=== PATIENT | male | born 1950 | race Caucasian/White ===

== ENCOUNTER → 2016-08-08 | Outpatient (CLI) | payer OTHER ==
--- NOTE | 2016-08-09 09:53 | ECHOF ---
Referral Reason:Dyspnea R06.00 MEASUREMENTS -------- HEIGHT: 180.3 cm WEIGHT: 61.2 kg BP: IVSd: 0.7 cm (0.6 - 1.1) LVIDd: 3.8 cm (3.9 - 5.3) LVPWd: 0.9 cm (0.6 - 1.1) IVSs: 1.2 cm LVIDs: 2.6 cm LVPWs: 1.3 cm Ao Diam: 2.8 cm (2.0 - 3.7) AV Cusp: 1.7 cm (1.5 - 2.6) LA Diam: 2.3 cm (2.7 - 3.8) MV EXCURSION: 10.998 mm (> 18.000) MV EF SLOPE: 117 mm/s (70 - 150) EPSS: 1.0 cm MV E Jb: 0.59 m/s MV DecT: 157 ms MV A Jb: 0.81 m/s MV E/A Ratio: 0.73 RAP: 5.00 mmHg RVSP: 11.05 mmHg FINDINGS -------- Sinus rhythm with extra systolic beats. Resting tachycardia (HR>100bpm). This was a technically good study. Left ventricular wall thickness is normal. Overall left ventricular systolic function is mildly impaired with, an EF between 45 - 50 %. The right ventricle is normal in size and function. The left atrium is normal in size. The right atrium is normal in size. Aortic valve is trileaflet and is mildly thickened. The mitral valve leaflets are mildly thickened. Mild mitral regurgitation is present. Mild tricuspid regurgitation present. The right ventricular systolic pressure, as measured by Doppler, is 11.05mmHg. Pulmonic valve appears structurally normal. The aortic root, ascending aorta and aortic arch are normal. The pericardium is normal. CONCLUSIONS -------- 1. Sinus rhythm with extra systolic beats. 2. The mitral valve leaflets are mildly thickened. 3. Mild mitral regurgitation is present. 4. Mild tricuspid regurgitation present. 5. The right ventricular systolic pressure, as measured by Doppler, is 11.05mmHg. 6. Pulmonic valve appears structurally normal. 7. The aortic root, ascending aorta and aortic arch are normal. 8. The pericardium is normal. 9. Resting tachycardia (HR>100bpm). 10. This was a technically good study. 11. Left ventricular wall thickness is normal. 12. Overall left ventricular systolic function is mildly impaired with, an EF between 45 - 50 %. 13. The right ventricle is normal in size and function. 14. The left atrium is normal in size. 15. The right atrium is normal in size. 16. Aortic valve is trileaflet and is mildly thickened. GUT SNATCHER: Sofie Selby RDCS
== END | disposition home or self-care (01) ==
LOC: RADECHMAIN 14:45
PROVIDERS: ATTEND Family Medicine
DX: I08.1 Rheumatic disorders of both mitral and tricuspid valves (principal); I77.89 Other specified disorders of arteries and arterioles
CPT/HCPCS: 93306

== ENCOUNTER → 2017-10-04 | Outpatient (CLI) | payer OTHER ==
[~2017-10-04] MED LIST: REGADENOSON 0.4 MG/5 ML SYRINGE IV ONE
--- NOTE | 2017-10-04 13:15 | NM ---
"EXAMINATION TYPE: NM stress lexiscan cardiolite DATE OF EXAM: 10/04/2017 COMPARISON: NONE HISTORY: Tachycardia, R00.0 TECHNIQUE: After the intravenous administration of 10.49 mCi Tc 99m Sestamibi - Cardiolite resting S PECT images acquired 45 minutes post injection. The patient received 0.4mg Lexiscan, 26.4 mCi Tc 99m Sestamibi - Stress images obtained [address] injection FINDINGS: Review of stress and rest SPECT images demonstrates some decreased uptake along the septum on stress and rest images. No definite decreased uptake on stress as compared to rest images. Gated analysis sh ows global hypokinesis, somewhat disorganized contractility with an estimated left ventricular ejecti on fraction of 24 %. IMPRESSION: No scintigraphic evidence for reversible ischemia. Correlate for possible prior infarct. Consider alfred carditis, abnormal low cardiac ejection fraction. A Yellow level critical message alert has been initiated for Manjula Marcano via the [facility] | Critical Results System on 10/04/2017 1:11 PM. This message alert has been sent to Manjula Marcano via the preferences provided by the clinician for the receipt of Radiology Critical F indings. Message ID [id number]."
--- NOTE | 2017-10-04 22:02 | EST ---
EXERCISE STRESS AGE: 66 SEX: Male. HT: 6'0" WT: 130 pounds. PROTOCOL: Lexiscan Cardiolite STAGE: DURATION OF EXERCISE: HEART RATE REST: 90 BLOOD PRESSURE REST: 175/58 MAXIMUM HEART RATE ACHIEVED: 112 MAXIMUM BLOOD PRESSURE: 172/89 85% MPHR: 131 100% MPHR: 154 METS: INDICATIONS: Tachycardia. CLINICAL INFORMATION: Baseline EKG revealed a normal sinus rhythm with voltage criteria for LVH. With Lexiscan administration, the patient's heart rate changed from 90 to 110 beats per minute. Blood pressure changed from 175/60 to 166/80. EKG remained unremarkable and inconclusive with rare PVCs. By EKG criteria, this is an unremarkable Lexiscan stress test. The nuclear scan results, which are more pertinent, will be reported by the radiologist. MMARGENTINAL / IJN: [id number] /
== END | disposition home or self-care (01) ==
LOC: RADNMMAIN 09:04
DX: R00.0 Tachycardia, unspecified (principal)
CPT/HCPCS: 93017; 78452; A9500; J2785

== ENCOUNTER → 2018-03-30 | Outpatient (CLI) | payer OTHER ==
--- NOTE | 2018-04-01 11:54 | ECHOF ---
Referral Reason:R94.31 Abn EKG MEASUREMENTS -------- HEIGHT: 182.9 cm WEIGHT: 59.0 kg BP: RVIDd: 1.9 cm (< 3.3) IVSd: 0.9 cm (0.6 - 1.1) LVIDd: 3.9 cm (3.9 - 5.3) LVPWd: 0.9 cm (0.6 - 1.1) IVSs: 1.2 cm LVIDs: 3.1 cm LVPWs: 1.2 cm Ao Diam: 3.6 cm (2.0 - 3.7) AV Cusp: 1.8 cm (1.5 - 2.6) LA Diam: 1.0 cm (2.7 - 3.8) MV E Jb: 0.77 m/s MV DecT: 309 ms MV A Jb: 1.10 m/s MV E/A Ratio: 0.70 FINDINGS -------- Resting tachycardia (HR>100bpm). This was a technically adequate study. The left ventricular size is normal. Left ventricular wall thickness is normal. Overall left vent ricular systolic function is low-normal with, an EF between 50 - 55 %. The right ventricle is normal in size and function. Normal LA size by volume 22+/-6 ml/m2. The right atrium is normal in size. There is mild aortic valve sclerosis. There is no evidence of aortic regurgitation. There is no e vidence of aortic stenosis. The mitral valve leaflets are mildly thickened. There is trace to mild mitral regurgitation. Trace tricuspid regurgitation present. Right ventricular systolic pressure is normal at < 35 mmHg. There is no evidence of pulmonary hypertension. The pulmonic valve was not well visualized. The aortic root size is normal. Normal inferior vena cava with normal inspiratory collapse consistent with estimated right atrial pre ssure of 5 mmHg. There is no pericardial effusion. 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 CONCLUSIONS -------- 1. Resting tachycardia (HR>100bpm). 2. This was a technically adequate study. 3. The left ventricular size is normal. 4. Left ventricular wall thickness is normal. 5. Overall left ventricular systolic function is low-normal with, an EF between 50 - 55 %. 6. Normal LA size by volume 22+/-6 ml/m2. 7. There is mild aortic valve sclerosis. 8. The mitral valve leaflets are mildly thickened. 9. There is trace to mild mitral regurgitation. 10. Trace tricuspid regurgitation present. 11. Right ventricular systolic pressure is normal at < 35 mmHg. 12. There is no evidence of pulmonary hypertension. 13. The pulmonic valve was not well visualized. 14. The aortic root size is normal. 15. There is no pericardial effusion. 16. 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 CONTROL ROOM SUPERVISOR: Ezra Palacios RDCS
== END | disposition home or self-care (01) ==
LOC: RADECHMAIN 15:34
DX: I08.0 Rheumatic disorders of both mitral and aortic valves (principal); I31.1 Chronic constrictive pericarditis
CPT/HCPCS: 93306

== ENCOUNTER 2024-12-27 10:45 | Inpatient (IN) | payer OTHER, MEDICARE ==
--- NOTE | 2024-12-27 11:51 | ED ---
General Adult HPI - General Chief complaint: Weakness Stated complaint: Weakness,SOB Time Seen by Provider: 12/27/24 11:06 Source: patient Mode of arrival: ambulatory Limitations: no limitations - History of Present Illness Initial comments: Dictation was produced using [employer] dictation software. please excuse any grammatical, word or spelling errors. Chief Complaint: 74-year-old male with daughter and girlfriend for weakness and poor appetite History of Present Illness: Patient 74-year-old male history of COPD on home O2. Patient has been feeling weak having poor appetite for the last 2 to 3 days. Patient denies any constitutional symptoms. Denies any pain complaints. Daughter states that patient is dehydrated. The ROS documented in this emergency department record has been reviewed and confirmed by me. Those systems with pertinent positive or negative responses have been documented in the HPI. All other systems are other negative and/or noncontributory. - Related Data Allergies Allergy/AdvReac Type Severity Reaction Status Date / Time No Known Allergies Allergy Verified 12/27/24 11:06 Review of Systems ROS Statement: Those systems with pertinent positive or pertinent negative responses have been documented in the HPI. ROS Other: All systems not noted in ROS Statement are negative. Past Medical History Past Medical History: No Reported History, COPD, Hypertension Past Surgical History: No Surgical Hx Reported Past Psychological History: No Psychological Hx Reported Smoking Status: Never smoker Past Alcohol Use History: None Reported Past Drug Use History: None Reported General Exam - General Exam Comments Initial Comments: PHYSICAL EXAM: General Impression: Alert and oriented x3, not in acute distress HEENT: Normocephalic atraumatic, extra-ocular movements intact, pupils equal and reactive to light bilaterally, dry mucous membranes Cardiovascular: Heart regular rate and rhythm Chest: Able to complete full sentences, no retractions, no tachypnea Abdomen: abdomen soft, non-tender, non-distended, no organomegaly Musculoskeletal: Pulses present and equal in all extremities, no peripheral edema Motor: no focal deficits noted Neurological: CN II-XII grossly intact, no focal motor or sensory deficits noted Skin: Intact with no visualized rashes Psych: Normal affect and mood Limitations: no limitations Course Vital Signs 12/27/24 12/27/24 12/27/24 10:50 11:00 12:23 Temperature 98.1 F Pulse Rate 63 107 H Respiratory 22 20 20 Rate Blood Pressure 142/79 127/85 O2 Sat by Pulse 90 L 98 Oximetry - Reevaluation(s) Reevaluation #1: 12/27/24 12:56 Patient not hypotensive and does not have a lactic acid level above 4. No concern for severe sepsis at this time. EKG Findings - EKG Comments: EKG Findings:: My EKG interpretation: Ventricular rate 112, sinus tachycardia, NM interval 144, cures 90, QTc 367. No NM prolongation, no QTC prolongation, no ST or T-wave changes noted. Overall, this EKG is unremarkable Medical Decision Making - Medical Decision Making Was pt. sent in by a medical professional or institution (, PA, CEMENT PAVER, urgent care, hospital, or assisted...) When possible be specific @ -No Did you speak to anyone other than the patient for history (EMS, parent, family, police, friend...)? What history was obtained from this source @ -Family as described above Did you review nursing and triage notes (agree or disagree)? Why? @ -I reviewed and agree with nursing and triage notes Were old charts reviewed (outside hosp., previous admission, EMS record, old EKG, old radiological studies, urgent care reports/EKG's, assisted records)? Report findings @ -No old charts were reviewed Differential Diagnosis (chest pain, altered mental status, abdominal pain women, abdominal pain men, vaginal bleeding, musculoskeletal, weakness, fever, dyspnea, syncope, headache, dizziness, GI bleed, back pain, seizure, CVA, palpatations, mental health)? @ -Differential Weakness: Hypoglycemia, shock, sepsis, hyponatremia, anemia, infection, NM, ETOH, adverse medicine reaction, overdose, stroke, this is not meant to be an all-inclusive l ist. EKG interpreted by me (3pts min.). @ -See above X-rays interpreted by me (1pt min.). @ -Chest x-ray shows infiltrate versus mass CT interpreted by me (1pt min.). @ -None done U/S interpreted by me (1pt. min.). @ -None done What testing was considered but not performed or refused? (CT, X-rays, U/S, labs)? Why? @ -None What meds were considered but not given or refused? Why? @ -None Was smoking cessation discussed for >3mins.? @ -No Were there social determinants of health that impacted care today? How? (Homelessness, low income, unemployed, alcoholism, drug addiction, transportatio n, low edu. Level, literacy, decrease access to med. care, half-way, rehab)? @ -No Was there de-escalation of care discussed even if they declined (Discuss DNR or withdrawal of care, Hospice)? DNR status @ -No What co-morbidities impacted this encounter? (DM, HTN, Smoking, COPD, CAD, Cancer, CVA, ARF, Chemo, Hep., AIDS, mental health diagnosis, sleep apnea, morbid obesity)? @ -Home O2 Was patient admitted / discharged? Hospital course, mention meds given and route, prescriptions, significant lab abnormalities, going to OR and other pertinent info. @ -74-year-old male with weakness. Vital signs upon arrival shows slight tachycardia. Patient 90% on 4 L nasal cannula. Patient in no acute distress at the bedside he does however. Slightly malaise. Leukocytosis 20.3 hemoglobin 11.6. Lactic acidosis 2.5. Rest of labs within acceptable limits. X-ray shows mass versus infiltrate. Patient started antibiotics will be admitted. Case discussed with hospitalist for admission Did you discuss the management of the patient with other professionals (professionals i.e. , PA, CEMENT PAVER, lab, RT, psych nurse, social sciences chair, laborer steel handling, teacher, commanding officer motorized squad, complex case manager)? Give summary @ -See above Was critical care preformed (if so, how long)? @ -No Undiagnosed new problem with uncertain prognosis? @ -No Drug Therapy requiring intensive monitoring for toxicity (Heparin, Nitro, Insulin, Cardizem)? @ -No Were any procedures done? @ -No Diagnosis/symptom? Acute, or Chronic, or Acute on Chronic? Uncomplicated (without systemic symptoms) or Complicated (systemic symptoms)? @ -Pneumonia Side effects of treatment? @ -No Exacerbation, Progression, or Severe Exacerbation? @ -No Poses a threat to life or bodily function? How? (Chest pain, USA, NM, pneumonia, PE, COPD, DKA, ARF, appy, cholecystitis, CVA, Diverticulitis, Homicidal, Suicidal, threat to staff... and all critical care pts) @ -yes - Lab Data Result diagrams: 12/27/24 11:50 12/27/24 11:50 Lab Results 12/27/24 12/27/24 12/27/24 Range/Units 11:50 11:50 11:50 WBC 20.34 H (4.50-10.00) 10*3/uL RBC 3.25 L (4.40-5.60) 10*6/uL Hgb 11.6 L (13.0-17.0) g/dL Hct 34.0 L (39.6-50.0) % MCV 104.6 H (80.0-97.0) fL MCH 35.7 H (27.0-32.0) pg MCHC 34.1 (32.0-37.0) g/dL Plt Count 365 (140-440) 10*3/uL MPV 9.2 L (9.5-12.2) fL Immature Gran % (Auto) 1.2 % Neutrophils % 89.8 % Lymphocytes % 2.3 % Monocytes % 6.3 % Eosinophils % 0.2 % Basophils % 0.2 % Immature Gran # 0.25 H (0.00-0.04) 10*3/uL Neutrophils # 18.25 H (1.80-7.70) 10*3/uL Lymphocytes # 0.47 L (0.90-5.00) 10*3/uL Monocytes # 1.28 H (0.20-1.00) 10*3/uL Eosinophils # 0.04 (0.04-0.35) 10*3/uL Basophils # 0.05 (0.00-0.10) 10*3/uL Sodium 132 L (137-145) mmol/L Potassium 3.7 (3.5-5.1) mmol/L Chloride 95 L (98-107) mmol/L Carbon Dioxide 29 (22-30) mmol/L Anion Gap 8 mmol/L BUN 18 (9-20) mg/dL Creatinine 0.31 L (0.66-1.25) mg/dL Est GFR (CKD-EPI)AfAm >90 (>60 ml/min/1.73 sqM) Est GFR (CKD-EPI)NonAf >90 (>60 ml/min/1.73 sqM) Glucose 95 (74-99) mg/dL Plasma Lactic Acid Wilman 2.5 H* (0.7-2.0) mmol/L Calcium 7.5 L (8.4-10.2) mg/dL Magnesium 2.1 (1.6-2.3) mg/dL Total Bilirubin 1.0 (0.2-1.3) mg/dL AST 61 H (17-59) U/L ALT 30 (4-49) U/L Alkaline Phosphatase 131 H (38-126) U/L Troponin I (0.000-0.034) ng/mL Total Protein 6.3 (6.3-8.2) g/dL Albumin 2.6 L (3.5-5.0) g/dL Influenza Type A (PCR) (Not Detectd) Influenza Type B (PCR) (Not Detectd) RSV (PCR) (Not Detectd) SARS-CoV-2 (PCR) (Not Detectd) 12/27/24 12/27/24 Range/Units 11:50 11:50 WBC (4.50-10.00) 10*3/uL RBC (4.40-5.60) 10*6/uL Hgb (13.0-17.0) g/dL Hct (39.6-50.0) % MCV (80.0-97.0) fL MCH (27.0-32.0) pg MCHC (32.0-37.0) g/dL Plt Count (140-440) 10*3/uL MPV (9.5-12.2) fL Immature Gran % (Auto) % Neutrophils % % Lymphocytes % % Monocytes % % Eosinophils % % Basophils % % Immature Gran # (0.00-0.04) 10*3/uL Neutrophils # (1.80-7.70) 10*3/uL Lymphocytes # (0.90-5.00) 10*3/uL Monocytes # (0.20-1.00) 10*3/uL Eosinophils # (0.04-0.35) 10*3/uL Basophils # (0.00-0.10) 10*3/uL Sodium (137-145) mmol/L Potassium (3.5-5.1) mmol/L Chloride (98-107) mmol/L Carbon Dioxide (22-30) mmol/L Anion Gap mmol/L BUN (9-20) mg/dL Creatinine (0.66-1.25) mg/dL Est GFR (CKD-EPI)AfAm (>60 ml/min/1.73 sqM) Est GFR (CKD-EPI)NonAf (>60 ml/min/1.73 sqM) Glucose (74-99) mg/dL Plasma Lactic Acid Wilman (0.7-2.0) mmol/L Calcium (8.4-10.2) mg/dL Magnesium (1.6-2.3) mg/dL Total Bilirubin (0.2-1.3) mg/dL AST (17-59) U/L ALT (4-49) U/L Alkaline Phosphatase (38-126) U/L Troponin I 0.012 (0.000-0.034) ng/mL Total Protein (6.3-8.2) g/dL Albumin (3.5-5.0) g/dL Influenza Type A (PCR) Not Detected (Not Detectd) Influenza Type B (PCR) Not Detected (Not Detectd) RSV (PCR) Not Detected (Not Detectd) SARS-CoV-2 (PCR) Not Detected (Not Detectd) Disposition Clinical Impression: Pneumonia Disposition: ADMITTED IP TO THIS HOSP Condition: Fair Referrals: Rd Garcia DO [Primary Care Provider] - 1-2 days Decision Time: 13:58
[2024-12-27 12:03] LABS: Basophils # (A) 0.05 10*3/uL (0.00-0.10); Basophils % (A) 0.2 %; Eosinophils # (A) 0.04 10*3/uL (0.04-0.35); Eosinophils % (A) 0.2 %; HCT 34.0 % (39.6-50.0); HGB 11.6 g/dL (13.0-17.0); Lymphocytes # (A) 0.47 10*3/uL (0.90-5.00); Lymphocytes % (A) 2.3 %; MCH 35.7 pg (27.0-32.0); MCHC 34.1 g/dL (32.0-37.0); MCV 104.6 fL (80.0-97.0); Monocytes # (A) 1.28 10*3/uL (0.20-1.00); Monocytes % (A) 6.3 %; Neutrophils # (A) 18.25 10*3/uL (1.80-7.70); Neutrophils % (A) 89.8 %; Platelet Count 365 10*3/uL (140-440); RBC 3.25 10*6/uL (4.40-5.60); RDW 12.3 % (11.5-14.5); WBC 20.34 10*3/uL (4.50-10.00)
[2024-12-27 12:12] LABS: ALT 30 U/L (4-49); AST 61 U/L (17-59); African American GFR (CKD) >90 (>60 ml/min/1.73 sqM); Albumin 2.6 g/dL (3.5-5.0); Alkaline Phosphatase 131 U/L (38-126); Anion Gap 8 mmol/L; Blood Urea Nitrogen 18 mg/dL (9-20); Calcium 7.5 mg/dL (8.4-10.2); Carbon Dioxide 29 mmol/L (22-30); Chloride 95 mmol/L (98-107); Glucose 95 mg/dL (74-99); Magnesium 2.1 mg/dL (1.6-2.3); Non-African American GFR(CKD) >90 (>60 ml/min/1.73 sqM); Potassium 3.7 mmol/L (3.5-5.1); Sodium 132 mmol/L (137-145); Total Protein 6.3 g/dL (6.3-8.2)
[2024-12-27] MEDS: SODIUM CHLORIDE 0.9% 1,000 ML IV STA (12:20)
[2024-12-27 12:44] LABS: RSV Not Detected (Not Detectd)
--- NOTE | 2024-12-27 12:52 | XR ---
EXAMINATION TYPE: XR chest 2V DATE OF EXAM: 12/27/2024 12:33 PM COMPARISON: 06/02/2014 CLINICAL INDICATION: Male, 74 years old with history of weakness: Shortness of breath TECHNIQUE: XR chest 2V views of the chest are obtained. FINDINGS: Scattered senescent parenchymal changes noted. Hyperinflation compatible with COPD. Left suprahilar masslike density with peripheral infiltrate. Masslike density left lower lobe and rig ht midlung zone as well. Heart size is stable. Mediastinal structures are stable and grossly unremarkable. No evidence for hilar prominence. Degenerative changes dorsal spine. IMPRESSION: 1. Left suprahilar masslike density with peripheral infiltrate. Masslike density left lower lobe and right midlung zone as well. [facility], , 12/27/2024 12:49 PM
[2024-12-27] MEDS ORDERED: cefTRIAXone IN SWFI 1,000 MG/10 ML SYRINGE IVP SCH (13:00)
[2024-12-27] MEDS ORDERED: PNEUMONIA PROTOCOL UTILIZED 1 EACH MISC PO PRN (13:52)
[2024-12-27] MEDS: AZITHROMYCIN 500 MG in SODIUM CHLORIDE 0.9% 250 ML IVPB SCH (13:52)
[2024-12-27] MEDS ORDERED: RX INFO: IV CONTRAST WAS GIVEN 1 EACH MISC MISCELLANE PRN (13:57)
[2024-12-27] MEDS: SODIUM CHLORIDE 0.9% 1,000 ML IV SCH (14:00)
[2024-12-27] MEDS ORDERED: LORazepam 1 MG TAB PO PRN ×3 (14:16)
[2024-12-27] MEDS ORDERED: LORazepam 0.5 MG TAB PO PRN (14:16)
[2024-12-27 14:17] LABS: Bilirubin,Urine Negative (Negative); Blood,Urine Negative (Negative); Color,Urine Yellow; Glucose,Urine (UA) Negative (Negative); Ketones,Urine 1+ (Negative); Leukocyte Esterase,Urine Negative (Negative); Nitrite,Urine Negative (Negative); PH, Urine 5.5 (5.0-8.0); Protein,Urine Trace (Negative); Specific Gravity,Urine 1.027 (1.001-1.035); Urobilinogen,Urine 3.0 mg/dL (<2.0)
--- NOTE | 2024-12-27 14:31 | P.HPIM ---
History of Present Illness H&P Date: 12/27/24 Patient is a 34-year-old male with past medical history of chronic hypoxic respiratory failure secondary to COPD on home oxygen 2-3L, hypertension, former smoker quit 15 years ago, alcohol use disorder, who presented to the ER on 12/27/2024 for weakness, poor appetite over the past couple days. Patient is accompanied by his daughter and girlfriend. They provide collateral history. He denies any associated fevers, chills, worsening shortness of breath, chest pain, abdominal pain, changes in bowel habits, dysuria, lower extremity edema. Patient drinks 3-4 beers a day, no history of withdrawal. He had sinus infection back in October and started losing weight after due to decreased chalino etite, around 15 pound weight loss. Denies history of malignancy. On arrival afebrile, heart rate in 60s, BP 142/79, SpO2 90% on 4 L Blood work significant for leukocytosis up to 20.3, hemoglobin 11.6, platelet count normal, sodium 132, potassium 3.7, creatinine 0.3, lactic acid 2.5, AST elevated 61, ALT normal at 30, alk phos 131, troponin 0.0 12, Cepheid negative. Chest x-ray showed left suprahilar masslike density with peripheral infiltrate. Masslike density left lower lobe and right midlung zone EKG showed sinus tachycardia with heart rate in 100s, QTc 367, no QTc prolongation, no ST elevation. Patient will be admitted as inpatient for further management of acute on chronic hypoxic respiratory failure secondary to community-acquired pneumonia, possible lung mass, malnutrition. CT chest ordered, started on IV antibiotics with azithromycin and ceftriaxone, nutrition, PT OT consulted, CIWA with Ativan and multivitamins for alcohol use disorder, anemia workup with vitamin B12, folate, TSH. Pertinent positives and negatives as discussed in HPI, a complete review of systems was performed and all other systems are negative. Patient seen and examined at bedside. Vital signs reviewed General: Chronically ill-appearing, not in acute distress, cachectic Derm: warm, dry Head: atraumatic, normocephalic, symmetric Eyes: EOMI, no lid lag, anicteric sclera, pupils equal round reactive to light ENT: Nose and ears atraumatic Neck: No thyromegaly, supple Mouth: no lip lesion, mucus membranes moist Cardiovascular: S1S2 reg, no murmur, no edema Lungs: Diminished breath sounds bilaterally, no wheezing, no rhonchi, no rales, no wheeze, no accessory muscle use Abdominal: soft, nontender to palpation, no guarding, no appreciable organomegaly Ext: no gross muscle atrophy, muscle strength muscle strength 5 out of 5 in all 4 extremities, no contractures Neuro: CN II-XII grossly intact Psych: Alert, oriented, appropriate affect Assessment/Plan: Acute on chronic hypoxic respiratory failure secondary to community-acquired pneumonia Chronic hypoxic respiratory failure secondary to COPD on home 2 to 3 L, not in acute exacerbation left suprahilar masslike density with peripheral infiltrate. Masslike density left lower lobe and right midlung zone Generalized weakness, decreased oral intake likely secondary to above Protein calorie malnutrition Hyponatremia likely secondary to decreased solid intake - Continue azithromycin 500 mg IV daily, ceftriaxone 1 g daily SOT 12/27 -Follow-up urine Legionella, procalcitonin ordered, sputum cultures ordered, blood cultures ordered - CBC daily - CT chest with contrast ordered - Repeat lactic acid level - Continue NS at 75 cc/h - Scheduled DuoNebs 4 times daily nebulization, Dulera 13 g twice daily - Nutrition consult, PT OT consult, continue Ensure twice daily - Fall precautions -Check TSH Hypertension: Continue home Toprol-XL 100 mg daily Alcohol use disorder Elevated AST likely secondary to the above - CIWA with Ativan, thiamine 100 mg daily, folic acid 1 mg daily, social work consulted -CMP daily Macrocytic anemia likely due to malnutrition and alcohol use disorder -Denies blood in stool or urine, will monitor CBC daily, check B12 and folate The patient is admitted with an anticipated greater than 2 midnight stay as inpatient status for evaluation of acute on chronic hypoxic respiratory failure, community-acquired pneumonia, evaluation of possible lung mass. Surrogate decision-maker: Daughter CODE STATUS: Full code DVT prophylaxis: Lovenox Anticipated discharge date: TBD Anticipated discharge place: [facility] A total of 40 minutes was spent on the care of this complex patient more than 50% of the time was spent in counseling and care coordination. Past Medical History Past Medical History: No Reported History, COPD, Hypertension Past Surgical History: No Surgical Hx Reported Past Psychological History: No Psychological Hx Reported Smoking Status: Never smoker Past Alcohol Use History: None Reported Past Drug Use History: None Reported Medications and Allergies Home Medications Medication Instructions Recorded Confirmed Type Ensure 1 can PO BID 12/27/24 12/27/24 History Metoprolol Succinate (ER) [Toprol 100 mg PO DAILY 12/27/24 12/27/24 History Xl] Mometasone/Formoterol [Dulera 100 2 puff INHALATION RT-BID 12/27/24 12/27/24 History Mcg-5 Mcg Inhaler] Zzzquil Diphenhydramine Hcl 30 ml PO HS 12/27/24 12/27/24 History 50mg/30ml Allergies Allergy/AdvReac Type Severity Reaction Status Date / Time No Known Allergies Allergy Verified 12/27/24 14:11 Physical Exam Vitals: Vital Signs Temp Pulse Resp BP Pulse Ox 12/27/24 12:23 107 H 20 127/85 98 12/27/24 11:00 20 12/27/24 10:50 98.1 F 63 22 142/79 90 L Intake and Output 12/26/24 12/27/24 12/27/24 22:59 06:59 14:59 Other: Weight 56.699 kg Results CBC & Chem 7: 12/27/24 11:50 12/27/24 11:50 Labs: Abnormal Lab Results - Last 24 Hours (Table) 12/27/24 12/27/24 12/27/24 Range/Units 11:50 11:50 11:50 WBC 20.34 H (4.50-10.00) 10*3/uL RBC 3.25 L (4.40-5.60) 10*6/uL Hgb 11.6 L (13.0-17.0) g/dL Hct 34.0 L (39.6-50.0) % MCV 104.6 H (80.0-97.0) fL MCH 35.7 H (27.0-32.0) pg MPV 9.2 L (9.5-12.2) fL Immature Gran # 0.25 H (0.00-0.04) 10*3/uL Neutrophils # 18.25 H (1.80-7.70) 10*3/uL Lymphocytes # 0.47 L (0.90-5.00) 10*3/uL Monocytes # 1.28 H (0.20-1.00) 10*3/uL Sodium 132 L (137-145) mmol/L Chloride 95 L (98-107) mmol/L Creatinine 0.31 L (0.66-1.25) mg/dL Plasma Lactic Acid Wilman 2.5 H* (0.7-2.0) mmol/L Calcium 7.5 L (8.4-10.2) mg/dL AST 61 H (17-59) U/L Alkaline Phosphatase 131 H (38-126) U/L Albumin 2.6 L (3.5-5.0) g/dL Urine Protein (Negative) Urine Ketones (Negative) 12/27/24 Range/Units 14:00 WBC (4.50-10.00) 10*3/uL RBC (4.40-5.60) 10*6/uL Hgb (13.0-17.0) g/dL Hct (39.6-50.0) % MCV (80.0-97.0) fL MCH (27.0-32.0) pg MPV (9.5-12.2) fL Immature Gran # (0.00-0.04) 10*3/uL Neutrophils # (1.80-7.70) 10*3/uL Lymphocytes # (0.90-5.00) 10*3/uL Monocytes # (0.20-1.00) 10*3/uL Sodium (137-145) mmol/L Chloride (98-107) mmol/L Creatinine (0.66-1.25) mg/dL Plasma Lactic Acid Wilman (0.7-2.0) mmol/L Calcium (8.4-10.2) mg/dL AST (17-59) U/L Alkaline Phosphatase (38-126) U/L Albumin (3.5-5.0) g/dL Urine Protein Trace H (Negative) Urine Ketones 1+ H (Negative)
--- NOTE | 2024-12-27 15:15 | CT ---
CT chest with contrast HISTORY: Abnormal chest x-ray COMPARISON: None TECHNIQUE: Multiple axial images were obtained thorax following IV contrast material. FINDINGS: There is marked volume loss in the left lung with shift mediastinum to the left. There is marked scat tered airspace consolidation greatest in the left upper lung zones but also within the posterior lung bases well. There are multiple cystic structures within the consolidation some of which display air- fluid levels possibly indicating multiple lung abscesses. The right lung there is a broad band of density extending from the right infrahilar region to the ple ural there is focal pleural thickening. This possibly indicates an inflammatory process or neoplasm. There is marked pleural parenchymal scarring in the right lung apex and there are moderate emphysemat ous changes in the right upper lobe. There is a 15 mm subcarinal lymph node in the 16 mm mediastinal node in the AP window. The great vess els chest are normal. The heart is not enlarged. Limited scanning through the upper abdomen reveals liver steatosis. There are no focal osseous lesion s. IMPRESSION: 1. Marked volume loss in the left lung with marked mixed consolidative and cystic density left lung w ith scattered air-fluid levels suggesting multiple lung abscesses. 2. Thick bandlike density in the right infrahilar region extending to the pleura which is focally thi ckened raising the question of neoplasm or acute or chronic inflammation. 3. Mediastinal adenopathy as described above [facility], , 12/27/2024 3:13 PM
--- NOTE | 2024-12-27 15:51 | P.CNPUL ---
History of Present Illness Consult date: 12/27/24 Requesting physician: Hawa Serna Reason for consult: abnormal CXR/CT Chief complaint: Generalized weakness, poor appetite History of present illness: This is a 74-year-old male patient who follows at the [facility] for chronic obstructive pulmonary disease, daily alcohol use and hypertension. He does have a 50-year pack per day smoking history however quit 14 years ago. He does have home oxygen. He is on Dulera. He was brought into the emergency room this morning with a 2 to 3-day progressive history of increasing weakness poor appetite and shortness of breath. He states he has lost over 12 to 13 pounds in the past week or two. Chest x-ray reveals a left suprahilar masslike density with peripheral infiltrate. Masslike density in the left lower and right midlung zone as well. CT scan of the chest reveals marked volume loss in the left lung with marked mixed consolidative and cystic density in the left lung with scattered air-fluid levels suggesting multiple lung abscesses. Thick bandlike density in the right infrahilar region extending to the pleura which is focally thickened raising the question of neoplasm versus chronic inflammation. Mediastinal adenopathy is present. White count 20.3. Hemoglobin 11.6. Platelets 365. Sodium 132. Potassium 3.7. Bicarb 29. BUN 18. Creatinine 0.31. Lactic acid 2.5. Urinalysis clean. Viral screen negative for influenza A/B, RSV, COVID. He is seen today in consultation in the emergency department. Currently and lying flat on a stretcher. Awake and alert in no acute distress. He is quite cachectic appearing. Quite thin. He is maintaining O2 saturations in the 90s on 4 L high flow nasal cannula. He is afebrile. Hemodynamically stable. Review of Systems REVIEW OF SYSTEMS: CONSTITUTIONAL: Positive for generalized weakness. Positive for significant weight loss. EYES: Denies change in vision. EARS, NOSE, MOUTH, THROAT: Denies headaches, denies sore throat. CARDIOVASCULAR: Denies chest pain, palpitations or syncopal episodes. RESPIRATORY: Positive for shortness of breath, cough, congestion no hemoptysis. GASTROINTESTINAL: Positive for poor appetite, denies abdominal pain GENITOURINARY: Denies hematuria, denies infections. MUSKULOSKELETAL: Denies pain, denies swelling. INTEGUMENTARY: Denies rash, denies eczema. NEUROLOGICAL: Denies recent memory loss, no recent seizure activity. PSYCHIATRIC: Denies anxiety, denies depression. HEMATOLOGIC/LYMPHATIC: Denies anemia, denies enlarged lymph nodes. Past Medical History Past Medical History: No Reported History, COPD, Hypertension Past Surgical History: No Surgical Hx Reported Past Psychological History: No Psychological Hx Reported Smoking Status: Never smoker Past Alcohol Use History: None Reported Past Drug Use History: None Reported Medications and Allergies Home Medications Medication Instructions Recorded Confirmed Type Ensure 1 can PO BID 12/27/24 12/27/24 History Metoprolol Succinate (ER) [Toprol 100 mg PO DAILY 12/27/24 12/27/24 History Xl] Mometasone/Formoterol [Dulera 100 2 puff INHALATION RT-BID 12/27/24 12/27/24 History Mcg-5 Mcg Inhaler] Zzzquil Diphenhydramine Hcl 30 ml PO HS 12/27/24 12/27/24 History 50mg/30ml Allergies Allergy/AdvReac Type Severity Reaction Status Date / Time No Known Allergies Allergy Verified 12/27/24 14:11 Physical Exam Vitals: Vital Signs Temp Pulse Resp BP Pulse Ox 12/27/24 12:23 107 H 20 127/85 98 12/27/24 11:00 20 12/27/24 10:50 98.1 F 63 22 142/79 90 L Intake and Output 12/27/24 12/27/24 12/27/24 06:59 14:59 22:59 Other: Weight 56.699 kg GENERAL EXAM: Alert, weak, cachectic 74-year-old male, on 4 L nasal cannula, fairly comfortable in no apparent distress. HEAD: Normocephalic. EYES: Normal reaction of pupils, equal size. NOSE: Clear with pink turbinates. THROAT: No erythema or exudates. NECK: No masses, no JVD. CHEST: No chest wall deformity. LUNGS: Equal air entry with bilateral scattered rhonchi. CVS: S1 and S2 normal with no audible murmur, regular rhythm. ABDOMEN: No hepatosplenomegaly, normal bowel sounds, no guarding or rigidity. SPINE: No scoliosis or deformity SKIN: No rashes CENTRAL NERVOUS SYSTEM: No focal deficits, tone is normal in all 4 extremities. EXTREMITIES: There is no peripheral edema. No clubbing, no cyanosis. Peripheral pulses are intact. Results - Laboratory Findings CBC and BMP: 12/27/24 11:50 12/27/24 11:50 Abnormal lab findings: Abnormal Labs 12/27/24 12/27/24 12/27/24 11:50 11:50 11:50 WBC 20.34 H RBC 3.25 L Hgb 11.6 L Hct 34.0 L MCV 104.6 H MCH 35.7 H MPV 9.2 L Immature Gran # 0.25 H Neutrophils # 18.25 H Lymphocytes # 0.47 L Monocytes # 1.28 H Sodium 132 L Chloride 95 L Creatinine 0.31 L Plasma Lactic Acid Wilman 2.5 H* Calcium 7.5 L AST 61 H Alkaline Phosphatase 131 H Albumin 2.6 L Urine Protein Urine Ketones 12/27/24 14:00 WBC RBC Hgb Hct MCV MCH MPV Immature Gran # Neutrophils # Lymphocytes # Monocytes # Sodium Chloride Creatinine Plasma Lactic Acid Wilman Calcium AST Alkaline Phosphatase Albumin Urine Protein Trace H Urine Ketones 1+ H - Diagnostic Findings Chest x-ray: image reviewed CT scan - chest: image reviewed Assessment and Plan Assessment: Acute hypoxic respiratory failure secondary to acute community acquired pneumonia and/or lung masses. CT scan of the chest reveals marked volume loss in the left lung with marked mixed consolidative and cystic density in the left lung with scattered air-fluid levels suggesting multiple lung abscesses. Thick bandlike density in the right infrahilar region extending to the pleura which is focally thickened raising the question of neoplasm versus chronic inflammation. Mediastinal adenopathy is present. Generalized weakness, poor appetite and weight loss secondary to above 50-year history of chronic tobacco dependence at 1 pack/day however quit 14 years ago Chronic obstructive pulmonary disease Chronic hypoxic respiratory failure on home oxygen Hypertension Chronic daily alcohol use Cachexia/anorexia syndrome Plan: The patient was seen and evaluated All imaging, labs and medications reviewed Continue Unasyn and azithromycin for now Check a procalcitonin Initiate DuoNeb inhalations Initiate Symbicort Lovenox for DVT prophylaxis Continue normal saline at 75 mL/h Initiated on the CIWA protocol Spoke with the patient and his daughter raising the possibility of lung cancer We will continue to follow and make further recommendations based on his c linical status I have personally seen and examined the patient, performed the documentation and the assessment and plan as written. Number of minutes spent on the visit: 20 Dictation was produced using Dragon dictation software. Please excuse any grammatical, word or spelling errors. Time with Patient: Greater than 30
[2024-12-27] MEDS: IPRATROPIUM-ALBUTEROL 3 ML NEB INHALATION SCH (16:10)
[2024-12-27] MEDS ORDERED: VANCOMYCIN IV PER PHARMACY 1 EACH MISC MISCELLANE PRN (16:17)
[2024-12-27] MEDS: AMPICILLIN-SULBACTAM 3 GM in SODIUM CHLORIDE 0.9% 100 ML IVPB SCH (18:13)
[2024-12-27] MEDS: VANCOMYCIN 1,000 MG in SODIUM CHLORIDE 0.9% 250 ML IVPB SCH (18:14)
[2024-12-27] MEDS: SYMBICORT 80-4.5 MCG INHALER INHALATION SCH (21:08)
--- NOTE | 2024-12-27 22:55 | P.CONS ---
History of Present Illness - Reason for Consult Consult date: 12/27/24 Lung abscess Requesting physician: Hawa Serna - Chief Complaint Shortness of breath and cough x days - History of Present Illness Patient is a 74-year-old male with a past medical history significant for COPD hypertension alcohol abuse and and [id number] smoking has been brought to the hospital concerning for increasing weakness decreased appetite and shortness of breath patient apparently has lost 12 to 13 pounds over the last 2 weeks patient complaining of unable to keep anything down whenever he eats this comes out of him patient denies having any chest pain he did have a cough but never bring up any sputum patient denies having any abdominal pain no diarrhea or presentation to the hospital patient was afebrile patient was tachycardic not hypotensive hypoxic currently on 4 L nasal cannula oxygen he did have a white count of 20.34 with a left shift creatinine 0.31 lactic acid was 2.5 urine has been negative influenza RSV COVID testing was negative patient did have a chest x-ray left suprahilar masslike density with peripheral infiltrate masslike density left lower lobe and right midlung zone as well CT of the chest marked volume loss in the left lung with marked increased consolidative and cystic density concerning for lung abscess metastatic adenopathy patient was started on Unasyn infectious disease was consulted for further management of antibiotic therapy Review of Systems Positive point and negatives has been mentioned in the HPI, complete review of systems was performed and all other systems are negative Past Medical History Past Medical History: No Reported History, COPD, Hypertension Past Surgical History: No Surgical Hx Reported Past Psychological History: No Psychological Hx Reported Smoking Status: Never smoker Past Alcohol Use History: None Reported Past Drug Use History: None Reported Medications and Allergies Home Medications Medication Instructions Recorded Confirmed Type Ensure 1 can PO BID 12/27/24 12/27/24 History Metoprolol Succinate (ER) [Toprol 100 mg PO DAILY 12/27/24 12/27/24 History Xl] Mometasone/Formoterol [Dulera 100 2 puff INHALATION RT-BID 12/27/24 12/27/24 History Mcg-5 Mcg Inhaler] Zzzquil Diphenhydramine Hcl 30 ml PO HS 12/27/24 12/27/24 History 50mg/30ml Allergies Allergy/AdvReac Type Severity Reaction Status Date / Time No Known Allergies Allergy Verified 12/27/24 14:11 Physical Exam Vitals: Vital Signs Temp Pulse Resp BP Pulse Ox 12/27/24 21:23 98 12/27/24 21:11 106 H 12/27/24 21:10 112 H 18 131/69 98 12/27/24 19:00 105 H 19 108/71 100 12/27/24 18:00 105 H 20 117/71 99 12/27/24 17:00 105 H 17 116/66 99 12/27/24 16:19 103 H 12/27/24 16:11 105 H 97 12/27/24 16:00 102 H 26 H 127/65 96 12/27/24 15:00 108 H 20 126/68 99 12/27/24 14:00 106 H 22 138/75 100 12/27/24 12:23 107 H 20 127/85 98 12/27/24 11:00 20 12/27/24 10:50 98.1 F 63 22 142/79 90 L Intake and Output 12/27/24 12/27/24 12/27/24 06:59 14:59 22:59 Other: Weight 56.699 kg GENERAL DESCRIPTION: Elderly male lying in bed, no distress. No tachypnea or accessory muscle of respiration use. HEENT: Shows Pallor , no scleral icterus. Oral mucous membrane is dry. NECK: Trachea central, no thyromegaly. LUNGS: Unlabored breathing. Coarse breath sounds bilaterally HEART: S1, S2, regular rate and rhythm. No loud murmur ABDOMEN: Soft, no tenderness , EXTREMITIES: No edema of feet. SKIN: No rash, no masses palpable. NEUROLOGICAL: The patient is awake, alert, oriented x3, mood and affect normal. Results CBC & Chem 7: 12/27/24 11:50 12/27/24 11:50 Labs: Abnormal Lab Results - Last 24 Hours (Table) 12/27/24 12/27/24 12/27/24 Range/Units 11:50 11:50 11:50 WBC 20.34 H (4.50-10.00) 10*3/uL RBC 3.25 L (4.40-5.60) 10*6/uL Hgb 11.6 L (13.0-17.0) g/dL Hct 34.0 L (39.6-50.0) % MCV 104.6 H (80.0-97.0) fL MCH 35.7 H (27.0-32.0) pg MPV 9.2 L (9.5-12.2) fL Immature Gran # 0.25 H (0.00-0.04) 10*3/uL Neutrophils # 18.25 H (1.80-7.70) 10*3/uL Lymphocytes # 0.47 L (0.90-5.00) 10*3/uL Monocytes # 1.28 H (0.20-1.00) 10*3/uL Sodium 132 L (137-145) mmol/L Chloride 95 L (98-107) mmol/L Creatinine 0.31 L (0.66-1.25) mg/dL Plasma Lactic Acid Wilman 2.5 H* (0.7-2.0) mmol/L Calcium 7.5 L (8.4-10.2) mg/dL AST 61 H (17-59) U/L Alkaline Phosphatase 131 H (38-126) U/L Albumin 2.6 L (3.5-5.0) g/dL Urine Protein (Negative) Urine Ketones (Negative) 12/27/24 Range/Units 14:00 WBC (4.50-10.00) 10*3/uL RBC (4.40-5.60) 10*6/uL Hgb (13.0-17.0) g/dL Hct (39.6-50.0) % MCV (80.0-97.0) fL MCH (27.0-32.0) pg MPV (9.5-12.2) fL Immature Gran # (0.00-0.04) 10*3/uL Neutrophils # (1.80-7.70) 10*3/uL Lymphocytes # (0.90-5.00) 10*3/uL Monocytes # (0.20-1.00) 10*3/uL Sodium (137-145) mmol/L Chloride (98-107) mmol/L Creatinine (0.66-1.25) mg/dL Plasma Lactic Acid Wilman (0.7-2.0) mmol/L Calcium (8.4-10.2) mg/dL AST (17-59) U/L Alkaline Phosphatase (38-126) U/L Albumin (3.5-5.0) g/dL Urine Protein Trace H (Negative) Urine Ketones 1+ H (Negative) Assessment and Plan (1) Sepsis Current Visit: Yes Status: Acute Code(s): A41.9 - SEPSIS, UNSPECIFIED ORGANISM SNOMED Code(s): 35782198 (2) Lung abscess Current Visit: Yes Status: Acute Code(s): J85.2 - ABSCESS OF LUNG WITHOUT PNEUMONIA SNOMED Code(s): 42339646 (3) Pneumonia Current Visit: Yes Status: Acute Code(s): J18.9 - PNEUMONIA, UNSPECIFIED ORGANISM SNOMED Code(s): 406463661 Plan: 1patient was in the hospital with sepsis in this patient who did have tachycardia elevated white count elevated lactic acid meeting criteria for SIRS/sepsis source is likely either postobstructive pneumonia/lung abscess in this patient who did have significant history of smoking and concern for possible malignancy with secondary postobstructive pneumonia and abscess and will need to cover for the polymicrobial pablo associated with such infection 2patient benefit from bronchoscopy lavage and deep culture and try to pending sputum 3patient be empirically treated with Unasyn while waiting for the workup to be completed Family at the bedside question were answered We will follow on clinical condition and cultures to further adjust medication if needed Thank you for this consultation we will follow the patient along with you Dictation was produced using [employer] dictation software. please excuse any grammatical, word or spelling errors. Time with Patient: Greater than 30
[2024-12-28] MEDS: LORazepam 1 MG TAB PO PRN (00:09)
[2024-12-28] MEDS: ONDANSETRON 4 MG/2 ML VIAL IVP PRN (00:10)
[2024-12-28] MEDS ORDERED: VANCOMYCIN 1,000 MG in SODIUM CHLORIDE 0.9% 250 ML IVPB SCH (02:00)
[2024-12-28] MEDS: ACETAMINOPHEN TAB 325 MG TAB PO PRN (02:38)
[2024-12-28 03:02] LABS: Vitamin B12 721.0 pg/mL (200.0-944.0)
[2024-12-28] MEDS: IBUPROFEN IV 800 MG in SODIUM CHLORIDE 0.9% 250 ML IV ONE (03:06)
[2024-12-28] MEDS: SODIUM CHLORIDE 0.9% 500 ML 500 ML IV ONE (04:33)
--- NOTE | 2024-12-28 06:59 | XR ---
EXAMINATION TYPE: XR chest 1V portable DATE OF EXAM: 12/28/2024 COMPARISON: 12/27/2024 CLINICAL INDICATION: Male, 74 years old with history of pneumonia; TECHNIQUE: Single frontal view of the chest is obtained. FINDINGS: There is a stable partially consolidated focal opacity in the right midlung. There is a stable diffus e partially consolidative opacification involving the entire left hemithorax There is no pneumothorax. The osseous structures are intact. IMPRESSION: No interval change in the marked cardiopulmonary process involving the entire left lung and no change in the small focal opacity in the right mid lower lung zone. [facility], , 12/28/2024 6:57 AM
[2024-12-28] MEDS: THIAMINE 100 MG TAB PO SCH (10:00)
[2024-12-28] MEDS: ENOXAPARIN 40 MG/0.4 ML SYRINGE SQ SCH (10:00)
[2024-12-28] MEDS: METOPROLOL SUCCINATE (ER) 100 MG TAB.ER.24H PO SCH (10:00)
[2024-12-28] MEDS: FOLIC ACID 1 MG TAB PO SCH (10:00)
--- NOTE | 2024-12-28 10:49 | P.PN ---
Subjective Progress Note Date: 12/28/24 This is a 74-year-old male patient who follows at the [facility] for chronic obstructive pulmonary disease, daily alcohol use and hypertension. He does have a 50-year pack per day smoking history however quit 14 years ago. He does have home oxygen. He is on Dulera. He was brought into the emergency room this morning with a 2 to 3-day progressive history of increasing weakness poor appetite and shortness of breath. He states he has lost over 12 to 13 pounds in the past week or two. Chest x-ray reveals a left suprahilar masslike density with peripheral infiltrate. Masslike density in the left lower and right midlung zone as well. CT scan of the chest reveals marked volume loss in the left lung with marked mixed consolidative and cystic density in the left lung with scattered air-fluid levels suggesting multiple lung abscesses. Thick bandlike density in the right infrahilar region extending to the pleura which is focally thickened raising the question of neoplasm versus chronic inflammation. Mediastinal adenopathy is present. White count 20.3. Hemoglobin 11.6. Platelets 365. Sodium 132. Potassium 3.7. Bicarb 29. BUN 18. Creatinine 0.31. Lactic acid 2.5. Urinalysis clean. Viral screen negative for influenza A/B, RSV, COVID. He is seen today in consultation in the emergency department. Currently and lying flat on a stretcher. Awake and alert in no acute distress. He is quite cachectic appearing. Quite thin. He is maintaining O2 saturations in the 90s on 4 L high flow nasal cannula. He is afebrile. Hemodynamically stable. The patient is seen today December 28, 2024 in follow-up on the regular medical floor. He is currently resting in bed. Awake and alert in no acute distress. Maintaining O2 saturations up to 100% on 4 L/min per nasal cannula. He is f eeling a bit better today compared to yesterday. He remains on Unasyn. Normal saline at 75 mL/h. Procalcitonin was 0.48. Follow-up chest x-ray shows no interval change in the marked cardiopulmonary process involving the entire left lung and a small focal opacity in the right midlung. No new labs today. Remains on DuoNeb and elations, Symbicort. Lovenox for DVT prophylaxis. Remains in the CIWA protocol. Required Ativan just after midnight today. Objective - Vital Signs Vital signs: Vital Signs Temp 97.5 F L 12/28/24 07:33 Pulse 100 12/28/24 09:29 Resp 20 12/28/24 07:33 BP 92/53 12/28/24 07:33 Pulse Ox 91 L 12/28/24 07:33 FiO2 Intake & Output 12/27/24 12/28/24 12/28/24 18:59 06:59 18:59 Weight 56.699 kg 56.699 kg - Exam GENERAL EXAM: Alert, weak 74-year-old male, on 4 L nasal cannula, fairly comfortable in no apparent distress. HEAD: Normocephalic. EYES: Normal reaction of pupils, equal size. NOSE: Clear with pink turbinates. THROAT: No erythema or exudates. NECK: No masses, no JVD. CHEST: No chest wall deformity. LUNGS: Equal air entry with bilateral scattered rhonchi more so on the left lung. CVS: S1 and S2 normal with no audible murmur, regular rhythm. ABDOMEN: No hepatosplenomegaly, normal bowel sounds, no guarding or rigidity. SPINE: No scoliosis or deformity SKIN: No rashes CENTRAL NERVOUS SYSTEM: No focal deficits, tone is normal in all 4 extremities. EXTREMITIES: There is no peripheral edema. No clubbing, no cyanosis. Peripheral pulses are intact. - Labs CBC & Chem 7: 12/27/24 11:50 12/27/24 11:50 Labs: Abnormal Lab Results - Last 24 Hours (Table) 12/27/24 12/27/24 12/27/24 Range/Units 11:50 11:50 11:50 WBC 20.34 H (4.50-10.00) 10*3/uL RBC 3.25 L (4.40-5.60) 10*6/uL Hgb 11.6 L (13.0-17.0) g/dL Hct 34.0 L (39.6-50.0) % MCV 104.6 H (80.0-97.0) fL MCH 35.7 H (27.0-32.0) pg MPV 9.2 L (9.5-12.2) fL Immature Gran # 0.25 H (0.00-0.04) 10*3/uL Neutrophils # 18.25 H (1.80-7.70) 10*3/uL Lymphocytes # 0.47 L (0.90-5.00) 10*3/uL Monocytes # 1.28 H (0.20-1.00) 10*3/uL Sodium 132 L (137-145) mmol/L Chloride 95 L (98-107) mmol/L Creatinine 0.31 L (0.66-1.25) mg/dL Plasma Lactic Acid Wilman 2.5 H* (0.7-2.0) mmol/L Calcium 7.5 L (8.4-10.2) mg/dL AST 61 H (17-59) U/L Alkaline Phosphatase 131 H (38-126) U/L Albumin 2.6 L (3.5-5.0) g/dL Urine Protein (Negative) Urine Ketones (Negative) 12/27/24 Range/Units 14:00 WBC (4.50-10.00) 10*3/uL RBC (4.40-5.60) 10*6/uL Hgb (13.0-17.0) g/dL Hct (39.6-50.0) % MCV (80.0-97.0) fL MCH (27.0-32.0) pg MPV (9.5-12.2) fL Immature Gran # (0.00-0.04) 10*3/uL Neutrophils # (1.80-7.70) 10*3/uL Lymphocytes # (0.90-5.00) 10*3/uL Monocytes # (0.20-1.00) 10*3/uL Sodium (137-145) mmol/L Chloride (98-107) mmol/L Creatinine (0.66-1.25) mg/dL Plasma Lactic Acid Wilman (0.7-2.0) mmol/L Calcium (8.4-10.2) mg/dL AST (17-59) U/L Alkaline Phosphatase (38-126) U/L Albumin (3.5-5.0) g/dL Urine Protein Trace H (Negative) Urine Ketones 1+ H (Negative) Assessment and Plan Assessment: Acute hypoxic respiratory failure secondary to acute community acquired pneumonia and/or lung masses. CT scan of the chest reveals marked volume loss in the left lung with marked mixed consolidative and cystic density in the left lung with scattered air-fluid levels suggesting multiple lung abscesses. Thick bandlike density in the right infrahilar region extending to the pleura which is focally thickened raising the question of neoplasm versus chronic inflammation. Mediastinal adenopathy is present. Generalized weakness, poor appetite and weight loss secondary to above 50-year history of chronic tobacco dependence at 1 pack/day however quit 14 years ago Chronic obstructive pulmonary disease Chronic hypoxic respiratory failure on home oxygen Hypertension Chronic daily alcohol use Cachexia/anorexia syndrome Plan: The patient was seen and evaluated Chest x-ray and medications reviewed Continue Unasyn Continue DuoNeb inhalations Continue Symbicort Lovenox for DVT prophylaxis Continue normal saline at 75 mL/h Continue the [facility] protocol Spoke again with the patient and his daughter regarding the possibility of infection and/or lung cancer To continue with the current treatment plan for now Will need an outpatient PET scan This patient was seen independently by the pulmonary nurse practitioner vin jones pulmonary issues I have personally seen and examined the patient, performed the documentation and the assessment and plan as written. Number of minutes spent on the visit: 25 Dictation was produced using [employer] dictation software. Please excuse any grammatical, word or spelling errors.
--- NOTE | 2024-12-28 14:50 | P.PN ---
Subjective Progress Note Date: 12/28/24 Hospital Course: Patient is a 74-year-old male with past medical history of chronic hypoxic res piratory failure secondary to COPD on home oxygen 2-3L, hypertension, former smoker quit 15 years ago, alcohol use disorder, who presented to the ER on 12/27/2024 for weakness, poor appetite over the past couple days. Patient is accompanied by his daughter and girlfriend. They provide collateral history. He denies any associated fevers, chills, worsening shortness of breath, chest pain, abdominal pain, changes in bowel habits, dysuria, lower extremity edema. Patient drinks 3-4 beers a day, no history of withdrawal. He had sinus infection back in October and started losing weight after due to decreased appetite, around 15 pound weight loss. Denies history of malignancy. On arrival afebrile, heart rate in 60s, BP 142/79, SpO2 90% on 4 L Blood work significant for leukocytosis up to 20.3, hemoglobin 11.6, platelet count normal, sodium 132, potassium 3.7, creatinine 0.3, lactic acid 2.5, AST elevated 61, ALT normal at 30, alk phos 131, troponin 0.0 12, Cepheid negative. Chest x-ray showed left suprahilar masslike density with peripheral infiltrate. Masslike density left lower lobe and right midlung zone EKG showed sinus tachycardia with heart rate in 100s, QTc 367, no QTc prolongat ion, no ST elevation. Patient will be admitted as inpatient for further management of acute on chronic hypoxic respiratory failure secondary to community-acquired pneumonia, possible lung mass, malnutrition. CT chest ordered, started on IV antibiotics with azithromycin and ceftriaxone, nutrition, PT OT consulted, CIWA with Ativan and multivitamins for alcohol use disorder, anemia workup with vitamin B12, folate, TSH. CT chest revealed marked volume loss in the left lung with marked mixed consol idative and cystic density left lung with scattered air-fluid levels suggesting multiple lung abscesses, thick bandlike density in the right infrahilar region extending to the pleura which is focally thickened raising a question of neoplasm or acute, chronic inflammation, mediastinal adenopathy. With that findings, patient was switched to Unasyn, ID and pulmonology consulted. Oncology consulted. 12/28: Seen and examined at bedside, patient's and girlfriend present during exam. Tmax 99.7 around 3 AM, he remains on 4 L nasal cannula, heart rate in 100s. Blood work is still pending. TSH is normal at 0.8, vitamin B12 721, procalcitonin 0.48. Repeat chest x-ray showed no significant changes. Patient himself he feels overall better, he said that he is breathing is stable, no chest pain. We again discussed his CT findings, oncology consulted, will continue antibiotics. Pertinent positives and negatives as discussed above, a complete review of systems was performed and all other systems are negative. Vitals Signs Reviewed. General: Chronically ill-appearing, not in acute distress, cachectic Derm: warm, dry Head: atraumatic, normocephalic, symmetric Eyes: EOMI, no lid lag, anicteric sclera, pupils equal round reactive to light ENT: Nose and ears atraumatic Neck: No thyromegaly, supple Mouth: no lip lesion, mucus membranes moist Cardiovascular: S1S2 reg, no murmur, no edema Lungs: Diminished breath sounds bilaterally, no wheezing, no rhonchi, no rales, no wheeze, no accessory muscle use Abdominal: soft, nontender to palpation, no guarding, no appreciable organom egaly Ext: no gross muscle atrophy, muscle strength muscle strength 5 out of 5 in all 4 extremities, no contractures Neuro: CN II-XII grossly intact Acute on chronic hypoxic respiratory failure secondary to possible lung abscesses, cannot rule out malignancy, postobstructive pneumonia Chronic hypoxic respiratory failure secondary to COPD on home 2 to 3 L, not in acute exacerbation Generalized weakness, decreased oral intake likely secondary to above Protein calorie malnutrition Hyponatremia likely secondary to decreased solid intake - Continue Unasyn 3 g 4 times daily, sputum cultures pending -Pulmonology started DuoNebs 4 times daily -Follow-up urine Legionella, procalcitonin ordered, sputum cultures ordered, blood cultures ordered - CBC daily - CT chest as above - Repeat lactate normal - Continue NS at 75 cc/h - Scheduled DuoNebs 4 times daily nebulization, Dulera 13 g twice daily - Nutrition consult, PT OT consult, continue protein shakes - Fall precautions - TSH as above Hypertension: Continue home Toprol-XL 100 mg daily Alcohol use disorder Elevated AST likely secondary to the above - CIWA with Ativan, thiamine 100 mg daily, folic acid 1 mg daily, social work consulted -CMP daily Macrocytic anemia likely due to malnutrition and alcohol use disorder -Denies blood in stool or urine, will monitor CBC daily, and folate, B12 as above Surrogate decision-maker: Daughter CODE STATUS: Full code DVT prophylaxis: Lovenox Anticipated discharge date: TBD Anticipated discharge place: TBD Objective - Vital Signs Vital signs: Vital Signs Temp 97.5 F L 12/28/24 07:33 Pulse 104 H 12/28/24 12:46 Resp 20 12/28/24 10:15 BP 92/53 12/28/24 07:33 Pulse Ox 91 L 12/28/24 07:33 FiO2 Intake & Output 12/27/24 12/28/24 12/28/24 18:59 06:59 18:59 Weight 56.699 kg 56.699 kg - Labs CBC & Chem 7: 12/27/24 11:50 12/27/24 11:50
--- NOTE | 2024-12-28 15:16 | P.PN ---
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 On today's evaluation that is 12/29/2023, patient did have a temperature of 97.5 F this morning and patient seem to be breathing more comfortably as reported by the at the bedside patient is currently sleepy he is on 4 L nasal oxygen no vomiting or diarrhea has been reported. Patient did not have any CBC done today Objective - Vital Signs Vital signs: Vital Signs Temp 97.5 F L 12/28/24 07:33 Pulse 104 H 12/28/24 12:46 Resp 20 12/28/24 10:15 BP 92/53 12/28/24 07:33 Pulse Ox 91 L 12/28/24 07:33 FiO2 Intake & Output 12/27/24 12/28/24 12/28/24 18:59 06:59 18:59 Weight 56.699 kg 56.699 kg - Exam GENERAL DESCRIPTION: An elderly male lying in bed in no distress RESPIRATORY SYSTEM: Unlabored breathing , decreased breath sounds at bases HEART: S1 S2 regular rate and rhythm , ABDOMEN: Soft , no tenderness EXTREMITIES: No edema feet - Labs CBC & Chem 7: 12/27/24 11:50 12/27/24 11:50 Assessment and Plan (1) Sepsis Current Visit: Yes Status: Acute Code(s): A41.9 - SEPSIS, UNSPECIFIED ORGANISM SNOMED Code(s): 81679675 (2) Lung abscess Current Visit: Yes Status: Acute Code(s): J85.2 - ABSCESS OF LUNG WITHOUT PNEUMONIA SNOMED Code(s): 01946483 (3) Pneumonia Current Visit: Yes Status: Acute Code(s): J18.9 - PNEUMONIA, UNSPECIFIED ORGANISM SNOMED Code(s): 788667387 Plan: 1patient presented to the hospital with sepsis in this patient who did have tachycardia elevated white count elevated lactic acid meeting criteria for SIRS/sepsis source is likely either postobstructive pneumonia/lung abscess in this patient who did have significant history of smoking and concern for possible malignancy with secondary postobstructive pneumonia and abscess and will need to cover for the polymicrobial pablo associated with such infection 2patient will benefit from bronchoscopy lavage and deep culture, pulmonary is following the patient 3patient currently treated with Unasyn and monitor clinical course closely at the bedside question were answered Dictation was produced using [employer] dictation software. please excuse any grammatical, word or spelling errors. Time with Patient: Less than 30
[2024-12-28] MEDS ORDERED: VANCOMYCIN TROUGH DUE 1 EACH MISC MISCELLANE ONE (17:00)
--- NOTE | 2024-12-29 11:23 | P.PN ---
Subjective Progress Note Date: 12/29/24 This is a 74-year-old male patient who follows at the [facility] for chronic obstructive pulmonary disease, daily alcohol use and hypertension. He does have a 50-year pack per day smoking history however quit 14 years ago. He does have home oxygen. He is on Dulera. He was brought into the emergency room this morning with a 2 to 3-day progressive history of increasing weakness poor appetite and shortness of breath. He states he has lost over 12 to 13 pounds in the past week or two. Chest x-ray reveals a left suprahilar masslike density with peripheral infiltrate. Masslike density in the left lower and right midlung zone as well. CT scan of the chest reveals marked volume loss in the left lung with marked mixed consolidative and cystic density in the left lung with scattered air-fluid levels suggesting multiple lung abscesses. Thick bandlike density in the right infrahilar region extending to the pleura which is focally thickened raising the question of neoplasm versus chronic inflammation. Mediastinal adenopathy is present. White count 20.3. Hemoglobin 11.6. Platelets 365. Sodium 132. Potassium 3.7. Bicarb 29. BUN 18. Creatinine 0.31. Lactic acid 2.5. Urinalysis clean. Viral screen negative for influenza A/B, RSV, COVID. He is seen today in consultation in the emergency department. Currently and lying flat on a stretcher. Awake and alert in no acute distress. He is quite cachectic appearing. Quite thin. He is maintaining O2 saturations in the 90s on 4 L high flow nasal cannula. He is afebrile. Hemodynamically stable. The patient is seen today December 28, 2024 in follow-up on the regular medical floor. He is currently resting in bed. Awake and alert in no acute distress. Maintaining O2 saturations up to 100% on 4 L/min per nasal cannula. He is f eeling a bit better today compared to yesterday. He remains on Unasyn. Normal saline at 75 mL/h. Procalcitonin was 0.48. Follow-up chest x-ray shows no interval change in the marked cardiopulmonary process involving the entire left lung and a small focal opacity in the right midlung. No new labs today. Remains on DuoNeb and elations, Symbicort. Lovenox for DVT prophylaxis. Remains in the CIWA protocol. Required Ativan just after midnight today. The patient is seen today December 29, 2024 in follow-up on the regular medical floor. He is awake and alert in no acute distress. Resting fairly comfortably in bed. Breathing a bit easier today compared to yesterday. He is maintaining O2 saturations up to 100% on 4 L/min per nasal cannula. He has been afebrile. Hemodynamically stable. Blood cultures are pending. No new labs today. He remains on Unasyn. Lovenox for DVT prophylaxis. Continued on DuoNeb and elations, Symbicort. Remains on the CIWA protocol. Objective - Vital Signs Vital signs: Vital Signs Temp 98.0 F 12/29/24 08:00 Pulse 103 H 12/29/24 08:00 Resp 17 12/29/24 08:00 BP 100/57 12/29/24 08:00 Pulse Ox 100 12/29/24 08:00 FiO2 Intake & Output 12/28/24 12/29/24 12/29/24 18:59 06:59 18:59 Intake Total 1100 100 Output Total 500 400 Balance 600 -400 100 Weight 56.699 kg Intake: Intake, IV Titration 1100 Amount Ampicillin-Sulbactam 3 gm 200 In Sodium Chloride 0.9% 100 ml @ 200 mls/hr IVPB Q6HR [facility] Rx#:[id number] Sodium Chloride 0.9% 1, 900 000 ml @ 75 mls/hr IV . [id number] [facility]STY[facility] Rx#:[id number] Oral 100 Output: Urine 500 400 Other: Voiding Method Urinal - Exam GENERAL EXAM: Alert, weak 74-year-old male, resting in bed, on 4 L nasal cannula, fairly comfortable in no apparent distress. HEAD: Normocephalic. EYES: Normal reaction of pupils, equal size. NOSE: Clear with pink turbinates. THROAT: No erythema or exudates. NECK: No masses, no JVD. CHEST: No chest wall deformity. LUNGS: Equal air entry with bilateral scattered rhonchi more so on the left lung. CVS: S1 and S2 normal with no audible murmur, regular rhythm. ABDOMEN: No hepatosplenomegaly, normal bowel sounds, no guarding or rigidity. SPINE: No scoliosis or deformity SKIN: No rashes CENTRAL NERVOUS SYSTEM: No focal deficits, tone is normal in all 4 extremities. EXTREMITIES: There is no peripheral edema. No clubbing, no cyanosis. Peripheral pulses are intact. - Labs CBC & Chem 7: 12/27/24 11:50 12/27/24 11:50 Labs: Microbiology - Last 24 Hours (Table) 12/27/24 13:41 Blood Culture - Preliminary Blood Assessment and Plan Assessment: Acute hypoxic respiratory failure secondary to acute community acquired pneumonia and/or lung masses. CT scan of the chest reveals marked volume loss in the left lung with marked mixed consolidative and cystic density in the left lung with scattered air-fluid levels suggesting multiple lung abscesses. Thick bandlike density in the right infrahilar region extending to the pleura which is focally thickened raising the question of neoplasm versus chronic inflammation. Mediastinal adenopathy is present Generalized weakness, poor appetite and weight loss secondary to above 50-year history of chronic tobacco dependence at 1 pack/day however quit 14 years ago Chronic obstructive pulmonary disease Chronic hypoxic respiratory failure on home oxygen Hypertension Chronic daily alcohol use Cachexia/anorexia syndrome Plan: The patient was seen and evaluated Medications reviewed Continue Unasyn Continue DuoNeb inhalations Continue Symbicort Lovenox for DVT prophylaxis Continue the CIWA protocol Titrate down the FiO2 as tolerated Attempt to obtain a sputum sample May need bronchoscopy with BAL and possible biopsy Updated the patient and his daughter regarding the plan of care Will need an outpatient PET scan post discharge This patient was seen independently by the pulmonary nurse practitioner addressing pulmonary issues I have personally seen and examined the patient, performed the documentation and the assessment and plan as written. Number of minutes spent on the visit: 24 Dictation was produced using [employer] dictation software. Please excuse any grammatical, word or spelling errors.
--- NOTE | 2024-12-29 11:24 | P.PN ---
Subjective Progress Note Date: 12/29/24 Hospital Course: Patient is a 74-year-old male with past medical history of chronic hypoxic res piratory failure secondary to COPD on home oxygen 2-3L, hypertension, former smoker quit 15 years ago, alcohol use disorder, who presented to the ER on 12/27/2024 for weakness, poor appetite over the past couple days. Patient is accompanied by his daughter and girlfriend. They provide collateral history. He denies any associated fevers, chills, worsening shortness of breath, chest pain, abdominal pain, changes in bowel habits, dysuria, lower extremity edema. Patient drinks 3-4 beers a day, no history of withdrawal. He had sinus infection back in October and started losing weight after due to decreased appetite, around 15 pound weight loss. Denies history of malignancy. On arrival afebrile, heart rate in 60s, BP 142/79, SpO2 90% on 4 L Blood work significant for leukocytosis up to 20.3, hemoglobin 11.6, platelet count normal, sodium 132, potassium 3.7, creatinine 0.3, lactic acid 2.5, AST elevated 61, ALT normal at 30, alk phos 131, troponin 0.0 12, Cepheid negative. Chest x-ray showed left suprahilar masslike density with peripheral infiltrate. Masslike density left lower lobe and right midlung zone EKG showed sinus tachycardia with heart rate in 100s, QTc 367, no QTc prolongat ion, no ST elevation. Patient will be admitted as inpatient for further management of acute on chronic hypoxic respiratory failure secondary to community-acquired pneumonia, possible lung mass, malnutrition. CT chest ordered, started on IV antibiotics with azithromycin and ceftriaxone, nutrition, PT OT consulted, CIWA with Ativan and multivitamins for alcohol use disorder, anemia workup with vitamin B12, folate, TSH. CT chest revealed marked volume loss in the left lung with marked mixed consol idative and cystic density left lung with scattered air-fluid levels suggesting multiple lung abscesses, thick bandlike density in the right infrahilar region extending to the pleura which is focally thickened raising a question of neoplasm or acute, chronic inflammation, mediastinal adenopathy. With that findings, patient was switched to Unasyn, ID and pulmonology consulted. Oncology consulted.TSH is normal at 0.8, vitamin B12 721, procalcitonin 0.48. Repeat chest x-ray showed no significant changes. 12/29 Seen and examined at bedside, patient's and girlfriend present during exam. Afebrile since 12/28 3 AM, he remains on 3L nasal cannula, heart rate in 100s. No blood work was performed, discussed with RN, appears that laboratory had not orders that had been placed on admission came through, blood work reordered . Patient himself he feels overall better, he said that he is frank athing is stable, no chest pain. His cough has increased, no sputum. Case discussed with RN. Pertinent positives and negatives as discussed above, a complete review of systems was performed and all other systems are negative. Vitals Signs Reviewed. General: Chronically ill-appearing, not in acute distress, cachectic Derm: warm, dry Head: atraumatic, normocephalic, symmetric Eyes: EOMI, no lid lag, anicteric sclera, pupils equal round reactive to light ENT: Nose and ears atraumatic Neck: No thyromegaly, supple Mouth: no lip lesion, mucus membranes moist Cardiovascular: S1S2 reg, no murmur, no edema Lungs: Diminished breath sounds bilaterally, no wheezing, no rhonchi, no rales, no wheeze, no accessory muscle use Abdominal: soft, nontender to palpation, no guarding, no appreciable organomegaly Ext: no gross muscle atrophy, muscle strength muscle strength 5 out of 5 in all 4 extremities, no contractures Neuro: CN II-XII grossly intact Acute on chronic hypoxic respiratory failure secondary to possible lung abscesses, cannot rule out malignancy, postobstructive pneumonia Chronic hypoxic respiratory failure secondary to COPD on home 2 to 3 L, not in acute exacerbation Generalized weakness, decreased oral intake likely secondary to above Protein calorie malnutrition Hyponatremia likely secondary to decreased solid intake - Continue Unasyn 3 g 4 times daily, sputum cultures pending -Pulmonology started DuoNebs 4 times daily -Follow-up urine Legionella, procalcitonin ordered, sputum cultures ordered, blood cultures ordered - CBC daily - CT chest as above - Repeat lactate normals - Continue NS at 75 cc/h - Scheduled DuoNebs 4 times daily nebulization, Dulera 13 g twice daily - Nutrition consult, PT OT consult, continue protein shakes - Fall precautions - TSH as above Hypertension: Continue home Toprol-XL 100 mg daily Alcohol use disorder Elevated AST likely secondary to the above - CIWA with Ativan, thiamine 100 mg daily, folic acid 1 mg daily, social work consulted -CMP daily Macrocytic anemia likely due to malnutrition and alcohol use disorder -Denies blood in stool or urine, will monitor CBC daily, and folate, B12 as above Surrogate decision-maker: Daughter CODE STATUS: Full code DVT prophylaxis: Lovenox Anticipated discharge date: TBD Anticipated discharge place: TBD Objective - Vital Signs Vital signs: Vital Signs Temp 98.0 F 12/29/24 08:00 Pulse 103 H 12/29/24 08:00 Resp 17 12/29/24 08:00 BP 100/57 12/29/24 08:00 Pulse Ox 100 12/29/24 08:00 FiO2 Intake & Output 12/28/24 12/29/24 12/29/24 18:59 06:59 18:59 Intake Total 1100 100 Output Total 500 400 Balance 600 -400 100 Weight 56.699 kg Intake: Intake, IV Titration 1100 Amount Ampicillin-Sulbactam 3 gm 200 In Sodium Chloride 0.9% 100 ml @ 200 mls/hr IVPB Q6HR [facility] Rx#:[id number] Sodium Chloride 0.9% 1, 900 000 ml @ 75 mls/hr IV . [id number] [facility] Rx#:[id number] Oral 100 Output: Urine 500 400 Other: Voiding Method Urinal - Labs CBC & Chem 7: 12/27/24 11:50 12/27/24 11:50 Labs: Microbiology - Last 24 Hours (Table) 12/27/24 13:41 Blood Culture - Preliminary Blood
[2024-12-29 11:39] LABS: Basophils # (A) 0.06 10*3/uL (0.00-0.10); Basophils % (A) 0.3 %; Eosinophils # (A) 0.22 10*3/uL (0.04-0.35); Eosinophils % (A) 1.0 %; HCT 32.4 % (39.6-50.0); HGB 10.5 g/dL (13.0-17.0); Lymphocytes # (A) 0.57 10*3/uL (0.90-5.00); Lymphocytes % (A) 2.7 %; MCH 35.0 pg (27.0-32.0); MCHC 32.4 g/dL (32.0-37.0); MCV 108.0 fL (80.0-97.0); Monocytes # (A) 1.24 10*3/uL (0.20-1.00); Monocytes % (A) 5.8 %; Neutrophils # (A) 18.83 10*3/uL (1.80-7.70); Neutrophils % (A) 88.6 %; Platelet Count 390 10*3/uL (140-440); RBC 3.00 10*6/uL (4.40-5.60); RDW 12.5 % (11.5-14.5); WBC 21.26 10*3/uL (4.50-10.00)
[2024-12-29 11:54] LABS: African American GFR (CKD) >90 (>60 ml/min/1.73 sqM); Anion Gap 5 mmol/L; Blood Urea Nitrogen 12 mg/dL (9-20); Calcium 7.2 mg/dL (8.4-10.2); Carbon Dioxide 30 mmol/L (22-30); Chloride 101 mmol/L (98-107); Glucose 116 mg/dL (74-99); Non-African American GFR(CKD) >90 (>60 ml/min/1.73 sqM); Potassium 3.3 mmol/L (3.5-5.1); Sodium 136 mmol/L (137-145)
[2024-12-29] MEDS: POTASSIUM CHLORIDE ER 20 MEQ TAB.ER PO STA (12:16)
--- NOTE | 2024-12-29 14:31 | P.CONS ---
History of Present Illness - Reason for Consult Consult date: 12/29/24 Possible malignancy - Chief Complaint Weakness - History of Present Illness Mr. Knowles is a 74-year-old gentleman with a past medical history significant for COPD on home oxygen, alcohol abuse, and prior cigarette smoking ([id number] history, quit 14 years ago) for whom we are being consulted with regards to concern for possible malignancy. He presented to the ED on 12/27/2024 reporting weakness and anorexia over 2 to 3 days. In addition, he notes having had weight loss of 12 to 13 pounds over 2 to 3-week period. He noted not feeling well beginning in October 2024, which he attributed to a cold. He did lose weight during that time and then improved in November 2024. Subsequently, he began to feel unwell in December 2024. He feels he may have lost more than 12 to 13 pounds since October 2024, but has not weighed himself specifically. CT of the chest on admission revealed marked volume loss of the left lung with mixed consolidative and cystic density with scattered air-fluid levels suggestive of multiple lung abscesses. In addition, there is a thick bandlike density in the right infrahilar region extending to the pleura as well as mediastinal lymphadenopathy (1.5 cm subcarinal, 1.6 cm mediastinal AP window) concerning for possible malignancy or acute/chronic inflammation. He is currently on Unasyn. Infectious workup including blood culture and viral PCR is negative to date. CBC today is consistent with neutrophilic leukocytosis with WBC of 21.26, hemoglobin 10.5 (MCV 108), platelets 390. CMP on admission revealed sodium 132, chloride 95, AST 61, alkaline phosphatase 131. There was no evidence of vitamin B12 deficiency with normal TSH. He is currently afebrile with intermittent tachycardia with max heart rate of 119 and saturating well on 3 to 4 L of nasal cannula. Per pulmonology, there was consideration for possible bronchoscopy and outpatient PET/CT. Review of Systems 14 point review of systems conducted pertinent positives and negatives as noted per HPI. Past Medical History Past Medical History: COPD, Hypertension History of Any Multi-Drug Resistant Organisms: Unobtainable Past Surgical History: No Surgical Hx Reported Past Psychological History: No Psychological Hx Reported Smoking Status: Never smoker Past Alcohol Use History: None Reported Past Drug Use History: None Reported Medications and Allergies Home Medications Medication Instructions Recorded Confirmed Type Ensure 1 can PO BID 12/27/24 12/27/24 History Metoprolol Succinate (ER) [Toprol 100 mg PO DAILY 12/27/24 12/27/24 History Xl] Mometasone/Formoterol [Dulera 100 2 puff INHALATION RT-BID 12/27/24 12/27/24 History Mcg-5 Mcg Inhaler] Zzzquil Diphenhydramine Hcl 30 ml PO HS 12/27/24 12/27/24 History 50mg/30ml Allergies Allergy/AdvReac Type Severity Reaction Status Date / Time No Known Allergies Allergy Verified 12/27/24 14:11 Physical Exam Vitals: Vital Signs Temp Pulse Pulse Resp BP Pulse Ox 12/29/24 08:00 98.0 F 103 H 17 100/57 100 12/29/24 03:46 98.4 F 12/29/24 02:00 99.4 F 112 H 19 109/76 96 12/29/24 00:29 99.3 F 119 H 18 109/64 95 12/28/24 18:25 103 H 12/28/24 18:14 101 H 12/28/24 14:34 97.8 F 102 H 16 117/70 99 12/28/24 12:46 104 H 12/28/24 12:36 100 Intake and Output 12/28/24 12/29/24 12/29/24 22:59 06:59 14:59 Intake Total 1100 100 Output Total 500 400 Balance 600 -400 100 Intake: Intake, IV Titration 1100 Amount Ampicillin-Sulbactam 3 gm 200 In Sodium Chloride 0.9% 100 ml @ 200 mls/hr IVPB Q6HR [facility] Rx#:[id number] Sodium Chloride 0.9% 1, 900 000 ml @ 75 mls/hr IV . [id number] [facility] Rx#:[id number] Oral 100 Output: Urine 500 400 Other: Voiding Method Urinal - Constitutional Appears thin and fatigued General appearance: cooperative, no acute distress - EENT Eyes: EOMI - Respiratory Respiratory: bilateral: diminished - Cardiovascular Rhythm: regular - Gastrointestinal General gastrointestinal: no distended, soft, no tenderness - Integumentary Integumentary: no rash - Neurologic Neurologic: CNII-XII intact Results CBC & Chem 7: 12/29/24 11:26 12/29/24 11:26 Labs: Abnormal Lab Results - Last 24 Hours (Table) 12/29/24 12/29/24 Range/Units 11:26 11:26 WBC 21.26 H (4.50-10.00) 10*3/uL RBC 3.00 L (4.40-5.60) 10*6/uL Hgb 10.5 L (13.0-17.0) g/dL Hct 32.4 L (39.6-50.0) % MCV 108.0 H (80.0-97.0) fL MCH 35.0 H (27.0-32.0) pg MPV 9.1 L (9.5-12.2) fL Immature Gran # 0.34 H (0.00-0.04) 10*3/uL Sodium 136 L (137-145) mmol/L Potassium 3.3 L (3.5-5.1) mmol/L Creatinine 0.32 L (0.66-1.25) mg/dL Glucose 116 H (74-99) mg/dL Calcium 7.2 L (8.4-10.2) mg/dL Microbiology - Last 24 Hours (Table) 12/27/24 13:41 Blood Culture - Preliminary Blood Assessment and Plan (1) Mediastinal lymphadenopathy Current Visit: Yes Status: Acute Code(s): R59.0 - LOCALIZED ENLARGED LYMPH NODES SNOMED Code(s): 96418028 (2) Macrocytic anemia Current Visit: Yes Status: Acute Code(s): D53.9 - NUTRITIONAL ANEMIA, UNSPECIFIED SNOMED Code(s): 09186796 (3) Neutrophilic leukocytosis Current Visit: Yes Status: Acute Code(s): D72.828 - OTHER ELEVATED WHITE BLOOD CELL COUNT SNOMED Code(s): 016524485 Plan: #Right infrahilar bandlike consolidation, mediastinal lymphadenopathy - It is not clear if the findings on chest CT represent acute infection superimposed on chronic changes or malignancy - I agree with current management with IV antibiotics - He would benefit from short-term follow-up imaging outpatient with either repeat CT chest or PET/CT - If there are suspicious findings on outpatient imaging, bronchoscopy could then be pursued. I will defer decision to proceed with inpatient bronchoscopy to pulmonology #Macrocytic anemia - Likely secondary to alcohol use - Vitamin B12 and TSH are normal - Additional workup including iron studies, folic acid, hemolysis labs, and monoclonal gammopathy labs ordered #Neutrophilic leukocytosis - Due to suspected lung abscesses, unclear if there is underlying malignancy that could be contributing - IV antibiotics per primary and infectious disease teams Magalys Finch MD
--- NOTE | 2024-12-29 15:03 | P.PN ---
Subjective Progress Note Date: 12/29/24 Principal diagnosis: Reason for follow-up is pneumonia/abscess Patient is a 74-year-old male with a past medical history significant for COPD hypertension alcohol abuse and and [id number] smoking has been brought to the hospital concerning for increasing weakness decreased appetite and shortness of breath patient did have significant normality on the CT of the chest concerning for volume loss consolidative opacity and possible abscess. On today's evaluation that is 12/29/2024, Patient is afebrile patient is currently on 3 L nasal oxygen patient is slightly more awake today and the patient denies any chest pain or worsening cough, the patient denies any nausea vomiting did not have any abdominal pain and no diarrhea. Patient white count is 21.16 creatinine 0.32 urine for Legionella antigen negative blood cultures pending Objective - Vital Signs Vital signs: Vital Signs Temp 98.0 F 12/29/24 08:00 Pulse 100 12/29/24 12:25 Resp 17 12/29/24 08:00 BP 100/57 12/29/24 08:00 Pulse Ox 100 12/29/24 08:00 FiO2 Intake & Output 12/28/24 12/29/24 12/29/24 18:59 06:59 18:59 Intake Total 1100 100 Output Total 500 400 Balance 600 -400 100 Weight 56.699 kg Intake: Intake, IV Titration 1100 Amount Ampicillin-Sulbactam 3 gm 200 In Sodium Chloride 0.9% 100 ml @ 200 mls/hr IVPB Q6HR [facility] Rx#:[id number] Sodium Chloride 0.9% 1, 900 000 ml @ 75 mls/hr IV . [id number] [facility] Rx#:[id number] Oral 100 Output: Urine 500 400 Other: Voiding Method Urinal - Exam GENERAL DESCRIPTION: An elderly male lying in bed in no distress RESPIRATORY SYSTEM: Unlabored breathing , decreased breath sounds at bases HEART: S1 S2 regular rate and rhythm , ABDOMEN: Soft , no tenderness EXTREMITIES: No edema feet - Labs CBC & Chem 7: 12/29/24 11:26 12/29/24 11:26 Labs: Abnormal Lab Results - Last 24 Hours (Table) 12/29/24 12/29/24 Range/Units 11:26 11:26 WBC 21.26 H (4.50-10.00) 10*3/uL RBC 3.00 L (4.40-5.60) 10*6/uL Hgb 10.5 L (13.0-17.0) g/dL Hct 32.4 L (39.6-50.0) % MCV 108.0 H (80.0-97.0) fL MCH 35.0 H (27.0-32.0) pg MPV 9.1 L (9.5-12.2) fL Immature Gran # 0.34 H (0.00-0.04) 10*3/uL Neutrophils # 18.83 H (1.80-7.70) 10*3/uL Lymphocytes # 0.57 L (0.90-5.00) 10*3/uL Monocytes # 1.24 H (0.20-1.00) 10*3/uL Sodium 136 L (137-145) mmol/L Potassium 3.3 L (3.5-5.1) mmol/L Creatinine 0.32 L (0.66-1.25) mg/dL Glucose 116 H (74-99) mg/dL Calcium 7.2 L (8.4-10.2) mg/dL Microbiology - Last 24 Hours (Table) 12/27/24 13:41 Blood Culture - Preliminary Blood Assessment and Plan (1) Sepsis Current Visit: Yes Status: Acute Code(s): A41.9 - SEPSIS, UNSPECIFIED ORGANISM SNOMED Code(s): 33343728 (2) Lung abscess Current Visit: Yes Status: Acute Code(s): J85.2 - ABSCESS OF LUNG WITHOUT PNEUMONIA SNOMED Code(s): 50972308 (3) Pneumonia Current Visit: Yes Status: Acute Code(s): J18.9 - PNEUMONIA, UNSPECIFIED ORGANISM SNOMED Code(s): 449162869 Plan: 1patient presented to the hospital with sepsis in this patient who did have tachycardia elevated white count elevated lactic acid meeting criteria for SIRS/sepsis source is likely either postobstructive pneumonia/lung abscess in this patient who did have significant history of smoking and concern for possible malignancy with secondary postobstructive pneumonia and abscess and will need to cover for the polymicrobial pablo associated with such infection 2patient will benefit from bronchoscopy lavage and deep culture, pulmonary is following the patient 3patient is afebrile white count slightly up questionably steroid related to continue with Unasyn and monitor clinical course closely daughter at the bedside question were answered Dictation was produced using [employer] software. please excuse any grammatical, word or spelling errors. Time with Patient: Less than 30
[2024-12-29] MEDS: SYMBICORT 160-4.5 MCG INHALER INHALATION SCH (18:32)
[2024-12-30 00:28] LABS: Immunoglobulin G 1621.0 mg/dL (700.0-1600.0); Immunoglobulin M 104.0 mg/dL (40.0-280.0)
[2024-12-30 00:34] LABS: Ferritin 1915.0 ng/mL (22.0-322.0); Iron 23.0 UG/DL (65-175); LDH 164.0 U/L (120-246); Total Iron Binding Capacity 66.0 UG/DL (228-460)
[2024-12-30 10:23] LABS: Anion Gap 6.90 mmol/L (4.00-12.00); BUN/Creat Ratio 31.67 Ratio (12.00-20.00); Blood Urea Nitrogen 9.5 mg/dL (9.0-27.0); Calcium 7.3 mg/dL (8.7-10.3); Carbon Dioxide 29.1 mmol/L (21.6-31.8); Chloride 100 mmol/L (96-109); Glucose 107 mg/dL (70-110); HCT 34.0 % (39.6-50.0); HGB 10.5 g/dL (13.0-17.0); MCH 35.1 pg (27.0-32.0); MCHC 30.9 g/dL (32.0-37.0); MCV 113.7 FL (80.0-97.0); NRBC Per 100 WBC 0 X 10*3/uL (0.00-0.01); Platelet Count 448 X 10*3/uL (140-440); Potassium 4.0 mmol/L (3.5-5.5); RBC 2.99 X 10*6/uL (4.40-5.60); RDW 12.7 % (11.5-14.5); Sodium 136 mmol/L (135-145); WBC 18.98 X 10*3/uL (4.50-10.00)
[2024-12-30 11:27] LABS: Basophils # (A) 0.05 X 10*3/uL (0.00-0.10); Basophils % (A) 0.3 %; Eosinophils # (A) 0.17 X 10*3/uL (0.04-0.35); Eosinophils % (A) 0.9 %; Immature Grans, Automated 1.20 %; Lymphocytes # (A) 0.59 X 10*3/uL (0.90-5.00); Lymphocytes % (A) 3.1 %; Macrocytosis (M) 2+ (None Seen); Monocytes # (A) 1.14 X 10*3/uL (0.20-1.00); Monocytes % (A) 6.0 %; Neutrophils # (A) 16.80 X 10*3/uL (1.80-7.70); Neutrophils % (A) 88.5 %
--- NOTE | 2024-12-30 15:46 | P.PN ---
Subjective Progress Note Date: 12/30/24 Patient was seen and examined. Significant other at bedside. Reports improved breathing. Difficulty urinating this morning but bladder scan showing 180cc. Antibiotics include Unasyn 3g IV TID. CBC, BMP significant for WBC 18.98, RBC 2.99, Hg 10.5, Hct 34, MCV 113.7, Plt 448, Cr 0.3, Ca 7.3. General: non toxic, no distress, appears at stated age Derm: warm, dry Head: atraumatic, normocephalic, symmetric Eyes: EOMI, no lid lag, anicteric sclera Mouth: no lip lesion, mucus membranes moist Cardiovascular: S1S2 tachy, no murmur Lungs: Decreased BS bilateral, no rhonchi, no rales , no accessory muscle use Ext: no gross muscle atrophy, no edema, no contractures Neuro: no focal neuro deficits Psych: Alert, oriented, appropriate affect Based on my assessment of this patient, this patient meets a high complexity level of care. Acute on chronic hypoxic respiratory failure secondary to lung abscess versus post obstructive PNA versus malignancy: Procal 0.48. Continue Unasyn 3g IV TID. Duoneb QID. Symbicort 2 INH BID. Tessalon 100 mg PO TID PRN. Obtain sputum Cx. Would ideally benefit from bronchoscopy. Pulmonary and ID on board. Hypertension: Toprol-XL 100 mg PO QD. Alcohol use disorder: CIWA protocol with Ativan PRN per protocol. Folic acid 1 mg PO QD. Thiamine 100 mg PO QD. Transaminitis likely due to EtOH abuse. Macrocytic anemia likely due to malnutrition and alcohol use disorder: B12 721, Folate 642. Iron studies show anemia of chronic disease. Resolved: Lactic acidosis. HypoNa. HypoK. CODE STATUS: FULL CODE DVT Prophylaxis: Lovenox SQ GI Prophylaxis: Designated medical POA if patient is not able to make medical decisions for themselves: I have reviewed the following bus info consultant notes: ID, Oncology, Pulmonary. I have reviewed the results of the following tests: CBC, BMP I have ordered the following tests: I have discussed the care of this patient with the following independent historian: Significant other. RN. I have independently interpreted the following test below: I have discussed the management of this patient with the following physician: Objective - Vital Signs Vital signs: Vital Signs Temp 97.6 F 12/30/24 13:54 Pulse 100 12/30/24 13:54 Resp 20 12/30/24 13:54 BP 117/68 12/30/24 13:54 Pulse Ox 98 12/30/24 13:54 FiO2 Intake & Output 12/29/24 12/30/24 12/30/24 18:59 06:59 18:59 Intake Total 450 100 Output Total 700 600 Balance 450 -700 -500 Intake: Intake, IV Titration 200 Amount Ampicillin-Sulbactam 3 gm 200 In Sodium Chloride 0.9% 100 ml @ 200 mls/hr IVPB Q6HR [facility] Rx#:[id number] Oral 250 100 Output: Urine 700 600 Other: Voiding Method Urinal Urinal - Labs CBC & Chem 7: 12/30/24 02:37 12/30/24 02:37 Labs: Abnormal Lab Results - Last 24 Hours (Table) 12/29/24 12/29/24 12/29/24 Range/Units 11:26 11:26 11:26 WBC (4.50-10.00) X 10*3/uL RBC (4.40-5.60) X 10*6/uL Hgb (13.0-17.0) g/dL Hct (39.6-50.0) % MCV (80.0-97.0) FL MCH (27.0-32.0) pg MCHC (32.0-37.0) g/dL Plt Count (140-440) X 10*3/uL Immature Gran # (0.00-0.04) X 10*3/uL Neutrophils # (1.80-7.70) X 10*3/uL Lymphocytes # (0.90-5.00) X 10*3/uL Monocytes # (0.20-1.00) X 10*3/uL Macrocytosis (manual) (None Seen) Retic Count 1.94 H (0.10-1.80) % Haptoglobin 304.0 H (31.2-198.0) mg/dL Creatinine (0.6-1.5) mg/dL BUN/Creatinine Ratio (12.00-20.00) Ratio Calcium (8.7-10.3) mg/dL Iron 23 L (65-175) UG/DL TIBC 66 L (228-460) UG/DL Transferrin 47.1 L (204.0-354.0) mg/dL Ferritin 1915.0 H (22.0-322.0) ng/mL Total Protein (PEP) 5.5 L (6.2-8.2) g/dL IgG 1621.0 H (700.0-1600.0) mg/dL IgA 581.0 H (60.0-350.0) mg/dL 12/30/24 12/30/24 Range/Units 02:37 02:37 WBC 18.98 H (4.50-10.00) X 10*3/uL RBC 2.99 L (4.40-5.60) X 10*6/uL Hgb 10.5 L (13.0-17.0) g/dL Hct 34.0 L (39.6-50.0) % MCV 113.7 H (80.0-97.0) FL MCH 35.1 H (27.0-32.0) pg MCHC 30.9 L (32.0-37.0) g/dL Plt Count 448 H (140-440) X 10*3/uL Immature Gran # 0.23 H (0.00-0.04) X 10*3/uL Neutrophils # 16.80 H (1.80-7.70) X 10*3/uL Lymphocytes # 0.59 L (0.90-5.00) X 10*3/uL Monocytes # 1.14 H (0.20-1.00) X 10*3/uL Macrocytosis (manual) 2+ A (None Seen) Retic Count (0.10-1.80) % Haptoglobin (31.2-198.0) mg/dL Creatinine 0.3 L (0.6-1.5) mg/dL BUN/Creatinine Ratio 31.67 H (12.00-20.00) Ratio Calcium 7.3 L (8.7-10.3) mg/dL Iron (65-175) UG/DL TIBC (228-460) UG/DL Transferrin (204.0-354.0) mg/dL Ferritin (22.0-322.0) ng/mL Total Protein (PEP) (6.2-8.2) g/dL IgG (700.0-1600.0) mg/dL IgA (60.0-350.0) mg/dL Microbiology - Last 24 Hours (Table) 12/27/24 13:41 Blood Culture - Preliminary Blood
[2024-12-30 20:02] LABS: Bilirubin,Urine Negative (Negative); Blood,Urine Negative (Negative); Color,Urine Yellow; Glucose,Urine (UA) Negative (Negative); Ketones,Urine Negative (Negative); Leukocyte Esterase,Urine Negative (Negative); Nitrite,Urine Negative (Negative); PH, Urine 5.5 (5.0-8.0); Protein,Urine Trace (Negative); Specific Gravity,Urine 1.030 (1.001-1.035); Urobilinogen,Urine 3.0 mg/dL (<2.0)
--- NOTE | 2024-12-30 20:06 | P.PN ---
Subjective Progress Note Date: 12/30/24 On 12/30/2024, the patient is being seen for a follow-up. The patient is 74 and the patient has an acute hypoxic christen failure secondary to pneumonia. Noted the patient has bullous emphysema and the patient has extensive bullous emphysematous changes in upper lobes bilaterally. The patient has developed superinfection with pneumonia and the CAT scan of the chest was reviewed and the patient has extensive consolidation and marked airspace disease involving the left upper lobe and the lung base on the left. There is multiple cavities with display of air-fluid levels possibly infected bullae versus abscesses. The patient has been progressively losing weight. Very much debilitated. Short of breath at all times. Patient is currently on oxygen at 3 L/min nasal cannula with a pulse ox of 98%. Remains on IV Unasyn. Remains on Symbicort as maintenance and DuoNeb seems [id number]. The white cell count is 18.9 with a hemoglobin 10.5 and a platelet count of 448. Electrolytes are all within normal limits. UA is negative. Legionella urine antigen was also negative. Objective - Vital Signs Vital signs: Vital Signs Temp 97.6 F 12/30/24 13:54 Pulse 100 12/30/24 13:54 Resp 20 12/30/24 13:54 BP 117/68 12/30/24 13:54 Pulse Ox 98 12/30/24 13:54 FiO2 Intake & Output 12/29/24 12/30/24 12/30/24 18:59 06:59 18:59 Intake Total 450 100 Output Total 700 600 Balance 450 -700 -500 Intake: Intake, IV Titration 200 Amount Ampicillin-Sulbactam 3 gm 200 In Sodium Chloride 0.9% 100 ml @ 200 mls/hr IVPB Q6HR [facility] Rx#:[id number] Oral 250 100 Output: Urine 700 600 Other: Voiding Method Urinal Urinal - Exam GENERAL EXAM: Alert, weak 74-year-old male, resting in bed, on 4 L nasal cannula, fairly comfortable in no apparent distress. The patient is weak, debilitated, cachectic with a body mass index of 17 HEAD: Normocephalic. EYES: Normal reaction of pupils, equal size. NOSE: Clear with pink turbinates. THROAT: No erythema or exudates. NECK: No masses, no JVD. CHEST: No chest wall deformity. LUNGS: Equal air entry with bilateral scattered rhonchi more so on the left lung . CVS: S1 and S2 normal with no audible murmur, regular rhythm. ABDOMEN: No hepatosplenomegaly, normal bowel sounds, no guarding or rigidity. SPINE: No scoliosis or deformity SKIN: No rashes CENTRAL NERVOUS SYSTEM: No focal deficits, tone is normal in all 4 extremities. EXTREMITIES: There is no peripheral edema. No clubbing, no cyanosis. Peripheral pulses are intact. - Labs CBC & Chem 7: 12/30/24 02:37 12/30/24 02:37 Labs: Abnormal Lab Results - Last 24 Hours (Table) 12/29/24 12/29/24 12/29/24 Range/Units 11:26 11:26 11:26 WBC (4.50-10.00) X 10*3/uL RBC (4.40-5.60) X 10*6/uL Hgb (13.0-17.0) g/dL Hct (39.6-50.0) % MCV (80.0-97.0) FL MCH (27.0-32.0) pg MCHC (32.0-37.0) g/dL Plt Count (140-440) X 10*3/uL Immature Gran # (0.00-0.04) X 10*3/uL Neutrophils # (1.80-7.70) X 10*3/uL Lymphocytes # (0.90-5.00) X 10*3/uL Monocytes # (0.20-1.00) X 10*3/uL Macrocytosis (manual) (None Seen) Retic Count 1.94 H (0.10-1.80) % Haptoglobin 304.0 H (31.2-198.0) mg/dL Creatinine (0.6-1.5) mg/dL BUN/Creatinine Ratio (12.00-20.00) Ratio Calcium (8.7-10.3) mg/dL Iron 23 L (65-175) UG/DL TIBC 66 L (228-460) UG/DL Transferrin 47.1 L (204.0-354.0) mg/dL Ferritin 1915.0 H (22.0-322.0) ng/mL Total Protein (PEP) 5.5 L (6.2-8.2) g/dL IgG 1621.0 H (700.0-1600.0) mg/dL IgA 581.0 H (60.0-350.0) mg/dL 12/30/24 12/30/24 Range/Units 02:37 02:37 WBC 18.98 H (4.50-10.00) X 10*3/uL RBC 2.99 L (4.40-5.60) X 10*6/uL Hgb 10.5 L (13.0-17.0) g/dL Hct 34.0 L (39.6-50.0) % MCV 113.7 H (80.0-97.0) FL MCH 35.1 H (27.0-32.0) pg MCHC 30.9 L (32.0-37.0) g/dL Plt Count 448 H (140-440) X 10*3/uL Immature Gran # 0.23 H (0.00-0.04) X 10*3/uL Neutrophils # 16.80 H (1.80-7.70) X 10*3/uL Lymphocytes # 0.59 L (0.90-5.00) X 10*3/uL Monocytes # 1.14 H (0.20-1.00) X 10*3/uL Macrocytosis (manual) 2+ A (None Seen) Retic Count (0.10-1.80) % Haptoglobin (31.2-198.0) mg/dL Creatinine 0.3 L (0.6-1.5) mg/dL BUN/Creatinine Ratio 31.67 H (12.00-20.00) Ratio Calcium 7.3 L (8.7-10.3) mg/dL Iron (65-175) UG/DL TIBC (228-460) UG/DL Transferrin (204.0-354.0) mg/dL Ferritin (22.0-322.0) ng/mL Total Protein (PEP) (6.2-8.2) g/dL IgG (700.0-1600.0) mg/dL IgA (60.0-350.0) mg/dL Microbiology - Last 24 Hours (Table) 12/27/24 13:41 Blood Culture - Preliminary Blood Assessment and Plan Plan: Acute hypoxic respiratory failure secondary to acute community acquired pneumonia and/or lung masses. CT scan of the chest reveals marked volume loss in the left lung with marked mixed consolidative and cystic density in the left lung with scattered air-fluid levels suggesting multiple lung abscesses. Thick bandlike density in the right infrahilar region extending to the pleura which is focally thickened raising the question of neoplasm versus chronic inflammation. Mediastinal adenopathy is present likely reactive. Reviewed the CAT scan of the chest and findings could be consistent with infected bullae versus development of lung abscesses. Acute leukocytosis, slightly improved compared to yesterday Generalized debility and weight loss with a body mass index of 17 Chronic smoker/50-year history of chronic tobacco dependence at 1 pack/day however quit 14 years ago Chronic obstructive pulmonary disease with bullous changes involving the upper lobes bilaterally Chronic hypoxic respiratory failure on home oxygen Hypertension Chronic daily alcohol use Cachexia/anorexia syndrome Plan: The patient carries a very poor prognosis. Patient's baseline performance of functional status is poor. His functionality is also poor. Continue Unasyn Continue DuoNeb inhalations Continue Symbicort Lovenox for DVT prophylaxis Continue the CIWA protocol Titrate down the FiO2 as tolerated Will try to collect a sputum Gram stain and culture Updated the patient and his daughter regarding the plan of care
--- NOTE | 2024-12-30 20:07 | US ---
EXAMINATION TYPE: US venous doppler duplex UE LT DATE OF EXAM: 12/30/2024 COMPARISON: NONE CLINICAL INDICATION: Male, 74 years old with history of swelling; patient states left arm swelling 3- 4 days. no hx dvt. no pain, redness, or warmth. TECHNIQUE: Grayscale, color Doppler and spectral Doppler imaging of the upper extremity. SIDE PERFORMED: left VESSELS IMAGED: IJV Subclavian Vein Axilla Vein Brachial Vein(s) Radial Paired Veins Ulnar Paired Veins Cephalic Vein* Basilic Vein* (*superficial vessels) FINDINGS: Left Arm: Unable to visualize the left basilic vein. Negative for dvt as best visualized Grayscale, color doppler, spectral doppler imaging performed of the deep veins of the upper extremiti es. IMPRESSION: 1. Left upper extremity negative for deep venous thrombosis as visualized. [facility], , 12/30/2024 8:04 PM
[2024-12-30] MEDS: BENZONATATE 100 MG CAP PO PRN (21:17)
[2024-12-31] MEDS: MELATONIN 5 MG TABLET PO PRN (03:18)
[2024-12-31 08:12] LABS: Basophils # (A) 0.06 X 10*3/uL (0.00-0.10); Basophils % (A) 0.4 %; Eosinophils # (A) 0.33 X 10*3/uL (0.04-0.35); Eosinophils % (A) 2.1 %; HCT 31.7 % (39.6-50.0); HGB 9.9 g/dL (13.0-17.0); Immature Grans, Automated 1.20 %; Lymphocytes # (A) 0.52 X 10*3/uL (0.90-5.00); Lymphocytes % (A) 3.3 %; MCH 35.4 pg (27.0-32.0); MCHC 31.2 g/dL (32.0-37.0); MCV 113.2 FL (80.0-97.0); Monocytes # (A) 1.10 X 10*3/uL (0.20-1.00); Monocytes % (A) 7.1 %; NRBC Per 100 WBC 0 X 10*3/uL (0.00-0.01); Neutrophils # (A) 13.35 X 10*3/uL (1.80-7.70); Neutrophils % (A) 85.9 %; Platelet Count 439 X 10*3/uL (140-440); RBC 2.80 X 10*6/uL (4.40-5.60); RDW 12.8 % (11.5-14.5); WBC 15.54 X 10*3/uL (4.50-10.00)
[2024-12-31 08:28] LABS: Albumin 1.61 g/dL (3.80-4.90); Gamma Globulin 1.67 g/dL (0.70-1.50)
[2024-12-31 08:33] LABS: Anion Gap 6.50 mmol/L (4.00-12.00); BUN/Creat Ratio 24.33 Ratio (12.00-20.00); Blood Urea Nitrogen 7.3 mg/dL (9.0-27.0); Calcium 7.2 mg/dL (8.7-10.3); Carbon Dioxide 29.5 mmol/L (21.6-31.8); Chloride 101 mmol/L (96-109); Glucose 102 mg/dL (70-110); Potassium 3.8 mmol/L (3.5-5.5); Sodium 137 mmol/L (135-145)
[2024-12-31 11:49] LABS: Free Kappa Lt Chain Qnt, Serum 6.12 mg/dL (0.33-1.94); Free Lambda Lt Chain Qnt, Seru 6.22 mg/dL (0.57-2.63)
[2024-12-31] MEDS ORDERED: IPRATROPIUM-ALBUTEROL 3 ML NEB INHALATION PRN (12:27)
--- NOTE | 2024-12-31 12:30 | P.PN ---
Subjective Progress Note Date: 12/31/24 Patient was seen and examined. Significant other at bedside. Reports wet cough. Wanting Symbicort switched to Dulera. Does not want neb treatments anymore. Reports LUE swelling, venous duplex was done which was negative for DVT. Antibiotics include Unasyn 3g IV Q6H (D6). CBC, BMP significant for WBC 15.54, RBC 2.8, Hg 9.9, Hct 31.7, MCV 113.2, BUN 7.3, Cr 0.3, Ca 7.2. General: non toxic, no distress, appears at stated age Derm: warm, dry Head: atraumatic, normocephalic, symmetric Eyes: EOMI, no lid lag, anicteric sclera Mouth: no lip lesion, mucus membranes moist Cardiovascular: S1S2 reg, no murmur Lungs: Coarse BS bilateral, no rhonchi, no rales , no accessory muscle use Ext: no gross muscle atrophy, no edema, no contractures, LUE swelling Neuro: no focal neuro deficits Psych: Alert, oriented, appropriate affect Based on my assessment of this patient, this patient meets a high complexity level of care. Acute on chronic hypoxic respiratory failure secondary to lung abscess versus post obstructive PNA versus malignancy: Procal 0.48. Continue Unasyn 3g IV TID (D6). Duoneb QID changed to PRN. Symbicort 2 INH BID. Tessalon 100 mg PO TID PRN. Add Mucinex 1200 mg PO BID. Obtain sputum Cx. Would ideally benefit from bronchoscopy. Pulmonary and ID on board. LUE swelling: Venous duplex neg DVT. Recommend LUE elevation. Hypertension: Toprol-XL 100 mg PO QD. Alcohol use disorder: CIWA protocol with Ativan PRN per protocol. Folic acid 1 mg PO QD. Thiamine 100 mg PO QD. Transaminitis likely due to EtOH abuse. Macrocytic anemia likely due to malnutrition and alcohol use disorder: B12 721, Folate 642. Iron studies show anemia of chronic disease. Resolved: Lactic acidosis. HypoNa. HypoK. CODE STATUS: FULL CODE DVT Prophylaxis: Lovenox SQ GI Prophylaxis: Designated medical POA if patient is not able to make medical decisions for themselves: I have reviewed the following loss control consultant notes: ID, Oncology, Pulmonary. I have reviewed the results of the following tests: CBC, BMP, Venous duplex. I have ordered the following tests: I have discussed the care of this patient with the following independent historian: Significant other. I have independently interpreted the following test below: I have discussed the management of this patient with the following physician: Objective - Vital Signs Vital signs: Vital Signs Temp 97.6 F 12/31/24 07:34 Pulse 88 12/31/24 10:06 Resp 18 12/31/24 07:34 BP 138/78 12/31/24 07:34 Pulse Ox 99 12/31/24 07:34 FiO2 Intake & Output 12/30/24 12/31/24 12/31/24 18:59 06:59 18:59 Intake Total 100 Output Total 700 Balance -600 Intake: Oral 100 Output: Urine 700 Other: Voiding Method Urinal Urinal Urinal # Voids 1 # Bowel Movements 1 - Labs CBC & Chem 7: 12/31/24 03:20 12/31/24 03:20 Labs: Abnormal Lab Results - Last 24 Hours (Table) 12/29/24 12/30/24 12/31/24 Range/Units 11:26 16:34 03:20 WBC 15.54 H (4.50-10.00) X 10*3/uL RBC 2.80 L (4.40-5.60) X 10*6/uL Hgb 9.9 L (13.0-17.0) g/dL Hct 31.7 L (39.6-50.0) % MCV 113.2 H (80.0-97.0) FL MCH 35.4 H (27.0-32.0) pg MCHC 31.2 L (32.0-37.0) g/dL Immature Gran # 0.18 H (0.00-0.04) X 10*3/uL Neutrophils # 13.35 H (1.80-7.70) X 10*3/uL Lymphocytes # 0.52 L (0.90-5.00) X 10*3/uL Monocytes # 1.10 H (0.20-1.00) X 10*3/uL BUN (9.0-27.0) mg/dL Creatinine (0.6-1.5) mg/dL BUN/Creatinine Ratio (12.00-20.00) Ratio Calcium (8.7-10.3) mg/dL Albumin (PEP) 1.61 L (3.80-4.90) g/dL Bggdr-4-Fktavwnnr 0.48 H (0.10-0.40) g/dL Gamma Globulins 1.67 H (0.70-1.50) g/dL Urine Protein Trace H (Negative) Free [place] LC, Quant 6.12 H (0.33-1.94) mg/dL Free Lambda LC, Quant 6.22 H (0.57-2.63) mg/dL 12/31/24 Range/Units 03:20 WBC (4.50-10.00) X 10*3/uL RBC (4.40-5.60) X 10*6/uL Hgb (13.0-17.0) g/dL Hct (39.6-50.0) % MCV (80.0-97.0) FL MCH (27.0-32.0) pg MCHC (32.0-37.0) g/dL Immature Gran # (0.00-0.04) X 10*3/uL Neutrophils # (1.80-7.70) X 10*3/uL Lymphocytes # (0.90-5.00) X 10*3/uL Monocytes # (0.20-1.00) X 10*3/uL BUN 7.3 L (9.0-27.0) mg/dL Creatinine 0.3 L (0.6-1.5) mg/dL BUN/Creatinine Ratio 24.33 H (12.00-20.00) Ratio Calcium 7.2 L (8.7-10.3) mg/dL Albumin (PEP) (3.80-4.90) g/dL Xthsd-0-Jjnxlxzeq (0.10-0.40) g/dL Gamma Globulins (0.70-1.50) g/dL Urine Protein (Negative) Free [place] LC, Quant (0.33-1.94) mg/dL Free Lambda LC, Quant (0.57-2.63) mg/dL Microbiology - Last 24 Hours (Table) 12/27/24 13:41 Blood Culture - Preliminary Blood
--- NOTE | 2024-12-31 13:35 | P.PN ---
Subjective Progress Note Date: 12/30/24 Principal diagnosis: Reason for follow-up is pneumonia/abscess Patient is a 74-year-old male with a past medical history significant for COPD hypertension alcohol abuse and and [id number] smoking has been brought to the hospital concerning for increasing weakness decreased appetite and shortness of breath patient did have significant normality on the CT of the chest concerning for volume loss consolidative opacity and possible abscess. On today's evaluation that is 12/30/2024, patient has been afebrile, patient is breathing comfortably and is currently on 2 L with current oxygen the patient is more awake and alert today denies any chest pain or worsening cough no vomiting or diarrhea has been reported. Patient white count is down to 18.98, creatinine 0.3 Objective - Vital Signs Vital signs: Vital Signs Temp 97.6 F 12/30/24 13:54 Pulse 100 12/30/24 13:54 Resp 20 12/30/24 13:54 BP 117/68 12/30/24 13:54 Pulse Ox 98 12/30/24 13:54 FiO2 Intake & Output 12/29/24 12/30/24 12/30/24 18:59 06:59 18:59 Intake Total 450 100 Output Total 700 600 Balance 450 -700 -500 Intake: Intake, IV Titration 200 Amount Ampicillin-Sulbactam 3 gm 200 In Sodium Chloride 0.9% 100 ml @ 200 mls/hr IVPB Q6HR [facility] Rx#:[id number] Oral 250 100 Output: Urine 700 600 Other: Voiding Method Urinal Urinal - Exam GENERAL DESCRIPTION: An elderly male lying in bed in no distress RESPIRATORY SYSTEM: Unlabored breathing , decreased breath sounds at bases HEART: S1 S2 regular rate and rhythm , ABDOMEN: Soft , no tenderness EXTREMITIES: No edema feet - Labs CBC & Chem 7: 12/31/24 03:20 12/31/24 03:20 Labs: Abnormal Lab Results - Last 24 Hours (Table) 12/29/24 12/29/24 12/29/24 Range/Units 11:26 11:26 11:26 WBC (4.50-10.00) X 10*3/uL RBC (4.40-5.60) X 10*6/uL Hgb (13.0-17.0) g/dL Hct (39.6-50.0) % MCV (80.0-97.0) FL MCH (27.0-32.0) pg MCHC (32.0-37.0) g/dL Plt Count (140-440) X 10*3/uL Immature Gran # (0.00-0.04) X 10*3/uL Neutrophils # (1.80-7.70) X 10*3/uL Lymphocytes # (0.90-5.00) X 10*3/uL Monocytes # (0.20-1.00) X 10*3/uL Macrocytosis (manual) (None Seen) Retic Count 1.94 H (0.10-1.80) % Haptoglobin 304.0 H (31.2-198.0) mg/dL Creatinine (0.6-1.5) mg/dL BUN/Creatinine Ratio (12.00-20.00) Ratio Calcium (8.7-10.3) mg/dL Iron 23 L (65-175) UG/DL TIBC 66 L (228-460) UG/DL Transferrin 47.1 L (204.0-354.0) mg/dL Ferritin 1915.0 H (22.0-322.0) ng/mL Total Protein (PEP) 5.5 L (6.2-8.2) g/dL IgG 1621.0 H (700.0-1600.0) mg/dL IgA 581.0 H (60.0-350.0) mg/dL 12/30/24 12/30/24 Range/Units 02:37 02:37 WBC 18.98 H (4.50-10.00) X 10*3/uL RBC 2.99 L (4.40-5.60) X 10*6/uL Hgb 10.5 L (13.0-17.0) g/dL Hct 34.0 L (39.6-50.0) % MCV 113.7 H (80.0-97.0) FL MCH 35.1 H (27.0-32.0) pg MCHC 30.9 L (32.0-37.0) g/dL Plt Count 448 H (140-440) X 10*3/uL Immature Gran # 0.23 H (0.00-0.04) X 10*3/uL Neutrophils # 16.80 H (1.80-7.70) X 10*3/uL Lymphocytes # 0.59 L (0.90-5.00) X 10*3/uL Monocytes # 1.14 H (0.20-1.00) X 10*3/uL Macrocytosis (manual) 2+ A (None Seen) Retic Count (0.10-1.80) % Haptoglobin (31.2-198.0) mg/dL Creatinine 0.3 L (0.6-1.5) mg/dL BUN/Creatinine Ratio 31.67 H (12.00-20.00) Ratio Calcium 7.3 L (8.7-10.3) mg/dL Iron (65-175) UG/DL TIBC (228-460) UG/DL Transferrin (204.0-354.0) mg/dL Ferritin (22.0-322.0) ng/mL Total Protein (PEP) (6.2-8.2) g/dL IgG (700.0-1600.0) mg/dL IgA (60.0-350.0) mg/dL Microbiology - Last 24 Hours (Table) 12/27/24 13:41 Blood Culture - Preliminary Blood Assessment and Plan (1) Sepsis Current Visit: Yes Status: Acute Code(s): A41.9 - SEPSIS, UNSPECIFIED ORGANISM SNOMED Code(s): 45290540 (2) Lung abscess Current Visit: Yes Status: Acute Code(s): J85.2 - ABSCESS OF LUNG WITHOUT PNEUMONIA SNOMED Code(s): 51334057 (3) Pneumonia Current Visit: Yes Status: Acute Code(s): J18.9 - PNEUMONIA, UNSPECIFIED ORGANISM SNOMED Code(s): 818737951 Plan: 1patient presented to the hospital with sepsis in this patient who did have tachycardia elevated white count elevated lactic acid meeting criteria for SIRS/sepsis source is likely either postobstructive pneumonia/lung abscess in this patient who did have significant history of smoking and concern for po ssible malignancy with secondary postobstructive pneumonia and abscess and will need to cover for the polymicrobial pablo associated with such infection 2patient will benefit from bronchoscopy lavage and deep culture, pulmonary is following the patient 3patient is afebrile white count trending down patient is currently on Unasyn continue to monitor clinical course closely Family at the bedside question were answered Dictation was produced using [employer] software. please excuse any gra mmatical, word or spelling errors. Time with Patient: Less than 30
--- NOTE | 2024-12-31 13:36 | P.PN ---
Subjective Progress Note Date: 12/31/24 Principal diagnosis: Reason for follow-up is pneumonia/abscess Patient is a 74-year-old male with a past medical history significant for COPD hypertension alcohol abuse and and 14-wfzj-ihts smoking has been brought to the hospital concerning for increasing weakness decreased appetite and shortness of breath patient did have significant normality on the CT of the chest concerning for volume loss consolidative opacity and possible abscess. On today's evaluation that is 12/31/2024, Patient is afebrile this morning patient is breathing comfortably and is currently on a 2 L nasal oxygen patient apparently has received melatonin around 3 AM has been sleepy since then no worsening cough nausea vomiting reported by the at the bedside. Patient white count is down to 15.54 creatinine 0.3 blood cultures are pending Objective - Vital Signs Vital signs: Vital Signs Temp 97.6 F 12/31/24 07:34 Pulse 88 12/31/24 10:06 Resp 18 12/31/24 07:34 BP 138/78 12/31/24 07:34 Pulse Ox 99 12/31/24 07:34 FiO2 Intake & Output 12/30/24 12/31/24 12/31/24 18:59 06:59 18:59 Intake Total 100 50 Output Total 700 100 Balance -600 -50 Intake: Oral 100 50 Output: Urine 700 100 Other: Voiding Method Urinal Urinal Urinal # Voids 1 1 # Bowel Movements 1 1 - Exam GENERAL DESCRIPTION: An elderly male lying in bed in no distress RESPIRATORY SYSTEM: Unlabored breathing , decreased breath sounds at bases HEART: S1 S2 regular rate and rhythm , ABDOMEN: Soft , no tenderness EXTREMITIES: No edema feet - Labs CBC & Chem 7: 12/31/24 03:20 12/31/24 03:20 Labs: Abnormal Lab Results - Last 24 Hours (Table) 12/29/24 12/30/24 12/31/24 Range/Units 11:26 16:34 03:20 WBC 15.54 H (4.50-10.00) X 10*3/uL RBC 2.80 L (4.40-5.60) X 10*6/uL Hgb 9.9 L (13.0-17.0) g/dL Hct 31.7 L (39.6-50.0) % MCV 113.2 H (80.0-97.0) FL MCH 35.4 H (27.0-32.0) pg MCHC 31.2 L (32.0-37.0) g/dL Immature Gran # 0.18 H (0.00-0.04) X 10*3/uL Neutrophils # 13.35 H (1.80-7.70) X 10*3/uL Lymphocytes # 0.52 L (0.90-5.00) X 10*3/uL Monocytes # 1.10 H (0.20-1.00) X 10*3/uL BUN (9.0-27.0) mg/dL Creatinine (0.6-1.5) mg/dL BUN/Creatinine Ratio (12.00-20.00) Ratio Calcium (8.7-10.3) mg/dL Albumin (PEP) 1.61 L (3.80-4.90) g/dL Jwvwf-2-Buhlidlhp 0.48 H (0.10-0.40) g/dL Gamma Globulins 1.67 H (0.70-1.50) g/dL Urine Protein Trace H (Negative) Free [place] LC, Quant 6.12 H (0.33-1.94) mg/dL Free Lambda LC, Quant 6.22 H (0.57-2.63) mg/dL 12/31/24 Range/Units 03:20 WBC (4.50-10.00) X 10*3/uL RBC (4.40-5.60) X 10*6/uL Hgb (13.0-17.0) g/dL Hct (39.6-50.0) % MCV (80.0-97.0) FL MCH (27.0-32.0) pg MCHC (32.0-37.0) g/dL Immature Gran # (0.00-0.04) X 10*3/uL Neutrophils # (1.80-7.70) X 10*3/uL Lymphocytes # (0.90-5.00) X 10*3/uL Monocytes # (0.20-1.00) X 10*3/uL BUN 7.3 L (9.0-27.0) mg/dL Creatinine 0.3 L (0.6-1.5) mg/dL BUN/Creatinine Ratio 24.33 H (12.00-20.00) Ratio Calcium 7.2 L (8.7-10.3) mg/dL Albumin (PEP) (3.80-4.90) g/dL Ugvnt-4-Badugkxtf (0.10-0.40) g/dL Gamma Globulins (0.70-1.50) g/dL Urine Protein (Negative) Free [place] LC, Quant (0.33-1.94) mg/dL Free Lambda LC, Quant (0.57-2.63) mg/dL Microbiology - Last 24 Hours (Table) 12/27/24 13:41 Blood Culture - Preliminary Blood Assessment and Plan (1) Sepsis Current Visit: Yes Status: Acute Code(s): A41.9 - SEPSIS, UNSPECIFIED ORGANISM SNOMED Code(s): 78472756 (2) Lung abscess Current Visit: Yes Status: Acute Code(s): J85.2 - ABSCESS OF LUNG WITHOUT PNEUMONIA SNOMED Code(s): 66487983 (3) Pneumonia Current Visit: Yes Status: Acute Code(s): J18.9 - PNEUMONIA, UNSPECIFIED ORGANISM SNOMED Code(s): 087908072 Plan: 1patient presented to the hospital with sepsis in this patient who did have tachycardia elevated white count elevated lactic acid meeting criteria for SIRS/sepsis source is likely either postobstructive pneumonia/lung abscess in this patient who did have significant history of smoking and concern for possible malignancy with secondary postobstructive pneumonia and abscess and will need to cover for the polymicrobial pablo associated with such infection 2patient will benefit from bronchoscopy lavage and deep culture, pulmonary is following the patient 3patient is afebrile white count down to 15,000, blood culture has been negative sputum has not been collected we will continue patient on Unasyn await completion of the workup at the bedside question were answered Dictation was produced using [employer] dictation software. please excuse any grammatical, word or spelling errors.
--- NOTE | 2024-12-31 15:44 | P.PN ---
Subjective Progress Note Date: 12/31/24 On 12/30/2024, the patient is being seen for a follow-up. The patient is 74 and the patient has an acute hypoxic christen failure secondary to pneumonia. Noted the patient has bullous emphysema and the patient has extensive bullous emphysematous changes in upper lobes bilaterally. The patient has developed superinfection with pneumonia and the CAT scan of the chest was reviewed and the patient has extensive consolidation and marked airspace disease involving the left upper lobe and the lung base on the left. There is multiple cavities with display of air-fluid levels possibly infected bullae versus abscesses. The patient has been progressively losing weight. Very much debilitated. Short of breath at all times. Patient is currently on oxygen at 3 L/min nasal cannula with a pulse ox of 98%. Remains on IV Unasyn. Remains on Symbicort as maintenance and DuoNeb seems [id number]. The white cell count is 18.9 with a hemoglobin 10.5 and a platelet count of 448. Electrolytes are all within normal limits. UA is negative. Legionella urine antigen was also negative. On 12/31/2024, the patient is being seen for a follow-up. Slightly more active and awake compared to yesterday. Afebrile. Hemodynamically stable remains on 4 L of oxygen by nasal cannula. Remains on IV Unasyn. Remains on oxygen at 4 L/min nasal cannula with pulse ox of 99%. Very weak cough. Unable to produce any sputum. Remains on bronchodilators. Daughter and the girlfriend are both at the bedside. No other significant events overnight. The Doppler of the lower extremities was essentially negative and the white cell count is improving it is currently down to 15 with a hemoglobin 9.9 and the platelet count of 429. Electrolytes are all stable and within normal limits. BUN 7 with a creatinine of 0.3. UA is negative. Objective - Vital Signs Vital signs: Vital Signs Temp 97.6 F 12/31/24 07:34 Pulse 88 12/31/24 10:06 Resp 18 12/31/24 07:34 BP 138/78 12/31/24 07:34 Pulse Ox 99 12/31/24 07:34 FiO2 Intake & Output 12/30/24 12/31/24 12/31/24 18:59 06:59 18:59 Intake Total 100 50 Output Total 700 100 Balance -600 -50 Intake: Oral 100 50 Output: Urine 700 100 Other: Voiding Method Urinal Urinal Urinal # Voids 1 1 # Bowel Movements 1 1 - Exam GENERAL EXAM: Alert, weak 74-year-old male, resting in bed, on 4 L nasal cannula, fairly comfortable in no apparent distress. The patient is weak, debilitated, cachectic with a body mass index of 17 HEAD: Normocephalic. EYES: Normal reaction of pupils, equal size. NOSE: Clear with pink turbinates. THROAT: No erythema or exudates. NECK: No masses, no JVD. CHEST: No chest wall deformity. LUNGS: Equal air entry with bilateral scattered rhonchi more so on the left l alia. CVS: S1 and S2 normal with no audible murmur, regular rhythm. ABDOMEN: No hepatosplenomegaly, normal bowel sounds, no guarding or rigidity. SPINE: No scoliosis or deformity SKIN: No rashes CENTRAL NERVOUS SYSTEM: No focal deficits, tone is normal in all 4 extremities. EXTREMITIES: There is no peripheral edema. No clubbing, no cyanosis. Peripheral pulses are intact. - Labs CBC & Chem 7: 12/31/24 03:20 12/31/24 03:20 Labs: Abnormal Lab Results - Last 24 Hours (Table) 12/29/24 12/30/24 12/31/24 Range/Units 11:26 16:34 03:20 WBC 15.54 H (4.50-10.00) X 10*3/uL RBC 2.80 L (4.40-5.60) X 10*6/uL Hgb 9.9 L (13.0-17.0) g/dL Hct 31.7 L (39.6-50.0) % MCV 113.2 H (80.0-97.0) FL MCH 35.4 H (27.0-32.0) pg MCHC 31.2 L (32.0-37.0) g/dL Immature Gran # 0.18 H (0.00-0.04) X 10*3/uL Neutrophils # 13.35 H (1.80-7.70) X 10*3/uL Lymphocytes # 0.52 L (0.90-5.00) X 10*3/uL Monocytes # 1.10 H (0.20-1.00) X 10*3/uL BUN (9.0-27.0) mg/dL Creatinine (0.6-1.5) mg/dL BUN/Creatinine Ratio (12.00-20.00) Ratio Calcium (8.7-10.3) mg/dL Albumin (PEP) 1.61 L (3.80-4.90) g/dL Ttktx-9-Ooaawcqht 0.48 H (0.10-0.40) g/dL Gamma Globulins 1.67 H (0.70-1.50) g/dL Urine Protein Trace H (Negative) Free [place] LC, Quant 6.12 H (0.33-1.94) mg/dL Free Lambda LC, Quant 6.22 H (0.57-2.63) mg/dL 12/31/24 Range/Units 03:20 WBC (4.50-10.00) X 10*3/uL RBC (4.40-5.60) X 10*6/uL Hgb (13.0-17.0) g/dL Hct (39.6-50.0) % MCV (80.0-97.0) FL MCH (27.0-32.0) pg MCHC (32.0-37.0) g/dL Immature Gran # (0.00-0.04) X 10*3/uL Neutrophils # (1.80-7.70) X 10*3/uL Lymphocytes # (0.90-5.00) X 10*3/uL Monocytes # (0.20-1.00) X 10*3/uL BUN 7.3 L (9.0-27.0) mg/dL Creatinine 0.3 L (0.6-1.5) mg/dL BUN/Creatinine Ratio 24.33 H (12.00-20.00) Ratio Calcium 7.2 L (8.7-10.3) mg/dL Albumin (PEP) (3.80-4.90) g/dL Erbsr-4-Xaznwsqle (0.10-0.40) g/dL Gamma Globulins (0.70-1.50) g/dL Urine Protein (Negative) Free [place] LC, Quant (0.33-1.94) mg/dL Free Lambda LC, Quant (0.57-2.63) mg/dL Microbiology - Last 24 Hours (Table) 12/27/24 13:41 Blood Culture - Preliminary Blood Assessment and Plan Plan: Acute hypoxic respiratory failure secondary to acute community acquired pneumonia and/or lung masses. CT scan of the chest reveals marked volume loss in the left lung with marked mixed consolidative and cystic density in the left lung with scattered air-fluid levels suggesting multiple lung abscesses. Thick bandlike density in the right infrahilar region extending to the pleura which is focally thickened raising the question of neoplasm versus chronic inflammation. Mediastinal adenopathy is present likely reactive. Reviewed the CAT scan of the chest and findings could be consistent with infected bullae versus development of lung abscesses. The patient remains on 4 L of oxygen by nasal cannula Acute leukocytosis, improving Generalized debility and weight loss with a body mass index of 17 Chronic smoker/50-year history of chronic tobacco dependence at 1 pack/day however quit 14 years ago Chronic obstructive pulmonary disease with bullous changes involving the upper lobes bilaterally Chronic hypoxic respiratory failure on home oxygen Hypertension Chronic daily alcohol use Cachexia/anorexia syndrome Plan: The patient carries a very poor prognosis. Patient's baseline performance of functional status is poor. His functionality is also poor. Continue Unasyn and the patient seems to be responding and the patient's white cell count is also improving Continue DuoNeb inhalations Continue Symbicort Lovenox for DVT prophylaxis Continue the CIWA protocol Titrate down the FiO2 as tolerated, currently on 4 L by nasal cannula Will try to collect a sputum Gram stain and culture, continues to have a very weak and poor cough and mechanism. Updated the patient and his daughter regarding the plan of care Time with Patient: Greater than 30
[2024-12-31] MEDS: DULERA INHALATION SCH (20:34)
--- NOTE | 2025-01-01 13:35 | P.PN ---
Subjective Progress Note Date: 01/01/25 Patient was seen and examined. Significant other at bedside. Finally able to obtain a sputum Cx. No changes clinically. Antibiotics include Unasyn 3g IV Q6H (D7). CBC and BMP pending at the time of this note. General: non toxic, no distress, appears at stated age Derm: warm, dry Head: atraumatic, normocephalic, symmetric Eyes: EOMI, no lid lag, anicteric sclera Mouth: no lip lesion, mucus membranes moist Cardiovascular: S1S2 reg, no murmur Lungs: Coarse BS bilateral, no rhonchi, no rales , no accessory muscle use Ext: no gross muscle atrophy, no edema, no contractures, LUE swelling Neuro: no focal neuro deficits Psych: Alert, oriented, appropriate affect Based on my assessment of this patient, this patient meets a high complexity level of care. Acute on chronic hypoxic respiratory failure secondary to lung abscess versus post obstructive PNA versus malignancy: Procal 0.48. Continue Unasyn 3g IV TID (D7). Duoneb QID PRN. Symbicort 2 INH BID. Tessalon 100 mg PO TID PRN. Mucinex 1200 mg PO BID. Follow sputum Cx. Would ideally benefit from bronchoscopy. Pulmonary and ID on board. LUE swelling: Venous duplex neg DVT. Recommend LUE elevation. Hypertension: Toprol-XL 100 mg PO QD. Alcohol use disorder: CIWA protocol with Ativan PRN per protocol. Folic acid 1 mg PO QD. Thiamine 100 mg PO QD. Transaminitis likely due to EtOH abuse. Macrocytic anemia likely due to malnutrition and alcohol use disorder: B12 721, Folate 642. Iron studies show anemia of chronic disease. Resolved: Lactic acidosis. HypoNa. HypoK. CODE STATUS: FULL CODE DVT Prophylaxis: Lovenox SQ GI Prophylaxis: Designated medical POA if patient is not able to make medical decisions for themselves: I have reviewed the following data power consultant notes: ID, Oncology, Pulmonary. I have reviewed the results of the following tests: I have ordered the following tests: CBC and BMP pending. I have discussed the care of this patient with the following independent historian: Significant other. I have independently interpreted the following test below: I have discussed the management of this patient with the following physician: Objective - Vital Signs Vital signs: Vital Signs Temp 98.5 F 01/01/25 07:22 Pulse 98 01/01/25 07:22 Resp 17 01/01/25 07:22 BP 130/74 01/01/25 07:22 Pulse Ox 98 01/01/25 07:22 FiO2 Intake & Output 12/31/24 01/01/25 01/01/25 18:59 06:59 18:59 Intake Total 50 Output Total 400 200 250 Balance -350 -200 -250 Weight 56.699 kg Intake: Oral 50 Output: Urine 400 200 250 Other: Voiding Method Urinal Urinal Urinal # Voids 1 1 # Bowel Movements 1 1 - Labs CBC & Chem 7: 12/31/24 03:20 12/31/24 03:20
[2025-01-01 15:20] LABS: African American GFR (CKD) >90 (>60 ml/min/1.73 sqM); Anion Gap 1 mmol/L; Blood Urea Nitrogen 4 mg/dL (9-20); Calcium 7.0 mg/dL (8.4-10.2); Carbon Dioxide 34 mmol/L (22-30); Chloride 98 mmol/L (98-107); Glucose 100 mg/dL (74-99); Non-African American GFR(CKD) >90 (>60 ml/min/1.73 sqM); Potassium 3.7 mmol/L (3.5-5.1); Sodium 133 mmol/L (137-145)
[2025-01-01 15:32] LABS: Basophils # (A) 0.05 10*3/uL (0.00-0.10); Basophils % (A) 0.3 %; Eosinophils # (A) 0.10 10*3/uL (0.04-0.35); Eosinophils % (A) 0.6 %; HCT 30.0 % (39.6-50.0); HGB 9.9 g/dL (13.0-17.0); Lymphocytes # (A) 0.62 10*3/uL (0.90-5.00); Lymphocytes % (A) 3.8 %; MCH 35.4 pg (27.0-32.0); MCHC 33.0 g/dL (32.0-37.0); MCV 107.1 fL (80.0-97.0); Monocytes # (A) 1.29 10*3/uL (0.20-1.00); Monocytes % (A) 8.0 %; Neutrophils # (A) 13.90 10*3/uL (1.80-7.70); Neutrophils % (A) 86.0 %; Platelet Count 324 10*3/uL (140-440); RBC 2.80 10*6/uL (4.40-5.60); RDW 13.0 % (11.5-14.5); WBC 16.17 10*3/uL (4.50-10.00)
[2025-01-01 16:33] LABS: Bilirubin,Urine Negative (Negative); Blood,Urine Small (Negative); Color,Urine Yellow; Glucose,Urine (UA) Negative (Negative); Ketones,Urine 1+ (Negative); Leukocyte Esterase,Urine Negative (Negative); Mucus,Urine Rare /hpf; Nitrite,Urine Negative (Negative); PH, Urine 5.5 (5.0-8.0); Protein,Urine Trace (Negative); RBC,Urine 30 /hpf (0-5); Specific Gravity,Urine 1.030 (1.001-1.035); Urobilinogen,Urine <2.0 mg/dL (<2.0); WBC,Urine 4 /hpf (0-5)
--- NOTE | 2025-01-01 18:08 | P.PN ---
Subjective Progress Note Date: 01/01/25 Pt in bedside chair. Experiencing labored breathing and generalized weakness. Continues on IV abx Objective - Vital Signs Vital signs: Vital Signs Temp 98.5 F 01/01/25 07:22 Pulse 98 01/01/25 07:22 Resp 17 01/01/25 07:22 BP 130/74 01/01/25 07:22 Pulse Ox 98 01/01/25 07:22 FiO2 Intake & Output 12/31/24 01/01/25 01/01/25 18:59 06:59 18:59 Intake Total 50 Output Total 400 200 250 Balance -350 -200 -250 Weight 56.699 kg Intake: Oral 50 Output: Urine 400 200 250 Other: Voiding Method Urinal Urinal Urinal # Voids 1 1 # Bowel Movements 1 1 - Constitutional General appearance: Present: no acute distress - EENT Eyes: Present: anicteric sclerae, EOMI ENT: Present: hearing grossly normal - Respiratory Details: breathing mildly labored - Cardiovascular Details: skin warm and dry - Gastrointestinal General gastrointestinal: Present: soft - Integumentary Integumentary: Absent: cyanotic, jaundiced - Musculoskeletal Musculoskeletal: Present: generalized weakness - Psychiatric Psychiatric: Present: A&O x's 3 - Labs CBC & Chem 7: 01/01/25 14:31 01/01/25 14:31 Assessment and Plan (1) Lung abscess Current Visit: Yes Status: Acute Code(s): J85.2 - ABSCESS OF LUNG WITHOUT PNEUMONIA SNOMED Code(s): 78182004 (2) Macrocytic anemia Current Visit: Yes Status: Acute Code(s): D53.9 - NUTRITIONAL ANEMIA, UNSPECIFIED SNOMED Code(s): 90968615 (3) Mediastinal lymphadenopathy Current Visit: Yes Status: Acute Code(s): R59.0 - LOCALIZED ENLARGED LYMPH NODES SNOMED Code(s): 08422908 (4) Neutrophilic leukocytosis Current Visit: Yes Status: Acute Code(s): D72.828 - OTHER ELEVATED WHITE B LOOD CELL COUNT SNOMED Code(s): 533223838 Plan: #Right infrahilar bandlike consolidation, mediastinal lymphadenopathy - It is not clear if the findings on chest CT represent acute infection superimposed on chronic changes or malignancy - I agree with current management with IV antibiotics - He would benefit from short-term follow-up imaging outpatient with either repeat CT chest or PET/CT in 3 months - If there are suspicious findings on outpatient imaging, bronchoscopy could then be pursued. I will defer decision to proceed with inpatient bronchoscopy to pulmonology #Macrocytic anemia - Likely secondary to alcohol use - Vitamin B12 and TSH are normal - Additional workup including iron studies, folic acid, hemolysis labs, and monoclonal gammopathy labs were negative - Continue to monitor CBC #Neutrophilic leukocytosis - Due to suspected lung abscesses, unclear if there is underlying malignancy that could be contributing - Leukocytosis showing improvement since admit - IV antibiotics per primary and infectious disease teams
--- NOTE | 2025-01-01 21:46 | P.PN ---
Subjective Progress Note Date: 01/01/25 On 12/30/2024, the patient is being seen for a follow-up. The patient is 74 and the patient has an acute hypoxic christen failure secondary to pneumonia. Noted the patient has bullous emphysema and the patient has extensive bullous emphysematous changes in upper lobes bilaterally. The patient has developed superinfection with pneumonia and the CAT scan of the chest was reviewed and the patient has extensive consolidation and marked airspace disease involving the left upper lobe and the lung base on the left. There is multiple cavities with display of air-fluid levels possibly infected bullae versus abscesses. The patient has been progressively losing weight. Very much debilitated. Short of breath at all times. Patient is currently on oxygen at 3 L/min nasal cannula with a pulse ox of 98%. Remains on IV Unasyn. Remains on Symbicort as maintenance and DuoNeb seems [id number]. The white cell count is 18.9 with a hemoglobin 10.5 and a platelet count of 448. Electrolytes are all within normal limits. UA is negative. Legionella urine antigen was also negative. On 12/31/2024, the patient is being seen for a follow-up. Slightly more active and awake compared to yesterday. Afebrile. Hemodynamically stable remains on 4 L of oxygen by nasal cannula. Remains on IV Unasyn. Remains on oxygen at 4 L/min nasal cannula with pulse ox of 99%. Very weak cough. Unable to produce any sputum. Remains on bronchodilators. Daughter and the girlfriend are both at the bedside. No other significant events overnight. The Doppler of the lower extremities was essentially negative and the white cell count is improving it is currently down to 15 with a hemoglobin 9.9 and the platelet count of 429. Electrolytes are all stable and within normal limits. BUN 7 with a creatinine of 0.3. UA is negative. On 01/01/2025, the patient remains on 4 liters of oxygen by nasal cannula. The white cell count is at 16 with a hemoglobin 9.9 and the patient continues to have broad-spectrum antibiotics with IV Unasyn and the patient is being treated for an extensive pneumonia/infected bulla/lung abscess. He has advanced bullous emphysema. Sitting up in a chair. Cough remains weak. Producing minimal amount of sputum. Blood cultures been negative. Afebrile. No other significant events otherwise. Repeat chest x-ray is ordered for tomorrow. Rest of the electrolytes are all stable. BUN is 84 with a creatinine 0.25 and serum bicarbonate of 34. Objective - Vital Signs Vital signs: Vital Signs Temp 98.3 F 01/01/25 14:00 Pulse 90 01/01/25 14:00 Resp 17 01/01/25 14:00 BP 120/62 01/01/25 14:00 Pulse Ox 99 01/01/25 14:00 FiO2 Intake & Output 12/31/24 01/01/25 01/01/25 18:59 06:59 18:59 Intake Total 50 Output Total 400 200 250 Balance -350 -200 -250 Weight 56.699 kg Intake: Oral 50 Output: Urine 400 200 250 Other: Voiding Method Urinal Urinal Urinal # Voids 1 1 1 # Bowel Movements 1 1 - Exam GENERAL EXAM: Alert, weak 74-year-old male, resting in bed, on 4 L nasal cannula, fairly comfortable in no apparent distress. The patient is weak, debilitated, cachectic with a body mass index of 17 HEAD: Normocephalic. EYES: Normal reaction of pupils, equal size. NOSE: Clear with pink turbinates. THROAT: No erythema or exudates. NECK: No masses, no JVD. CHEST: No chest wall deformity. LUNGS: Equal air entry with bilateral scattered rhonchi more so on the left lung. CVS: S1 and S2 normal with no audible murmur, regular rhythm. ABDOMEN: No hepatosplenomegaly, normal bowel sounds, no guarding or rigidity. SPINE: No scoliosis or deformity SKIN: No rashes CENTRAL NERVOUS SYSTEM: No focal deficits, tone is normal in all 4 extremities. EXTREMITIES: There is no peripheral edema. No clubbing, no cyanosis. Peripheral pulses are intact. - Labs CBC & Chem 7: 01/01/25 14:31 01/01/25 14:31 Assessment and Plan Plan: Acute hypoxic respiratory failure secondary to acute community acquired pneumonia and/or lung masses. CT scan of the chest reveals marked volume loss in the left lung with marked mixed consolidative and cystic density in the left lung with scattered air-fluid levels suggesting multiple lung abscesses. Thick bandlike density in the right infrahilar region extending to the pleura which is focally thickened raising the question of neoplasm versus chronic inflammation. Mediastinal adenopathy is present likely reactive. Reviewed the CAT scan of the chest and findings could be consistent with infected bullae versus development of lung abscesses. The patient remains on 4 L of oxygen by nasal cannula Acute leukocytosis, improving Generalized debility and weight loss with a body mass index of 17 Chronic smoker/50-year history of chronic tobacco dependence at 1 pack/day however quit 14 years ago Chronic obstructive pulmonary disease with bullous changes involving the upper lobes bilaterally Chronic hypoxic respiratory failure on home oxygen Hypertension Chronic daily alcohol use Cachexia/anorexia syndrome Plan: Clinically stable and slightly more alert compared to yesterday. Cough remains weak. Unable to bring much of sputum. White cell count still elevated although improved. The patient carries a very poor prognosis. Patient's baseline performance of functional status is poor. His functionality is also poor. Continue Unasyn Repeat chest x-ray in the morning Continue DuoNeb inhalations Continue Symbicort Lovenox for DVT prophylaxis Continue the CIWA protocol Titrate down the FiO2 as tolerated, currently on 4 L by nasal cannula Will try to collect a sputum Gram stain and culture, continues to have a very weak and poor cough and mechanism. Updated the patient and his daughter regarding the plan of care Will likely need long-term antibiotic treatment for the extensive left lung pneumonia/abscess/infected bullae of the lung.
--- NOTE | 2025-01-02 07:43 | XR ---
EXAMINATION TYPE: XR chest 1V DATE OF EXAM: 01/02/2025 COMPARISON: 12/28/2024 CLINICAL INDICATION: Male, 74 years old with history of FU pneumonia; TECHNIQUE: Single frontal view of the chest is obtained. FINDINGS: The patient is rotated toward the left altering the normal cardiac and mediastinal contour s. Demonstrated extensive opacification throughout the left hemithorax with small areas of aeration. There is hyperinflation on the right. Possible trace right pleural effusion given blunted hemidiaphra gm. Some patchy right midlung opacity also persists. IMPRESSION: 1. Ongoing severe volume loss and near complete white out of the left hemithorax. 2. Background COPD an ongoing focal right midlung opacity. Possible development of a trace right pleu ral effusion. [facility], , 01/02/2025 7:41 AM
--- NOTE | 2025-01-02 11:42 | US ---
EXAMINATION TYPE: US kidneys/renal and bladder DATE OF EXAM: 01/02/2025 COMPARISON: NONE CLINICAL INDICATION: Male, 74 years old with history of hematuria TECHNIQUE: Grayscale imaging of the bilateral kidneys and urinary bladder: FINDINGS: EXAM MEASUREMENTS: Right Kidney: 9.4 x 5.2 x 4.4 cm Left Kidney: 10.2 x 4.4 x 4.5 cm Partner Integration Planner notes: Free fluid seen in RUQ. Right Kidney: No hydronephrosis or masses seen Left Kidney: No hydronephrosis or masses seen Bladder: There is some soft tissue impressing into the base of the bladder suggesting prostatomegaly. Bilateral Jets seen: No Incidental echogenic liver parenchyma. IMPRESSION: 1. No hydronephrosis. 2. Soft tissue impressing into the base of the bladder suggesting prostatomegaly. Correlate with PSA values and patient's symptoms. 3. There appears to be interval development of right perihepatic ascites fluid. There is fatty liver change noted for which clinical management is advised. [facility], , 01/02/2025 11:40 AM
--- NOTE | 2025-01-02 15:14 | P.PN ---
Subjective Progress Note Date: 01/02/25 Patient was seen and examined. Significant other at bedside. RN reported hematuria yesterday, none today. No changes clinically. Sputum culture growing nicole albicans. BCx negative. Antibiotics include Unasyn 3g IV Q6H (D8). Discussed with Dr. Rosas for possible need for bronchoscopy. CBC and BMP sig nificant for WBC 16.17, RBC 2.8, Hg 9.9, Hct 30, MCV 107.1, Na 133, bicarb 34, BUN 4, Cr 0.25, glu 100, Ca 7. CXR done today shows persistent white out of the left hemithorax with focal right midlung opacity. General: non toxic, no distress, appears at stated age Derm: warm, dry Head: atraumatic, normocephalic, symmetric Eyes: EOMI, no lid lag, anicteric sclera Mouth: no lip lesion, mucus membranes moist Cardiovascular: S1S2 reg, no murmur Lungs: Coarse BS bilateral, no rhonchi, no rales , no accessory muscle use Ext: no gross muscle atrophy, no edema, no contractures, LUE swelling Neuro: no focal neuro deficits Psych: Alert, oriented, appropriate affect Based on my assessment of this patient, this patient meets a high complexity level of care. Acute on chronic hypoxic respiratory failure secondary to lung abscess versus post obstructive PNA versus malignancy: Procal 0.48. Continue Unasyn 3g IV TID (D8). Duoneb QID PRN. Symbicort 2 INH BID. Tessalon 100 mg PO TID PRN. Mucinex 1200 mg PO BID. Follow finalized sputum Cx. Would ideally benefit from bronchoscopy. Pulmonary and ID on board. Hematuria: UA shows 30 RBC, neg LE or nitire. Renal/bladder US ordered. LUE swelling: Venous duplex neg DVT. Recommend LUE elevation. Hypertension: Toprol-XL 100 mg PO QD. Alcohol use disorder: CIWA protocol with Ativan PRN per protocol. Folic acid 1 mg PO QD. Thiamine 100 mg PO QD. Transaminitis likely due to EtOH abuse. Macrocytic anemia likely due to malnutrition and alcohol use disorder: B12 721, Folate 642. Iron studies show anemia of chronic disease. Resolved: Lactic acidosis. HypoK. CODE STATUS: FULL CODE DVT Prophylaxis: Lovenox SQ GI Prophylaxis: Designated medical POA if patient is not able to make medical decisions for themselves: I have reviewed the following sales and leasing consultant notes: ID, Oncology, Pulmonary. I have reviewed the results of the following tests: CBC, BMP, Sputum Cx. I have ordered the following tests: CBC and BMP. I have discussed the care of this patient with the following independent historian: Significant other. I have independently interpreted the following test below: CXR I have discussed the management of this patient with the following physician: Dr. Llanes Objective - Vital Signs Vital signs: Vital Signs Temp 97.7 F 01/02/25 06:57 Pulse 87 01/02/25 11:13 Resp 18 01/02/25 11:13 BP 119/71 01/02/25 06:57 Pulse Ox 98 01/02/25 06:57 FiO2 Intake & Output 01/01/25 01/02/25 01/02/25 18:59 06:59 18:59 Intake Total 350 Output Total 400 325 325 Balance -400 -325 25 Intake: Oral 350 Output: Urine 400 325 325 Other: Voiding Method Urinal Urinal Urinal # Voids 1 1 # Bowel Movements 1 - Labs CBC & Chem 7: 01/01/25 14:31 01/01/25 14:31 Labs: Abnormal Lab Results - Last 24 Hours (Table) 01/01/25 01/01/25 01/01/25 Range/Units 12:30 14:31 14:31 WBC 16.17 H (4.50-10.00) 10*3/uL RBC 2.80 L (4.40-5.60) 10*6/uL Hgb 9.9 L (13.0-17.0) g/dL Hct 30.0 L (39.6-50.0) % MCV 107.1 H (80.0-97.0) fL MCH 35.4 H (27.0-32.0) pg Immature Gran # 0.21 H (0.00-0.04) 10*3/uL Neutrophils # 13.90 H (1.80-7.70) 10*3/uL Lymphocytes # 0.62 L (0.90-5.00) 10*3/uL Monocytes # 1.29 H (0.20-1.00) 10*3/uL Sodium 133 L (137-145) mmol/L Carbon Dioxide 34 H (22-30) mmol/L BUN 4 L (9-20) mg/dL Creatinine 0.25 L (0.66-1.25) mg/dL Glucose 100 H (74-99) mg/dL Calcium 7.0 L (8.4-10.2) mg/dL Urine Protein Trace H (Negative) Urine Ketones 1+ H (Negative) Urine Blood Small H (Negative) Urine RBC 30 H (0-5) /hpf Urine Mucus Rare H (None) /hpf Microbiology - Last 24 Hours (Table) 12/31/24 17:48 Gram Stain - Preliminary Sputum Sputum Culture - Preliminary Nicole albicans 12/27/24 13:41 Blood Culture - Final Blood
[2025-01-02] MEDS: ZINC OXIDE PASTE (Z-GUARD) 1 APPLIC TOPICAL ONE (16:03)
--- NOTE | 2025-01-02 23:48 | P.PN ---
Subjective Progress Note Date: 01/02/25 On 12/30/2024, the patient is being seen for a follow-up. The patient is 74 and the patient has an acute hypoxic christen failure secondary to pneumonia. Noted the patient has bullous emphysema and the patient has extensive bullous emphysematous changes in upper lobes bilaterally. The patient has developed superinfection with pneumonia and the CAT scan of the chest was reviewed and the patient has extensive consolidation and marked airspace disease involving the left upper lobe and the lung base on the left. There is multiple cavities with display of air-fluid levels possibly infected bullae versus abscesses. The patient has been progressively losing weight. Very much debilitated. Short of breath at all times. Patient is currently on oxygen at 3 L/min nasal cannula with a pulse ox of 98%. Remains on IV Unasyn. Remains on Symbicort as maintenance and DuoNeb seems [id number]. The white cell count is 18.9 with a hemoglobin 10.5 and a platelet count of 448. Electrolytes are all within normal limits. UA is negative. Legionella urine antigen was also negative. On 12/31/2024, the patient is being seen for a follow-up. Slightly more active and awake compared to yesterday. Afebrile. Hemodynamically stable remains on 4 L of oxygen by nasal cannula. Remains on IV Unasyn. Remains on oxygen at 4 L/min nasal cannula with pulse ox of 99%. Very weak cough. Unable to produce any sputum. Remains on bronchodilators. Daughter and the girlfriend are both at the bedside. No other significant events overnight. The Doppler of the lower extremities was essentially negative and the white cell count is improving it is currently down to 15 with a hemoglobin 9.9 and the platelet count of 429. Electrolytes are all stable and within normal limits. BUN 7 with a creatinine of 0.3. UA is negative. On 01/01/2025, the patient remains on 4 liters of oxygen by nasal cannula. The white cell count is at 16 with a hemoglobin 9.9 and the patient continues to have broad-spectrum antibiotics with IV Unasyn and the patient is being treated for an extensive pneumonia/infected bulla/lung abscess. He has advanced bullous emphysema. Sitting up in a chair. Cough remains weak. Producing minimal amount of sputum. Blood cultures been negative. Afebrile. No other significant events otherwise. Repeat chest x-ray is ordered for tomorrow. Rest of the electrolytes are all stable. BUN is 84 with a creatinine 0.25 and serum bicarbonate of 34. On 01/02/2025, the patient is being seen for a follow-up. The patient remains on 40 Suboxone by nasal cannula. Overall condition remains unchanged. The ventricles are 16 with a hemoglobin of 9.9. The sputum sample was positive for Nicole albicans. Repeat chest x-ray from today shows essentially no significant change and the patient continues to have volume loss and near complete opacification of left hemithorax. Considering bronchoscopy for bronchial lavage of microbial diagnosis. Remains on broad-spectrum antibiotics with IV Unasyn. Objective - Vital Signs Vital signs: Vital Signs Temp 97.7 F 01/02/25 06:57 Pulse 87 01/02/25 11:13 Resp 18 01/02/25 11:13 BP 119/71 01/02/25 06:57 Pulse Ox 98 01/02/25 06:57 FiO2 Intake & Output 01/01/25 01/02/25 01/02/25 18:59 06:59 18:59 Intake Total 250 Output Total 400 325 325 Balance -400 -325 -75 Intake: Oral 250 Output: Urine 400 325 325 Other: Voiding Method Urinal Urinal Urinal # Voids 1 1 # Bowel Movements 1 - Exam GENERAL EXAM: Alert, weak 74-year-old male, resting in bed, on 4 L nasal cannula, fairly comfortable in no apparent distress. The patient is weak, debilitated, cachectic with a body mass index of 17 HEAD: Normocephalic. EYES: Normal reaction of pupils, equal size. NOSE: Clear with pink turbinates. THROAT: No erythema or exudates. NECK: No masses, no JVD. CHEST: No chest wall deformity. LUNGS: Equal air entry with bilateral scattered rhonchi more so on the left lung. CVS: S1 and S2 normal with no audible murmur, regular rhythm. ABDOMEN: No hepatosplenomegaly, normal bowel sounds, no guarding or rigidity. SPINE: No scoliosis or deformity SKIN: No rashes CENTRAL NERVOUS SYSTEM: No focal deficits, tone is normal in all 4 extremities. EXTREMITIES: There is no peripheral edema. No clubbing, no cyanosis. Peripheral pulses are intact. - Labs CBC & Chem 7: 01/01/25 14:31 01/01/25 14:31 Labs: Abnormal Lab Results - Last 24 Hours (Table) 01/01/25 01/01/25 01/01/25 Range/Units 12:30 14:31 14:31 WBC 16.17 H (4.50-10.00) 10*3/uL RBC 2.80 L (4.40-5.60) 10*6/uL Hgb 9.9 L (13.0-17.0) g/dL Hct 30.0 L (39.6-50.0) % MCV 107.1 H (80.0-97.0) fL MCH 35.4 H (27.0-32.0) pg Immature Gran # 0.21 H (0.00-0.04) 10*3/uL Neutrophils # 13.90 H (1.80-7.70) 10*3/uL Lymphocytes # 0.62 L (0.90-5.00) 10*3/uL Monocytes # 1.29 H (0.20-1.00) 10*3/uL Sodium 133 L (137-145) mmol/L Carbon Dioxide 34 H (22-30) mmol/L BUN 4 L (9-20) mg/dL Creatinine 0.25 L (0.66-1.25) mg/dL Glucose 100 H (74-99) mg/dL Calcium 7.0 L (8.4-10.2) mg/dL Urine Protein Trace H (Negative) Urine Ketones 1+ H (Negative) Urine Blood Small H (Negative) Urine RBC 30 H (0-5) /hpf Urine Mucus Rare H (None) /hpf Microbiology - Last 24 Hours (Table) 12/31/24 17:48 Gram Stain - Preliminary Sputum Sputum Culture - Preliminary Nicole albicans 12/27/24 13:41 Blood Culture - Final Blood Assessment and Plan Plan: Acute hypoxic respiratory failure secondary to acute community acquired pneumonia and/or lung masses. CT scan of the chest reveals marked volume loss in the left lung with marked mixed consolidative and cystic density in the left lung with scattered air-fluid levels suggesting multiple lung abscesses. Thick bandlike density in the right infrahilar region extending to the pleura which is focally thickened raising the question of neoplasm versus chronic inflammation. Mediastinal adenopathy is present likely reactive. Reviewed the CAT scan of the chest and findings could be consistent with infected bullae versus development of lung abscesses. The patient remains on 4 L of oxygen by nasal cannula Acute leukocytosis, improving Generalized debility and weight loss with a body mass index of 17 Chronic smoker/50-year history of chronic tobacco dependence at 1 pack/day how ever quit 14 years ago Chronic obstructive pulmonary disease with bullous changes involving the upper lobes bilaterally Chronic hypoxic respiratory failure on home oxygen Hypertension Chronic daily alcohol use Cachexia/anorexia syndrome Plan: Clinically stable and slightly more alert compared to yesterday. Cough remains weak. Sputum sample was positive for Nicole albicans. The patient may benefit from a bronchoscopy and lavage to further establish microbial diagnosis. Chest x-ray findings from today are essentially unchanged and the patient continues to have complete opacification of the left lung. Clinically improved. White cell count remains mildly elevated. White cell count still elevated although improved. The patient carries a very poor prognosis. Patient's baseline performance of functional status is poor. His functionality is also poor. Continue Unasyn Repeat chest x-ray in the morning Continue DuoNeb inhalations Continue Symbicort Lovenox for DVT prophylaxis Continue the CIWA protocol Titrate down the FiO2 as tolerated, currently on 4 L by nasal cannula Will try to collect a sputum Gram stain and culture, continues to have a very weak and poor cough and mechanism. Updated the patient and his daughter regarding the plan of care Will likely need long-term antibiotic treatment for the extensive left lung pneumonia/abscess/infected bullae of the lung. The bronchoscopy and the bronchial lavage may help with choice of antibiotics on outpatient basis. Keep n.p.o. after midnight and possible bronchoscopy in a.m.
--- NOTE | 2025-01-03 15:59 | P.PN ---
Subjective Progress Note Date: 01/01/25 Principal diagnosis: Reason for follow-up is pneumonia/abscess Patient is a 74-year-old male with a past medical history significant for COPD hypertension alcohol abuse and and [id number] smoking has been brought to the hospital concerning for increasing weakness decreased appetite and shortness of breath patient did have significant normality on the CT of the chest concerning for volume loss consolidative opacity and possible abscess. On today's evaluation that is 01/01/2025,the patient denies any fever or any chills, patient is breathing slightly comfortably on 4 L current oxygen the patient denies chest pain shortness of breath and continue to have a cough more productive now, patient denies abdominal pain, no nausea vomiting or diarrhea. Patient white count is 16.17, creatinine 0.25. Sputum cultures pending Objective - Vital Signs Vital signs: Vital Signs Temp 98.5 F 01/01/25 07:22 Pulse 98 01/01/25 07:22 Resp 17 01/01/25 07:22 BP 130/74 01/01/25 07:22 Pulse Ox 98 01/01/25 07:22 FiO2 Intake & Output 12/31/24 01/01/25 01/01/25 18:59 06:59 18:59 Intake Total 50 Output Total 400 200 250 Balance -350 -200 -250 Weight 56.699 kg Intake: Oral 50 Output: Urine 400 200 250 Other: Voiding Method Urinal Urinal Urinal # Voids 1 1 # Bowel Movements 1 1 - Exam GENERAL DESCRIPTION: An elderly male lying in bed in no distress RESPIRATORY SYSTEM: Unlabored breathing , decreased breath sounds at bases HEART: S1 S2 regular rate and rhythm , ABDOMEN: Soft , no tenderness EXTREMITIES: No edema feet - Labs CBC & Chem 7: 01/01/25 14:31 01/01/25 14:31 Labs: Abnormal Lab Results - Last 24 Hours (Table) 12/29/24 Range/Units 11:26 Free Murchison LC, Quant 6.12 H (0.33-1.94) mg/dL Free Lambda LC, Quant 6.22 H (0.57-2.63) mg/dL Assessment and Plan (1) Sepsis Current Visit: Yes Status: Acute Code(s): A41.9 - SEPSIS, UNSPECIFIED ORGANISM SNOMED Code(s): 27058855 (2) Lung abscess Current Visit: Yes Status: Acute Code(s): J85.2 - ABSCESS OF LUNG WITHOUT PNEUMONIA SNOMED Code(s): 51258193 (3) Pneumonia Current Visit: Yes Status: Acute Code(s): J18.9 - PNEUMONIA, UNSPECIFIED ORGANISM SNOMED Code(s): 764932120 Plan: 1patient presented to the hospital with sepsis in this patient who did have tachycardia elevated white count elevated lactic acid meeting criteria for SIRS/sepsis source is likely either postobstructive pneumonia/lung abscess in this patient who did have significant history of smoking and concern for possible malignancy with secondary postobstructive pneumonia and abscess and will need to cover for the polymicrobial pablo associated with such infection 2patient will benefit from bronchoscopy lavage and deep culture, pulmonary is following the patient and the plan is scheduled for this 3patient is afebrile white count down to 15,000, blood culture has been negative sputum culture is currently pending we will continue patient on Unasyn and monitor clinical course closely at the bedside question were answered Dictation was produced using [employer] dictation software. please excuse any grammatical, word or spelling errors. Time with Patient: Less than 30
--- NOTE | 2025-01-03 16:00 | P.PN ---
Subjective Progress Note Date: 01/02/25 Principal diagnosis: Reason for follow-up is pneumonia/abscess Patient is a 74-year-old male with a past medical history significant for COPD hypertension alcohol abuse and and [id number] smoking has been brought to the hospital concerning for increasing weakness decreased appetite and shortness of breath patient did have significant normality on the CT of the chest concerning for volume loss consolidative opacity and possible abscess. On today's evaluation that is 01/02/2025,the patient remains to be afebrile, patient is on 4 L nasal cannula supplemental oxygen however the patient is more awake up in the chair and seem to breathing slightly comfortably could not have a cough but he Sputum No Hemoptysis No Abdominal Pain or Diarrhea. No New Labs Were Obtained Today Sputum Is Growing Nicole Albicans Objective - Vital Signs Vital signs: Vital Signs Temp 97.7 F 01/02/25 06:57 Pulse 87 01/02/25 11:13 Resp 18 01/02/25 11:13 BP 119/71 01/02/25 06:57 Pulse Ox 98 01/02/25 06:57 FiO2 Intake & Output 01/01/25 01/02/25 01/02/25 18:59 06:59 18:59 Intake Total 350 Output Total 400 325 325 Balance -400 -325 25 Intake: Oral 350 Output: Urine 400 325 325 Other: Voiding Method Urinal Urinal Urinal # Voids 1 1 # Bowel Movements 1 - Exam GENERAL DESCRIPTION: An elderly male lying in bed in no distress RESPIRATORY SYSTEM: Unlabored breathing , decreased breath sounds at bases HEART: S1 S2 regular rate and rhythm , ABDOMEN: Soft , no tenderness EXTREMITIES: No edema feet - Labs CBC & Chem 7: 01/01/25 14:31 01/01/25 14:31 Labs: Abnormal Lab Results - Last 24 Hours (Table) 01/01/25 01/01/25 01/01/25 Range/Units 12:30 14:31 14:31 WBC 16.17 H (4.50-10.00) 10*3/uL RBC 2.80 L (4.40-5.60) 10*6/uL Hgb 9.9 L (13.0-17.0) g/dL Hct 30.0 L (39.6-50.0) % MCV 107.1 H (80.0-97.0) fL MCH 35.4 H (27.0-32.0) pg Immature Gran # 0.21 H (0.00-0.04) 10*3/uL Neutrophils # 13.90 H (1.80-7.70) 10*3/uL Lymphocytes # 0.62 L (0.90-5.00) 10*3/uL Monocytes # 1.29 H (0.20-1.00) 10*3/uL Sodium 133 L (137-145) mmol/L Carbon Dioxide 34 H (22-30) mmol/L BUN 4 L (9-20) mg/dL Creatinine 0.25 L (0.66-1.25) mg/dL Glucose 100 H (74-99) mg/dL Calcium 7.0 L (8.4-10.2) mg/dL Urine Protein Trace H (Negative) Urine Ketones 1+ H (Negative) Urine Blood Small H (Negative) Urine RBC 30 H (0-5) /hpf Urine Mucus Rare H (None) /hpf Microbiology - Last 24 Hours (Table) 12/31/24 17:48 Gram Stain - Preliminary Sputum Sputum Culture - Preliminary Nicole albicans 12/27/24 13:41 Blood Culture - Final Blood Assessment and Plan (1) Sepsis Current Visit: Yes Status: Acute Code(s): A41.9 - SEPSIS, UNSPECIFIED ORGANISM SNOMED Code(s): 19695616 (2) Lung abscess Current Visit: Yes Status: Acute Code(s): J85.2 - ABSCESS OF LUNG WITHOUT PNEUMONIA SNOMED Code(s): 17762860 (3) Pneumonia Current Visit: Yes Status: Acute Code(s): J18.9 - PNEUMONIA, UNSPECIFIED ORGANISM SNOMED Code(s): 103353724 Plan: 1patient presented to the hospital with sepsis in this patient who did have tachycardia elevated white count elevated lactic acid meeting criteria for SIRS/sepsis source is likely either postobstructive pneumonia/lung abscess in this patient who did have significant history of smoking and concern for possible malignancy with secondary postobstructive pneumonia and abscess and will need to cover for the polymicrobial pablo associated with such infection 2patient will benefit from bronchoscopy lavage and deep culture, pulmonary is following the patient and the plan is scheduled for tomorrow. 3patient is afebrile, blood culture have been negative sputum is growing Nicole more likely colonizer. 4we will keep the patient on Unasyn at this point await bronchoscopy and deep culture Dictation was produced using [employer] dictation software. please excuse any grammatical, word or spelling errors. Time with Patient: Less than 30
--- NOTE | 2025-01-03 16:01 | P.PN ---
Subjective Progress Note Date: 01/03/25 Principal diagnosis: Reason for follow-up is pneumonia/abscess Patient is a 74-year-old male with a past medical history significant for COPD hypertension alcohol abuse and and [id number] smoking has been brought to the hospital concerning for increasing weakness decreased appetite and shortness of breath patient did have significant normality on the CT of the chest concerning for volume loss consolidative opacity and possible abscess. On today's evaluation that is 01/03/2025, the patient continues to be afebrile patient is more awake alert up in the chair breathing more comfortably he did have more cough and is bringing more sputum as reported by the no hemoptysis no chest pain currently on 4 L nasal cannula oxygen no abdominal pain or diarrhea. No new labs were obtained today Objective - Vital Signs Vital signs: Vital Signs Temp 97.4 F L 01/03/25 13:45 Pulse 86 01/03/25 13:45 Resp 18 01/03/25 13:45 BP 119/67 01/03/25 13:45 Pulse Ox 99 01/03/25 13:45 FiO2 Intake & Output 01/02/25 01/03/25 01/03/25 18:59 06:59 18:59 Intake Total 350 Output Total 525 275 Balance -175 -275 Weight 56.699 kg Intake: Oral 350 Output: Urine 525 275 Other: Voiding Method Urinal Bedside Commode Bedside Commode Urinal Urinal # Voids 3 1 # Bowel Movements 1 - Exam GENERAL DESCRIPTION: An elderly male lying in bed in no distress RESPIRATORY SYSTEM: Unlabored breathing , decreased breath sounds at bases HEART: S1 S2 regular rate and rhythm , ABDOMEN: Soft , no tenderness EXTREMITIES: No edema feet - Labs CBC & Chem 7: 01/01/25 14:31 01/01/25 14:31 Labs: Microbiology - Last 24 Hours (Table) 12/31/24 17:48 Gram Stain - Final Sputum Sputum Culture - Final Nicole albicans Assessment and Plan (1) Sepsis Current Visit: Yes Status: Acute Code(s): A41.9 - SEPSIS, UNSPECIFIED ORGANISM SNOMED Code(s): 47703237 (2) Lung abscess Current Visit: Yes Status: Acute Code(s): J85.2 - ABSCESS OF LUNG WITHOUT PNEUMONIA SNOMED Code(s): 97763350 (3) Pneumonia Current Visit: Yes Status: Acute Code(s): J18.9 - PNEUMONIA, UNSPECIFIED ORG ANISM SNOMED Code(s): 090580185 Plan: 1patient presented to the hospital with sepsis in this patient who did have tachycardia elevated white count elevated lactic acid meeting criteria for SIRS/sepsis source is likely either postobstructive pneumonia/lung abscess in this patient who did have significant history of smoking and concern for p ossible malignancy with secondary postobstructive pneumonia and abscess and will need to cover for the polymicrobial pablo associated with such infection 2patient will benefit from bronchoscopy lavage and deep culture, pulmonary is following the patient and bronchoscopy has been rescheduled for tomorrow could not be completed today because of OR schedule 3patient is afebrile, blood culture have been negative sputum is growing Nicole more likely colonizer. 4patient did have some clinical improvement and sputum negative for any resistant pathogen we will continue Unasyn and monitor clinical course closely Dictation was produced using [employer] dictation software. please excuse any grammatical, word or spelling errors. Time with Patient: Less than 30
--- NOTE | 2025-01-03 16:20 | P.PN ---
Subjective Progress Note Date: 01/03/25 Patient was seen and examined. Significant other at bedside. No changes clinically. Antibiotics include Unasyn 3g IV Q6H (D9). Discussed with Dr. Rosas plans for bronchoscopy tomorrow. No new labs done today. Renal US neg hydro. General: non toxic, no distress, appears at stated age Derm: warm, dry Head: atraumatic, normocephalic, symmetric Eyes: EOMI, no lid lag, anicteric sclera Mouth: no lip lesion, mucus membranes moist Cardiovascular: S1S2 reg, no murmur Lungs: Coarse BS bilateral, no rhonchi, no rales , no accessory muscle use Ext: no gross muscle atrophy, no edema, no contractures, LUE swelling Neuro: no focal neuro deficits Psych: Alert, oriented, appropriate affect Based on my assessment of this patient, this patient meets a high complexity level of care. Acute on chronic hypoxic respiratory failure secondary to lung abscess versus post obstructive PNA versus malignancy: Procal 0.48. Continue Unasyn 3g IV TID (D9). Duoneb QID PRN. Symbicort 2 INH BID. Tessalon 100 mg PO TID PRN. Mucinex 1200 mg PO BID. Sputum Cx Nicole albicans. Would ideally benefit from bronchoscopy which is planned for tomorrow morning. Pulmonary and ID on board. Hematuria: UA shows 30 RBC, neg LE or nitire. Renal/bladder US no hydro. LUE swelling: Venous duplex neg DVT. Recommend LUE elevation. Hypertension: Toprol-XL 100 mg PO QD. Alcohol use disorder: CIWA protocol with Ativan PRN per protocol. Folic acid 1 mg PO QD. Thiamine 100 mg PO QD. Transaminitis likely due to EtOH abuse. Macrocytic anemia likely due to malnutrition and alcohol use disorder: B12 721, Folate 642. Iron studies show anemia of chronic disease. Resolved: Lactic acidosis. HypoK. CODE STATUS: FULL CODE DVT Prophylaxis: Lovenox SQ GI Prophylaxis: Designated medical POA if patient is not able to make medical decisions for themselves: I have reviewed the following dairy nutrition consultant notes: ID. I have reviewed the results of the following tests: Renal US. I have ordered the following tests: CBC and BMP. I have discussed the care of this patient with the following independent historian: Significant other. I have independently interpreted the following test below: I have discussed the management of this patient with the following physician: Dr. Llanes Objective - Vital Signs Vital signs: Vital Signs Temp 97.4 F L 01/03/25 13:45 Pulse 86 01/03/25 13:45 Resp 18 01/03/25 13:45 BP 119/67 01/03/25 13:45 Pulse Ox 99 01/03/25 13:45 FiO2 Intake & Output 01/02/25 01/03/25 01/03/25 18:59 06:59 18:59 Intake Total 350 Output Total 525 275 Balance -175 -275 Weight 56.699 kg Intake: Oral 350 Output: Urine 525 275 Other: Voiding Method Urinal Bedside Commode Bedside Commode Urinal Urinal # Voids 3 1 # Bowel Movements 1 - Labs CBC & Chem 7: 01/01/25 14:31 01/01/25 14:31 Labs: Microbiology - Last 24 Hours (Table) 12/31/24 17:48 Gram Stain - Final Sputum Sputum Culture - Final Nicole albicans
[2025-01-04 05:26] LABS: HCT 31.2 % (39.6-50.0); HGB 10.2 g/dL (13.0-17.0); MCH 34.9 pg (27.0-32.0); MCHC 32.7 g/dL (32.0-37.0); MCV 106.8 fL (80.0-97.0); Platelet Count 476 10*3/uL (140-440); RBC 2.92 10*6/uL (4.40-5.60); RDW 13.2 % (11.5-14.5); WBC 17.55 10*3/uL (4.50-10.00)
[2025-01-04 05:31] LABS: African American GFR (CKD) >90 (>60 ml/min/1.73 sqM); Anion Gap 5 mmol/L; Blood Urea Nitrogen 5 mg/dL (9-20); Calcium 7.5 mg/dL (8.4-10.2); Carbon Dioxide 38 mmol/L (22-30); Chloride 90 mmol/L (98-107); Glucose 89 mg/dL (74-99); Non-African American GFR(CKD) >90 (>60 ml/min/1.73 sqM); Potassium 3.0 mmol/L (3.5-5.1); Sodium 133 mmol/L (137-145)
[2025-01-04] MEDS: POTASSIUM CHLORIDE ER 20 MEQ TAB.ER PO STA ×2 (06:29→15:25)
[2025-01-04 07:40] LABS: Stomatocytes Present
--- NOTE | 2025-01-04 07:47 | P.PN ---
Subjective Progress Note Date: 01/04/25 01/04/2025, the patient is being seen for a follow-up. The patient is awake and alert.In per review of her telemedicine I just Coffee mechanism remains extremely weak. However, no significant respiratory decompensation the patient remains on 3 to 4 L of oxygen by nasal cannula maintaining saturation above 90%. The white cell count from today is at 17.5 with a hemoglobin of 10.2 and a platelet count of 476. Sodium is at 133, potassium is at 3, BUN is 5 with a creatinine of 0.19. Remains on IV Unasyn. Remains on DuoNeb nebulizer treatments and Dulera as maintenance. The plan is to proceed with a bronchoscopy and a bronchial lavage of the left lung. Most recent chest x-ray from 01/02/2025 shows persistent volume loss and near complete consolidation of the left lung along with air-fluid levels consistent with infected bullae/abscess formation. Objective - Vital Signs Vital signs: Vital Signs Temp 99.0 F 01/04/25 00:12 Pulse 90 01/04/25 00:12 Resp 20 01/04/25 00:12 BP 109/68 01/04/25 00:12 Pulse Ox 92 L 01/04/25 00:12 FiO2 Intake & Output 01/03/25 01/04/25 01/04/25 18:59 06:59 18:59 Weight 56.699 kg Other: Voiding Method Bedside Commode Bedside Commode Urinal Urinal # Voids 2 2 # Bowel Movements 1 - Exam GENERAL EXAM: Alert, weak 74-year-old male, resting in bed, on 3 L nasal cannula, fairly comfortable in no apparent distress. The patient is weak, debilitated, cachectic with a body mass index of 17 HEAD: Normocephalic. EYES: Normal reaction of pupils, equal size. NOSE: Clear with pink turbinates. THROAT: No erythema or exudates. NECK: No masses, no JVD. CHEST: No chest wall deformity. LUNGS: Equal air entry with bilateral scattered rhonchi more so on the left lung. CVS: S1 and S2 normal with no audible murmur, regular rhythm. ABDOMEN: No hepatosplenomegaly, normal bowel sounds, no guarding or rigidity. SPINE: No scoliosis or deformity SKIN: No rashes CENTRAL NERVOUS SYSTEM: No focal deficits, tone is normal in all 4 extremities. EXTREMITIES: There is no peripheral edema. No clubbing, no cyanosis. Peripheral pulses are intact. - Labs CBC & Chem 7: 01/04/25 04:21 01/04/25 04:21 Labs: Abnormal Lab Results - Last 24 Hours (Table) 01/04/25 01/04/25 Range/Units 04:21 04:21 WBC 17.55 H (4.50-10.00) 10*3/uL RBC 2.92 L (4.40-5.60) 10*6/uL Hgb 10.2 L (13.0-17.0) g/dL Hct 31.2 L (39.6-50.0) % MCV 106.8 H (80.0-97.0) fL MCH 34.9 H (27.0-32.0) pg Plt Count 476 H (140-440) 10*3/uL MPV 9.3 L (9.5-12.2) fL Sodium 133 L (137-145) mmol/L Potassium 3.0 L (3.5-5.1) mmol/L Chloride 90 L (98-107) mmol/L Carbon Dioxide 38 H (22-30) mmol/L BUN 5 L (9-20) mg/dL Creatinine 0.19 L (0.66-1.25) mg/dL Calcium 7.5 L (8.4-10.2) mg/dL Microbiology - Last 24 Hours (Table) 12/31/24 17:48 Gram Stain - Final Sputum Sputum Culture - Final Nicole albicans Assessment and Plan Plan: Acute hypoxic respiratory failure secondary to acute community acquired pneumon ia and/or lung masses. CT scan of the chest reveals marked volume loss in the left lung with marked mixed consolidative and cystic density in the left lung with scattered air-fluid levels suggesting multiple lung abscesses. Thick bandlike density in the right infrahilar region extending to the pleura which is focally thickened raising the question of neoplasm versus chronic inflammation. Mediastinal adenopathy is present likely reactive. Reviewed the CAT scan of the chest and findings could be consistent with infected bullae versus development of lung abscesses. The patient remains on 3 L of oxygen by nasal cannula Acute leukocytosis, improving Generalized debility and weight loss with a body mass index of 17 Chronic smoker/50-year history of chronic tobacco dependence at 1 pack/day however quit 14 years ago Chronic obstructive pulmonary disease with bullous changes involving the upper lobes bilaterally Chronic hypoxic respiratory failure on home oxygen Hypertension Chronic daily alcohol use Cachexia/anorexia syndrome Plan: Clinically stable and slightly more alert compared to yesterday. Cough remains weak. Sputum sample was positive for Nicole albicans. The patient may benefit from a bronchoscopy and lavage to further establish microbial diagnosis. Chest x-ray findings from today are essentially unchanged and the patient continues to have complete opacification of the left lung. Clinically improved. White cell count remains mildly elevated. White cell count still elevated although improved. The patient carries a very poor prognosis. Patient's baseline performance of functional status is poor. His functionality is also poor. Continue Unasyn Continue DuoNeb inhalations Continue Symbicort Lovenox for DVT prophylaxis Continue the CIWA protocol Titrate down the FiO2 as tolerated, currently on 3 L by nasal cannula Will try to collect a sputum Gram stain and culture, continues to have a very weak and poor cough and mechanism. Updated the patient and his daughter regarding the plan of care Will likely need long-term antibiotic treatment for the extensive left lung pneumonia/abscess/infected bullae of the lung. Bronchoscopy will be done today and a bronchial lavage of the right lung will be performed for microbial cultures and analysis. 1
[2025-01-04] MEDS ORDERED: MIDAZOLAM 2 MG/2 ML VIAL ONE (07:48)
[2025-01-04] MEDS ORDERED: KETAMINE HCL IN 0.9 % NACL 50 MG/5 ML SYRINGE ONE (07:48)
[2025-01-04] MEDS ORDERED: PROPOFOL 10 MG/ML 20 ML VIAL IV ONE (07:48)
[2025-01-04] MEDS: IV FLUID CONTINUATION 1,000 ML IV ONE (07:53)
--- NOTE | 2025-01-04 08:02 | P.PCN ---
Date of Procedure: 01/04/25 Operative Findings: Preoperative Diagnosis: COPD Left lung consolidation, infected bullae versus abscess. Postoperative Diagnosis: COPD Left lung consolidation, infected bullae versus abscess. Tracheobronchomalacia Procedure(s) Performed: Flexible bronchoscopy / bronchoalveolar lavage of the lingula Anesthesia: JUAN Surgeon: Flori Rosas Estimated Blood Loss (ml): 0 Pathology: other Condition: stable Disposition: floor Operative Findings: The procedure was done in endoscopy suite. A consent was signed. A timeout was performed. Anesthetic agents by TOW FEEDER and he was given versed, ketamine and propofol The flexible bronchoscope was introduced through the left nostril and was advanced into the upper airway. Examination of the posterior pharynx, larynx, epiglottis and the vocal cords was done. Findings were within normal. The vocal cords function and mobility was within normal limits. No lesions. No nodules. A total of 2 cc of 1% lidocaine was applied to the vocal cord and following that the bronchoscope was advanced into the upper trachea. Immediately, moderate amount of purulent respiratory secretions were encountered throughout the patient's airway most abundant in the left upper and left lower lobe. Therapeutic airway suctioning was done and a total of 10 cc of purulent respiratory secretions were aspirated and suctioned out without any major difficulties. Airway inspection was completed. Underlying bronchial mucosa was inflamed and erythematous especially on the left upper lobe various segments. Nevertheless, the airways were patent post therapeutic airway suctioning. The trachea, bilateral mainstem bronchi, right upper lobe bronchus, bronchus intermedius, right middle lobe and right lower bronchus and the various 10 segments on the right in addition to the left mainstem bronchus, left upper lobe bronchus and left lower lobe bronchus and the various 8 segments on the left were all inspected. No endobronchial tumors or lesions.. At the completion of the procedure, there was adequate airway patency and the patient's hospital secretions were suctioned out. A BAL of the lingula was done. A total of 40 cc of saline was infused and 20 cc was aspirated. Procedure was terminate d and the bronchoscope was removed. The BAL will be sent for cultures. 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 No oxygen desaturation and patient was hemodynamically stable throughout the procedure.
--- NOTE | 2025-01-04 14:01 | P.PN ---
Subjective Progress Note Date: 01/04/25 Patient was seen and examined. Significant other at bedside. Underwent bronchoscopy with BAL showing purulent secretions which was sent for culture. Patient reports improved breathing after the procedure. Antibiotics include Unasyn 3g IV Q6H (D10). CBC and BMP significant for WBC 17.55, RBC 2.92, Hg 10.2, Hct 31.2, MCV 106.8, Plt 476, Na 133, K 3.3, Cl 90, bicarb 38, BUN 5, Cr 0.19, Ca 7.5. Mag 2.1. General: non toxic, no distress, appears at stated age Derm: warm, dry Head: atraumatic, normocephalic, symmetric Eyes: EOMI, no lid lag, anicteric sclera Mouth: no lip lesion, mucus membranes moist Cardiovascular: S1S2 reg, no murmur Lungs: Coarse BS bilateral, no rhonchi, no rales , no accessory muscle use Ext: no gross muscle atrophy, no edema, no contractures, LUE swelling Neuro: no focal neuro deficits Psych: Alert, oriented, appropriate affect Based on my assessment of this patient, this patient meets a high complexity level of care. Acute on chronic hypoxic respiratory failure secondary to lung abscess versus post obstructive PNA versus malignancy: Status post bronchoscopy and BAL on 01/04. Procal 0.48. Continue Unasyn 3g IV TID (D10). Duoneb QID PRN. Symbicort 2 INH BID. Tessalon 100 mg PO TID PRN. Mucinex 1200 mg PO BID. Sputum Cx Nicole albicans. Follow up on bronchoscopy cultures. Pulmonary and ID on board. Hypokalemia: KCl 80 meq PO x 1. Hematuria: UA shows 30 RBC, neg LE or nitire. Renal/bladder US no hydro. LUE swelling: Venous duplex neg DVT. Recommend LUE elevation. Hypertension: Toprol-XL 100 mg PO QD. Alcohol use disorder: CIWA protocol with Ativan PRN per protocol. Folic acid 1 mg PO QD. Thiamine 100 mg PO QD. Transaminitis likely due to EtOH abuse. Macrocytic anemia likely due to malnutrition and alcohol use disorder: B12 721, Folate 642. Iron studies show anemia of chronic disease. Resolved: Lactic acidosis. HypoK. CODE STATUS: FULL CODE DVT Prophylaxis: Lovenox SQ GI Prophylaxis: Designated medical POA if patient is not able to make medical decisions for themselves: I have reviewed the following solutions architect consultant notes: Pulmonary, bronch report I have reviewed the results of the following tests: CBC, BMP, Mag. I have ordered the following tests: CBC and BMP. I have discussed the care of this patient with the following independent historian: Significant other. I have independently interpreted the following test below: I have discussed the management of this patient with the following physician: Objective - Vital Signs Vital signs: Vital Signs Temp 99.0 F 01/04/25 00:12 Pulse 99 01/04/25 11:30 Resp 20 01/04/25 08:00 BP 130/73 01/04/25 11:30 Pulse Ox 97 01/04/25 11:30 FiO2 Intake & Output 01/03/25 01/04/25 01/04/25 18:59 06:59 18:59 Weight 56.699 kg Other: Voiding Method Bedside Commode Bedside Commode Urinal Urinal # Voids 2 2 # Bowel Movements 1 - Labs CBC & Chem 7: 01/04/25 04:21 01/04/25 04:21 Labs: Abnormal Lab Results - Last 24 Hours (Table) 01/04/25 01/04/25 Range/Units 04:21 04:21 WBC 17.55 H (4.50-10.00) 10*3/uL RBC 2.92 L (4.40-5.60) 10*6/uL Hgb 10.2 L (13.0-17.0) g/dL Hct 31.2 L (39.6-50.0) % MCV 106.8 H (80.0-97.0) fL MCH 34.9 H (27.0-32.0) pg Plt Count 476 H (140-440) 10*3/uL MPV 9.3 L (9.5-12.2) fL Sodium 133 L (137-145) mmol/L Potassium 3.0 L (3.5-5.1) mmol/L Chloride 90 L (98-107) mmol/L Carbon Dioxide 38 H (22-30) mmol/L BUN 5 L (9-20) mg/dL Creatinine 0.19 L (0.66-1.25) mg/dL Calcium 7.5 L (8.4-10.2) mg/dL Microbiology - Last 24 Hours (Table) 12/31/24 17:48 Gram Stain - Final Sputum Sputum Culture - Final Nicole albicans
[2025-01-04] MEDS ORDERED: FLUCONAZOLE IN NACL,ISO-OSM 200 MG in SALINE 1 100ML.BAG IVPB SCH (15:30)
[2025-01-04] MEDS: FLUCONAZOLE IN NACL,ISO-OSM 200 MG in SALINE 1 100ML.BAG IVPB ONE (17:57)
[2025-01-05 03:11] LABS: HCT 31.2 % (39.6-50.0); HGB 10.2 g/dL (13.0-17.0); MCH 35.5 pg (27.0-32.0); MCHC 32.7 g/dL (32.0-37.0); Platelet Count 444 10*3/uL (140-440); RBC 2.87 10*6/uL (4.40-5.60); RDW 13.2 % (11.5-14.5); WBC 15.93 10*3/uL (4.50-10.00)
[2025-01-05 03:20] LABS: MCV 108.7 fL (80.0-97.0)
[2025-01-05 03:33] LABS: African American GFR (CKD) >90 (>60 ml/min/1.73 sqM); Anion Gap 5 mmol/L; Blood Urea Nitrogen 4 mg/dL (9-20); Calcium 7.3 mg/dL (8.4-10.2); Carbon Dioxide 34 mmol/L (22-30); Chloride 93 mmol/L (98-107); Glucose 89 mg/dL (74-99); Non-African American GFR(CKD) >90 (>60 ml/min/1.73 sqM); Sodium 132 mmol/L (137-145)
[2025-01-05 03:37] LABS: Potassium 3.5 mmol/L (3.5-5.1)
[2025-01-05] MEDS: FLUCONAZOLE 100 MG TAB PO SCH (09:25)
--- NOTE | 2025-01-05 12:34 | P.PN ---
Subjective Progress Note Date: 01/05/25 74 year old M with PMH chronic hypoxic respiratory failure secondary to COPD on home oxygen 2-3L, hypertension, former smoker quit 15 years ago, alcohol use disorder, who presented to the ER on 12/27/2024 for weakness, poor appetite, SOB associated with fever and chills. In the ED he underwent extensive evaluation. BP 142/79, HR 63, RR 22, T 98.1F, 90% on 4L NC. CBC, CMP significant for WBC 20.34, RBC 3.25, Hg 11.6, Hct 34, MCV 104.6, Na 132, Cl 95, Cr 0.31, Ca 7.5, AST 61, alk phos 131. Trop 0.012. Lactic acid 2.5-1.5. EKG sinus tachycardia with HR of 112. Chest CT showed marked volume loss in the left lung with mixed consolidative and cystic density left lung with air-fluid levels suggesting lung abscesses, right infrahilar band like density, mediastinal adenopathy. Pulmonary, ID and Oncology consulted. Started on Unasyn for treatment of pulmonary abscess. Initial sputum Cx growing nicole albicans. He underwent bronchoscopy with BAL on 01/04 showing purulent secretions which was sent for culture. 01/05 Patient reports improved breathing since the procedure. Antibiotics include Unasyn 3g IV Q6H (D11). Given a dose of Fluconazole 200 mg IV yesterday followed by 100 mg PO QD. CBC and BMP significant for WBC 15.93, RBC 2.87, Hg 10.2, Hct 31.2, MCV 108.7, Plt 444, Na 132, Cl 93, bicarb 34, BUN 4, Cr 0.17, Ca 7.3. General: non toxic, no distress, appears at stated age Derm: warm, dry Head: atraumatic, normocephalic, symmetric Eyes: EOMI, no lid lag, anicteric sclera Mouth: no lip lesion, mucus membranes moist Cardiovascular: S1S2 reg, no murmur Lungs: Coarse BS bilateral, no rhonchi, no rales , no accessory muscle use Ext: no gross muscle atrophy, no edema, no contractures, LUE swelling Neuro: no focal neuro deficits Psych: Alert, oriented, appropriate affect Based on my assessment of this patient, this patient meets a high complexity level of care. Acute on chronic hypoxic respiratory failure secondary to lung abscess versus post obstructive PNA versus malignancy: Status post bronchoscopy and BAL on 01/04. Procal 0.48. Continue Unasyn 3g IV TID (D11), Fluconazole 100 mg PO QD (D2). Duoneb QID PRN. Symbicort 2 INH BID. Tessalon 100 mg PO TID PRN. Mucinex 1200 mg PO BID. Sputum Cx Nicole albicans. Follow up on bronchoscopy cultures. Pulmonary and ID on board. Hematuria: Resolved. UA shows 30 RBC, neg LE or nitire. Renal/bladder US no hydro. LUE swelling: Venous duplex neg DVT. Recommend LUE elevation. Hypertension: Toprol-XL 100 mg PO QD. Alcohol use disorder: CIWA protocol with Ativan PRN per protocol. Folic acid 1 mg PO QD. Thiamine 100 mg PO QD. Transaminitis likely due to EtOH abuse. Macrocytic anemia likely due to malnutrition and alcohol use disorder: B12 721, Folate 642. Iron studies show anemia of chronic disease. Resolved: Lactic acidosis. HypoK. Awaiting sputum cultures collected during bronchoscopy. SNF versus home on discharge. He is pending clinical improvement. CODE STATUS: FULL CODE DVT Prophylaxis: Lovenox SQ GI Prophylaxis: Designated medical POA if patient is not able to make medical decisions for themselves: I have reviewed the following financial operations consultant notes: Pulmonary, ID. I have reviewed the results of the following tests: CBC, BMP. I have ordered the following tests: I have discussed the care of this patient with the following independent historian: Significant other. RN. I have independently interpreted the following test below: I have discussed the management of this patient with the following physician: Objective - Vital Signs Vital signs: Vital Signs Temp 97.2 F L 01/05/25 07:57 Pulse 73 01/05/25 07:57 Resp 20 01/05/25 07:57 BP 130/73 01/05/25 07:57 Pulse Ox 100 01/05/25 07:57 FiO2 Intake & Output 01/04/25 01/05/25 01/05/25 18:59 06:59 18:59 Output Total 151 Balance -151 Output: Urine 150 Stool 1 Other: # Voids 1 - Labs CBC & Chem 7: 01/05/25 02:37 01/05/25 02:37 Labs: Abnormal Lab Results - Last 24 Hours (Table) 01/05/25 01/05/25 Range/Units 02:37 02:37 WBC 15.93 H (4.50-10.00) 10*3/uL RBC 2.87 L (4.40-5.60) 10*6/uL Hgb 10.2 L (13.0-17.0) g/dL Hct 31.2 L (39.6-50.0) % MCV 108.7 H (80.0-97.0) fL MCH 35.5 H (27.0-32.0) pg Plt Count 444 H (140-440) 10*3/uL MPV 9.4 L (9.5-12.2) fL Sodium 132 L (137-145) mmol/L Chloride 93 L (98-107) mmol/L Carbon Dioxide 34 H (22-30) mmol/L BUN 4 L (9-20) mg/dL Creatinine 0.17 L (0.66-1.25) mg/dL Calcium 7.3 L (8.4-10.2) mg/dL Microbiology - Last 24 Hours (Table) 01/04/25 08:00 Gram Stain - Preliminary Bronchoalviolar Lavage - Left
--- NOTE | 2025-01-05 16:13 | P.PN ---
Subjective Progress Note Date: 01/04/25 Principal diagnosis: Reason for follow-up is pneumonia/abscess Patient is a 74-year-old male with a past medical history significant for COPD hypertension alcohol abuse and and [id number] smoking has been brought to the hospital concerning for increasing weakness decreased appetite and shortness of breath patient did have significant normality on the CT of the chest concerning for volume loss consolidative opacity and possible abscess. On today's evaluation that is 01/04/2025 the patient has been afebrile patient is status post bronchoscopy this morning is seen to be slightly lethargic no worsening cough vomiting or diarrhea has been reported by the family the bedside. Patient did have a slight worsening of the white count to 17.55 creatinine 0.19 Objective - Vital Signs Vital signs: Vital Signs Temp 96.7 F L 01/04/25 14:00 Pulse 90 01/04/25 14:00 Resp 18 01/04/25 14:00 BP 155/83 01/04/25 14:00 Pulse Ox 97 01/04/25 14:00 FiO2 - Exam GENERAL DESCRIPTION: An elderly male lying in bed in no distress RESPIRATORY SYSTEM: Unlabored breathing , decreased breath sounds at bases HEART: S1 S2 regular rate and rhythm , ABDOMEN: Soft , no tenderness EXTREMITIES: No edema feet - Labs CBC & Chem 7: 01/05/25 02:37 01/05/25 02:37 Labs: Abnormal Lab Results - Last 24 Hours (Table) 01/05/25 01/05/25 Range/Units 02:37 02:37 WBC 15.93 H (4.50-10.00) 10*3/uL RBC 2.87 L (4.40-5.60) 10*6/uL Hgb 10.2 L (13.0-17.0) g/dL Hct 31.2 L (39.6-50.0) % MCV 108.7 H (80.0-97.0) fL MCH 35.5 H (27.0-32.0) pg Plt Count 444 H (140-440) 10*3/uL MPV 9.4 L (9.5-12.2) fL Sodium 132 L (137-145) mmol/L Chloride 93 L (98-107) mmol/L Carbon Dioxide 34 H (22-30) mmol/L BUN 4 L (9-20) mg/dL Creatinine 0.17 L (0.66-1.25) mg/dL Calcium 7.3 L (8.4-10.2) mg/dL Microbiology - Last 24 Hours (Table) 01/04/25 08:00 Gram Stain - Preliminary Bronchoalviolar Lavage - Left Bronchial Washings Culture - Preliminary Assessment and Plan (1) Sepsis Current Visit: Yes Status: Acute Code(s): A41.9 - SEPSIS, UNSPECIFIED ORGANISM SNOMED Code(s): 87082017 (2) Lung abscess Current Visit: Yes Status: Acute Code(s): J85.2 - ABSCESS OF LUNG WITHOUT PNEUMONIA SNOMED Code(s): 44343341 (3) Pneumonia Current Visit: Yes Status: Acute Code(s): J18.9 - PNEUMONIA, UNSPECIFIED ORGANISM SNOMED Code(s): 690531294 Plan: 1patient presented to the hospital with sepsis in this patient who did have tachycardia elevated white count elevated lactic acid meeting criteria for SIRS/sepsis source is likely either postobstructive pneumonia/lung abscess in this patient who did have significant history of smoking and concern for possible malignancy with secondary postobstructive pneumonia and abscess and will need to cover for the polymicrobial pablo associated with such infection 2patient will benefit from bronchoscopy lavage and deep culture, pulmonary is following the patient and bronchoscopy has been rescheduled for tomorrow could not be completed today because of OR schedule 3patient is afebrile, blood culture have been negative sputum is growing Nicole more likely colonizer. 4patient status post bronchoscopy this morning and cultures which are currently pending 5patient noted to have slight Worsening on the white count could be related to possible oropharyngeal candidiasis we will add Diflucan and see clinical sponsor for now continue with Unasyn Dictation was produced using [employer] software. please excuse any grammatical, word or spelling errors. Time with Patient: Less than 30
--- NOTE | 2025-01-05 16:14 | P.PN ---
Subjective Progress Note Date: 01/05/25 Principal diagnosis: Reason for follow-up is pneumonia/abscess Patient is a 74-year-old male with a past medical history significant for COPD hypertension alcohol abuse and and [id number] smoking has been brought to the hospital concerning for increasing weakness decreased appetite and shortness of breath patient did have significant normality on the CT of the chest concerning for volume loss consolidative opacity and possible abscess. On today's evaluation that is 01/05/2025, Patient is afebrile patient is currently on 4 L goal oxygen and breathing more comfortably, the patient denies any chest pain or any worsening cough, the patient denies any nausea vomiting did not have any abdominal pain and no diarrhea. Patient white count is down to 15.93, creatinine 0.17 BAL culture currently pending Objective - Vital Signs Vital signs: Vital Signs Temp 96.7 F L 01/05/25 14:00 Pulse 90 01/05/25 14:00 Resp 18 01/05/25 14:00 BP 155/83 01/05/25 14:00 Pulse Ox 97 01/05/25 14:00 FiO2 Intake & Output 01/04/25 01/05/25 01/05/25 18:59 06:59 18:59 Output Total 151 Balance -151 Output: Urine 150 Stool 1 Other: # Voids 1 - Exam GENERAL DESCRIPTION: An elderly male lying in bed in no distress RESPIRATORY SYSTEM: Unlabored breathing , decreased breath sounds at bases HEART: S1 S2 regular rate and rhythm , ABDOMEN: Soft , no tenderness EXTREMITIES: No edema feet - Labs CBC & Chem 7: 01/05/25 02:37 01/05/25 02:37 Labs: Abnormal Lab Results - Last 24 Hours (Table) 01/05/25 01/05/25 Range/Units 02:37 02:37 WBC 15.93 H (4.50-10.00) 10*3/uL RBC 2.87 L (4.40-5.60) 10*6/uL Hgb 10.2 L (13.0-17.0) g/dL Hct 31.2 L (39.6-50.0) % MCV 108.7 H (80.0-97.0) fL MCH 35.5 H (27.0-32.0) pg Plt Count 444 H (140-440) 10*3/uL MPV 9.4 L (9.5-12.2) fL Sodium 132 L (137-145) mmol/L Chloride 93 L (98-107) mmol/L Carbon Dioxide 34 H (22-30) mmol/L BUN 4 L (9-20) mg/dL Creatinine 0.17 L (0.66-1.25) mg/dL Calcium 7.3 L (8.4-10.2) mg/dL Microbiology - Last 24 Hours (Table) 01/04/25 08:00 Gram Stain - Preliminary Bronchoalviolar Lavage - Left Bronchial Washings Culture - Preliminary Assessment and Plan (1) Sepsis Current Visit: Yes Status: Acute Code(s): A41.9 - SEPSIS, UNSPECIFIED ORGANISM SNOMED Code(s): 12821827 (2) Lung abscess Current Visit: Yes Status: Acute Code(s): J85.2 - ABSCESS OF LUNG WITHOUT PNEUMONIA SNOMED Code(s): 04753794 (3) Pneumonia Current Visit: Yes Status: Acute Code(s): J18.9 - PNEUMONIA, UNSPECIFIED ORGANISM SNOMED Code(s): 613798387 Plan: 1patient presented to the hospital with sepsis in this patient who did have tachycardia elevated white count elevated lactic acid meeting criteria for SIRS/sepsis source is likely either postobstructive pneumonia/lung abscess in this patient who did have significant history of smoking and concern for possible malignancy with secondary postobstructive pneumonia and abscess and will need to cover for the polymicrobial pablo associated with such infection 2patient will benefit from bronchoscopy lavage and deep culture, pulmonary is following the patient and bronchoscopy has been rescheduled for tomorrow could not be completed today because of OR schedule 3patient is afebrile, blood culture have been negative sputum is growing Nicole more likely colonizer. 4patient status post bronchoscopy those cultures are currently pending 5patient white count trending down with addition of Diflucan to continue along with Unasyn while waiting for the BAL culture to finalize family the bedside multiple question answered Dictation was produced using [employer] dictation software. please excuse any grammatical, word or spelling errors.
--- NOTE | 2025-01-05 21:55 | P.PN ---
Subjective Progress Note Date: 01/05/25 01/04/2025, the patient is being seen for a follow-up. The patient is awake and alert.In per review of her telemedicine I just Coffee mechanism remains extremely weak. However, no significant respiratory decompensation the patient remains on 3 to 4 L of oxygen by nasal cannula maintaining saturation above 90%. The white cell count from today is at 17.5 with a hemoglobin of 10.2 and a platelet count of 476. Sodium is at 133, potassium is at 3, BUN is 5 with a creatinine of 0.19. Remains on IV Unasyn. Remains on DuoNeb nebulizer treatments and Dulera as maintenance. The plan is to proceed with a bronchoscopy and a bronchial lavage of the left lung. Most recent chest x-ray from 01/02/2025 shows persistent volume loss and near complete consolidation of the left lung along with air-fluid levels consistent with infected bullae/abscess formation. On 01/05/2025, condition is stable. No new complaints. Oral intake remains quite low and the patient is obviously malnourished malnourished. He remains on 40 of oxygen by nasal cannula with a pulse ox of 99%. Bronchoscopy was done and the results of the bronchoalveolar lavage from the left lung is still pending. No growth over the past 24 hours. Remains on IV Unasyn. Remains on oxygen 4 L. Remains on bronchodilators with DuoNeb updrafts. Remains on Dulera. Cough remains weak. Chronically debilitated. No other new complaints otherwise for now. Objective - Vital Signs Vital signs: Vital Signs Temp 97.2 F L 01/05/25 07:57 Pulse 73 01/05/25 07:57 Resp 20 01/05/25 07:57 BP 130/73 01/05/25 07:57 Pulse Ox 100 01/05/25 07:57 FiO2 Intake & Output 01/04/25 01/05/25 01/05/25 18:59 06:59 18:59 Output Total 151 Balance -151 Output: Urine 150 Stool 1 Other: # Voids 1 - Exam GENERAL EXAM: Alert, weak 74-year-old male, resting in bed, on 3 L nasal cannula, fairly comfortable in no apparent distress. The patient is weak, debilitated, cachectic with a body mass index of 17 HEAD: Normocephalic. EYES: Normal reaction of pupils, equal size. NOSE: Clear with pink turbinates. THROAT: No erythema or exudates. NECK: No masses, no JVD. CHEST: No chest wall deformity. LUNGS: Equal air entry with bilateral scattered rhonchi more so on the left lung. CVS: S1 and S2 normal with no audible murmur, regular rhythm. ABDOMEN: No hepatosplenomegaly, normal bowel sounds, no guarding or rigidity. SPINE: No scoliosis or deformity SKIN: No rashes CENTRAL NERVOUS SYSTEM: No focal deficits, tone is normal in all 4 extremities. EXTREMITIES: There is no peripheral edema. No clubbing, no cyanosis. Peripheral pulses are intact. - Labs CBC & Chem 7: 01/05/25 02:37 01/05/25 02:37 Labs: Abnormal Lab Results - Last 24 Hours (Table) 01/05/25 01/05/25 Range/Units 02:37 02:37 WBC 15.93 H (4.50-10.00) 10*3/uL RBC 2.87 L (4.40-5.60) 10*6/uL Hgb 10.2 L (13.0-17.0) g/dL Hct 31.2 L (39.6-50.0) % MCV 108.7 H (80.0-97.0) fL MCH 35.5 H (27.0-32.0) pg Plt Count 444 H (140-440) 10*3/uL MPV 9.4 L (9.5-12.2) fL Sodium 132 L (137-145) mmol/L Chloride 93 L (98-107) mmol/L Carbon Dioxide 34 H (22-30) mmol/L BUN 4 L (9-20) mg/dL Creatinine 0.17 L (0.66-1.25) mg/dL Calcium 7.3 L (8.4-10.2) mg/dL Microbiology - Last 24 Hours (Table) 01/04/25 08:00 Gram Stain - Preliminary Bronchoalviolar Lavage - Left Assessment and Plan Plan: Acute hypoxic respiratory failure secondary to acute community acquired pneumonia and/or lung masses. CT scan of the chest reveals marked volume loss in the left lung with marked mixed consolidative and cystic density in the left lung with scattered air-fluid levels suggesting multiple lung abscesses. Thick bandlike density in the right infrahilar region extending to the pleura which is focally thickened raising the question of neoplasm versus chronic inflammation. Mediastinal adenopathy is present likely reactive. Reviewed the CAT scan of the chest and findings could be consistent with infected bullae versus development of lung abscesses. The patient remains on 4 L of oxygen by nasal cannula. Clinically stable. The bronchoscopy and the bronchial lavage yielded no significant microbial growth over the past 24 hours. Acute leukocytosis, improving Generalized debility and weight loss with a body mass index of 17 Chronic smoker/50-year history of chronic tobacco dependence at 1 pack/day however quit 14 years ago Chronic obstructive pulmonary disease with bullous changes involving the upper lobes bilaterally Chronic hypoxic respiratory failure on home oxygen Hypertension Chronic daily alcohol use Cachexia/anorexia syndrome Plan: Clinically stable and slightly more alert compared to yesterday. Cough remains weak. Sputum sample was positive for Nicole albicans. The patient may benefit from a bronchoscopy and lavage to further establish microbial diagnosis. Chest x-ray findings from today are essentially unchanged and the patient continues to have complete opacification of the left lung. Clinically improved. White cell count remains mildly elevated. White cell count still elevated although improved. Chronically debilitated and malnourished The patient carries a very poor prognosis. Patient's baseline performance of functional status is poor. His functionality is also poor. Continue Unasyn Continue DuoNeb inhalations Continue Symbicort Lovenox for DVT prophylaxis Continue the CIWA protocol Titrate down the FiO2 as tolerated, currently on 3 L by nasal cannula Updated the patient and his daughter regarding the plan of care Will likely need long-term antibiotic treatment for the extensive left lung pneumonia/abscess/infected bullae of the lung. Bronchoscopy was done done on 01/04/2025 and a bronchial lavage was performed and this may help us in narrowing down the microbe and choosing long-term antibiotics. 1
--- NOTE | 2025-01-06 10:18 | XR ---
EXAMINATION TYPE: XR chest 1V portable DATE OF EXAM: 01/06/2025 10:02 AM COMPARISON: 01/02/2025 CLINICAL INDICATION: Male, 74 years old with history of dyspnea, TECHNIQUE: XR chest 1V portable views of the chest are obtained. FINDINGS: Demonstrated are scattered senescent parenchymal change. Near complete opacification left hemithorax are redemonstrated with areas of enhancing. Small right e ffusion and patchy basilar density unchanged. The heart is stable. Hilar and mediastinal structures are within normal limits. Degenerative changes are seen of the dorsal spine. IMPRESSION: 1. Near complete opacification left hemithorax are redemonstrated with areas of enhancing. Small rig ht effusion and patchy basilar density unchanged. [facility], , 01/06/2025 10:16 AM
[2025-01-06] MEDS: FUROSEMIDE 10 MG/ML 4 ML VIAL IV STA (12:29)
--- NOTE | 2025-01-06 14:00 | P.PN ---
Subjective Progress Note Date: 01/06/25 This is a 74-year-old male patient who follows at the [facility] for chronic obstructive pulmonary disease, daily alcohol use and hypertension. He does have a 50-year pack per day smoking history however quit 14 years ago. He does have home oxygen. He is on Dulera. He was brought into the emergency room this morning with a 2 to 3-day progressive history of increasing weakness poor appetite and shortness of breath. He states he has lost over 12 to 13 pounds in the past week or two. Chest x-ray reveals a left suprahilar masslike density with peripheral infiltrate. Masslike density in the left lower and right midlung zone as well. CT scan of the chest reveals marked volume loss in the left lung with marked mixed consolidative and cystic density in the left lung with scattered air-fluid levels suggesting multiple lung abscesses. Thick bandlike density in the right infrahilar region extending to the pleura which is focally thickened raising the question of neoplasm versus chronic inflammation. Mediastinal adenopathy is present. White count 20.3. Hemoglobin 11.6. Platelets 365. Sodium 132. Potassium 3.7. Bicarb 29. BUN 18. Creatinine 0.31. Lactic acid 2.5. Urinalysis clean. Viral screen negative for influenza A/B, RSV, COVID. He is seen today in consultation in the emergency department. Currently and lying flat on a stretcher. Awake and alert in no acute distress. He is quite cachectic appearing. Quite thin. He is maintaining O2 saturations in the 90s on 4 L high flow nasal cannula. He is afebrile. Hemodynamically stable. The patient is seen today December 28, 2024 in follow-up on the regular medical floor. He is currently resting in bed. Awake and alert in no acute distress. Maintaining O2 saturations up to 100% on 4 L/min per nasal cannula. He is f eeling a bit better today compared to yesterday. He remains on Unasyn. Normal saline at 75 mL/h. Procalcitonin was 0.48. Follow-up chest x-ray shows no interval change in the marked cardiopulmonary process involving the entire left lung and a small focal opacity in the right midlung. No new labs today. Remains on DuoNeb and elations, Symbicort. Lovenox for DVT prophylaxis. Remains in the CIWA protocol. Required Ativan just after midnight today. The patient is seen today December 29, 2024 in follow-up on the regular medical floor. He is awake and alert in no acute distress. Resting fairly comfortably in bed. Breathing a bit easier today compared to yesterday. He is maintaining O2 saturations up to 100% on 4 L/min per nasal cannula. He has been afebrile. Hemodynamically stable. Blood cultures are pending. No new labs today. He remains on Unasyn. Lovenox for DVT prophylaxis. Continued on DuoNeb and elations, Symbicort. Remains on the CIWA protocol. The patient is seen today January 06, 2025 in follow-up on the regular medical floor. He is currently sitting up in bed. Awake and alert in no acute distress. Appears still quite weak and debilitated. He is maintaining O2 saturations in the 90s on 4 L/min per nasal cannula. He is status post bronchoscopy and BAL on 01/04/2025. Cultures revealed no growth. Cytology pending. Chest x-ray reveals near complete opacification of the left hemithorax. Small right pleural effusion with patchy basilar density unchanged. He remains on Unasyn and Diflucan. Continued on Tessalon Perles. Continued on Dulera. Lovenox for DVT prophylaxis. Remains on the CIWY protocol. Received Lasix 40 mg once today. Objective - Vital Signs Vital signs: Vital Signs Temp 97.3 F L 01/06/25 07:21 Pulse 77 01/06/25 08:45 Resp 19 01/06/25 08:45 BP 114/68 01/06/25 07:21 Pulse Ox 99 01/06/25 09:09 FiO2 Intake & Output 01/05/25 01/06/25 01/06/25 18:59 06:59 18:59 Intake Total 540 Output Total 150 210 Balance -150 540 -210 Intake: Oral 540 Output: Urine 150 210 Other: Voiding Method Bedside Commode Urinal # Bowel Movements 0 1 - Exam GENERAL EXAM: Alert, weak, cachectic 74-year-old male, resting in bed, on 4 L nasal cannula, fairly comfortable in no apparent distress. HEAD: Normocephalic. EYES: Normal reaction of pupils, equal size. NOSE: Clear with pink turbinates. THROAT: No erythema or exudates. NECK: No masses, no JVD. CHEST: No chest wall deformity. LUNGS: Equal air entry with bilateral scattered rhonchi more so on the left lung. CVS: S1 and S2 normal with no audible murmur, regular rhythm. ABDOMEN: No hepatosplenomegaly, normal bowel sounds, no guarding or rigidity. SPINE: No scoliosis or deformity SKIN: No rashes CENTRAL NERVOUS SYSTEM: No focal deficits, tone is normal in all 4 extremities. EXTREMITIES: There is no peripheral edema. No clubbing, no cyanosis. Peripheral pulses are intact. - Labs CBC & Chem 7: 01/05/25 02:37 01/05/25 02:37 Labs: Microbiology - Last 24 Hours (Table) 01/04/25 08:00 Gram Stain - Final Bronchoalviolar Lavage - Left Bronchial Washings Culture - Final 01/04/25 08:00 Acid Fast Bacilli Smear - Preliminary Bronchoalviolar Lavage - Left Assessment and Plan Assessment: Acute hypoxic respiratory failure secondary to acute community acquired pneumonia and/or lung masses. CT scan of the chest reveals marked volume loss in the left lung with marked mixed consolidative and cystic density in the left lung with scattered air-fluid levels suggesting multiple lung abscesses. Thick bandlike density in the right infrahilar region extending to the pleura which is focally thickened raising the question of neoplasm versus chronic inflammation. Mediastinal adenopathy is present and likely reactive. Findings could be consistent with infected bullae versus development of lung abscesses. The patient remains on 4 L of oxygen by nasal cannula. Clinically stable. The bronchoscopy and the bronchial lavage yielded no significant microbial growth over the past 48 hours. Generalized weakness, poor appetite and weight loss secondary to above 50-year history of chronic tobacco dependence at 1 pack/day however quit 14 years ago Chronic obstructive pulmonary disease Chronic hypoxic respiratory failure on home oxygen Hypertension Chronic daily alcohol use Cachexia/anorexia syndrome Plan: The patient was seen and evaluated Chest x-ray, labs and medications reviewed Continue Unasyn and Diflucan Infectious disease is following Continue DuoNeb inhalations Continue Dulera Lovenox for DVT prophylaxis Continue the CIWA protocol Titrate down the FiO2 as tolerated Updated the patient regarding the plan of care Will need an outpatient PET scan post discharge I have personally seen and examined the patient, performed the documentation and the assessment and plan as written. Number of minutes spent on the visit: 10 Dictation was produced using for; to (do)ation software. Please excuse any grammatical, word or spelling errors.
--- NOTE | 2025-01-06 16:55 | P.PN ---
Subjective Progress Note Date: 01/06/25 Hospital Course: 74 year old M with PMH chronic hypoxic respiratory failure secondary to COPD on home oxygen 2-3L, hypertension, former smoker quit 15 years ago, alcohol use disorder, who presented to the ER on 12/27/2024 for weakness, poor appetite, SOB associated with fever and chills. In the ED he underwent extensive evaluation. BP 142/79, HR 63, RR 22, T 98.1F, 90% on 4L NC. CBC, CMP significant for WBC 20.34, RBC 3.25, Hg 11.6, Hct 34, MCV 104.6, Na 132, Cl 95, Cr 0.31, Ca 7.5, AST 61, alk phos 131. Trop 0.012. Lactic acid 2.5-1.5. EKG sinus tachycardia with HR of 112. Chest CT showed marked volume loss in the left lung with mixed consolidative and cystic density left lung with air-fluid levels suggesting lung abscesses, right infrahilar band like density, mediastinal adenopathy. Pulmonary, ID and Oncology consulted. Started on Unasyn for treatment of pulmonary abscess. Initial sputum Cx growing nicole albicans. He underwent bronchoscopy with BAL on 01/04 showing purulent se cretions which was sent for culture. 01/06: Seen examined at bedside, no acute events overnight. Patient feels very weak, he complains of ongoing shortness of breath, he does have gurgling with breath sounds, appears to be upper airway situation. His SPO2 remained stable on 4 L of oxygen. Bronchoscopy cultures so far with no growth, cytology still pending, repeat chest x-ray was requested due to breathing difficulties and showed near complete opacification of the left hemothorax, similar to prior study with somewhat worsening right pleural effusion on my interpretation, continued on Unasyn with Diflucan, ID, pulmonology following. Patient was provided with 1 dose of IV Lasix 40 for worsening upper extremity edema. Lab work shows improving WBC count 15.9, stable hemoglobin 10.2, platelet count up 444, sodium stable 132, potassium 3.5, creatinine 0.17. Patient's girlfriend at bedside, discussed current management, overall prognosis appears to be guarded Pertinent positives and negatives as discussed above, a complete review of systems was performed and all other systems are negative. Vitals Signs Reviewed. General: [Chronically ill-appearing, malnourished Derm: [warm], [dry] Head: [atraumatic], [normocephalic], [symmetric] Eyes: [EOMI], [no lid lag], [anicteric sclera] Mouth: [no lip lesion], [mucus membranes moist] Cardiovascular: [S1S2 reg], [no murmur] Lungs: [Coarse bilateral breath sounds, significantly diminished on the left side], [no rhonchi, no rales] , [no accessory muscle use] Abdominal: [soft], [ nontender to palpation], [no guarding], [no appreciable organomegaly] Ext: [no gross muscle atrophy], [bilateral pitting upper extremity edema], [no contractures] Neuro: [ CN II-XI grossly intact], [no focal neuro deficits] Psych: [Alert], [oriented], [appropriate affect] Assessment and Plan: Acute on chronic hypoxic respiratory failure secondary to lung abscess versus post obstructive PNA versus malignancy Status post bronchoscopy and BAL on 01/04. Procal 0.48 Continue Unasyn 3g IV TID (D12), Fluconazole 100 mg PO QD (D3). Duoneb QID PRN. Symbicort 2 INH BID. Tessalon 100 mg PO TID PRN. Mucinex 1200 mg PO BID. Sputum Cx Nicole albicans. Follow up on bronchoscopy cultures and cytology. Pulmonary and ID on board. Monitor CBC and BMP daily Hematuria: Resolved. UA shows 30 RBC, neg LE or nitire. Renal/bladder US no hydro. Bilateral upper extremity swelling: Venous duplex neg DVT. Recommend LUE elevation. 1 dose of IV Lasix 40 mg 01/06 Hypertension: Toprol-XL 100 mg PO QD. Alcohol use disorder: CIWA protocol with Ativan PRN per protocol. Folic acid 1 mg PO QD. Thiamine 100 mg PO QD. Transaminitis likely due to EtOH abuse. Macrocytic anemia likely due to malnutrition and alcohol use disorder: B12 721, Folate 642. Iron studies show anemia of chronic disease. Resolved: Lactic acidosis. HypoK. Severe acute malnutrition, RD consulted, patient has Ensure and Magic cup ordered, encouraged to continue taking his nutrition supplements, he only has 1 or none bottles of Ensure a day per his girlfriend DVT ppx: Lovenox Code status: Full code Anticipated discharge place: TBD Anticipated discharge time: TBD Objective - Vital Signs Vital signs: Vital Signs Temp 96.8 F L 01/06/25 14:40 Pulse 96 01/06/25 14:40 Resp 19 01/06/25 14:40 BP 125/67 01/06/25 14:40 Pulse Ox 94 L 01/06/25 14:40 FiO2 Intake & Output 01/05/25 01/06/25 01/06/25 18:59 06:59 18:59 Intake Total 540 Output Total 150 210 Balance -150 540 -210 Intake: Oral 540 Output: Urine 150 210 Other: Voiding Method Bedside Commode Urinal # Bowel Movements 0 1 - Labs CBC & Chem 7: 01/05/25 02:37 01/05/25 02:37 Labs: Microbiology - Last 24 Hours (Table) 01/04/25 08:00 Gram Stain - Final Bronchoalviolar Lavage - Left Bronchial Washings Culture - Final 01/04/25 08:00 Acid Fast Bacilli Smear - Preliminary Bronchoalviolar Lavage - Left
[2025-01-07 10:09] LABS: Basophils # (A) 0.04 10*3/uL (0.00-0.10); Basophils % (A) 0.3 %; Eosinophils # (A) 0.10 10*3/uL (0.04-0.35); Eosinophils % (A) 0.7 %; HCT 32.1 % (39.6-50.0); HGB 10.2 g/dL (13.0-17.0); Lymphocytes # (A) 0.51 10*3/uL (0.90-5.00); Lymphocytes % (A) 3.7 %; MCH 34.3 pg (27.0-32.0); MCHC 31.8 g/dL (32.0-37.0); MCV 108.1 fL (80.0-97.0); Monocytes # (A) 0.94 10*3/uL (0.20-1.00); Monocytes % (A) 6.9 %; Neutrophils # (A) 11.93 10*3/uL (1.80-7.70); Neutrophils % (A) 87.0 %; Platelet Count 412 10*3/uL (140-440); RBC 2.97 10*6/uL (4.40-5.60); RDW 13.1 % (11.5-14.5)
--- NOTE | 2025-01-07 10:41 | P.PN ---
Subjective Progress Note Date: 01/07/25 This is a 74-year-old male patient who follows at the [facility] for chronic obstructive pulmonary disease, daily alcohol use and hypertension. He does have a 50-year pack per day smoking history however quit 14 years ago. He does have home oxygen. He is on Dulera. He was brought into the emergency room this morning with a 2 to 3-day progressive history of increasing weakness poor appetite and shortness of breath. He states he has lost over 12 to 13 pounds in the past week or two. Chest x-ray reveals a left suprahilar masslike density with peripheral infiltrate. Masslike density in the left lower and right midlung zone as well. CT scan of the chest reveals marked volume loss in the left lung with marked mixed consolidative and cystic density in the left lung with scattered air-fluid levels suggesting multiple lung abscesses. Thick bandlike density in the right infrahilar region extending to the pleura which is focally thickened raising the question of neoplasm versus chronic inflammation. Mediastinal adenopathy is present. White count 20.3. Hemoglobin 11.6. Platelets 365. Sodium 132. Potassium 3.7. Bicarb 29. BUN 18. Creatinine 0.31. Lactic acid 2.5. Urinalysis clean. Viral screen negative for influenza A/B, RSV, COVID. He is seen today in consultation in the emergency department. Currently and lying flat on a stretcher. Awake and alert in no acute distress. He is quite cachectic appearing. Quite thin. He is maintaining O2 saturations in the 90s on 4 L high flow nasal cannula. He is afebrile. Hemodynamically stable. The patient is seen today December 28, 2024 in follow-up on the regular medical floor. He is currently resting in bed. Awake and alert in no acute distress. Maintaining O2 saturations up to 100% on 4 L/min per nasal cannula. He is f eeling a bit better today compared to yesterday. He remains on Unasyn. Normal saline at 75 mL/h. Procalcitonin was 0.48. Follow-up chest x-ray shows no interval change in the marked cardiopulmonary process involving the entire left lung and a small focal opacity in the right midlung. No new labs today. Remains on DuoNeb and elations, Symbicort. Lovenox for DVT prophylaxis. Remains in the CIWA protocol. Required Ativan just after midnight today. The patient is seen today December 29, 2024 in follow-up on the regular medical floor. He is awake and alert in no acute distress. Resting fairly comfortably in bed. Breathing a bit easier today compared to yesterday. He is maintaining O2 saturations up to 100% on 4 L/min per nasal cannula. He has been afebrile. Hemodynamically stable. Blood cultures are pending. No new labs today. He remains on Unasyn. Lovenox for DVT prophylaxis. Continued on DuoNeb and elations, Symbicort. Remains on the CIPR protocol. The patient is seen today January 06, 2025 in follow-up on the regular medical floor. He is currently sitting up in bed. Awake and alert in no acute distress. Appears still quite weak and debilitated. He is maintaining O2 saturations in the 90s on 4 L/min per nasal cannula. He is status post bronchoscopy and BAL on 01/04/2025. Cultures revealed no growth. Cytology pending. Chest x-ray reveals near complete opacification of the left hemithorax. Small right pleural effusion with patchy basilar density unchanged. He remains on Unasyn and Diflucan. Continued on Tessalon Perles. Continued on Dulera. Lovenox for DVT prophylaxis. Remains on the CIPR protocol. Received Lasix 40 mg once today. The patient is seen today January 07, 2025 in follow-up on the regular medical floor. He is awake and alert in no acute distress. Resting fairly comfortable in bed. Denies any worsening shortness of breath, cough or congestion. Maintaining O2 saturations in the 90s on 4 L/min per nasal cannula. Bronchial wash cultures revealed no growth. Cytology still pending. White count 13.7. Hemoglobin 10.2. Platelets 412. He remains on DuoNeb inhalations, Tessalon Perles as needed. Lovenox for DVT prophylaxis. Continued on Unasyn and Diflucan. He remains quite weak. Working with physical therapy. Objective - Vital Signs Vital signs: Vital Signs Temp 97.8 F 01/07/25 07:32 Pulse 95 01/07/25 07:32 Resp 16 01/07/25 07:32 BP 146/78 01/07/25 07:32 Pulse Ox 95 01/07/25 08:11 FiO2 Intake & Output 06/30/25 07/01/25 07/01/25 18:59 06:59 18:59 Output Total 1250 400 Balance -1250 -400 Output: Urine 1250 400 Other: Voiding Method Bedside Commode Urinal # Voids 1 # Bowel Movements 1 - Exam GENERAL EXAM: Alert, cachectic 74-year-old male, very weak, resting in bed, on 4 L nasal cannula, fairly comfortable in no apparent distress. HEAD: Normocephalic. EYES: Normal reaction of pupils, equal size. NOSE: Clear with pink turbinates. THROAT: No erythema or exudates. NECK: No masses, no JVD. CHEST: No chest wall deformity. LUNGS: Equal air entry with bilateral scattered rhonchi more so on the left lung. CVS: S1 and S2 normal with no audible murmur, regular rhythm. ABDOMEN: No hepatosplenomegaly, normal bowel sounds, no guarding or rigidity. SPINE: No scoliosis or deformity SKIN: No rashes CENTRAL NERVOUS SYSTEM: No focal deficits, tone is normal in all 4 extremities. EXTREMITIES: There is no peripheral edema. No clubbing, no cyanosis. Peripheral pulses are intact. - Labs CBC & Chem 7: 01/07/25 09:41 01/05/25 02:37 Labs: Abnormal Lab Results - Last 24 Hours (Table) 01/07/25 Range/Units 09:41 WBC 13.71 H (4.50-10.00) 10*3/uL RBC 2.97 L (4.40-5.60) 10*6/uL Hgb 10.2 L (13.0-17.0) g/dL Hct 32.1 L (39.6-50.0) % MCV 108.1 H (80.0-97.0) fL MCH 34.3 H (27.0-32.0) pg MCHC 31.8 L (32.0-37.0) g/dL MPV 9.3 L (9.5-12.2) fL Immature Gran # 0.19 H (0.00-0.04) 10*3/uL Microbiology - Last 24 Hours (Table) 01/04/25 08:00 Gram Stain - Final Bronchoalviolar Lavage - Left Bronchial Washings Culture - Final Assessment and Plan Assessment: Acute hypoxic respiratory failure secondary to acute community acquired pneumonia and/or lung masses. CT scan of the chest reveals marked volume loss in the left lung with marked mixed consolidative and cystic density in the left lung with scattered air-fluid levels suggesting multiple lung abscesses. Thick bandlike density in the right infrahilar region extending to the pleura which is focally thickened raising the question of neoplasm versus chronic inflammation. Mediastinal adenopathy is present and likely reactive. Findings could be consistent with infected bullae versus development of lung abscesses. The patient remains on 4 L of oxygen by nasal cannula. Clinically stable. The bronchoscopy and the bronchial lavage yielded no significant microbial growth over the past 48 hours. Generalized weakness, poor appetite and weight loss secondary to above 50-year history of chronic tobacco dependence at 1 pack/day however quit 14 years ago Chronic obstructive pulmonary disease Chronic hypoxic respiratory failure on home oxygen Hypertension Chronic daily alcohol use Cachexia/anorexia syndrome Plan: The patient was seen and evaluated Labs and medications reviewed Continue Unasyn and Diflucan Continue DuoNeb inhalations Lovenox for DVT prophylaxis Continue the CIWA protocol Titrate down the FiO2 as tolerated Remains quite weak and debilitated Working with physical therapy May need subacute rehab at discharge Will need an outpatient PET scan post discharge Updated the patient regarding the plan of care I have personally seen and examined the patient, performed the documentation and the assessment and plan as written. Number of minutes spent on the visit: 10 Dictation was produced using [employer] dictation software. Please excuse any grammatical, word or spelling errors.
--- NOTE | 2025-01-07 12:29 | P.PN ---
Subjective Progress Note Date: 01/06/25 Principal diagnosis: Reason for follow-up is pneumonia/abscess Patient is a 74-year-old male with a past medical history significant for COPD hypertension alcohol abuse and and [id number] smoking has been brought to the hospital concerning for increasing weakness decreased appetite and shortness of breath patient did have significant normality on the CT of the chest concerning for volume loss consolidative opacity and possible abscess. On today's evaluation that is 01/06/2025, patient has been afebrile, patient is breathing comfortably and is currently on 4 L nasal cannula oxygen, patient denies having any chest pain and cough seems to have decreased in intensity as reported by the , patient denies nausea vomiting or diarrhea and no abdominal pain. Patient did not have any lab draw today BAL culture currently pending Objective - Vital Signs Vital signs: Vital Signs Temp 97.3 F L 01/06/25 07:21 Pulse 77 01/06/25 08:45 Resp 19 01/06/25 08:45 BP 114/68 01/06/25 07:21 Pulse Ox 99 01/06/25 09:09 FiO2 Intake & Output 01/05/25 01/06/25 01/06/25 18:59 06:59 18:59 Intake Total 540 Output Total 150 210 Balance -150 540 -210 Intake: Oral 540 Output: Urine 150 210 Other: Voiding Method Bedside Commode Urinal # Bowel Movements 0 1 - Exam GENERAL DESCRIPTION: An elderly male lying in bed in no distress RESPIRATORY SYSTEM: Unlabored breathing , decreased breath sounds at bases HEART: S1 S2 regular rate and rhythm , ABDOMEN: Soft , no tenderness EXTREMITIES: No edema feet - Labs CBC & Chem 7: 01/07/25 09:41 01/05/25 02:37 Labs: Microbiology - Last 24 Hours (Table) 01/04/25 08:00 Gram Stain - Final Bronchoalviolar Lavage - Left Bronchial Washings Culture - Final 01/04/25 08:00 Acid Fast Bacilli Smear - Preliminary Bronchoalviolar Lavage - Left Assessment and Plan (1) Sepsis Current Visit: Yes Status: Acute Code(s): A41.9 - SEPSIS, UNSPECIFIED ORGANISM SNOMED Code(s): 97623005 (2) Lung abscess Current Visit: Yes Status: Acute Code(s): J85.2 - ABSCESS OF LUNG WITHOUT PNEUMONIA SNOMED Code(s): 88749568 (3) Pneumonia Current Visit: Yes Status: Acute Code(s): J18.9 - PNEUMONIA, UNSPECIFIED ORGANISM SNOMED Code(s): 343795027 Plan: 1patient presented to the hospital with sepsis in this patient who did have tachycardia elevated white count elevated lactic acid meeting criteria for SIRS/sepsis source is likely either postobstructive pneumonia/lung abscess in this patient who did have significant history of smoking and concern for possible malignancy with secondary postobstructive pneumonia and abscess and will need to cover for the polymicrobial pablo associated with such infection 2patient will benefit from bronchoscopy lavage and deep culture, pulmonary is following the patient and bronchoscopy has been rescheduled for tomorrow could not be completed today because of OR schedule 3patient is afebrile, blood culture have been negative sputum is growing Nicole more likely colonizer. 4patient status post bronchoscopy those cultures are currently pending 5patient white count trending down with addition of Diflucan as of yesterday no CBC was done today we will repeat a CBC with a.m. lab 6for now to continue Diflucan along with Unasyn while waiting for the BAL culture to finalize . Dictation was produced using [employer] dictation software. please excuse any grammatical, word or spelling errors. Time with Patient: Less than 30
--- NOTE | 2025-01-07 12:30 | P.PN ---
Subjective Progress Note Date: 01/07/25 Principal diagnosis: Reason for follow-up is pneumonia/abscess Patient is a 74-year-old male with a past medical history significant for COPD hypertension alcohol abuse and and [id number] smoking has been brought to the hospital concerning for increasing weakness decreased appetite and shortness of breath patient did have significant normality on the CT of the chest concerning for volume loss consolidative opacity and possible abscess. On today's evaluation that is 01/07/2025, Patient is afebrile this morning patient slightly sleepy after having his breakfast overall cough has decreased intensity as reported by the no vomiting or diarrhea has been reported patient is currently on 4 L nasal cannula oxygen. Patient white count is down to 13.71 BAL cultures are currently pending Objective - Vital Signs Vital signs: Vital Signs Temp 97.8 F 01/07/25 07:32 Pulse 95 01/07/25 07:32 Resp 16 01/07/25 07:32 BP 146/78 01/07/25 07:32 Pulse Ox 95 01/07/25 08:11 FiO2 Intake & Output 01/06/25 01/07/25 01/07/25 18:59 06:59 18:59 Output Total 1250 400 Balance -1250 -400 Output: Urine 1250 400 Other: Voiding Method Bedside Commode Urinal # Voids 1 # Bowel Movements 1 - Exam GENERAL DESCRIPTION: An elderly male lying in bed in no distress RESPIRATORY SYSTEM: Unlabored breathing , decreased breath sounds at bases HEART: S1 S2 regular rate and rhythm , ABDOMEN: Soft , no tenderness EXTREMITIES: No edema feet - Labs CBC & Chem 7: 01/07/25 09:41 01/05/25 02:37 Labs: Abnormal Lab Results - Last 24 Hours (Table) 01/07/25 Range/Units 09:41 WBC 13.71 H (4.50-10.00) 10*3/uL RBC 2.97 L (4.40-5.60) 10*6/uL Hgb 10.2 L (13.0-17.0) g/dL Hct 32.1 L (39.6-50.0) % MCV 108.1 H (80.0-97.0) fL MCH 34.3 H (27.0-32.0) pg MCHC 31.8 L (32.0-37.0) g/dL MPV 9.3 L (9.5-12.2) fL Immature Gran # 0.19 H (0.00-0.04) 10*3/uL Microbiology - Last 24 Hours (Table) 01/04/25 08:00 Gram Stain - Final Bronchoalviolar Lavage - Left Bronchial Washings Culture - Final Assessment and Plan (1) Sepsis Current Visit: Yes Status: Acute Code(s): A41.9 - SEPSIS, UNSPECIFIED ORGANISM SNOMED Code(s): 88235838 (2) Lung abscess Current Visit: Yes Status: Acute Code(s): J85.2 - ABSCESS OF LUNG WITHOUT PNEUMONIA SNOMED Code(s): 76466301 (3) Pneumonia Current Visit: Yes Status: Acute Code(s): J18.9 - PNEUMONIA, UNSPECIFIED ORGANISM SNOMED Code(s): 014915543 Plan: 1patient presented to the hospital with sepsis in this patient who did have tachycardia elevated white count elevated lactic acid meeting criteria for SIRS/sepsis source is likely either postobstructive pneumonia/lung abscess in this patient who did have significant history of smoking and concern for possible malignancy with secondary postobstructive pneumonia and abscess and will need to cover for the polymicrobial pablo associated with such infection 2patient will benefit from bronchoscopy lavage and deep culture, pulmonary is following the patient and bronchoscopy has been rescheduled for tomorrow could not be completed today because of OR schedule 3patient is afebrile, blood culture have been negative sputum is growing Nicole more likely colonizer. 4patient status post bronchoscopy those cultures are currently pending 5patient white count trending down, down to 13,000 6patient currently being treated Diflucan along with Unasyn if BAL culture re maxine to be negative were considered oral Augmentin and Diflucan on discharge Dictation was produced using [employer] dictation software. please excuse any grammatical, word or spelling errors. Time with Patient: Less than 30
[2025-01-07 14:01] LABS: WBC 13.70 10*3/uL (4.50-10.00)
--- NOTE | 2025-01-07 16:10 | P.PN ---
Subjective Progress Note Date: 01/07/25 Hospital Course: 74 year old M with PMH chronic hypoxic respiratory failure secondary to COPD on home oxygen 2-3L, hypertension, former smoker quit 15 years ago, alcohol use disorder, who presented to the ER on 12/27/2024 for weakness, poor appetite, SOB associated with fever and chills. In the ED he underwent extensive evaluation. BP 142/79, HR 63, RR 22, T 98.1F, 90% on 4L NC. CBC, CMP significant for WBC 20.34, RBC 3.25, Hg 11.6, Hct 34, MCV 104.6, Na 132, Cl 95, Cr 0.31, Ca 7.5, AST 61, alk phos 131. Trop 0.012. Lactic acid 2.5-1.5. EKG sinus tachycardia with HR of 112. Chest CT showed marked volume loss in the left lung with mixed consolidative and cystic density left lung with air-fluid levels suggesting lung abscesses, right infrahilar band like density, mediastinal adenopathy. Pulmonary, ID and Oncology consulted. Started on Unasyn for treatment of pulmonary abscess. Initial sputum Cx growing nicole albicans. He underwent bronchoscopy with BAL on 01/04 showing purulent se cretions which was sent for culture. Bronchoscopy cultures so far with no growth, cytology still pending, repeat chest x-ray was requested due to breathing difficulties and showed near complete opacification of the left hemothorax, similar to prior study with somewhat worsening right pleural effusion on my interpretation, continued on Unasyn with Diflucan, ID, pulmonology following. Patient was provided with 1 dose of IV Lasix 40 for worsening upper extremity edema on 01/06 and 01/07 01/07: Seen and examined at bedside, no events overnight, feeling somewhat better, had good sleep, trying hard on increasing oral intake. Upper extremity edema has improved. He is oxygen requirement is stable at 4 L nasal cannula, he is afebrile with blood pressure at 126/55 and heart rate in 60s. CBC shows im proving leukocytosis 13.7, stable hemoglobin 10.2, BMP ordered but unavailable for review. Per pulmonology note, no plans for repeat bronchoscopy, patient is not a candidate for VATS lung biopsy or transbronchial biopsy. Per ID, Augmentin and Diflucan on discharge, cultures and cytology still pending Patient's girlfriend at bedside, Pertinent positives and negatives as discussed above, a complete review of systems was performed and all other systems are negative. Vitals Signs Reviewed. General: [Chronically ill-appearing, malnourished Derm: [warm], [dry] Head: [atraumatic], [normocephalic], [symmetric] Eyes: [EOMI], [no lid lag], [anicteric sclera] Mouth: [no lip lesion], [mucus membranes moist] Cardiovascular: [S1S2 reg], [no murmur] Lungs: [Coarse bilateral breath sounds, significantly diminished on the left side], [no rhonchi, no rales] , [no accessory muscle use] Abdominal: [soft], [ nontender to palpation], [no guarding], [no appreciable organomegaly] Ext: [no gross muscle atrophy], [bilateral pitting upper extremity edema], [no contractures] Neuro: [ CN II-XI grossly intact], [no focal neuro deficits] Psych: [Alert], [oriented], [appropriate affect] Assessment and Plan: Acute on chronic hypoxic respiratory failure secondary to lung abscess versus post obstructive PNA versus malignancy Status post bronchoscopy and BAL on 01/04. Procal 0.48 Continue Unasyn 3g IV TID (D12), Fluconazole 100 mg PO QD (D3). Duoneb QID PRN. Symbicort 2 INH BID. Tessalon 100 mg PO TID PRN. Mucinex 1200 mg PO BID. Sputum Cx Nicole albicans. Follow up on bronchoscopy cultures and cytology. Pulmonary and ID on board. Monitor CBC and BMP daily Hematuria: Resolved. UA shows 30 RBC, neg LE or nitire. Renal/bladder US no hydro. Bilateral upper extremity swelling: Venous duplex neg DVT. Recommend LUE elevation. 1 dose of IV Lasix 40 mg 01/06 and 01/07 Hypertension: Toprol-XL 100 mg PO QD. Alcohol use disorder: CIWA protocol with Ativan PRN per protocol. Folic acid 1 mg PO QD. Thiamine 100 mg PO QD. Transaminitis likely due to EtOH abuse. Macrocytic anemia likely due to malnutrition and alcohol use disorder: B12 721, Folate 642. Iron studies show anemia of chronic disease. Resolved: Lactic acidosis. HypoK. Severe acute malnutrition, RD consulted, patient has Ensure and Magic cup ordered, encouraged to continue taking his nutrition supplements, he only has 1 or none bottles of Ensure a day per his girlfriend DVT ppx: Lovenox Code status: Full code Anticipated discharge place: TBD Anticipated discharge time: TBD Objective - Vital Signs Vital signs: Vital Signs Temp 97.5 F L 01/07/25 13:29 Pulse 68 01/07/25 13:29 Resp 16 01/07/25 13:29 BP 136/55 01/07/25 13:29 Pulse Ox 96 01/07/25 13:29 FiO2 Intake & Output 01/06/25 01/07/25 01/07/25 18:59 06:59 18:59 Output Total 1250 400 Balance -1250 -400 Weight 56.699 kg Output: Urine 1250 400 Other: Voiding Method Bedside Commode Urinal # Voids 1 # Bowel Movements 1 - Labs CBC & Chem 7: 01/07/25 09:41 01/05/25 02:37 Labs: Abnormal Lab Results - Last 24 Hours (Table) 01/07/25 Range/Units 09:41 WBC 13.70 H (4.50-10.00) 10*3/uL RBC 2.97 L (4.40-5.60) 10*6/uL Hgb 10.2 L (13.0-17.0) g/dL Hct 32.1 L (39.6-50.0) % MCV 108.1 H (80.0-97.0) fL MCH 34.3 H (27.0-32.0) pg MCHC 31.8 L (32.0-37.0) g/dL MPV 9.3 L (9.5-12.2) fL Immature Gran # 0.19 H (0.00-0.04) 10*3/uL Neutrophils # 11.93 H (1.80-7.70) 10*3/uL Lymphocytes # 0.51 L (0.90-5.00) 10*3/uL
[2025-01-07 16:27] LABS: Anion Gap 5.90 mmol/L (4.00-12.00); BUN/Creat Ratio <11.67 Ratio (12.00-20.00); Blood Urea Nitrogen <3.5 mg/dL (9.0-27.0); Calcium 7.4 mg/dL (8.7-10.3); Carbon Dioxide 41.1 mmol/L (21.6-31.8); Chloride 91 mmol/L (96-109); Glucose 96 mg/dL (70-110); Potassium 2.9 mmol/L (3.5-5.5); Sodium 138 mmol/L (135-145)
[2025-01-07] MEDS ORDERED: Potassium Replacement Protocol 1 EACH MISC MISCELLANE PRN (16:41)
[2025-01-07] MEDS: POTASSIUM CHLORIDE ER 20 MEQ TAB.ER PO SCH (17:13)
[2025-01-07] MEDS: FUROSEMIDE 10 MG/ML 4 ML VIAL IV STA (17:14)
[2025-01-07 23:39] LABS: VBG PCO2 47.0 mmHg (37-51)
[2025-01-07 23:52] LABS: VBG HCO3 47.0 mmol/L (24-28); VBG PH 7.61 (7.31-7.41)
[2025-01-08 02:29] LABS: ALT 34 U/L (4-49); AST 79 U/L (17-59); African American GFR (CKD) >90 (>60 ml/min/1.73 sqM); Albumin 2.1 g/dL (3.5-5.0); Albumin/Globulin Ratio 0.6; Alkaline Phosphatase 151 U/L (38-126); Blood Urea Nitrogen 4 mg/dL (9-20); Calcium 7.4 mg/dL (8.4-10.2); Chloride 84 mmol/L (98-107); Globulin 3.7 g/dL; Glucose 105 mg/dL (74-99); Non-African American GFR(CKD) >90 (>60 ml/min/1.73 sqM); Potassium 3.6 mmol/L (3.5-5.1); Sodium 133 mmol/L (137-145); Total Protein 5.8 g/dL (6.3-8.2)
[2025-01-08 02:35] LABS: Anion Gap 5 mmol/L
[2025-01-08 02:37] LABS: Carbon Dioxide 44 mmol/L (22-30)
[2025-01-08] MEDS: POTASSIUM CHLORIDE ER 20 MEQ TAB.ER PO STA (02:56)
[2025-01-08] MEDS: SODIUM CHLORIDE 0.9% 500 ML 500 ML IV ONE (02:56)
[2025-01-08 08:20] LABS: Basophils # (A) 0.05 X 10*3/uL (0.00-0.10); Basophils % (A) 0.3 %; Eosinophils # (A) 0.12 X 10*3/uL (0.04-0.35); Eosinophils % (A) 0.7 %; HCT 32.2 % (39.6-50.0); HGB 10.2 g/dL (13.0-17.0); Immature Grans, Automated 1.10 %; Lymphocytes # (A) 0.69 X 10*3/uL (0.90-5.00); Lymphocytes % (A) 4.0 %; MCH 34.9 pg (27.0-32.0); MCHC 31.7 g/dL (32.0-37.0); MCV 110.3 FL (80.0-97.0); Monocytes # (A) 1.27 X 10*3/uL (0.20-1.00); Monocytes % (A) 7.4 %; NRBC Per 100 WBC 0 X 10*3/uL (0.00-0.01); Neutrophils # (A) 14.83 X 10*3/uL (1.80-7.70); Neutrophils % (A) 86.5 %; Platelet Count 426 X 10*3/uL (140-440); RBC 2.92 X 10*6/uL (4.40-5.60); RDW 13.2 % (11.5-14.5); WBC 17.14 X 10*3/uL (4.50-10.00)
[2025-01-08 08:51] LABS: VBG PH 7.36 (7.31-7.41)
[2025-01-08 08:57] LABS: Anion Gap 7.30 mmol/L (4.00-12.00); BUN/Creat Ratio 13.33 Ratio (12.00-20.00); Blood Urea Nitrogen 4.0 mg/dL (9.0-27.0); Calcium 7.5 mg/dL (8.7-10.3); Carbon Dioxide 38.7 mmol/L (21.6-31.8); Chloride 89 mmol/L (96-109); Glucose 102 mg/dL (70-110); Potassium 4.1 mmol/L (3.5-5.5); Sodium 135 mmol/L (135-145)
[2025-01-08 09:13] LABS: VBG PCO2 72.0 mmHg (37-51)
[2025-01-08 09:14] LABS: VBG HCO3 41.0 mmol/L (24-28)
--- NOTE | 2025-01-08 14:31 | P.PN ---
Subjective Progress Note Date: 01/08/25 Principal diagnosis: Reason for follow-up is pneumonia/abscess Patient is a 74-year-old male with a past medical history significant for COPD hypertension alcohol abuse and and [id number] smoking has been brought to the hospital concerning for increasing weakness decreased appetite and shortness of breath patient did have significant normality on the CT of the chest concerning for volume loss consolidative opacity and possible abscess. On today's evaluation that is 01/08/2025,the patient remains to be afebrile currently breathing comfortably still requiring 5 L nasal cannula oxygen no worsening cough or sputum production or any other changes reported by the at the bedside. Patient did have slight worsening of the white count is up to 17.14 today, creat inine 0.3 BAL culture has been negative Objective - Vital Signs Vital signs: Vital Signs Temp 97.5 F L 01/08/25 08:00 Pulse 92 01/08/25 08:00 Resp 18 01/08/25 10:53 BP 149/74 01/08/25 08:00 Pulse Ox 96 01/08/25 08:00 FiO2 Intake & Output 01/07/25 01/08/25 01/08/25 18:59 06:59 18:59 Output Total 650 1000 Balance -650 -1000 Weight 56.699 kg Output: Urine 650 1000 Other: Voiding Method External Catheter # Voids 1 # Bowel Movements 1 - Exam GENERAL DESCRIPTION: An elderly male lying in bed in no distress RESPIRATORY SYSTEM: Unlabored breathing , decreased breath sounds at bases HEART: S1 S2 regular rate and rhythm , ABDOMEN: Soft , no tenderness EXTREMITIES: No edema feet - Labs CBC & Chem 7: 01/08/25 02:45 01/08/25 02:45 Labs: Abnormal Lab Results - Last 24 Hours (Table) 01/07/25 01/07/25 01/07/25 Range/Units 09:41 09:41 22:42 WBC 13.70 H (4.50-10.00) 10*3/uL RBC (4.40-5.60) X 10*6/uL Hgb (13.0-17.0) g/dL Hct (39.6-50.0) % MCV (80.0-97.0) FL MCH (27.0-32.0) pg MCHC (32.0-37.0) g/dL Immature Gran # (0.00-0.04) X 10*3/uL Neutrophils # 11.93 H (1.80-7.70) 10*3/uL Lymphocytes # 0.51 L (0.90-5.00) 10*3/uL Monocytes # (0.20-1.00) X 10*3/uL VBG pH 7.61 H* (7.31-7.41) VBG pCO2 (37-51) mmHg VBG HCO3 47 H (24-28) mmol/L Sodium (137-145) mmol/L Potassium 2.9 L (3.5-5.5) mmol/L Chloride 91 L (96-109) mmol/L Carbon Dioxide 41.1 A* (21.6-31.8) mmol/L BUN <3.5 L (9.0-27.0) mg/dL Creatinine 0.3 L (0.6-1.5) mg/dL BUN/Creatinine Ratio <11.67 L (12.00-20.00) Ratio Glucose (74-99) mg/dL Calcium 7.4 L (8.7-10.3) mg/dL AST (17-59) U/L Alkaline Phosphatase (38-126) U/L Total Protein (6.3-8.2) g/dL Albumin (3.5-5.0) g/dL 01/08/25 01/08/25 01/08/25 Range/Units 01:01 02:45 02:45 WBC 17.14 H (4.50-10.00) 10*3/uL RBC 2.92 L (4.40-5.60) X 10*6/uL Hgb 10.2 L (13.0-17.0) g/dL Hct 32.2 L (39.6-50.0) % MCV 110.3 H (80.0-97.0) FL MCH 34.9 H (27.0-32.0) pg MCHC 31.7 L (32.0-37.0) g/dL Immature Gran # 0.18 H (0.00-0.04) X 10*3/uL Neutrophils # 14.83 H (1.80-7.70) 10*3/uL Lymphocytes # 0.69 L (0.90-5.00) 10*3/uL Monocytes # 1.27 H (0.20-1.00) X 10*3/uL VBG pH (7.31-7.41) VBG pCO2 (37-51) mmHg VBG HCO3 (24-28) mmol/L Sodium 133 L (137-145) mmol/L Potassium (3.5-5.5) mmol/L Chloride 84 L 89 L (96-109) mmol/L Carbon Dioxide 44 H* 38.7 H (21.6-31.8) mmol/L BUN 4 L 4.0 L (9.0-27.0) mg/dL Creatinine 0.23 L 0.3 L (0.6-1.5) mg/dL BUN/Creatinine Ratio (12.00-20.00) Ratio Glucose 105 H (74-99) mg/dL Calcium 7.4 L 7.5 L (8.7-10.3) mg/dL AST 79 H (17-59) U/L Alkaline Phosphatase 151 H (38-126) U/L Total Protein 5.8 L (6.3-8.2) g/dL Albumin 2.1 L (3.5-5.0) g/dL 01/08/25 Range/Units 06:29 WBC (4.50-10.00) 10*3/uL RBC (4.40-5.60) X 10*6/uL Hgb (13.0-17.0) g/dL Hct (39.6-50.0) % MCV (80.0-97.0) FL MCH (27.0-32.0) pg MCHC (32.0-37.0) g/dL Immature Gran # (0.00-0.04) X 10*3/uL Neutrophils # (1.80-7.70) 10*3/uL Lymphocytes # (0.90-5.00) 10*3/uL Monocytes # (0.20-1.00) X 10*3/uL VBG pH (7.31-7.41) VBG pCO2 72 H* (37-51) mmHg VBG HCO3 41 H (24-28) mmol/L Sodium (137-145) mmol/L Potassium (3.5-5.5) mmol/L Chloride (96-109) mmol/L Carbon Dioxide (21.6-31.8) mmol/L BUN (9.0-27.0) mg/dL Creatinine (0.6-1.5) mg/dL BUN/Creatinine Ratio (12.00-20.00) Ratio Glucose (74-99) mg/dL Calcium (8.7-10.3) mg/dL AST (17-59) U/L Alkaline Phosphatase (38-126) U/L Total Protein (6.3-8.2) g/dL Albumin (3.5-5.0) g/dL Assessment and Plan (1) Sepsis Current Visit: Yes Status: Acute Code(s): A41.9 - SEPSIS, UNSPECIFIED ORGANISM SNOMED Code(s): 25837951 (2) Lung abscess Current Visit: Yes Status: Acute Code(s): J85.2 - ABSCESS OF LUNG WITHOUT PNEUMONIA SNOMED Code(s): 51803115 (3) Pneumonia Current Visit: Yes Status: Acute Code(s): J18.9 - PNEUMONIA, UNSPECIFIED ORGANISM SNOMED Code(s): 568597374 Plan: 1patient presented to the hospital with sepsis in this patient who did have tachycardia elevated white count elevated lactic acid meeting criteria for SIRS/sepsis source is likely either postobstructive pneumonia/lung abscess in this patient who did have significant history of smoking and concern for possible malignancy with secondary postobstructive pneumonia and abscess and will need to cover for the polymicrobial pablo associated with such infection 2patient will benefit from bronchoscopy lavage and deep culture, pulmonary is following the patient and bronchoscopy has been rescheduled for tomorrow could not be completed today because of OR schedule 3patient is afebrile, blood culture have been negative sputum is growing Nicole more likely colonizer. 4patient status post bronchoscopy those cultures are currently pending 5patient white count trending down, down to 13,000 yesterday however the patient white count is trending up today also noticed to have slight worsening of his respiratory status requiring more oxygen I will go ahead and repeat a chest x-ray and further continue with the Diflucan and Unasyn. at the bedside question answered Dictation was produced using [employer] dictation software. please excuse any grammatical, word or spelling errors.
--- NOTE | 2025-01-08 14:51 | P.PN ---
Subjective Progress Note Date: 01/08/25 This is a 74-year-old male patient who follows at the [facility] for chronic obstructive pulmonary disease, daily alcohol use and hypertension. He does have a 50-year pack per day smoking history however quit 14 years ago. He does have home oxygen. He is on Dulera. He was brought into the emergency room this morning with a 2 to 3-day progressive history of increasing weakness poor appetite and shortness of breath. He states he has lost over 12 to 13 pounds in the past week or two. Chest x-ray reveals a left suprahilar masslike density with peripheral infiltrate. Masslike density in the left lower and right midlung zone as well. CT scan of the chest reveals marked volume loss in the left lung with marked mixed consolidative and cystic density in the left lung with scattered air-fluid levels suggesting multiple lung abscesses. Thick bandlike density in the right infrahilar region extending to the pleura which is focally thickened raising the question of neoplasm versus chronic inflammation. Mediastinal adenopathy is present. White count 20.3. Hemoglobin 11.6. Platelets 365. Sodium 132. Potassium 3.7. Bicarb 29. BUN 18. Creatinine 0.31. Lactic acid 2.5. Urinalysis clean. Viral screen negative for influenza A/B, RSV, COVID. He is seen today in consultation in the emergency department. Currently and lying flat on a stretcher. Awake and alert in no acute distress. He is quite cachectic appearing. Quite thin. He is maintaining O2 saturations in the 90s on 4 L high flow nasal cannula. He is afebrile. Hemodynamically stable. The patient is seen today December 28, 2024 in follow-up on the regular medical floor. He is currently resting in bed. Awake and alert in no acute distress. Maintaining O2 saturations up to 100% on 4 L/min per nasal cannula. He is f eeling a bit better today compared to yesterday. He remains on Unasyn. Normal saline at 75 mL/h. Procalcitonin was 0.48. Follow-up chest x-ray shows no interval change in the marked cardiopulmonary process involving the entire left lung and a small focal opacity in the right midlung. No new labs today. Remains on DuoNeb and elations, Symbicort. Lovenox for DVT prophylaxis. Remains in the CIWA protocol. Required Ativan just after midnight today. The patient is seen today December 29, 2024 in follow-up on the regular medical floor. He is awake and alert in no acute distress. Resting fairly comfortably in bed. Breathing a bit easier today compared to yesterday. He is maintaining O2 saturations up to 100% on 4 L/min per nasal cannula. He has been afebrile. Hemodynamically stable. Blood cultures are pending. No new labs today. He remains on Unasyn. Lovenox for DVT prophylaxis. Continued on DuoNeb and elations, Symbicort. Remains on the CIWA protocol. The patient is seen today January 06, 2025 in follow-up on the regular medical floor. He is currently sitting up in bed. Awake and alert in no acute distress. Appears still quite weak and debilitated. He is maintaining O2 saturations in the 90s on 4 L/min per nasal cannula. He is status post bronchoscopy and BAL on 01/04/2025. Cultures revealed no growth. Cytology pending. Chest x-ray reveals near complete opacification of the left hemithorax. Small right pleural effusion with patchy basilar density unchanged. He remains on Unasyn and Diflucan. Continued on Tessalon Perles. Continued on Dulera. Lovenox for DVT prophylaxis. Remains on the CIWV protocol. Received Lasix 40 mg once today. The patient is seen today January 07, 2025 in follow-up on the regular medical floor. He is awake and alert in no acute distress. Resting fairly comfortable in bed. Denies any worsening shortness of breath, cough or congestion. Maintaining O2 saturations in the 90s on 4 L/min per nasal cannula. Bronchial wash cultures revealed no growth. Cytology still pending. White count 13.7. Hemoglobin 10.2. Platelets 412. He remains on DuoNeb inhalations, Tessalon Perles as needed. Lovenox for DVT prophylaxis. Continued on Unasyn and Diflucan. He remains quite weak. Working with physical therapy. The patient is seen today January 08, 2025 in follow-up on the regular medical floor. He is currently sitting up in a chair at the bedside. Awake and alert in no acute distress. Feeling a bit better today compared to yesterday. He is maintaining O2 saturations in the 90s on 4 L/min per nasal cannula. He is c ontinued on DuoNeb inhalations. He remains on Unasyn and Diflucan. Tessalon Perles for his cough. Continued on his home Dulera. Lovenox for DVT prophylaxis. Cytology from bronchial wash cultures are still pending. Cultures revealed no growth. White count 17.1. Hemoglobin 10.2. Platelets 426. Sodium 135. Potassium 4.1. Bicarb 39. BUN 4. Creatinine 0.3. Glucose 102. He received Diamox 250 mg IV x 1. Objective - Vital Signs Vital signs: Vital Signs Temp 97.4 F L 01/08/25 13:59 Pulse 89 01/08/25 13:59 Resp 18 01/08/25 13:59 BP 113/67 01/08/25 13:59 Pulse Ox 90 L 01/08/25 13:59 FiO2 Intake & Output 01/07/25 01/08/25 01/08/25 18:59 06:59 18:59 Output Total 650 1000 Balance -650 -1000 Weight 56.699 kg Output: Urine 650 1000 Other: Voiding Method External Catheter # Voids 1 # Bowel Movements 1 - Exam GENERAL EXAM: Alert, cachectic 74-year-old male, weak, sitting up in a chair, on 4 L nasal cannula, fairly comfortable in no apparent distress. HEAD: Normocephalic. EYES: Normal reaction of pupils, equal size. NOSE: Clear with pink turbinates. THROAT: No erythema or exudates. NECK: No masses, no JVD. CHEST: No chest wall deformity. LUNGS: Equal air entry with bilateral scattered rhonchi more so on the left lung. CVS: S1 and S2 normal with no audible murmur, regular rhythm. ABDOMEN: No hepatosplenomegaly, normal bowel sounds, no guarding or rigidity. SPINE: No scoliosis or deformity SKIN: No rashes CENTRAL NERVOUS SYSTEM: No focal deficits, tone is normal in all 4 extremities. EXTREMITIES: There is no peripheral edema. No clubbing, no cyanosis. Peripheral pulses are intact. - Labs CBC & Chem 7: 01/08/25 02:45 01/08/25 02:45 Labs: Abnormal Lab Results - Last 24 Hours (Table) 01/07/25 01/07/25 01/08/25 Range/Units 09:41 22:42 01:01 WBC (4.50-10.00) X 10*3/uL RBC (4.40-5.60) X 10*6/uL Hgb (13.0-17.0) g/dL Hct (39.6-50.0) % MCV (80.0-97.0) FL MCH (27.0-32.0) pg MCHC (32.0-37.0) g/dL Immature Gran # (0.00-0.04) X 10*3/uL Neutrophils # (1.80-7.70) X 10*3/uL Lymphocytes # (0.90-5.00) X 10*3/uL Monocytes # (0.20-1.00) X 10*3/uL VBG pH 7.61 H* (7.31-7.41) VBG pCO2 (37-51) mmHg VBG HCO3 47 H (24-28) mmol/L Sodium 133 L (137-145) mmol/L Potassium 2.9 L (3.5-5.5) mmol/L Chloride 91 L 84 L (96-109) mmol/L Carbon Dioxide 41.1 A* 44 H* (21.6-31.8) mmol/L BUN <3.5 L 4 L (9.0-27.0) mg/dL Creatinine 0.3 L 0.23 L (0.6-1.5) mg/dL BUN/Creatinine Ratio <11.67 L (12.00-20.00) Ratio Glucose 105 H (74-99) mg/dL Calcium 7.4 L 7.4 L (8.7-10.3) mg/dL AST 79 H (17-59) U/L Alkaline Phosphatase 151 H (38-126) U/L Total Protein 5.8 L (6.3-8.2) g/dL Albumin 2.1 L (3.5-5.0) g/dL 01/08/25 01/08/25 01/08/25 Range/Units 02:45 02:45 06:29 WBC 17.14 H (4.50-10.00) X 10*3/uL RBC 2.92 L (4.40-5.60) X 10*6/uL Hgb 10.2 L (13.0-17.0) g/dL Hct 32.2 L (39.6-50.0) % MCV 110.3 H (80.0-97.0) FL MCH 34.9 H (27.0-32.0) pg MCHC 31.7 L (32.0-37.0) g/dL Immature Gran # 0.18 H (0.00-0.04) X 10*3/uL Neutrophils # 14.83 H (1.80-7.70) X 10*3/uL Lymphocytes # 0.69 L (0.90-5.00) X 10*3/uL Monocytes # 1.27 H (0.20-1.00) X 10*3/uL VBG pH (7.31-7.41) VBG pCO2 72 H* (37-51) mmHg VBG HCO3 41 H (24-28) mmol/L Sodium (137-145) mmol/L Potassium (3.5-5.5) mmol/L Chloride 89 L (96-109) mmol/L Carbon Dioxide 38.7 H (21.6-31.8) mmol/L BUN 4.0 L (9.0-27.0) mg/dL Creatinine 0.3 L (0.6-1.5) mg/dL BUN/Creatinine Ratio (12.00-20.00) Ratio Glucose (74-99) mg/dL Calcium 7.5 L (8.7-10.3) mg/dL AST (17-59) U/L Alkaline Phosphatase (38-126) U/L Total Protein (6.3-8.2) g/dL Albumin (3.5-5.0) g/dL Assessment and Plan Assessment: Acute hypoxic respiratory failure secondary to acute community acquired pneumonia and/or lung masses. CT scan of the chest reveals marked volume loss in the left lung with marked mixed consolidative and cystic density in the left lung with scattered air-fluid levels suggesting multiple lung abscesses. Thick bandlike density in the right infrahilar region extending to the pleura which is focally thickened raising the question of neoplasm versus chronic inflammation. Mediastinal adenopathy is present and likely reactive. Findings could be consistent with infected bullae versus development of lung abscesses. The patient remains on 4 L of oxygen by nasal cannula. Clinically stable. The bronchoscopy and the bronchial lavage yielded no significant microbial growth Generalized weakness, poor appetite and weight loss secondary to above 50-year history of chronic tobacco dependence at 1 pack/day however quit 14 years ago Chronic obstructive pulmonary disease Chronic hypoxic respiratory failure on home oxygen Hypertension Chronic daily alcohol use Cachexia/anorexia syndrome Plan: The patient was seen and evaluated Labs and medications reviewed Continue Unasyn and Diflucan Continue DuoNeb inhalations Lovenox for DVT prophylaxis Titrate down the FiO2 as tolerated Remains quite weak and debilitated Working with physical therapy Currently up in a chair at the bedside Follow-up chest x-ray in a.m. May need subacute rehab at discharge Will need an outpatient PET scan post discharge Updated the patient regarding the plan of care I have personally seen and examined the patient, performed the documentation and the assessment and plan as written. Number of minutes spent on the visit: 10 Dictation was produced using [employer] dictation software. Please excuse any grammatical, word or spelling errors.
--- NOTE | 2025-01-08 15:38 | P.PN ---
Subjective Progress Note Date: 01/08/25 Hospital Course: 74 year old M with PMH chronic hypoxic respiratory failure secondary to COPD on home oxygen 2-3L, hypertension, former smoker quit 15 years ago, alcohol use disorder, who presented to the ER on 12/27/2024 for weakness, poor appetite, SOB associated with fever and chills. In the ED he underwent extensive evaluation. BP 142/79, HR 63, RR 22, T 98.1F, 90% on 4L NC. CBC, CMP significant for WBC 20.34, RBC 3.25, Hg 11.6, Hct 34, MCV 104.6, Na 132, Cl 95, Cr 0.31, Ca 7.5, AST 61, alk phos 131. Trop 0.012. Lactic acid 2.5-1.5. EKG sinus tachycardia with HR of 112. Chest CT showed marked volume loss in the left lung with mixed consolidative and cystic density left lung with air-fluid levels suggesting lung abscesses, right infrahilar band like density, mediastinal adenopathy. Pulmonary, ID and Oncology consulted. Started on Unasyn for treatment of pulmonary abscess. Initial sputum Cx growing nicole albicans. He underwent bronchoscopy with BAL on 01/04 showing purulent se cretions which was sent for culture. Bronchoscopy cultures so far with no growth, cytology still pending, repeat chest x-ray was requested due to breathing difficulties and showed near complete opacification of the left hemothorax, similar to prior study with somewhat worsening right pleural effusion on my interpretation, continued on Unasyn with Diflucan, ID, pulmonology following. Patient was provided with 1 dose of IV Lasix 40 for worsening upper extremity edema on 01/06 and 01/07 01/07: Seen and examined at bedside, no events overnight, no significant changes, feels very tired. Upper extremity edema has improved. He is oxygen requirement is stable at 4 L nasal cannula, he is afebrile with blood pressure at 149/74 and heart rate in 70s CBC showing worsening leukocytosis 17.4, hemoglobin stable 10.2, he did have significantly elevated bicarb on BMP yesterday, VBG was ordered and showed pH of 7.61, he was provided with 1 dose of Diamox overnight, repeat VBG this morning showed pH of 7.36 and pCO2 72, will repeat ABG in the morning. Otherwise his sodium is normal as well as potassium, creatinine 0.3, bicarb 38.. Discussed with pulmonology at bedside, no plans for repeat bronchos copy, patient is not a candidate for VATS lung biopsy or transbronchial biopsy. Per ID, Augmentin and Diflucan on discharge, cultures and cytology still pending. Chest x-ray ordered by ID, showed very mild improvement in the aeration on my interpretation, radiology. Patient's girlfriend at bedside, and plan Pertinent positives and negatives as discussed above, a complete review of systems was performed and all othe discussed current management r systems are negative. Vitals Signs Reviewed. General: [Chronically ill-appearing, malnourished Derm: [warm], [dry] Head: [atraumatic], [normocephalic], [symmetric] Eyes: [EOMI], [no lid lag], [anicteric sclera] Mouth: [no lip lesion], [mucus membranes moist] Cardiovascular: [S1S2 reg], [no murmur] Lungs: [Coarse bilateral breath sounds, significantly diminished on the left side], [no rhonchi, no rales] , [no accessory muscle use] Abdominal: [soft], [ nontender to palpation], [no guarding], [no appreciable organomegaly] Ext: [no gross muscle atrophy], [bilateral pitting upper extremity edema], [no contractures] Neuro: [ CN II-XI grossly intact], [no focal neuro deficits] Psych: [Alert], [oriented], [appropriate affect] Assessment and Plan: Acute on chronic hypoxic respiratory failure secondary to lung abscess versus post obstructive PNA versus malignancy Status post bronchoscopy and BAL on 01/04. Procal 0.48 Continue Unasyn 3g IV TID (D12), Fluconazole 100 mg PO QD (D3). Duoneb QID PRN. Symbicort 2 INH BID. Tessalon 100 mg PO TID PRN. Mucinex 1200 mg PO BID. Sputum Cx Nicole albicans. Follow up on bronchoscopy cultures and cytology. Pulmonary and ID on board. Monitor CBC and BMP daily Metabolic alkalosis -Repeat VBG ordered, will not provide with additional Lasix, upper extremity swelling has improved significantly Hematuria: Resolved. UA shows 30 RBC, neg LE or nitire. Renal/bladder US no hydro. Bilateral upper extremity swelling: Venous duplex neg DVT. Recommend LUE elevation. 1 dose of IV Lasix 40 mg 01/06 and 01/07 Hypertension: Toprol-XL 100 mg PO QD. Alcohol use disorder: CIWA protocol with Ativan PRN per protocol. Folic acid 1 mg PO QD. Thiamine 100 mg PO QD. Transaminitis likely due to EtOH abuse. Macrocytic anemia likely due to malnutrition and alcohol use disorder: B12 721, Folate 642. Iron studies show anemia of chronic disease. Resolved: Lactic acidosis. HypoK. Severe acute malnutrition, RD consulted, patient has Ensure and Magic cup ordered, encouraged to continue taking his nutrition supplements, he only has 1 or none bottles of Ensure a day per his girlfriend DVT ppx: Lovenox Code status: Full code Anticipated discharge place: TBD Anticipated discharge time: TBD Objective - Vital Signs Vital signs: Vital Signs Temp 97.4 F L 01/08/25 13:59 Pulse 89 01/08/25 13:59 Resp 18 01/08/25 13:59 BP 113/67 01/08/25 13:59 Pulse Ox 90 L 01/08/25 13:59 FiO2 Intake & Output 01/07/25 01/08/25 01/08/25 18:59 06:59 18:59 Output Total 650 1000 Balance -650 -1000 Weight 56.699 kg Output: Urine 650 1000 Other: Voiding Method External Catheter # Voids 1 # Bowel Movements 1 - Labs CBC & Chem 7: 01/08/25 02:45 01/08/25 02:45 Labs: Abnormal Lab Results - Last 24 Hours (Table) 01/07/25 01/07/25 01/08/25 Range/Units 09:41 22:42 01:01 WBC (4.50-10.00) X 10*3/uL RBC (4.40-5.60) X 10*6/uL Hgb (13.0-17.0) g/dL Hct (39.6-50.0) % MCV (80.0-97.0) FL MCH (27.0-32.0) pg MCHC (32.0-37.0) g/dL Immature Gran # (0.00-0.04) X 10*3/uL Neutrophils # (1.80-7.70) X 10*3/uL Lymphocytes # (0.90-5.00) X 10*3/uL Monocytes # (0.20-1.00) X 10*3/uL VBG pH 7.61 H* (7.31-7.41) VBG pCO2 (37-51) mmHg VBG HCO3 47 H (24-28) mmol/L Sodium 133 L (137-145) mmol/L Potassium 2.9 L (3.5-5.5) mmol/L Chloride 91 L 84 L (96-109) mmol/L Carbon Dioxide 41.1 A* 44 H* (21.6-31.8) mmol/L BUN <3.5 L 4 L (9.0-27.0) mg/dL Creatinine 0.3 L 0.23 L (0.6-1.5) mg/dL BUN/Creatinine Ratio <11.67 L (12.00-20.00) Ratio Glucose 105 H (74-99) mg/dL Calcium 7.4 L 7.4 L (8.7-10.3) mg/dL AST 79 H (17-59) U/L Alkaline Phosphatase 151 H (38-126) U/L Total Protein 5.8 L (6.3-8.2) g/dL Albumin 2.1 L (3.5-5.0) g/dL 01/08/25 01/08/25 01/08/25 Range/Units 02:45 02:45 06:29 WBC 17.14 H (4.50-10.00) X 10*3/uL RBC 2.92 L (4.40-5.60) X 10*6/uL Hgb 10.2 L (13.0-17.0) g/dL Hct 32.2 L (39.6-50.0) % MCV 110.3 H (80.0-97.0) FL MCH 34.9 H (27.0-32.0) pg MCHC 31.7 L (32.0-37.0) g/dL Immature Gran # 0.18 H (0.00-0.04) X 10*3/uL Neutrophils # 14.83 H (1.80-7.70) X 10*3/uL Lymphocytes # 0.69 L (0.90-5.00) X 10*3/uL Monocytes # 1.27 H (0.20-1.00) X 10*3/uL VBG pH (7.31-7.41) VBG pCO2 72 H* (37-51) mmHg VBG HCO3 41 H (24-28) mmol/L Sodium (137-145) mmol/L Potassium (3.5-5.5) mmol/L Chloride 89 L (96-109) mmol/L Carbon Dioxide 38.7 H (21.6-31.8) mmol/L BUN 4.0 L (9.0-27.0) mg/dL Creatinine 0.3 L (0.6-1.5) mg/dL BUN/Creatinine Ratio (12.00-20.00) Ratio Glucose (74-99) mg/dL Calcium 7.5 L (8.7-10.3) mg/dL AST (17-59) U/L Alkaline Phosphatase (38-126) U/L Total Protein (6.3-8.2) g/dL Albumin (3.5-5.0) g/dL
--- NOTE | 2025-01-08 16:16 | XR ---
EXAMINATION TYPE: XR chest 1V portable DATE OF EXAM: 01/08/2025 3:45 PM COMPARISON: Chest radiographs from 01/06/2025, CT chest 12/27/2024 TECHNIQUE: XR chest 1V portable Portable AP radiograph of the chest. CLINICAL INDICATION:Male, 74 years old with history of SOB, hypoxemia; FINDINGS: Patient is rotated which limits evaluation. Lungs/Pleura: Similar near complete opacification of the left hemithorax. Small right pleural effusio n with right basilar patchy airspace opacity redemonstrated. No pneumothorax identified. Pulmonary vascularity: Unremarkable. Heart/mediastinum: Cardiomediastinal silhouette is shifted to the left again. Musculoskeletal: No acute osseous pathology. IMPRESSION: 1. Similar near complete opacification of the left hemithorax with mediastinal shift to the left due to volume loss. Likely combination of atelectasis and pleural effusion and underlying infectious pro cess. 2. Small right pleural effusion with right basilar patchy airspace opacity concerning for pneumonia. [facility], , 01/08/2025 4:14 PM
[2025-01-09 03:30] LABS: Basophils # (A) 0.05 10*3/uL (0.00-0.10); Basophils % (A) 0.2 %; Eosinophils # (A) 0.13 10*3/uL (0.04-0.35); Eosinophils % (A) 0.6 %; HCT 28.9 % (39.6-50.0); HGB 9.8 g/dL (13.0-17.0); Lymphocytes # (A) 0.63 10*3/uL (0.90-5.00); Lymphocytes % (A) 2.9 %; MCH 35.0 pg (27.0-32.0); MCHC 33.9 g/dL (32.0-37.0); MCV 103.2 fL (80.0-97.0); Monocytes # (A) 1.39 10*3/uL (0.20-1.00); Monocytes % (A) 6.4 %; Neutrophils # (A) 19.29 10*3/uL (1.80-7.70); Neutrophils % (A) 88.3 %; Platelet Count 347 10*3/uL (140-440); RBC 2.80 10*6/uL (4.40-5.60); RDW 13.2 % (11.5-14.5); WBC 21.83 10*3/uL (4.50-10.00)
[2025-01-09 04:15] LABS: VBG HCO3 35.0 mmol/L (24-28); VBG PCO2 48.0 mmHg (37-51); VBG PH 7.47 (7.31-7.41)
[2025-01-09 04:15] LABS: African American GFR (CKD) >90 (>60 ml/min/1.73 sqM); Anion Gap 4 mmol/L; Blood Urea Nitrogen 6 mg/dL (9-20); Calcium 7.7 mg/dL (8.4-10.2); Carbon Dioxide 35 mmol/L (22-30); Chloride 90 mmol/L (98-107); Glucose 92 mg/dL (74-99); Non-African American GFR(CKD) >90 (>60 ml/min/1.73 sqM); Potassium 3.7 mmol/L (3.5-5.1); Sodium 129 mmol/L (137-145)
[2025-01-09] MEDS: SODIUM CHLORIDE 0.9% 1,000 ML IV SCH (05:38)
[2025-01-09] MEDS: POTASSIUM CHLORIDE ER 20 MEQ TAB.ER PO ONE (05:39)
--- NOTE | 2025-01-09 12:34 | P.PN ---
Subjective Progress Note Date: 01/09/25 Hospital Course: 74 year old M with PMH chronic hypoxic respiratory failure secondary to COPD on home oxygen 2-3L, hypertension, former smoker quit 15 years ago, alcohol use disorder, who presented to the ER on 12/27/2024 for weakness, poor appetite, SOB associated with fever and chills. In the ED he underwent extensive evaluation. BP 142/79, HR 63, RR 22, T 98.1F, 90% on 4L NC. CBC, CMP significant for WBC 20.34, RBC 3.25, Hg 11.6, Hct 34, MCV 104.6, Na 132, Cl 95, Cr 0.31, Ca 7.5, AST 61, alk phos 131. Trop 0.012. Lactic acid 2.5-1.5. EKG sinus tachycardia with HR of 112. Chest CT showed marked volume loss in the left lung with mixed consolidative and cystic density left lung with air-fluid levels suggesting lung abscesses, right infrahilar band like density, mediastinal adenopathy. Pulmonary, ID and Oncology consulted. Started on Unasyn for treatment of pulmonary abscess. Initial sputum Cx growing nicole albicans. He underwent bronchoscopy with BAL on 01/04 showing purulent se cretions which was sent for culture. Bronchoscopy cultures so far with no growth, cytology still pending, repeat chest x-ray was requested due to breathing difficulties and showed near complete opacification of the left hemothorax, similar to prior study with somewhat worsening right pleural effusion on my interpretation, continued on Unasyn with Diflucan, ID, pulmonology following. Patient was provided with 1 dose of IV Lasix 40 for worsening upper extremity edema on 01/06 and 01/07.he did have significantly elevated bicarb on BMP yesterday, VBG was ordered and showed pH of 7.61, he was provided with 1 dose of Diamox overnight, repeat VBG this morning showed pH of 7.36 and pCO2 72, will repeat ABG in the morning. 01/09 Seen and examined at bedside, no events overnight, no significant changes, he is very fatigued, appears that he has not worked with physical therapy in a while, discussed with case management and requested daily physical therapy as patient appears very debilitated. His significant other was present at bedside during exam and had an opportunity to ask questions and get answers. Patient is afebrile, his oxygen requirement is stable at 4 L, blood pressure 125/56. His W BC went up to 21.8, hemoglobin stable 9.8, sodium down to 129, potassium 3.7, creatinine 0.29, VBG this morning showed 7.47 pCO2 48. Patient was started on normal saline, repeat sodium 120. Per ID, Augmentin and Diflucan on discharge, final BAL cultures growing Nicole albicans, Gram stain negative. Cytology still pending. Chest x-ray ordered by ID, showed very mild improvement in the aeration on my interpretation, radiology. Patient's girlfriend at bedside, and plan Pertinent positives and negatives as discussed above, a complete review of systems was performed and all othe discussed current management r systems are negative. Vitals Signs Reviewed. General: [Chronically ill-appearing, malnourished Derm: [warm], [dry] Head: [atraumatic], [normocephalic], [symmetric] Eyes: [EOMI], [no lid lag], [anicteric sclera] Mouth: [no lip lesion], [mucus membranes moist] Cardiovascular: [S1S2 reg], [no murmur] Lungs: [Coarse bilateral breath sounds, significantly diminished on the left roxy e], [no rhonchi, no rales] , [no accessory muscle use] Abdominal: [soft], [ nontender to palpation], [no guarding], [no appreciable organomegaly] Ext: [no gross muscle atrophy], [bilateral pitting upper extremity edema, significantly improved on the right side, persistent on the left upper extremity with clear fluid weeping], [no contractures] Neuro: [ CN II-XI grossly intact], [no focal neuro deficits] Psych: [Alert], [oriented], [appropriate affect] Assessment and Plan: Acute on chronic hypoxic respiratory failure secondary to lung abscess versus post obstructive PNA, sputum cultures positive for Nicole albicans , versus malignancy Status post bronchoscopy and BAL on 01/04. Procal 0.48 Continue Unasyn 3g IV TID (D12), Fluconazole 100 mg PO QD (D3). Duoneb QID PRN. Symbicort 2 INH BID. Tessalon 100 mg PO TID PRN. Mucinex 1200 mg PO BID. Sputum Cx Nicole albicans. Follow up on bronchoscopy cytology. Pulmonary and ID on board. Monitor CBC and BMP daily Metabolic alkalosis Hyponatremia -Repeat VBG ordered, will not provide with additional Lasix, upper extremity swelling has improved -Continue NS at 75cc/h serial sodium checks every 3 hour followed by daily Hematuria: Resolved. UA shows 30 RBC, neg LE or nitire. Renal/bladder US no hydro. Bilateral upper extremity swelling: Venous duplex neg DVT. Recommend LUE elevation. 1 dose of IV Lasix 40 mg 01/06 and 01/07 Hypertension: Toprol-XL 100 mg PO QD. Alcohol use disorder: CIWA protocol with Ativan PRN per protocol. Folic acid 1 mg PO QD. Thiamine 100 mg PO QD. Transaminitis likely due to EtOH abuse. Macrocytic anemia likely due to malnutrition and alcohol use disorder: B12 721, Folate 642. Iron studies show anemia of chronic disease. Resolved: Lactic acidosis. HypoK. Severe acute malnutrition, RD consulted, patient has Ensure and Magic cup ordered, encouraged to continue taking his nutrition supplements, he only has 1 or none bottles of Ensure a day per his girlfriend DVT ppx: Lovenox Code status: Full code Anticipated discharge place: TBD Anticipated discharge time: TBD Objective - Vital Signs Vital signs: Vital Signs Temp 97.4 F L 01/09/25 06:50 Pulse 93 01/09/25 06:50 Resp 18 01/09/25 06:50 BP 152/69 01/09/25 06:50 Pulse Ox 95 01/09/25 06:50 FiO2 Intake & Output 01/08/25 01/09/25 01/09/25 18:59 06:59 18:59 Output Total 750 300 Balance -750 -300 Output: Urine 750 300 Other: Voiding Method External Catheter # Voids 1 # Bowel Movements 1 - Labs CBC & Chem 7: 01/09/25 03:08 01/09/25 11:34 Labs: Abnormal Lab Results - Last 24 Hours (Table) 01/09/25 01/09/25 01/09/25 Range/Units 03:08 03:08 03:50 WBC 21.83 H (4.50-10.00) 10*3/uL RBC 2.80 L (4.40-5.60) 10*6/uL Hgb 9.8 L (13.0-17.0) g/dL Hct 28.9 L (39.6-50.0) % MCV 103.2 H (80.0-97.0) fL MCH 35.0 H (27.0-32.0) pg Immature Gran # 0.34 H (0.00-0.04) 10*3/uL Neutrophils # 19.29 H (1.80-7.70) 10*3/uL Lymphocytes # 0.63 L (0.90-5.00) 10*3/uL Monocytes # 1.39 H (0.20-1.00) 10*3/uL VBG pH 7.47 H (7.31-7.41) VBG HCO3 35 H (24-28) mmol/L Sodium 129 L (137-145) mmol/L Chloride 90 L (98-107) mmol/L Carbon Dioxide 35 H (22-30) mmol/L BUN 6 L (9-20) mg/dL Creatinine 0.29 L (0.66-1.25) mg/dL Calcium 7.7 L (8.4-10.2) mg/dL 01/09/25 Range/Units 11:34 WBC (4.50-10.00) 10*3/uL RBC (4.40-5.60) 10*6/uL Hgb (13.0-17.0) g/dL Hct (39.6-50.0) % MCV (80.0-97.0) fL MCH (27.0-32.0) pg Immature Gran # (0.00-0.04) 10*3/uL Neutrophils # (1.80-7.70) 10*3/uL Lymphocytes # (0.90-5.00) 10*3/uL Monocytes # (0.20-1.00) 10*3/uL VBG pH (7.31-7.41) VBG HCO3 (24-28) mmol/L Sodium 130 L (137-145) mmol/L Chloride (98-107) mmol/L Carbon Dioxide (22-30) mmol/L BUN (9-20) mg/dL Creatinine (0.66-1.25) mg/dL Calcium (8.4-10.2) mg/dL Microbiology - Last 24 Hours (Table) 01/04/25 08:00 Fungal Culture - Preliminary Bronchoalviolar Lavage - Left Nicole albicans
--- NOTE | 2025-01-09 15:26 | P.PN ---
Subjective Progress Note Date: 01/09/25 This is a 74-year-old male patient who follows at the [facility] for chronic obstructive pulmonary disease, daily alcohol use and hypertension. He does have a 50-year pack per day smoking history however quit 14 years ago. He does have home oxygen. He is on Dulera. He was brought into the emergency room this morning with a 2 to 3-day progressive history of increasing weakness poor appetite and shortness of breath. He states he has lost over 12 to 13 pounds in the past week or two. Chest x-ray reveals a left suprahilar masslike density with peripheral infiltrate. Masslike density in the left lower and right midlung zone as well. CT scan of the chest reveals marked volume loss in the left lung with marked mixed consolidative and cystic density in the left lung with scattered air-fluid levels suggesting multiple lung abscesses. Thick bandlike density in the right infrahilar region extending to the pleura which is focally thickened raising the question of neoplasm versus chronic inflammation. Mediastinal adenopathy is present. White count 20.3. Hemoglobin 11.6. Platelets 365. Sodium 132. Potassium 3.7. Bicarb 29. BUN 18. Creatinine 0.31. Lactic acid 2.5. Urinalysis clean. Viral screen negative for influenza A/B, RSV, COVID. He is seen today in consultation in the emergency department. Currently and lying flat on a stretcher. Awake and alert in no acute distress. He is quite cachectic appearing. Quite thin. He is maintaining O2 saturations in the 90s on 4 L high flow nasal cannula. He is afebrile. Hemodynamically stable. The patient is seen today December 28, 2024 in follow-up on the regular medical floor. He is currently resting in bed. Awake and alert in no acute distress. Maintaining O2 saturations up to 100% on 4 L/min per nasal cannula. He is f eeling a bit better today compared to yesterday. He remains on Unasyn. Normal saline at 75 mL/h. Procalcitonin was 0.48. Follow-up chest x-ray shows no interval change in the marked cardiopulmonary process involving the entire left lung and a small focal opacity in the right midlung. No new labs today. Remains on DuoNeb and elations, Symbicort. Lovenox for DVT prophylaxis. Remains in the CIWA protocol. Required Ativan just after midnight today. The patient is seen today December 29, 2024 in follow-up on the regular medical floor. He is awake and alert in no acute distress. Resting fairly comfortably in bed. Breathing a bit easier today compared to yesterday. He is maintaining O2 saturations up to 100% on 4 L/min per nasal cannula. He has been afebrile. Hemodynamically stable. Blood cultures are pending. No new labs today. He remains on Unasyn. Lovenox for DVT prophylaxis. Continued on DuoNeb and elations, Symbicort. Remains on the CIWA protocol. The patient is seen today January 06, 2025 in follow-up on the regular medical floor. He is currently sitting up in bed. Awake and alert in no acute distress. Appears still quite weak and debilitated. He is maintaining O2 saturations in the 90s on 4 L/min per nasal cannula. He is status post bronchoscopy and BAL on 01/04/2025. Cultures revealed no growth. Cytology pending. Chest x-ray reveals near complete opacification of the left hemithorax. Small right pleural effusion with patchy basilar density unchanged. He remains on Unasyn and Diflucan. Continued on Tessalon Perles. Continued on Dulera. Lovenox for DVT prophylaxis. Remains on the CICO protocol. Received Lasix 40 mg once today. The patient is seen today January 07, 2025 in follow-up on the regular medical floor. He is awake and alert in no acute distress. Resting fairly comfortable in bed. Denies any worsening shortness of breath, cough or congestion. Maintaining O2 saturations in the 90s on 4 L/min per nasal cannula. Bronchial wash cultures revealed no growth. Cytology still pending. White count 13.7. Hemoglobin 10.2. Platelets 412. He remains on DuoNeb inhalations, Tessalon Perles as needed. Lovenox for DVT prophylaxis. Continued on Unasyn and Diflucan. He remains quite weak. Working with physical therapy. The patient is seen today January 08, 2025 in follow-up on the regular medical floor. He is currently sitting up in a chair at the bedside. Awake and alert in no acute distress. Feeling a bit better today compared to yesterday. He is maintaining O2 saturations in the 90s on 4 L/min per nasal cannula. He is c ontinued on DuoNeb inhalations. He remains on Unasyn and Diflucan. Tessalon Perles for his cough. Continued on his home Dulera. Lovenox for DVT prophylaxis. Cytology from bronchial wash cultures are still pending. Cultures revealed no growth. White count 17.1. Hemoglobin 10.2. Platelets 426. Sodium 135. Potassium 4.1. Bicarb 39. BUN 4. Creatinine 0.3. Glucose 102. He received Diamox 250 mg IV x 1. The patient is seen today January 09, 2025 in follow-up on the regular medical floor. He is currently sitting up in bed. Awake and alert in no acute distress. Feeling a bit stronger today compared to yesterday. Less short of breath. Chest x-ray showing slight improvement. He remains on Unasyn. Remains on Diflucan. Continued on DuoNeb inhalations. Continued on his home Dulera. Lovenox for DVT prophylaxis. Bronchoalveolar lavage reveals evidence of Nicole only. Sputum revealed Nicole. White count 21.8. Hemoglobin 9.8. Platelets 347. Sodium 130. Potassium 3.7. Bicarb 35. BUN 6. Creatinine 0.29. Glucose 92. Objective - Vital Signs Vital signs: Vital Signs Temp 97 F L 01/09/25 13:44 Pulse 85 01/09/25 13:44 Resp 20 01/09/25 13:44 BP 125/59 01/09/25 13:44 Pulse Ox 94 L 01/09/25 13:44 FiO2 Intake & Output 01/08/25 01/09/25 01/09/25 18:59 06:59 18:59 Output Total 750 300 Balance -750 -300 Output: Urine 750 300 Other: Voiding Method External Catheter # Voids 1 # Bowel Movements 1 - Exam GENERAL EXAM: Alert, cachectic, weak 74-year-old male, weak, resting in bed, on 4 L nasal cannula, comfortable in no apparent distress. HEAD: Normocephalic. EYES: Normal reaction of pupils, equal size. NOSE: Clear with pink turbinates. THROAT: No erythema or exudates. NECK: No masses, no JVD. CHEST: No chest wall deformity. LUNGS: Equal air entry with bilateral scattered rhonchi more so on the left lung. CVS: S1 and S2 normal with no audible murmur, regular rhythm. ABDOMEN: No hepatosplenomegaly, normal bowel sounds, no guarding or rigidity. SPINE: No scoliosis or deformity SKIN: No rashes CENTRAL NERVOUS SYSTEM: No focal deficits, tone is normal in all 4 extremities. EXTREMITIES: There is no peripheral edema. No clubbing, no cyanosis. Peripheral pulses are intact. - Labs CBC & Chem 7: 01/09/25 03:08 01/09/25 11:34 Labs: Abnormal Lab Results - Last 24 Hours (Table) 01/09/25 01/09/25 01/09/25 Range/Units 03:08 03:08 03:50 WBC 21.83 H (4.50-10.00) 10*3/uL RBC 2.80 L (4.40-5.60) 10*6/uL Hgb 9.8 L (13.0-17.0) g/dL Hct 28.9 L (39.6-50.0) % MCV 103.2 H (80.0-97.0) fL MCH 35.0 H (27.0-32.0) pg Immature Gran # 0.34 H (0.00-0.04) 10*3/uL Neutrophils # 19.29 H (1.80-7.70) 10*3/uL Lymphocytes # 0.63 L (0.90-5.00) 10*3/uL Monocytes # 1.39 H (0.20-1.00) 10*3/uL VBG pH 7.47 H (7.31-7.41) VBG HCO3 35 H (24-28) mmol/L Sodium 129 L (137-145) mmol/L Chloride 90 L (98-107) mmol/L Carbon Dioxide 35 H (22-30) mmol/L BUN 6 L (9-20) mg/dL Creatinine 0.29 L (0.66-1.25) mg/dL Calcium 7.7 L (8.4-10.2) mg/dL 01/09/25 01/09/25 Range/Units 08:45 11:34 WBC (4.50-10.00) 10*3/uL RBC (4.40-5.60) 10*6/uL Hgb (13.0-17.0) g/dL Hct (39.6-50.0) % MCV (80.0-97.0) fL MCH (27.0-32.0) pg Immature Gran # (0.00-0.04) 10*3/uL Neutrophils # (1.80-7.70) 10*3/uL Lymphocytes # (0.90-5.00) 10*3/uL Monocytes # (0.20-1.00) 10*3/uL VBG pH (7.31-7.41) VBG HCO3 (24-28) mmol/L Sodium 130 L 130 L (137-145) mmol/L Chloride (98-107) mmol/L Carbon Dioxide (22-30) mmol/L BUN (9-20) mg/dL Creatinine (0.66-1.25) mg/dL Calcium (8.4-10.2) mg/dL Microbiology - Last 24 Hours (Table) 01/04/25 08:00 Fungal Culture - Preliminary Bronchoalviolar Lavage - Left Nicole albicans Assessment and Plan Assessment: Acute hypoxic respiratory failure secondary to acute community acquired pneumonia and/or lung masses. CT scan of the chest reveals marked volume loss in the left lung with marked mixed consolidative and cystic density in the left lung with scattered air-fluid levels suggesting multiple lung abscesses. Thick bandlike density in the right infrahilar region extending to the pleura which is focally thickened raising the question of neoplasm versus chronic inflammation. Mediastinal adenopathy is present and likely reactive. Findings could be consistent with infected bullae versus development of lung abscesses. The patient remains on 4 L of oxygen by nasal cannula. Clinically stable. The bronchoscopy and the bronchial lavage yielded no significant microbial growth Generalized weakness, poor appetite and weight loss secondary to above 50-year history of chronic tobacco dependence at 1 pack/day however quit 14 years ago Chronic obstructive pulmonary disease Chronic hypoxic respiratory failure on home oxygen Hypertension Chronic daily alcohol use Cachexia/anorexia syndrome Plan: The patient was seen and evaluated Chest x-ray, labs and medications reviewed Continue Unasyn and Diflucan Continue DuoNeb inhalations Continue his home Dulera Lovenox for DVT prophylaxis Titrate down the FiO2 as tolerated Remains quite weak and debilitated Working with physical therapy Plan is for [facility] for subacute rehab at discharge Will need an outpatient PET scan post discharge I have personally seen and examined the patient, performed the documentation and the assessment and plan as written. Number of minutes spent on the visit: 10 Dictation was produced using [employer] software. Please excuse any grammatical, word or spelling errors.
--- NOTE | 2025-01-09 15:53 | P.PN ---
Subjective Progress Note Date: 01/09/25 Principal diagnosis: Reason for follow-up is pneumonia/abscess Patient is a 74-year-old male with a past medical history significant for COPD hypertension alcohol abuse and and [id number] smoking has been brought to the hospital concerning for increasing weakness decreased appetite and shortness of breath patient did have significant normality on the CT of the chest concerning for volume loss consolidative opacity and possible abscess. On today's evaluation that is 01/09/2025,the patient remains to be afebrile, patient is on 4 L nasal cannula supplemental oxygen and breathing slightly comfortably no worsening cough or sputum production reported no abdominal pain or diarrhea. Patient white count is up to 21.83, creatinine 0.29 chest x-ray shows similar near complete opacification of the left hemithorax with mental status shift to the left due to volume loss Objective - Vital Signs Vital signs: Vital Signs Temp 97.4 F L 01/09/25 06:50 Pulse 93 01/09/25 06:50 Resp 18 01/09/25 06:50 BP 152/69 01/09/25 06:50 Pulse Ox 95 01/09/25 06:50 FiO2 Intake & Output 01/08/25 01/09/25 01/09/25 18:59 06:59 18:59 Output Total 750 300 Balance -750 -300 Output: Urine 750 300 Other: Voiding Method External Catheter # Voids 1 # Bowel Movements 1 - Exam GENERAL DESCRIPTION: An elderly male lying in bed in no distress RESPIRATORY SYSTEM: Unlabored breathing , decreased breath sounds at bases HEART: S1 S2 regular rate and rhythm , ABDOMEN: Soft , no tenderness EXTREMITIES: No edema feet - Labs CBC & Chem 7: 01/09/25 03:08 01/09/25 14:52 Labs: Abnormal Lab Results - Last 24 Hours (Table) 01/09/25 01/09/25 01/09/25 Range/Units 03:08 03:08 03:50 WBC 21.83 H (4.50-10.00) 10*3/uL RBC 2.80 L (4.40-5.60) 10*6/uL Hgb 9.8 L (13.0-17.0) g/dL Hct 28.9 L (39.6-50.0) % MCV 103.2 H (80.0-97.0) fL MCH 35.0 H (27.0-32.0) pg Immature Gran # 0.34 H (0.00-0.04) 10*3/uL Neutrophils # 19.29 H (1.80-7.70) 10*3/uL Lymphocytes # 0.63 L (0.90-5.00) 10*3/uL Monocytes # 1.39 H (0.20-1.00) 10*3/uL VBG pH 7.47 H (7.31-7.41) VBG HCO3 35 H (24-28) mmol/L Sodium 129 L (137-145) mmol/L Chloride 90 L (98-107) mmol/L Carbon Dioxide 35 H (22-30) mmol/L BUN 6 L (9-20) mg/dL Creatinine 0.29 L (0.66-1.25) mg/dL Calcium 7.7 L (8.4-10.2) mg/dL Assessment and Plan (1) Sepsis Current Visit: Yes Status: Acute Code(s): A41.9 - SEPSIS, UNSPECIFIED ORGANISM SNOMED Code(s): 90803041 (2) Lung abscess Current Visit: Yes Status: Acute Code(s): J85.2 - ABSCESS OF LUNG WITHOUT P NEUMONIA SNOMED Code(s): 23700327 (3) Pneumonia Current Visit: Yes Status: Acute Code(s): J18.9 - PNEUMONIA, UNSPECIFIED ORGANISM SNOMED Code(s): 562904794 Plan: 1patient presented to the hospital with sepsis in this patient who did have tachycardia elevated white count elevated lactic acid meeting criteria for SIRS /sepsis source is likely either postobstructive pneumonia/lung abscess in this patient who did have significant history of smoking and concern for possible malignancy with secondary postobstructive pneumonia and abscess and will need to cover for the polymicrobial pablo associated with such infection 2patient will benefit from bronchoscopy lavage and deep culture, pulmonary is following the patient and bronchoscopy has been rescheduled for tomorrow could not be completed today because of OR schedule 3patient is afebrile, blood culture have been negative sputum is growing Nicole more likely colonizer. 4patient status post bronchoscopy those cultures also grew Nicole 5patient did have worsening of the white count which is more likely related to significant pathology seen on the chest x-ray, possible mucous plugging and there was complete opacification of the left hemithorax may benefit from repeat bronchoscopy lavage pulmonary is following the patient continue with Unasyn at the bedside. Answered Dictation was produced using [employer] dictation software. please excuse any gra mmatical, word or spelling errors. Time with Patient: Less than 30
[2025-01-10] MEDS: METOPROLOL TARTRATE 25 MG TAB PO STA (02:14)
[2025-01-10 09:32] LABS: HCT 30.1 % (39.6-50.0); HGB 9.5 g/dL (13.0-17.0); MCH 34.2 pg (27.0-32.0); MCHC 31.6 g/dL (32.0-37.0); MCV 108.3 FL (80.0-97.0); NRBC Per 100 WBC 0 X 10*3/uL (0.00-0.01); Platelet Count 391 X 10*3/uL (140-440); RBC 2.78 X 10*6/uL (4.40-5.60); RDW 13.3 % (11.5-14.5); WBC 22.93 X 10*3/uL (4.50-10.00)
[2025-01-10 09:47] LABS: Anion Gap 9.50 mmol/L (4.00-12.00); BUN/Creat Ratio 23.33 Ratio (12.00-20.00); Blood Urea Nitrogen 7.0 mg/dL (9.0-27.0); Calcium 7.2 mg/dL (8.7-10.3); Carbon Dioxide 29.5 mmol/L (21.6-31.8); Chloride 92 mmol/L (96-109); Glucose 82 mg/dL (70-110); Potassium 3.9 mmol/L (3.5-5.5); Sodium 131 mmol/L (135-145)
[2025-01-10 10:10] LABS: Basophils # (A) 0.06 X 10*3/uL (0.00-0.10); Basophils % (A) 0.3 %; Eosinophils # (A) 0.08 X 10*3/uL (0.04-0.35); Eosinophils % (A) 0.3 %; Immature Grans, Automated 1.40 %; Lymphocytes # (A) 0.58 X 10*3/uL (0.90-5.00); Lymphocytes % (A) 2.5 %; Macrocytosis (M) 2+ (None Seen); Monocytes # (A) 1.39 X 10*3/uL (0.20-1.00); Monocytes % (A) 6.1 %; Neutrophils # (A) 20.51 X 10*3/uL (1.80-7.70); Neutrophils % (A) 89.4 %
[2025-01-10] MEDS ORDERED: Potassium Replacement Protocol 1 EACH MISC MISCELLANE PRN (10:14)
[2025-01-10] MEDS: POTASSIUM CHLORIDE 10 MEQ in WATER FOR INJECTION 1 100ML.BAG IVPB SCH (11:31)
--- NOTE | 2025-01-10 13:09 | P.PN ---
Subjective Principal diagnosis: Hospital Course: 74 year old M with PMH chronic hypoxic respiratory failure secondary to COPD on home oxygen 2-3L, hypertension, former smoker quit 15 years ago, alcohol use disorder, who presented to the ER on 12/27/2024 for weakness, poor appetite, SOB associated with fever and chills. In the ED he underwent extensive evaluation. BP 142/79, HR 63, RR 22, T 98.1F, 90% on 4L NC. CBC, CMP significant for WBC 20.34, RBC 3.25, Hg 11.6, Hct 34, MCV 104.6, Na 132, Cl 95, Cr 0.31, Ca 7.5, AST 61, alk phos 131. Trop 0.012. Lactic acid 2.5-1.5. EKG sinus tachycardia with HR of 112. Chest CT showed kevin ed volume loss in the left lung with mixed consolidative and cystic density left lung with air-fluid levels suggesting lung abscesses, right infrahilar band like density, mediastinal adenopathy. Pulmonary, ID and Oncology consulted. Started on Unasyn for treatment of pulmonary abscess. Initial sputum Cx growing nicole albicans. He underwent bronchoscopy with BAL on 01/04 showing purulent secretions which was sent for culture. Bronchoscopy cultures so far with no growth, cytology still pending, repeat chest x-ray was requested due to breathing difficulties and showed near complete opacification of the left hemothorax, similar to prior study with somewhat worsening right pleural effusion on my interpretation, continued on Unasyn with Diflucan, ID, pulmonology following. Patient was provided with 1 dose of IV Lasix 40 for worsening upper extremity edema on 01/06 and 01/07.he did have signifi cantly elevated bicarb on BMP yesterday, VBG was ordered and showed pH of 7.61, he was provided with 1 dose of Diamox overnight, repeat VBG this morning showed pH of 7.36 and pCO2 72, will repeat ABG in the morning. Daily PT OT requested due to ongoing and worsening debility.Per ID, Augmentin and Diflucan on discharge, final BAL cultures growing Nicole albicans, Gram stain negative. Cytology negative for malignancy 01/10: Seen and examined at bedside, patient's daughter and girlfriend present du ring exam. No events overnight, he is afebrile, still tachycardic in 100s, BP 127/65, maintained on 4 L nasal cannula. Lab work shows worsening leukocytosis 22.9, stable hemoglobin 9.5, normal platelet count, sodium improved to 131, normal potassium, creatinine 0.3. Patient states that he does not feel well, he is very weak, he appears more lethargic fatigued today, has difficulty staying awake. Discussed with RN, pulmonology recommended BiPAP, patient will be transferred to 3 S. hold IV fluids, stat chest x-ray portable ordered. Discussed cytology results with patient family. Discussed lack of progress and actually worsening of condition over the past 2 weeks. For now patient will be continued on Unasyn and Diflucan, appreciate ID and pulmonology input. Overall prognosis appears to be guarded Pertinent positives and negatives as discussed above, a complete review of systems was performed and all othe discussed current management r systems are negative. Vitals Signs Reviewed. General: [Chronically ill-appearing, malnourished Derm: [warm], [dry] Head: [atraumatic], [normocephalic], [symmetric] Eyes: [EOMI], [no lid lag], [anicteric sclera] Mouth: [no lip lesion], [mucus membranes moist] Cardiovascular: [S1S2 reg], [no murmur] Lungs: [Coarse bilateral breath sounds, significantly diminished on the left side], [no rhonchi, no rales] , [no accessory muscle use] Abdominal: [soft], [ nontender to palpation], [no guarding], [no appreciable organomegaly] Ext: [no gross muscle atrophy], [bilateral pitting upper extremity edema, significantly improved on the right side, persistent on the left upper extremity with clear fluid weeping], [no contractures] Neuro: [ CN II-XI grossly intact], [no focal neuro deficits] Psych: [[lethargic Assessment and Plan: Acute on chronic hypoxic respiratory failure secondary to lung abscess versus post obstructive PNA, sputum cultures positive for Nicole albicans , versus malignancy Status post bronchoscopy and BAL on 01/04. Procal 0.48 Continue Unasyn 3g IV TID (D14), Fluconazole 100 mg PO QD (SOT 01/05 Duoneb QID PRN. Symbicort 2 INH BID. Tessalon 100 mg PO TID PRN. Mucinex 1200 mg PO BID. Sputum Cx Nicole albicans. Cytology as above Started on BiPAP, transferred to 3 S., stat chest x-ray ordered Pulmonary and ID on board. Monitor CBC and BMP daily Metabolic alkalosis Hyponatremia -Due to worsening respiratory status Hematuria: Resolved. UA shows 30 RBC, neg LE or nitire. Renal/bladder US no hydro. Bilateral upper extremity swelling: Venous duplex neg DVT. Recommend LUE elevation. 1 dose of IV Lasix 40 mg 01/06 and 01/07 Hypertension: Toprol-XL 100 mg PO QD. Alcohol use disorder: CIWA protocol with Ativan PRN per protocol. Folic acid 1 mg PO QD. Thiamine 100 mg PO QD. Transaminitis likely due to EtOH abuse. Macrocytic anemia likely due to malnutrition and alcohol use disorder: B12 721, Folate 642. Iron studies show anemia of chronic disease. Resolved: Lactic acidosis. HypoK. Severe acute malnutrition, RD consulted, patient has Ensure and Magic cup ordered, encouraged to continue taking his nutrition supplements, he only has 1 or none bottles of Ensure a day per his girlfriend DVT ppx: Lovenox Code status: Full code Anticipated discharge place: TBD Anticipated discharge time: TBD Objective - Vital Signs Vital signs: Vital Signs Temp 98.4 F 01/10/25 07:01 Pulse 110 H 01/10/25 07:01 Resp 20 01/10/25 07:01 BP 127/65 01/10/25 07:01 Pulse Ox 91 L 01/10/25 07:01 FiO2 28 01/10/25 10:36 Intake & Output 01/09/25 01/10/25 01/10/25 18:59 06:59 18:59 Intake Total 1625 Output Total 800 700 Balance 825 -700 Intake: Intake, IV Titration 1025 Amount Ampicillin-Sulbactam 3 gm 200 In Sodium Chloride 0.9% 100 ml @ 200 mls/hr IVPB Q6HR [facility] Rx#:[id number] Sodium Chloride 0.9% 1, 825 000 ml @ 75 mls/hr IV . [id number] [facility] Rx#:[id number] Oral 600 Output: Urine 800 700 Other: Voiding Method External Catheter Incontinent External Catheter - Labs CBC & Chem 7: 01/10/25 03:58 01/10/25 03:58 Labs: Abnormal Lab Results - Last 24 Hours (Table) 07/10/0101/09/25 01/09/25 Range/Units 08:45 14:52 18:01 WBC (4.50-10.00) X 10*3/uL RBC (4.40-5.60) X 10*6/uL Hgb (13.0-17.0) g/dL Hct (39.6-50.0) % MCV (80.0-97.0) FL MCH (27.0-32.0) pg MCHC (32.0-37.0) g/dL Immature Gran # (0.00-0.04) X 10*3/uL Neutrophils # (1.80-7.70) X 10*3/uL Lymphocytes # (0.90-5.00) X 10*3/uL Monocytes # (0.20-1.00) X 10*3/uL Macrocytosis (manual) (None Seen) Sodium 130 L 130 L 129 L (135-145) mmol/L Chloride (96-109) mmol/L BUN (9.0-27.0) mg/dL Creatinine (0.6-1.5) mg/dL BUN/Creatinine Ratio (12.00-20.00) Ratio Calcium (8.7-10.3) mg/dL 01/10/25 01/10/25 Range/Units 03:58 03:58 WBC 22.93 H (4.50-10.00) X 10*3/uL RBC 2.78 L (4.40-5.60) X 10*6/uL Hgb 9.5 L (13.0-17.0) g/dL Hct 30.1 L (39.6-50.0) % MCV 108.3 H (80.0-97.0) FL MCH 34.2 H (27.0-32.0) pg MCHC 31.6 L (32.0-37.0) g/dL Immature Gran # 0.31 H (0.00-0.04) X 10*3/uL Neutrophils # 20.51 H (1.80-7.70) X 10*3/uL Lymphocytes # 0.58 L (0.90-5.00) X 10*3/uL Monocytes # 1.39 H (0.20-1.00) X 10*3/uL Macrocytosis (manual) 2+ A (None Seen) Sodium 131 L (135-145) mmol/L Chloride 92 L (96-109) mmol/L BUN 7.0 L (9.0-27.0) mg/dL Creatinine 0.3 L (0.6-1.5) mg/dL BUN/Creatinine Ratio 23.33 H (12.00-20.00) Ratio Calcium 7.2 L (8.7-10.3) mg/dL Microbiology - Last 24 Hours (Table) 01/04/25 08:00 Fungal Culture - Preliminary Bronchoalviolar Lavage - Left Nicole albicans
--- NOTE | 2025-01-10 13:29 | P.PN ---
Subjective Progress Note Date: 01/10/25 This is a 74-year-old male patient who follows at the [facility] for chronic obstructive pulmonary disease, daily alcohol use and hypertension. He does have a 50-year pack per day smoking history however quit 14 years ago. He does have home oxygen. He is on Dulera. He was brought into the emergency room this morning with a 2 to 3-day progressive history of increasing weakness poor appetite and shortness of breath. He states he has lost over 12 to 13 pounds in the past week or two. Chest x-ray reveals a left suprahilar masslike density with peripheral infiltrate. Masslike density in the left lower and right midlung zone as well. CT scan of the chest reveals marked volume loss in the left lung with marked mixed consolidative and cystic density in the left lung with scattered air-fluid levels suggesting multiple lung abscesses. Thick bandlike density in the right infrahilar region extending to the pleura which is focally thickened raising the question of neoplasm versus chronic inflammation. Mediastinal adenopathy is present. White count 20.3. Hemoglobin 11.6. Platelets 365. Sodium 132. Potassium 3.7. Bicarb 29. BUN 18. Creatinine 0.31. Lactic acid 2.5. Urinalysis clean. Viral screen negative for influenza A/B, RSV, COVID. He is seen today in consultation in the emergency department. Currently and lying flat on a stretcher. Awake and alert in no acute distress. He is quite cachectic appearing. Quite thin. He is maintaining O2 saturations in the 90s on 4 L high flow nasal cannula. He is afebrile. Hemodynamically stable. The patient is seen today December 28, 2024 in follow-up on the regular medical floor. He is currently resting in bed. Awake and alert in no acute distress. Maintaining O2 saturations up to 100% on 4 L/min per nasal cannula. He is f eeling a bit better today compared to yesterday. He remains on Unasyn. Normal saline at 75 mL/h. Procalcitonin was 0.48. Follow-up chest x-ray shows no interval change in the marked cardiopulmonary process involving the entire left lung and a small focal opacity in the right midlung. No new labs today. Remains on DuoNeb and elations, Symbicort. Lovenox for DVT prophylaxis. Remains in the CIWA protocol. Required Ativan just after midnight today. The patient is seen today December 29, 2024 in follow-up on the regular medical floor. He is awake and alert in no acute distress. Resting fairly comfortably in bed. Breathing a bit easier today compared to yesterday. He is maintaining O2 saturations up to 100% on 4 L/min per nasal cannula. He has been afebrile. Hemodynamically stable. Blood cultures are pending. No new labs today. He remains on Unasyn. Lovenox for DVT prophylaxis. Continued on DuoNeb and elations, Symbicort. Remains on the CIWA protocol. The patient is seen today January 06, 2025 in follow-up on the regular medical floor. He is currently sitting up in bed. Awake and alert in no acute distress. Appears still quite weak and debilitated. He is maintaining O2 saturations in the 90s on 4 L/min per nasal cannula. He is status post bronchoscopy and BAL on 01/04/2025. Cultures revealed no growth. Cytology pending. Chest x-ray reveals near complete opacification of the left hemithorax. Small right pleural effusion with patchy basilar density unchanged. He remains on Unasyn and Diflucan. Continued on Tessalon Perles. Continued on Dulera. Lovenox for DVT prophylaxis. Remains on the CIFL protocol. Received Lasix 40 mg once today. The patient is seen today January 07, 2025 in follow-up on the regular medical floor. He is awake and alert in no acute distress. Resting fairly comfortable in bed. Denies any worsening shortness of breath, cough or congestion. Maintaining O2 saturations in the 90s on 4 L/min per nasal cannula. Bronchial wash cultures revealed no growth. Cytology still pending. White count 13.7. Hemoglobin 10.2. Platelets 412. He remains on DuoNeb inhalations, Tessalon Perles as needed. Lovenox for DVT prophylaxis. Continued on Unasyn and Diflucan. He remains quite weak. Working with physical therapy. The patient is seen today January 08, 2025 in follow-up on the regular medical floor. He is currently sitting up in a chair at the bedside. Awake and alert in no acute distress. Feeling a bit better today compared to yesterday. He is maintaining O2 saturations in the 90s on 4 L/min per nasal cannula. He is c ontinued on DuoNeb inhalations. He remains on Unasyn and Diflucan. Tessalon Perles for his cough. Continued on his home Dulera. Lovenox for DVT prophylaxis. Cytology from bronchial wash cultures are still pending. Cultures revealed no growth. White count 17.1. Hemoglobin 10.2. Platelets 426. Sodium 135. Potassium 4.1. Bicarb 39. BUN 4. Creatinine 0.3. Glucose 102. He received Diamox 250 mg IV x 1. The patient is seen today January 09, 2025 in follow-up on the regular medical floor. He is currently sitting up in bed. Awake and alert in no acute distress. Feeling a bit stronger today compared to yesterday. Less short of breath. Chest x-ray showing slight improvement. He remains on Unasyn. Remains on Diflucan. Continued on DuoNeb inhalations. Continued on his home Dulera. Lovenox for DVT prophylaxis. Bronchoalveolar lavage reveals evidence of Nicole only. Sputum revealed Nicole. White count 21.8. Hemoglobin 9.8. Platelets 347. Sodium 130. Potassium 3.7. Bicarb 35. BUN 6. Creatinine 0.29. Glucose 92. The patient is seen today January 10, 2025 in follow-up on the regular medical floor. He is currently resting in bed. Quite weak and obtunded today. Family is at the bedside. He is currently on oxygen at 4 L/min per nasal cannula with O2 saturations in the low 90s. He is afebrile. Hemodynamically stable. Recent chest x-ray continue to show near complete opacification of the left hemithorax with mediastinal shift to the left due to volume loss. Likely combination of atelectasis and pleural effusion and underlying infectious process. His bron choscopy cytology results were negative for malignancy. White count 22.9. Hemoglobin 9.5. Platelets 391. Sodium 131. Potassium 3.9. Bicarb 30. BUN 7. Creatinine 0.3. Glucose 82. He is continued on DuoNeb inhalations. Continued on Unasyn. Continue DuoNeb and on his home Dulera. Lovenox for DVT prophylaxis. Continued on Diflucan. Objective - Vital Signs Vital signs: Vital Signs Temp 98.4 F 01/10/25 07:01 Pulse 110 H 01/10/25 07:01 Resp 20 01/10/25 07:01 BP 127/65 01/10/25 07:01 Pulse Ox 91 L 01/10/25 07:01 FiO2 28 01/10/25 10:36 Intake & Output 01/09/25 01/10/25 01/10/25 18:59 06:59 18:59 Intake Total 1625 Output Total 800 700 Balance 825 -700 Intake: Intake, IV Titration 1025 Amount Ampicillin-Sulbactam 3 gm 200 In Sodium Chloride 0.9% 100 ml @ 200 mls/hr IVPB Q6HR [facility] Rx#:[id number] Sodium Chloride 0.9% 1, 825 000 ml @ 75 mls/hr IV . [id number] [facility] Rx#:[id number] Oral 600 Output: Urine 800 700 Other: Voiding Method External Catheter Incontinent External Catheter - Exam GENERAL EXAM: Arousable, cachectic, very weak 74-year-old male,resting in bed, on 4 L nasal cannula. HEAD: Normocephalic. EYES: Normal reaction of pupils, equal size. NOSE: Clear with pink turbinates. THROAT: No erythema or exudates. NECK: No masses, no JVD. CHEST: No chest wall deformity. LUNGS: Equal air entry with bilateral scattered rhonchi more so on the left lung. CVS: S1 and S2 normal with no audible murmur, regular rhythm. ABDOMEN: No hepatosplenomegaly, normal bowel sounds, no guarding or rigidity. SPINE: No scoliosis or deformity SKIN: No rashes CENTRAL NERVOUS SYSTEM: No focal deficits, tone is normal in all 4 extremities. EXTREMITIES: There is no peripheral edema. No clubbing, no cyanosis. Peripheral pulses are intact. - Labs CBC & Chem 7: 01/10/25 03:58 01/10/25 03:58 Labs: Abnormal Lab Results - Last 24 Hours (Table) 01/09/25 01/09/25 01/10/25 Range/Units 14:52 18:01 03:58 WBC 22.93 H (4.50-10.00) X 10*3/uL RBC 2.78 L (4.40-5.60) X 10*6/uL Hgb 9.5 L (13.0-17.0) g/dL Hct 30.1 L (39.6-50.0) % MCV 108.3 H (80.0-97.0) FL MCH 34.2 H (27.0-32.0) pg MCHC 31.6 L (32.0-37.0) g/dL Immature Gran # 0.31 H (0.00-0.04) X 10*3/uL Neutrophils # 20.51 H (1.80-7.70) X 10*3/uL Lymphocytes # 0.58 L (0.90-5.00) X 10*3/uL Monocytes # 1.39 H (0.20-1.00) X 10*3/uL Macrocytosis (manual) 2+ A (None Seen) Sodium 130 L 129 L (137-145) mmol/L Chloride (96-109) mmol/L BUN (9.0-27.0) mg/dL Creatinine (0.6-1.5) mg/dL BUN/Creatinine Ratio (12.00-20.00) Ratio Calcium (8.7-10.3) mg/dL 01/10/25 Range/Units 03:58 WBC (4.50-10.00) X 10*3/uL RBC (4.40-5.60) X 10*6/uL Hgb (13.0-17.0) g/dL Hct (39.6-50.0) % MCV (80.0-97.0) FL MCH (27.0-32.0) pg MCHC (32.0-37.0) g/dL Immature Gran # (0.00-0.04) X 10*3/uL Neutrophils # (1.80-7.70) X 10*3/uL Lymphocytes # (0.90-5.00) X 10*3/uL Monocytes # (0.20-1.00) X 10*3/uL Macrocytosis (manual) (None Seen) Sodium 131 L (137-145) mmol/L Chloride 92 L (96-109) mmol/L BUN 7.0 L (9.0-27.0) mg/dL Creatinine 0.3 L (0.6-1.5) mg/dL BUN/Creatinine Ratio 23.33 H (12.00-20.00) Ratio Calcium 7.2 L (8.7-10.3) mg/dL Microbiology - Last 24 Hours (Table) 01/04/25 08:00 Fungal Culture - Preliminary Bronchoalviolar Lavage - Left Nicole albicans Assessment and Plan Assessment: Acute hypoxic respiratory failure secondary to acute community acquired pneumonia and/or lung masses. CT scan of the chest reveals marked volume loss in the left lung with marked mixed consolidative and cystic density in the left lung with scattered air-fluid levels suggesting multiple lung abscesses. Thick bandlike density in the right infrahilar region extending to the pleura which is focally thickened raising the question of neoplasm versus chronic inflammation. Mediastinal adenopathy is present and likely reactive. Findings could be consistent with infected bullae versus development of lung abscesses. The patient remains on 4 L of oxygen by nasal cannula. Clinically stable. The bronchoscopy and the bronchial lavage yielded no significant microbial growth and no evidence of malignancy Generalized weakness, poor appetite and weight loss secondary to above 50-year history of chronic tobacco dependence at 1 pack/day however quit 14 years ago Chronic obstructive pulmonary disease Chronic hypoxic respiratory failure on home oxygen Hypertension Chronic daily alcohol use Cachexia/anorexia syndrome Plan: The patient was seen and evaluated Labs and medications reviewed Bronchoscopy wash negative for malignancy Patient quite weak and obtunded this morning He will be placed on BiPAP 14/5 and 28% FiO2 Continue Unasyn and Diflucan Continue DuoNeb inhalations Continue his home Dulera Lovenox for DVT prophylaxis Titrate down the FiO2 as tolerated His overall prognosis remains guarded We spoke with the daughter at the bedside Plan is for [facility] for subacute rehab at discharge Will need an outpatient PET scan post discharge I have personally seen and examined the patient, performed the documentation and the assessment and plan as written. Number of minutes spent on the visit: 10 Dictation was produced using [employer] dictation software. Please excuse any grammatical, word or spelling errors.
--- NOTE | 2025-01-10 13:39 | XR ---
EXAMINATION TYPE: XR chest 1V portable DATE OF EXAM: 01/10/2025 1:32 PM COMPARISON: Chest radiographs from 01/08/2025. CLINICAL INDICATION: Male, 74 years old with history of worsening dyspnea; TECHNIQUE: XR chest 1V portable Frontal view of the chest. FINDINGS: Lungs/Pleura: Left pleural effusion remains present which is large associated atelectasis. Right midl alia airspace opacities also present. Trace right pleural effusion. Flattening of the linear diaphragm with increased lucency of the lung apices. Pulmonary vascularity: Unremarkable. Heart/mediastinum: Cardiomediastinal silhouette is unremarkable. Musculoskeletal: No acute osseous pathology. IMPRESSION: 1. Large left pleural effusion with associated atelectasis. 2. Trace right pleural effusion. 3. COPD changes. [facility], , 01/10/2025 1:37 PM
--- NOTE | 2025-01-10 15:22 | P.PN ---
Subjective Progress Note Date: 01/10/25 Principal diagnosis: Reason for follow-up is pneumonia/abscess Patient is a 74-year-old male with a past medical history significant for COPD hypertension alcohol abuse and and [id number] smoking has been brought to the hospital concerning for increasing weakness decreased appetite and shortness of breath patient did have significant normality on the CT of the chest concerning for volume loss consolidative opacity and possible abscess. On today's evaluation that is 01/10/2025, the patient continues to be afebrile, the patient is on BiPAP with 20% FiO2 the patient is slightly lethargic no worsening cough vomiting diarrhea with the change reported by the daughter and the at the bedside. Patient white count is up to 22.93 creatinine 0.3 Objective - Vital Signs Vital signs: Vital Signs Temp 98 F 01/10/25 12:35 Pulse 95 01/10/25 12:35 Resp 20 01/10/25 12:35 BP 132/75 01/10/25 12:35 Pulse Ox 92 L 01/10/25 12:35 FiO2 28 01/10/25 13:19 Intake & Output 01/09/25 01/10/25 01/10/25 18:59 06:59 18:59 Intake Total 1625 Output Total 800 700 Balance 825 -700 Intake: Intake, IV Titration 1025 Amount Ampicillin-Sulbactam 3 gm 200 In Sodium Chloride 0.9% 100 ml @ 200 mls/hr IVPB Q6HR [facility] Rx#:[id number] Sodium Chloride 0.9% 1, 825 000 ml @ 75 mls/hr IV . [id number] [facility] Rx#:[id number] Oral 600 Output: Urine 800 700 Other: Voiding Method External Catheter Incontinent External Catheter - Exam GENERAL DESCRIPTION: An elderly male lying in bed in no distress RESPIRATORY SYSTEM: Unlabored breathing , decreased breath sounds at bases HEART: S1 S2 regular rate and rhythm , ABDOMEN: Soft , no tenderness EXTREMITIES: No edema feet - Labs CBC & Chem 7: 01/10/25 03:58 01/10/25 03:58 Labs: Abnormal Lab Results - Last 24 Hours (Table) 01/09/25 01/09/25 01/10/25 Range/Units 14:52 18:01 03:58 WBC 22.93 H (4.50-10.00) X 10*3/uL RBC 2.78 L (4.40-5.60) X 10*6/uL Hgb 9.5 L (13.0-17.0) g/dL Hct 30.1 L (39.6-50.0) % MCV 108.3 H (80.0-97.0) FL MCH 34.2 H (27.0-32.0) pg MCHC 31.6 L (32.0-37.0) g/dL Immature Gran # 0.31 H (0.00-0.04) X 10*3/uL Neutrophils # 20.51 H (1.80-7.70) X 10*3/uL Lymphocytes # 0.58 L (0.90-5.00) X 10*3/uL Monocytes # 1.39 H (0.20-1.00) X 10*3/uL Macrocytosis (manual) 2+ A (None Seen) Sodium 130 L 129 L (137-145) mmol/L Chloride (96-109) mmol/L BUN (9.0-27.0) mg/dL Creatinine (0.6-1.5) mg/dL BUN/Creatinine Ratio (12.00-20.00) Ratio Calcium (8.7-10.3) mg/dL 01/10/25 Range/Units 03:58 WBC (4.50-10.00) X 10*3/uL RBC (4.40-5.60) X 10*6/uL Hgb (13.0-17.0) g/dL Hct (39.6-50.0) % MCV (80.0-97.0) FL MCH (27.0-32.0) pg MCHC (32.0-37.0) g/dL Immature Gran # (0.00-0.04) X 10*3/uL Neutrophils # (1.80-7.70) X 10*3/uL Lymphocytes # (0.90-5.00) X 10*3/uL Monocytes # (0.20-1.00) X 10*3/uL Macrocytosis (manual) (None Seen) Sodium 131 L (137-145) mmol/L Chloride 92 L (96-109) mmol/L BUN 7.0 L (9.0-27.0) mg/dL Creatinine 0.3 L (0.6-1.5) mg/dL BUN/Creatinine Ratio 23.33 H (12.00-20.00) Ratio Calcium 7.2 L (8.7-10.3) mg/dL Microbiology - Last 24 Hours (Table) 01/04/25 08:00 Fungal Culture - Preliminary Bronchoalviolar Lavage - Left Nicole albicans Assessment and Plan (1) Sepsis Current Visit: Yes Status: Acute Code(s): A41.9 - SEPSIS, UNSPECIFIED ORGANISM SNOMED Code(s): 48433700 (2) Lung abscess Current Visit: Yes Status: Acute Code(s): J85.2 - ABSCESS OF LUNG WITHOUT PNEUMONIA SNOMED Code(s): 16473180 (3) Pneumonia Current Visit: Yes Status: Acute Code(s): J18.9 - PNEUMONIA, UNSPECIFIED O RGANISM SNOMED Code(s): 355897922 Plan: 1patient presented to the hospital with sepsis in this patient who did have tachycardia elevated white count elevated lactic acid meeting criteria for SIRS/sepsis source is likely either postobstructive pneumonia/lung abscess in this patient who did have significant history of smoking and concern for possible malignancy with secondary postobstructive pneumonia and abscess and will need to cover for the polymicrobial pablo associated with such infection 2patient will benefit from bronchoscopy lavage and deep culture, pulmonary is following the patient and bronchoscopy has been rescheduled for tomorrow could not be completed today because of OR schedule 3patient is afebrile, blood culture have been negative sputum is growing Nicole more likely colonizer. 4patient status post bronchoscopy those cultures also grew Nicole 5patient did have worsening of the white count which is more likely related to significant pathology seen on the chest x-ray, possible mucous plugging and there was complete opacification of the left hemithorax may benefit from repeat bronchoscopy lavage. 6clinically doubt we are dealing with antibiotic failure as we have not grown any resistant pathogen in the culture patient not running any fever however we will go ahead and switch him to Zosyn and see clinical response and daughter at the bedside multiple questions and concerns were answered in layman term Dictation was produced using [employer] dictation software. please excuse any grammatical, word or spelling errors. Time with Patient: Less than 30
[2025-01-10] MEDS: PIPERACILLIN-TAZOBACTAM 3.375 GM in SODIUM CHLORIDE 0.9% 100 ML IVPB SCH (15:56)
[2025-01-11 07:20] LABS: Basophils # (A) 0.06 10*3/uL (0.00-0.10); Basophils % (A) 0.5 %; Eosinophils # (A) 0.18 10*3/uL (0.04-0.35); Eosinophils % (A) 1.4 %; HCT 27.8 % (39.6-50.0); HGB 9.1 g/dL (13.0-17.0); Lymphocytes # (A) 0.61 10*3/uL (0.90-5.00); Lymphocytes % (A) 4.6 %; MCH 35.1 pg (27.0-32.0); MCHC 32.7 g/dL (32.0-37.0); MCV 107.3 fL (80.0-97.0); Monocytes # (A) 1.16 10*3/uL (0.20-1.00); Monocytes % (A) 8.7 %; Neutrophils # (A) 11.04 10*3/uL (1.80-7.70); Neutrophils % (A) 83.2 %; Platelet Count 357 10*3/uL (140-440); RBC 2.59 10*6/uL (4.40-5.60); RDW 13.3 % (11.5-14.5); WBC 13.26 10*3/uL (4.50-10.00)
[2025-01-11 07:54] LABS: African American GFR (CKD) >90 (>60 ml/min/1.73 sqM); Anion Gap 4 mmol/L; Blood Urea Nitrogen 6 mg/dL (9-20); Calcium 7.3 mg/dL (8.4-10.2); Carbon Dioxide 34 mmol/L (22-30); Chloride 93 mmol/L (98-107); Glucose 64 mg/dL (74-99); Non-African American GFR(CKD) >90 (>60 ml/min/1.73 sqM); Potassium 3.4 mmol/L (3.5-5.1); Sodium 131 mmol/L (137-145)
[2025-01-11] MEDS ORDERED: Potassium Replacement Protocol 1 EACH MISC MISCELLANE PRN (11:42)
--- NOTE | 2025-01-11 11:42 | P.PN ---
Subjective Progress Note Date: 01/11/25 Principal diagnosis: Acute hypoxic respiratory failure secondary to extensive scarring left-sided pneumonia and possibly lung abscesses. The patient is seen today January 06, 2025 in follow-up on the regular medical floor. He is currently sitting up in bed. Awake and alert in no acute distress. Appears still quite weak and debilitated. He is maintaining O2 saturations in the 90s on 4 L/min per nasal cannula. He is status post bronchoscopy and BAL on 01/04/2025. Cultures revealed no growth. Cytology pending. Chest x-ray reveals near complete opacification of the left h emithorax. Small right pleural effusion with patchy basilar density unchanged. He remains on Unasyn and Diflucan. Continued on Tessalon Perles. Continued on Dulera. Lovenox for DVT prophylaxis. Remains on the CIWA protocol. Received Lasix 40 mg once today. The patient is seen today January 07, 2025 in follow-up on the regular medical floor. He is awake and alert in no acute distress. Resting fairly comfortable in bed. Denies any worsening shortness of breath, cough or congestion. Maintaining O2 saturations in the 90s on 4 L/min per nasal cannula. Bronchial wash cultures revealed no growth. Cytology still pending. White count 13.7. Hemoglobin 10.2. Platelets 412. He remains on DuoNeb inhalations, Tessalon Perles as needed. Lovenox for DVT prophylaxis. Continued on Unasyn and Diflucan. He remains quite weak. Working with physical therapy. The patient is seen today January 08, 2025 in follow-up on the regular medical floor. He is currently sitting up in a chair at the bedside. Awake and alert in no acute distress. Feeling a bit better today compared to yesterday. He is maintaining O2 saturations in the 90s on 4 L/min per nasal cannula. He is continued on DuoNeb inhalations. He remains on Unasyn and Diflucan. Tessalon Perles for his cough. Continued on his home Dulera. Lovenox for DVT prophylaxis. Cytology from bronchial wash cultures are still pending. Cultures revealed no growth. White count 17.1. Hemoglobin 10.2. Platelets 426. Sodium 135. Potassium 4.1. Bicarb 39. BUN 4. Creatinine 0.3. Glucose 102. He received Diamox 250 mg IV x 1. The patient is seen today January 09, 2025 in follow-up on the regular medical floor. He is currently sitting up in bed. Awake and alert in no acute distress. Feeling a bit stronger today compared to yesterday. Less short of breath. Chest x-ray showing slight improvement. He remains on Unasyn. Remains on Diflucan. Continued on DuoNeb inhalations. Continued on his home Dulera. Lovenox for DVT prophylaxis. Bronchoalveolar lavage reveals evidence of Nicole only. Sputum revealed Nicole. White count 21.8. Hemoglobin 9.8. Platelets 347. Sodium 130. Potassium 3.7. Bicarb 35. BUN 6. Creatinine 0.29. Glucose 92. The patient is seen today January 10, 2025 in follow-up on the regular medical floor. He is currently resting in bed. Quite weak and obtunded today. Family is at the bedside. He is currently on oxygen at 4 L/min per nasal cannula with O2 saturations in the low 90s. He is afebrile. Hemodynamically stable. Recent chest x-ray continue to show near complete opacification of the left hemithorax with mediastinal shift to the left due to volume loss. Likely combination of atelectasis and pleural effusion and underlying infectious process. His bronchoscopy cytology results were negative for malignancy. White count 22.9. Hemoglobin 9.5. Platelets 391. Sodium 131. Potassium 3.9. Bicarb 30. BUN 7. Creatinine 0.3. Glucose 82. He is continued on DuoNeb inhalations. Continued on Unasyn. Continue DuoNeb and on his home Dulera. Lovenox for DVT prophylaxis. Continued on Diflucan. Patient was seen today on 01/11/2025, remains marginal at best, however he is fe eling a bit better today compared to yesterday. Chest x-ray continues to show significant opacification of the left lung, and he is developing new infiltrates in the right lower lobe. Surprisingly clinically the patient feels better. WBC count today 13.2 hemoglobin is 9.1 electrolytes are abnormal with low sodium of 131 potassium low at 3.4 bicarb is 34 renal profile is normal his BAL cultures have been negative, his cytology was negative, nonetheless the patient continues to have significant airspace disease involving the left lung and to some extent the right lower lobe. Remains on Zosyn as per infectious disease on the case. Today I am considering a trial of steroids at this patient as the patient may have a cryptogenic organizing pneumonia and the prednisone will be given on a trial basis since he is not making much of any improvement over the last 1 week. Objective - Vital Signs Vital signs: Vital Signs Temp 97.9 F 01/11/25 08:00 Pulse 104 H 01/11/25 08:00 Resp 18 01/11/25 08:00 BP 104/54 01/11/25 08:00 Pulse Ox 95 01/11/25 08:00 FiO2 28 01/10/25 21:00 Intake & Output 01/10/25 01/11/25 01/11/25 18:59 06:59 18:59 Output Total 300 Balance -300 Weight 65.7 kg Output: Urine 300 Other: Voiding Method Incontinent Incontinent External Catheter External Catheter # Voids 1 # Bowel Movements 1 1 - Exam GENERAL EXAM: 74-year-old white male awake, cachectic, frail, chronically ill. HEAD: Normocephalic. EYES: Normal reaction of pupils, equal size. NOSE: Clear with pink turbinates. THROAT: No erythema or exudates. NECK: No masses, no JVD. CHEST: No chest wall deformity. LUNGS: Equal air entry with bilateral scattered rhonchi more so on the left lung. CVS: S1 and S2 normal with no audible murmur, regular rhythm. ABDOMEN: No hepatosplenomegaly, normal bowel sounds, no guarding or rigidity. SKIN: No rashes CENTRAL NERVOUS SYSTEM: No focal deficits, tone is normal in all 4 extremities. EXTREMITIES: There is no peripheral edema. No clubbing, no cyanosis. Peripheral pulses are intact. - Labs CBC & Chem 7: 01/11/25 06:25 01/11/25 06:25 Labs: Abnormal Lab Results - Last 24 Hours (Table) 01/11/25 01/11/25 Range/Units 06: 06:25 WBC 13.26 H (4.50-10.00) 10*3/uL RBC 2.59 L (4.40-5.60) 10*6/uL Hgb 9.1 L (13.0-17.0) g/dL Hct 27.8 L (39.6-50.0) % MCV 107.3 H (80.0-97.0) fL MCH 35.1 H (27.0-32.0) pg Immature Gran # 0.21 H (0.00-0.04) 10*3/uL Neutrophils # 11.04 H (1.80-7.70) 10*3/uL Lymphocytes # 0.61 L (0.90-5.00) 10*3/uL Monocytes # 1.16 H (0.20-1.00) 10*3/uL Sodium 131 L (137-145) mmol/L Potassium 3.4 L (3.5-5.1) mmol/L Chloride 93 L (98-107) mmol/L Carbon Dioxide 34 H (22-30) mmol/L BUN 6 L (9-20) mg/dL Creatinine 0.34 L (0.66-1.25) mg/dL Glucose 64 L (74-99) mg/dL Calcium 7.3 L (8.4-10.2) mg/dL Assessment and Plan Assessment: Impression: Acute hypoxic respiratory failure secondary to acute community acquired pneumonia and/or lung masses. CT scan of the chest reveals marked volume loss in the left lung with marked mixed consolidative and cystic density in the left lung with scattered air-fluid levels suggesting multiple lung abscesses. Thick bandlike density in the right infrahilar region extending to the pleura which is focally thickened raising the question of neoplasm versus chronic inflammation. Mediastinal adenopathy is present and likely reactive. Findings could be consistent with infected bullae versus development of lung abscesses. The patient remains on 4 L of oxygen by nasal cannula. Clinically stable. The bronchoscopy and the bronchial lavage yielded no significant microbial growth and no evidence of malignancy Generalized weakness, poor appetite and weight loss secondary to above 50-year history of chronic tobacco dependence at 1 pack/day however quit 14 years ago Chronic obstructive pulmonary disease Chronic hypoxic respiratory failure on home oxygen Hypertension Chronic daily alcohol use Cachexia/anorexia syndrome Recommendation: Continue present course of treatment including antibiotics, Will add methylprednisolone as the patient may have a cryptogenic organizing pneumonia Continue Zosyn and Diflucan. Continue bronchodilators Discussed his condition with family at bedside made aware that his prognosis is guarded. Patient remains quite ill, will continue to follow Time with Patient: Less than 30
[2025-01-11] MEDS: POTASSIUM CHLORIDE ER 20 MEQ TAB.ER PO SCH (12:02)
--- NOTE | 2025-01-11 12:42 | P.PN ---
Subjective Progress Note Date: 01/11/25 Hospital Course: 74 year old M with PMH chronic hypoxic respiratory failure secondary to COPD on home oxygen 2-3L, hypertension, former smoker quit 15 years ago, alcohol use disorder, who presented to the ER on 12/27/2024 for weakness, poor appetite, SOB associated with fever and chills. In the ED he underwent extensive evaluation. BP 142/79, HR 63, RR 22, T 98.1F, 90% on 4L NC. CBC, CMP significant for WBC 20.34, RBC 3.25, Hg 11.6, Hct 34, MCV 104.6, Na 132, Cl 95, Cr 0.31, Ca 7.5, AST 61, alk phos 131. Trop 0.012. Lactic acid 2.5-1.5. EKG sinus tachycardia with HR of 112. Chest CT showed marked volume loss in the left lung with mixed consolidative and cystic density left lung with air-fluid levels suggesting lung abscesses, right infrahilar band like density, mediastinal adenopathy. Pulmonary, ID and Oncology consulted. Started on Unasyn for treatment of pulmonary abscess. Initial sputum Cx growing nicole albicans. He underwent bronchoscopy with BAL on 01/04 showing purulent se cretions which was sent for culture. Bronchoscopy cultures so far with no growth, cytology still pending, repeat chest x-ray was requested due to breathing difficulties and showed near complete opacification of the left hemothorax, similar to prior study with somewhat worsening right pleural effusion on my interpretation, continued on Unasyn with Diflucan, ID, pulmonology following. Patient was provided with 1 dose of IV Lasix 40 for worsening upper extremity edema on 01/06 and 01/07.he did have significantly elevated bicarb on BMP yesterday, VBG was ordered and showed pH of 7.61, he was provided with 1 dose of Diamox overnight, repeat VBG this morning showed pH of 7.36 and pCO2 72, will repeat ABG in the morning. Daily PT OT requested due to ongoing and worsening debility.Per ID, Augmentin and Diflucan on discharge, final BAL cultures growing Nicole albicans, Gram stain negative. Cytology negative for malignancy. On 01/10/2025 due to worsening lethargic, patient was transferred to [facility] with continuous BiPAP. 01/11/2025: Seen examined bedside, patient daughter present during exam. Patient feels better, he was wearing BiPAP up to 8 PM last night, he had a very restful night of sleep, and he is more active, breathing improved. He was encouraged to try to sit in the recliner and stay more active. ID switched to IV Zosyn. He is afebrile, heart rate remains in 90s to 100s, BP 128/73, stable on 4 L now. Lab work started showing improvement no leukocytosis 13.2, stable hemoglobin 9.1, sodium stable 131 and potassium 3.4 will be replaced, creatinine 0.3. Review of pulmonology note, methylprednisone started for suspicion for cryptogenic organizing pneumonia. Pertinent positives and negatives as discussed above, a complete review of systems was performed and all othe discussed current management r systems are negative. Vitals Signs Reviewed. General: [Chronically ill-appearing, malnourished Derm: [warm], [dry] Head: [atraumatic], [normocephalic], [symmetric] Eyes: [EOMI], [no lid lag], [anicteric sclera] Mouth: [no lip lesion], [mucus membranes moist] Cardiovascular: [S1S2 reg], [no murmur] Lungs: Diminished bilateral breath sounds, significantly diminished on the left side], [no rhonchi, no rales] , [no accessory muscle use] Abdominal: [soft], [ nontender to palpation], [no guarding], [no appreciable organomegaly] Ext: [no gross muscle atrophy], [bilateral pitting upper extremity edema, significantly improved on the right side, persistent on the left upper extremity with clear fluid weeping], [no contractures] Neuro: [ CN II-XI grossly intact], [no focal neuro deficits] Psych: [[Alert, oriented Assessment and Plan: Acute on chronic hypoxic respiratory failure secondary to lung abscess versus post obstructive PNA, sputum cultures positive for Nicole albicans , versus malignancy. Status post bronchoscopy and BAL on 01/04. Procal 0.48 Continue Zosyn 3.375 every 8 hours SOT 01/10), Fluconazole 100 mg PO QD (SOT 01/05 Duoneb QID PRN. Symbicort 2 INH BID. Tessalon 100 mg PO TID PRN. Mucinex 1200 mg PO BID. Sputum Cx Nicole albicans. Cytology as above. Pulmonology plans methylprednisolone, can alternatively try 1 mg/kg/day of oral prednisone, obse rvational status also suggest clarithromycin 500 mg twice daily for 3 months. ID and pulmonology following Pulmonary and ID on board. Monitor CBC and BMP daily Metabolic alkalosis Hyponatremia -Due to worsening respiratory status Hematuria: Resolved. UA shows 30 RBC, neg LE or nitire. Renal/bladder US no hydro. Bilateral upper extremity swelling: Venous duplex neg DVT. Recommend LUE elevation. 1 dose of IV Lasix 40 mg 01/06 and 01/07, improved significantly Hypertension: Toprol-XL 100 mg PO QD. Alcohol use disorder: CIWA protocol with Ativan PRN per protocol. Folic acid 1 mg PO QD. Thiamine 100 mg PO QD. Transaminitis likely due to EtOH abuse. Macrocytic anemia likely due to malnutrition and alcohol use disorder: B12 721, Folate 642. Iron studies show anemia of chronic disease. Resolved: Lactic acidosis. HypoK. Severe acute malnutrition, RD consulted, patient has Ensure and Magic cup o rdered, encouraged to continue taking his nutrition supplements, he only has 1 or none bottles of Ensure a day per his girlfriend DVT ppx: Lovenox Code status: Full code Anticipated discharge place: TBD Anticipated discharge time: TBD Objective - Vital Signs Vital signs: Vital Signs Temp 97.9 F 01/11/25 12:00 Pulse 94 01/11/25 12:00 Resp 16 01/11/25 12:00 BP 108/63 01/11/25 12:00 Pulse Ox 98 01/11/25 12:00 FiO2 28 01/10/25 21:00 Intake & Output 01/10/25 01/11/25 01/11/25 18:59 06:59 18:59 Output Total 300 126 Balance -300 -126 Weight 65.7 kg Output: Urine 300 125 Stool 1 Other: Voiding Method Incontinent Incontinent Incontinent External Catheter External Catheter External Catheter # Voids 1 # Bowel Movements 1 1 - Labs CBC & Chem 7: 01/11/25 06:25 01/11/25 06:25 Labs: Abnormal Lab Results - Last 24 Hours (Table) 01/11/25 01/11/25 Range/Units 06:25 06:25 WBC 13.26 H (4.50-10.00) 10*3/uL RBC 2.59 L (4.40-5.60) 10*6/uL Hgb 9.1 L (13.0-17.0) g/dL Hct 27.8 L (39.6-50.0) % MCV 107.3 H (80.0-97.0) fL MCH 35.1 H (27.0-32.0) pg Immature Gran # 0.21 H (0.00-0.04) 10*3/uL Neutrophils # 11.04 H (1.80-7.70) 10*3/uL Lymphocytes # 0.61 L (0.90-5.00) 10*3/uL Monocytes # 1.16 H (0.20-1.00) 10*3/uL Sodium 131 L (137-145) mmol/L Potassium 3.4 L (3.5-5.1) mmol/L Chloride 93 L (98-107) mmol/L Carbon Dioxide 34 H (22-30) mmol/L BUN 6 L (9-20) mg/dL Creatinine 0.34 L (0.66-1.25) mg/dL Glucose 64 L (74-99) mg/dL Calcium 7.3 L (8.4-10.2) mg/dL
--- NOTE | 2025-01-11 15:57 | P.PN ---
Subjective Progress Note Date: 01/11/25 Principal diagnosis: Reason for follow-up is pneumonia/abscess Patient is a 74-year-old male with a past medical history significant for COPD hypertension alcohol abuse and and [id number] smoking has been brought to the hospital concerning for increasing weakness decreased appetite and shortness of breath patient did have significant normality on the CT of the chest concerning for volume loss consolidative opacity and possible abscess. On today's evaluation that is 01/12/2024, patient did have a temperature of 97.9 F this afternoon patient is currently breathing slightly comfortably on 4 L nasal cannula oxygen and the patient been off the BiPAP since last evening as reported by the daughter no vomiting or diarrhea has been reported. Patient white count is down to 13.26, creatinine 0.34 chest x-ray large left effusion with a chest ectasis Objective - Vital Signs Vital signs: Vital Signs Temp 97.9 F 01/11/25 12:00 Pulse 94 01/11/25 12:00 Resp 16 01/11/25 12:00 BP 108/63 01/11/25 12:00 Pulse Ox 98 01/11/25 12:00 FiO2 28 01/10/25 21:00 Intake & Output 01/10/25 01/11/25 01/11/25 18:59 06:59 18:59 Output Total 300 126 Balance -300 -126 Weight 65.7 kg Output: Urine 300 125 Stool 1 Other: Voiding Method Incontinent Incontinent Incontinent External Catheter External Catheter External Catheter # Voids 1 # Bowel Movements 1 1 - Exam GENERAL DESCRIPTION: An elderly male lying in bed in no distress RESPIRATORY SYSTEM: Unlabored breathing , decreased breath sounds at bases HEART: S1 S2 regular rate and rhythm , ABDOMEN: Soft , no tenderness EXTREMITIES: No edema feet - Labs CBC & Chem 7: 01/11/25 06:25 01/11/25 06:25 Labs: Abnormal Lab Results - Last 24 Hours (Table) 01/11/25 01/11/25 Range/Units 06: 06:25 WBC 13.26 H (4.50-10.00) 10*3/uL RBC 2.59 L (4.40-5.60) 10*6/uL Hgb 9.1 L (13.0-17.0) g/dL Hct 27.8 L (39.6-50.0) % MCV 107.3 H (80.0-97.0) fL MCH 35.1 H (27.0-32.0) pg Immature Gran # 0.21 H (0.00-0.04) 10*3/uL Neutrophils # 11.04 H (1.80-7.70) 10*3/uL Lymphocytes # 0.61 L (0.90-5.00) 10*3/uL Monocytes # 1.16 H (0.20-1.00) 10*3/uL Sodium 131 L (137-145) mmol/L Potassium 3.4 L (3.5-5.1) mmol/L Chloride 93 L (98-107) mmol/L Carbon Dioxide 34 H (22-30) mmol/L BUN 6 L (9-20) mg/dL Creatinine 0.34 L (0.66-1.25) mg/dL Glucose 64 L (74-99) mg/dL Calcium 7.3 L (8.4-10.2) mg/dL Assessment and Plan (1) Sepsis Current Visit: Yes Status: Acute Code(s): A41.9 - SEPSIS, UNSPECIFIED ORGANISM SNOMED Code(s): 03992749 (2) Lung abscess Current Visit: Yes Status: Acute Code(s): J85.2 - ABSCESS OF LUNG WITHOUT PNEUMONIA SNOMED Code(s): 70218994 (3) Pneumonia Current Visit: Yes Status: Acute Code(s): J18.9 - PNEUMONIA, UNSPECIFIED ORGANISM SNOMED Code(s): 900686309 Plan: 1patient presented to the hospital with sepsis in this patient who did have tachycardia elevated white count elevated lactic acid meeting criteria for SIRS/sepsis source is likely either postobstructive pneumonia/lung abscess in this patient who did have significant history of smoking and concern for possible malignancy with secondary postobstructive pneumonia and abscess and trang l need to cover for the polymicrobial pablo associated with such infection 2patient will benefit from bronchoscopy lavage and deep culture, pulmonary is following the patient and bronchoscopy has been rescheduled for tomorrow could not be completed today because of OR schedule 3patient is afebrile, blood culture have been negative sputum is growing Nicole more likely colonizer. 4patient status post bronchoscopy those cultures also grew Nicole 5patient did have some improvement in his respiratory status requiring less supplemental oxygen still have a large effusion on the chest x-ray may benefit from thoracocentesis and fluid should be sent for the culture 6the patient white count did come down with adjustment of antibiotic to Zosyn to continue and daughter at the bedside question answered Dictation was produced using [employer] dictation software. please excuse any grammatical, word or spelling errors. Time with Patient: Less than 30
[2025-01-12 08:01] LABS: Basophils # (A) 0.06 10*3/uL (0.00-0.10); Basophils % (A) 0.5 %; Eosinophils # (A) 0.20 10*3/uL (0.04-0.35); Eosinophils % (A) 1.7 %; HCT 29.6 % (39.6-50.0); HGB 9.5 g/dL (13.0-17.0); Lymphocytes # (A) 0.61 10*3/uL (0.90-5.00); Lymphocytes % (A) 5.1 %; MCH 34.2 pg (27.0-32.0); MCHC 32.1 g/dL (32.0-37.0); MCV 106.5 fL (80.0-97.0); Monocytes # (A) 1.20 10*3/uL (0.20-1.00); Monocytes % (A) 10.0 %; Neutrophils # (A) 9.74 10*3/uL (1.80-7.70); Neutrophils % (A) 81.3 %; Platelet Count 373 10*3/uL (140-440); RBC 2.78 10*6/uL (4.40-5.60); RDW 13.1 % (11.5-14.5); WBC 11.98 10*3/uL (4.50-10.00)
[2025-01-12 08:31] LABS: African American GFR (CKD) >90 (>60 ml/min/1.73 sqM); Anion Gap 1 mmol/L; Blood Urea Nitrogen 4 mg/dL (9-20); Calcium 7.4 mg/dL (8.4-10.2); Carbon Dioxide 39 mmol/L (22-30); Chloride 91 mmol/L (98-107); Glucose 86 mg/dL (74-99); Non-African American GFR(CKD) >90 (>60 ml/min/1.73 sqM); Potassium 3.8 mmol/L (3.5-5.1); Sodium 131 mmol/L (137-145)
[2025-01-12] MEDS: methylPREDNISolone SOD SUCCI 125 MG/2 ML VIAL IV SCH (11:16)
--- NOTE | 2025-01-12 11:46 | US ---
EXAMINATION TYPE: US chest DATE OF EXAM: 01/12/2025 COMPARISON: Multiple, most recent: XR 01/10/2025 CLINICAL INDICATION: Male, 74 years old with history of pleural effusion; SADIA TECHNIQUE: Grayscale imaging of the chest. Targeted ultrasound of the posterior lower bilateral carlitos thoraces FINDINGS: EXAM MEASUREMENTS: Right Pleural Effusion pocket size: 4.1 cm Right skin surface to fluid distance: 1.9 cm Left Pleural Effusion pocket size: 5.7 cm COMPLEX - Difficult to differ between fluid and lung tissu e Left skin surface to fluid distance: 2.3 cm Right side marked for possible thoracentesis outside the dept. Left side marked for possible thoracentesis outside the dept. Pulmonologists are able to review the images in the patient?s EMR. IMPRESSIONS: 1. Right side marked for pleurocentesis. 2. Complex left pleural effusion, Difficult to differ between fluid and lung tissue [facility], , 01/12/2025 11:44 AM
[2025-01-12] MEDS ORDERED: DEXTROSE 50% SYRINGE 50 ML IVP PRN ×2 (12:44)
--- NOTE | 2025-01-12 12:47 | P.PN ---
Subjective Progress Note Date: 01/12/25 Hospital Course: 74 year old M with PMH chronic hypoxic respiratory failure secondary to COPD on home oxygen 2-3L, hypertension, former smoker quit 15 years ago, alcohol use disorder, who presented to the ER on 12/27/2024 for weakness, poor appetite, SOB associated with fever and chills. In the ED he underwent extensive evaluation. BP 142/79, HR 63, RR 22, T 98.1F, 90% on 4L NC. CBC, CMP significant for WBC 20.34, RBC 3.25, Hg 11.6, Hct 34, MCV 104.6, Na 132, Cl 95, Cr 0.31, Ca 7.5, AST 61, alk phos 131. Trop 0.012. Lactic acid 2.5-1.5. EKG sinus tachycardia with HR of 112. Chest CT showed marked volume loss in the left lung with mixed consolidative and cystic density left lung with air-fluid levels suggesting lung abscesses, right infrahilar band like density, mediastinal adenopathy. Pulmonary, ID and Oncology consulted. Started on Unasyn for treatment of pulmonary abscess. Initial sputum Cx growing nicole albicans. He underwent bronchoscopy with BAL on 01/04 showing purulent se cretions which was sent for culture. Bronchoscopy cultures so far with no growth, cytology still pending, repeat chest x-ray was requested due to breathing difficulties and showed near complete opacification of the left hemothorax, similar to prior study with somewhat worsening right pleural effusion on my interpretation, continued on Unasyn with Diflucan, ID, pulmonology following. Patient was provided with 1 dose of IV Lasix 40 for worsening upper extremity edema on 01/06 and 01/07.he did have significantly elevated bicarb on BMP yesterday, VBG was ordered and showed pH of 7.61, he was provided with 1 dose of Diamox overnight, repeat VBG this morning showed pH of 7.36 and pCO2 72, will repeat ABG in the morning. Daily PT OT requested due to ongoing and worsening debility.Per ID, Augmentin and Diflucan on discharge, final BAL cultures growing Nicole albicans, Gram stain negative. Cytology negative for malignancy. On 01/10/2025 due to worsening lethargic, patient was transferred to [facility] with continuous BiPAP with significant improvement in mentation and breathing status. ID switched to IV Zosyn, WBC started trending down finally. 01/12: Patient seen and examined at bedside, no acute events overnight. Patient is afebrile, maintained on 4 L nasal cannula satting at 100%, normotensive, heart rate in the 80s. WBC 11.9, hemoglobin stable 9.5, sodium stable 131 and potassium 3.8, creatinine 0.37. Glucose trends low, will start hypoglycemia precaution and Accu-Cheks. Discussed with pulmonology [facility], pulmonology is considering cryptogenic organizing pneumonia as a deep diagnosis, ID recommended thoracentesis, this will be addressed by pulmonology team with patient and his family, discussed with patient's significant other. Pulmonology started Solu- Medrol 60 IV every 6 hours, patient continued on Zosyn, finished Diflucan. Pertinent positives and negatives as discussed above, a complete review of systems was performed and all othe discussed current management r systems are negative. Vitals Signs Reviewed. General: [Chronically ill-appearing, malnourished Derm: [warm], [dry] Head: [atraumatic], [normocephalic], [symmetric] Eyes: [EOMI], [no lid lag], [anicteric sclera] Mouth: [no lip lesion], [mucus membranes moist] Cardiovascular: [S1S2 reg], [no murmur] Lungs: Diminished bilateral breath sounds, significantly diminished on the left side], [no rhonchi, no rales] , [no accessory muscle use] Abdominal: [soft], [ nontender to palpation], [no guarding], [no appreciable organomegaly] Ext: [no gross muscle atrophy], [bilateral pitting upper extremity edema, signi ficantly improved on the right side, persistent on the left upper extremity with clear fluid weeping], [no contractures] Neuro: [ CN II-XI grossly intact], [no focal neuro deficits] Psych: [[Alert, oriented Assessment and Plan: Acute on chronic hypoxic respiratory failure secondary to lung abscess versus post obstructive PNA, sputum cultures positive for Nicole albicans , versus malignancy. Status post bronchoscopy and BAL on 01/04. Procal 0.48 Continue Zosyn 3.375 every 8 hours SOT 01/10), finished Fluconazole 100 mg -continue Duoneb QID PRN. Symbicort 2 INH BID. Tessalon 100 mg PO TID PRN. Mucinex 1200 mg PO BID. Sputum Cx Nicole albicans -Cytology as above. - Pulmonology started Solu-Medrol 60 IV every 6 hours -ID and pulmonology following -Monitor CBC and BMP daily Metabolic alkalosis Hyponatremia -Due to worsening respiratory status Hematuria: Resolved. UA shows 30 RBC, neg LE or nitire. Renal/bladder US no hydro. Bilateral upper extremity swelling: Venous duplex neg DVT. Recommend LUE elevation. 1 dose of IV Lasix 40 mg 01/06 and 01/07, improved significantly Hypertension: Toprol-XL 100 mg PO QD. Alcohol use disorder: CIWA protocol with Ativan PRN per protocol. Folic acid 1 mg PO QD. Thiamine 100 mg PO QD. Transaminitis likely due to EtOH abuse. Macrocytic anemia likely due to malnutrition and alcohol use disorder: B12 721, Folate 642. Iron studies show anemia of chronic disease. Resolved: Lactic acidosis. HypoK. Severe acute malnutrition, RD consulted, patient has Ensure and Magic cup ordered, encouraged to continue taking his nutrition supplements, he only has 1 or none bottles of Ensure a day per his girlfriend DVT ppx: Lovenox Code status: Full code Anticipated discharge place: TBD Anticipated discharge time: TBD Objective - Vital Signs Vital signs: Vital Signs Temp 97.9 F 01/12/25 12:00 Pulse 90 01/12/25 12:00 Resp 18 01/12/25 12:00 BP 124/68 01/12/25 12:00 Pulse Ox 100 01/12/25 12:00 FiO2 28 01/10/25 21:00 Intake & Output 01/11/25 01/12/25 01/12/25 18:59 06:59 18:59 Intake Total 440 20 110 Output Total 127 400 150 Balance 313 -380 -40 Weight 69.5 kg Intake: IV 20 10 Invasive Line 6 20 10 Intake, IV Titration 200 Amount Piperacillin-Tazobactam 3 200 .375 gm In Sodium Chloride 0.9% 100 ml @ 25 mls/hr IVPB Q8HR [facility] Rx# :[id number] Oral 240 100 Output: Urine 125 400 150 Stool 2 Other: Voiding Method Incontinent Incontinent Incontinent External Catheter External Catheter External Catheter # Voids 1 # Bowel Movements 1 - Labs CBC & Chem 7: 01/12/25 06:43 01/12/25 06:43 Labs: Abnormal Lab Results - Last 24 Hours (Table) 01/12/25 01/12/25 Range/Units 06:43 06:43 WBC 11.98 H (4.50-10.00) 10*3/uL RBC 2.78 L (4.40-5.60) 10*6/uL Hgb 9.5 L (13.0-17.0) g/dL Hct 29.6 L (39.6-50.0) % MCV 106.5 H (80.0-97.0) fL MCH 34.2 H (27.0-32.0) pg Immature Gran # 0.17 H (0.00-0.04) 10*3/uL Neutrophils # 9.74 H (1.80-7.70) 10*3/uL Lymphocytes # 0.61 L (0.90-5.00) 10*3/uL Monocytes # 1.20 H (0.20-1.00) 10*3/uL Sodium 131 L (137-145) mmol/L Chloride 91 L (98-107) mmol/L Carbon Dioxide 39 H (22-30) mmol/L BUN 4 L (9-20) mg/dL Creatinine 0.37 L (0.66-1.25) mg/dL Calcium 7.4 L (8.4-10.2) mg/dL
--- NOTE | 2025-01-12 13:15 | P.PN ---
Subjective Progress Note Date: 01/12/25 Principal diagnosis: Acute hypoxic respiratory failure secondary to extensive scarring left-sided pneumonia and possibly lung abscesses. The patient is seen today January 06, 2025 in follow-up on the regular medical floor. He is currently sitting up in bed. Awake and alert in no acute distress. Appears still quite weak and debilitated. He is maintaining O2 saturations in the 90s on 4 L/min per nasal cannula. He is status post bronchoscopy and BAL on 01/04/2025. Cultures revealed no growth. Cytology pending. Chest x-ray reveals near complete opacification of the left h emithorax. Small right pleural effusion with patchy basilar density unchanged. He remains on Unasyn and Diflucan. Continued on Tessalon Perles. Continued on Dulera. Lovenox for DVT prophylaxis. Remains on the CIWA protocol. Received Lasix 40 mg once today. The patient is seen today January 07, 2025 in follow-up on the regular medical floor. He is awake and alert in no acute distress. Resting fairly comfortable in bed. Denies any worsening shortness of breath, cough or congestion. Maintaining O2 saturations in the 90s on 4 L/min per nasal cannula. Bronchial wash cultures revealed no growth. Cytology still pending. White count 13.7. Hemoglobin 10.2. Platelets 412. He remains on DuoNeb inhalations, Tessalon Perles as needed. Lovenox for DVT prophylaxis. Continued on Unasyn and Diflucan. He remains quite weak. Working with physical therapy. The patient is seen today January 08, 2025 in follow-up on the regular medical floor. He is currently sitting up in a chair at the bedside. Awake and alert in no acute distress. Feeling a bit better today compared to yesterday. He is maintaining O2 saturations in the 90s on 4 L/min per nasal cannula. He is continued on DuoNeb inhalations. He remains on Unasyn and Diflucan. Tessalon Perles for his cough. Continued on his home Dulera. Lovenox for DVT prophylaxis. Cytology from bronchial wash cultures are still pending. Cultures revealed no growth. White count 17.1. Hemoglobin 10.2. Platelets 426. Sodium 135. Potassium 4.1. Bicarb 39. BUN 4. Creatinine 0.3. Glucose 102. He received Diamox 250 mg IV x 1. The patient is seen today January 09, 2025 in follow-up on the regular medical floor. He is currently sitting up in bed. Awake and alert in no acute distress. Feeling a bit stronger today compared to yesterday. Less short of breath. Chest x-ray showing slight improvement. He remains on Unasyn. Remains on Diflucan. Continued on DuoNeb inhalations. Continued on his home Dulera. Lovenox for DVT prophylaxis. Bronchoalveolar lavage reveals evidence of Nicole only. Sputum revealed Nicole. White count 21.8. Hemoglobin 9.8. Platelets 347. Sodium 130. Potassium 3.7. Bicarb 35. BUN 6. Creatinine 0.29. Glucose 92. The patient is seen today January 10, 2025 in follow-up on the regular medical floor. He is currently resting in bed. Quite weak and obtunded today. Family is at the bedside. He is currently on oxygen at 4 L/min per nasal cannula with O2 saturations in the low 90s. He is afebrile. Hemodynamically stable. Recent chest x-ray continue to show near complete opacification of the left hemithorax with mediastinal shift to the left due to volume loss. Likely combination of atelectasis and pleural effusion and underlying infectious process. His bronchoscopy cytology results were negative for malignancy. White count 22.9. Hemoglobin 9.5. Platelets 391. Sodium 131. Potassium 3.9. Bicarb 30. BUN 7. Creatinine 0.3. Glucose 82. He is continued on DuoNeb inhalations. Continued on Unasyn. Continue DuoNeb and on his home Dulera. Lovenox for DVT prophylaxis. Continued on Diflucan. Patient was seen today on 01/11/2025, remains marginal at best, however he is fe eling a bit better today compared to yesterday. Chest x-ray continues to show significant opacification of the left lung, and he is developing new infiltrates in the right lower lobe. Surprisingly clinically the patient feels better. WBC count today 13.2 hemoglobin is 9.1 electrolytes are abnormal with low sodium of 131 potassium low at 3.4 bicarb is 34 renal profile is normal his BAL cultures have been negative, his cytology was negative, nonetheless the patient continues to have significant airspace disease involving the left lung and to some extent the right lower lobe. Remains on Zosyn as per infectious disease on the case. Today I am considering a trial of steroids at this patient as the patient may have a cryptogenic organizing pneumonia and the prednisone will be given on a trial basis since he is not making much of any improvement over the last 1 week. Seen today on 01/12/2025, patient is about the same, no major roll changer the last 1 week. Remains on antibiotic, today I recommended a trial of steroids/Solu- Medrol for possible cryptogenic organizing pneumonia, this will be started today. Patient clinically is feeling better, breathing easier, his daughter and his girlfriend are at bedside. Patient is being followed by infectious disease, and again his cultures have been negative cytology has been negative, and we have no specific diagnosis except the patient does have extensive airspace disease involving the left lung with abscesses like picture. Objective - Vital Signs Vital signs: Vital Signs Temp 97.9 F 01/12/25 12:00 Pulse 90 01/12/25 12:00 Resp 18 01/12/25 12:00 BP 124/68 01/12/25 12:00 Pulse Ox 100 01/12/25 12:00 FiO2 28 01/10/25 21:00 Intake & Output 01/11/25 01/12/25 01/12/25 18:59 06:59 18:59 Intake Total 440 20 110 Output Total 127 400 150 Balance 313 -380 -40 Weight 69.5 kg Intake: IV 20 10 Invasive Line 6 20 10 Intake, IV Titration 200 Amount Piperacillin-Tazobactam 3 200 .375 gm In Sodium Chloride 0.9% 100 ml @ 25 mls/hr IVPB Q8HR [facility] Rx# :[id number] Oral 240 100 Output: Urine 125 400 150 Stool 2 Other: Voiding Method Incontinent Incontinent Incontinent External Catheter External Catheter External Catheter # Voids 1 # Bowel Movements 1 - Exam GENERAL EXAM: 74-year-old white male awake, cachectic, frail, chronically ill. HEAD: Normocephalic. EYES: Normal reaction of pupils, equal size. NOSE: Clear with pink turbinates. THROAT: No erythema or exudates. NECK: No masses, no JVD. CHEST: No chest wall deformity. LUNGS: Equal air entry with bilateral scattered rhonchi more so on the left lung. CVS: S1 and S2 normal with no audible murmur, regular rhythm. ABDOMEN: No hepatosplenomegaly, normal bowel sounds, no guarding or rigidity. SKIN: No rashes CENTRAL NERVOUS SYSTEM: No focal deficits, tone is normal in all 4 extremities. EXTREMITIES: There is no peripheral edema. No clubbing, no cyanosis. Peripheral pulses are intact. - Labs CBC & Chem 7: 01/12/25 06:43 01/12/25 06:43 Labs: Abnormal Lab Results - Last 24 Hours (Table) 01/12/25 01/12/25 Range/Units 06:43 06:43 WBC 11.98 H (4.50-10.00) 10*3/uL RBC 2.78 L (4.40-5.60) 10*6/uL Hgb 9.5 L (13.0-17.0) g/dL Hct 29.6 L (39.6-50.0) % MCV 106.5 H (80.0-97.0) fL MCH 34.2 H (27.0-32.0) pg Immature Gran # 0.17 H (0.00-0.04) 10*3/uL Neutrophils # 9.74 H (1.80-7.70) 10*3/uL Lymphocytes # 0.61 L (0.90-5.00) 10*3/uL Monocytes # 1.20 H (0.20-1.00) 10*3/uL Sodium 131 L (137-145) mmol/L Chloride 91 L (98-107) mmol/L Carbon Dioxide 39 H (22-30) mmol/L BUN 4 L (9-20) mg/dL Creatinine 0.37 L (0.66-1.25) mg/dL Calcium 7.4 L (8.4-10.2) mg/dL Assessment and Plan Assessment: Impression: Acute hypoxic respiratory failure secondary to acute community acquired pneumonia and/or lung masses. CT scan of the chest reveals marked volume loss in the left lung with marked mixed consolidative and cystic density in the left lung with scattered air-fluid levels suggesting multiple lung abscesses. Thick bandlike density in the right infrahilar region extending to the pleura which is focally thickened raising the question of neoplasm versus chronic inflammation. Mediastinal adenopathy is present and likely reactive. Findings could be consistent with infected bullae versus development of lung abscesses. The patient remains on 4 L of oxygen by nasal cannula. Clinically stable. The bronchoscopy and the bronchial lavage yielded no significant microbial growth and no evidence of malignancy Generalized weakness, poor appetite and weight loss secondary to above 50-year history of chronic tobacco dependence at 1 pack/day however quit 14 years ago Chronic obstructive pulmonary disease Chronic hypoxic respiratory failure on home oxygen Hypertension Chronic daily alcohol use Cachexia/anorexia syndrome Recommendation: Continue present course of treatment including antibiotics, Add methylprednisolone for presumptive cryptogenic organizing pneumonia/therapeutic trial Continue Zosyn and Diflucan. Continue bronchodilators Family updated at bedside on his condition Patient remains quite ill, prognosis is guarded. Will continue to follow Time with Patient: Less than 30
--- NOTE | 2025-01-12 15:28 | P.PN ---
Subjective Progress Note Date: 01/12/25 Principal diagnosis: Reason for follow-up is pneumonia/abscess Patient is a 74-year-old male with a past medical history significant for COPD hypertension alcohol abuse and and [id number] smoking has been brought to the hospital concerning for increasing weakness decreased appetite and shortness of breath patient did have significant normality on the CT of the chest concerning for volume loss consolidative opacity and possible abscess. On today's evaluation that is 01/12/2025, Patient is afebrile patient is currently on 4 L goal oxygen and breathing more comfortably, the patient denies any chest pain or worsening cough, the patient denies any nausea vomiting did not have any abdominal pain and no diarrhea. Patient white count is down to 11.98, creatinine 0.37 Objective - Vital Signs Vital signs: Vital Signs Temp 97.9 F 01/12/25 12:00 Pulse 90 01/12/25 12:00 Resp 18 01/12/25 12:00 BP 124/68 01/12/25 12:00 Pulse Ox 100 01/12/25 12:00 FiO2 28 01/10/25 21:00 Intake & Output 01/11/25 01/12/25 01/12/25 18:59 06:59 18:59 Intake Total 440 20 110 Output Total 127 400 150 Balance 313 -380 -40 Weight 69.5 kg Intake: IV 20 10 Invasive Line 6 20 10 Intake, IV Titration 200 Amount Piperacillin-Tazobactam 3 200 .375 gm In Sodium Chloride 0.9% 100 ml @ 25 mls/hr IVPB Q8HR [facility] Rx# :[id number] Oral 240 100 Output: Urine 125 400 150 Stool 2 Other: Voiding Method Incontinent Incontinent Incontinent External Catheter External Catheter External Catheter # Voids 1 # Bowel Movements 1 - Exam GENERAL DESCRIPTION: An elderly male lying in bed in no distress RESPIRATORY SYSTEM: Unlabored breathing , decreased breath sounds at bases HEART: S1 S2 regular rate and rhythm , ABDOMEN: Soft , no tenderness EXTREMITIES: No edema feet - Labs CBC & Chem 7: 01/12/25 06:43 01/12/25 06:43 Labs: Abnormal Lab Results - Last 24 Hours (Table) 01/12/25 01/12/25 Range/Units 06:43 06:43 WBC 11.98 H (4.50-10.00) 10*3/uL RBC 2.78 L (4.40-5.60) 10*6/uL Hgb 9.5 L (13.0-17.0) g/dL Hct 29.6 L (39.6-50.0) % MCV 106.5 H (80.0-97.0) fL MCH 34.2 H (27.0-32.0) pg Immature Gran # 0.17 H (0.00-0.04) 10*3/uL Neutrophils # 9.74 H (1.80-7.70) 10*3/uL Lymphocytes # 0.61 L (0.90-5.00) 10*3/uL Monocytes # 1.20 H (0.20-1.00) 10*3/uL Sodium 131 L (137-145) mmol/L Chloride 91 L (98-107) mmol/L Carbon Dioxide 39 H (22-30) mmol/L BUN 4 L (9-20) mg/dL Creatinine 0.37 L (0.66-1.25) mg/dL Calcium 7.4 L (8.4-10.2) mg/dL Assessment and Plan (1) Sepsis Current Visit: Yes Status: Acute Code(s): A41.9 - SEPSIS, UNSPECIFIED ORGANISM SNOMED Code(s): 15301782 (2) Lung abscess Current Visit: Yes Status: Acute Code(s): J85.2 - ABSCESS OF LUNG WITHOUT PNEUMONIA SNOMED Code(s): 60623718 (3) Pneumonia Current Visit: Yes Status: Acute Code(s): J18.9 - PNEUMONIA, UNSPECIFIED ORGANISM SNOMED Code(s): 176400770 Plan: 1patient presented to the hospital with sepsis in this patient who did have tachycardia elevated white count elevated lactic acid meeting criteria for SIRS/sepsis source is likely either postobstructive pneumonia/lung abscess in this patient who did have significant history of smoking and concern for possible malignancy with secondary postobstructive pneumonia and abscess and will need to cover for the polymicrobial pablo associated with such infection 2patient will benefit from bronchoscopy lavage and deep culture, pulmonary is following the patient and bronchoscopy has been rescheduled for tomorrow could not be completed today because of OR schedule 3patient is afebrile, blood culture have been negative sputum is growing Nicole more likely colonizer. 4patient status post bronchoscopy those cultures also grew Nicole 5patient did have some improvement in his respiratory status requiring less supplemental oxygen still have a large effusion on the chest x-ray may benefit from thoracocentesis and fluid should be sent for the culture 6the patient is afebrile and the patient white count is trending down down to 11,000 patient to be treated with Zosyn possible thoracocentesis and fluid should be sent for the culture daughter at the bedside question answered Dictation was produced using [employer] dictation software. please excuse any grammatical, word or spelling errors. Time with Patient: Less than 30
[2025-01-12 21:44] LABS: Glucose,Whole Blood 170 mg/dL (70-110)
[2025-01-13 06:04] LABS: Glucose,Whole Blood 153 mg/dL (70-110)
[2025-01-13 07:31] LABS: Basophils # (A) 0.01 10*3/uL (0.00-0.10); Basophils % (A) 0.1 %; Eosinophils # (A) 0.00 10*3/uL (0.04-0.35); Eosinophils % (A) 0.0 %; HCT 30.9 % (39.6-50.0); HGB 10.1 g/dL (13.0-17.0); Lymphocytes # (A) 0.37 10*3/uL (0.90-5.00); Lymphocytes % (A) 3.9 %; MCH 34.8 pg (27.0-32.0); MCHC 32.7 g/dL (32.0-37.0); MCV 106.6 fL (80.0-97.0); Monocytes # (A) 0.14 10*3/uL (0.20-1.00); Monocytes % (A) 1.5 %; Neutrophils # (A) 8.82 10*3/uL (1.80-7.70); Neutrophils % (A) 93.4 %; Platelet Count 408 10*3/uL (140-440); RBC 2.90 10*6/uL (4.40-5.60); RDW 12.7 % (11.5-14.5); WBC 9.44 10*3/uL (4.50-10.00)
[2025-01-13 07:57] LABS: African American GFR (CKD) >90 (>60 ml/min/1.73 sqM); Anion Gap 2 mmol/L; Blood Urea Nitrogen 6 mg/dL (9-20); Calcium 7.7 mg/dL (8.4-10.2); Carbon Dioxide 39 mmol/L (22-30); Chloride 90 mmol/L (98-107); Glucose 147 mg/dL (74-99); Non-African American GFR(CKD) >90 (>60 ml/min/1.73 sqM); Potassium 4.4 mmol/L (3.5-5.1); Sodium 131 mmol/L (137-145)
[2025-01-13 11:39] LABS: Glucose,Whole Blood 265 mg/dL (70-110)
[2025-01-13] MEDS: methylPREDNISolone SOD SUCCI 125 MG/2 ML VIAL IV SCH (13:44)
--- NOTE | 2025-01-13 13:51 | P.PN ---
Subjective Progress Note Date: 01/13/25 Principal diagnosis: Pneumonia. The patient is seen today January 06, 2025 in follow-up on the regular medical floor. He is currently sitting up in bed. Awake and alert in no acute distress. Appears still quite weak and debilitated. He is maintaining O2 saturations in the 90s on 4 L/min per nasal cannula. He is status post bronchoscopy and BAL on 01/04/2025. Cultures revealed no growth. Cytology pending. Chest x-ray reveals near complete opacification of the left hemitho rax. Small right pleural effusion with patchy basilar density unchanged. He remains on Unasyn and Diflucan. Continued on Tessalon Perles. Continued on Dulera. Lovenox for DVT prophylaxis. Remains on the [facility] protocol. Received Lasix 40 mg once today. The patient is seen today January 07, 2025 in follow-up on the regular medical floor. He is awake and alert in no acute distress. Resting fairly comfortable in bed. Denies any worsening shortness of breath, cough or congestion. Maintaining O2 saturations in the 90s on 4 L/min per nasal cannula. Bronchial wash cultures revealed no growth. Cytology still pending. White count 13.7. Hemoglobin 10.2. Platelets 412. He remains on DuoNeb inhalations, Tessalon Perles as needed. Lovenox for DVT prophylaxis. Continued on Unasyn and Difluc an. He remains quite weak. Working with physical therapy. The patient is seen today January 08, 2025 in follow-up on the regular medical floor. He is currently sitting up in a chair at the bedside. Awake and alert in no acute distress. Feeling a bit better today compared to yesterday. He is maintaining O2 saturations in the 90s on 4 L/min per nasal cannula. He is continued on DuoNeb inhalations. He remains on Unasyn and Diflucan. Tessalon Perles for his cough. Continued on his home Dulera. Lovenox for DVT prophylaxis. Cytology from bronchial wash cultures are still pending. Cultures revealed no growth. White count 17.1. Hemoglobin 10.2. Platelets 426. Sodium 135. Potassium 4.1. Bicarb 39. BUN 4. Creatinine 0.3. Glucose 102. He received Diamox 250 mg IV x 1. The patient is seen today January 09, 2025 in follow-up on the regular medical floor. He is currently sitting up in bed. Awake and alert in no acute distress. Feeling a bit stronger today compared to yesterday. Less short of breath. Chest x-ray showing slight improvement. He remains on Unasyn. Remains on Diflucan. Continued on DuoNeb inhalations. Continued on his home Dulera. Lovenox for DVT prophylaxis. Bronchoalveolar lavage reveals evidence of Nicole only. Sputum revealed Nicole. White count 21.8. Hemoglobin 9.8. Platelets 347. Sodium 130. Potassium 3.7. Bicarb 35. BUN 6. Creatinine 0.29. Glucose 92. The patient is seen today January 10, 2025 in follow-up on the regular medical floor . He is currently resting in bed. Quite weak and obtunded today. Family is at the bedside. He is currently on oxygen at 4 L/min per nasal cannula with O2 saturations in the low 90s. He is afebrile. Hemodynamically stable. Recent chest x-ray continue to show near complete opacification of the left hemithorax with mediastinal shift to the left due to volume loss. Likely combination of atelectasis and pleural effusion and underlying infectious process. His bronchoscopy cytology results were negative for malignancy. White count 22.9. Hemoglobin 9.5. Platelets 391. Sodium 131. Potassium 3.9. Bicarb 30. BUN 7. Creatinine 0.3. Glucose 82. He is continued on DuoNeb inhalations. Continued on Unasyn. Continue DuoNeb and on his home Dulera. Lovenox for DVT prophylaxis. Continued on Diflucan. Patient was seen today on 01/11/2025, remains marginal at best, however he is feeling a bit better today compared to yesterday. Chest x-ray continues to show significant opacification of the left lung, and he is developing new infiltrates in the right lower lobe. Surprisingly clinically the patient feels better. WBC count today 13.2 hemoglobin is 9.1 electrolytes are abnormal with low sodium of 131 potassium low at 3.4 bicarb is 34 renal profile is normal his BAL cultures have been negative, his cytology was negative, nonetheless the patient continues to have significant airspace disease involving the left lung and to some extent the right lower lobe. Remains on Zosyn as per infectious disease on the case. Today I am considering a trial of steroids at this patient as the patient may have a cryptogenic organizing pneumonia and the prednisone will be given on a trial basis since he is not making much of any improvement over the last 1 week. Seen today on 01/12/2025, patient is about the same, no major change control coordinator the last 1 week. Remains on antibiotic, today I recommended a trial of steroids/Solu- Medrol for possible cryptogenic organizing pneumonia, this will be started today. Patient clinically is feeling better, breathing easier, his daughter and his girlfriend are at bedside. Patient is being followed by infectious disease, and again his cultures have been negative cytology has been negative, and we have no specific diagnosis except the patient does have extensive airspace disease involving the left lung with abscesses like picture. Progress note dated January 13, 2025. This is a 74-year-old male seen today in room 362. The patient was admitted with a diagnosis of pneumonia. He is currently on Zosyn, Diflucan. Solu- Medrol, will be converted to prednisone. He continues on 3 L of oxygen. He is not receiving any IV fluids. Ultrasound of the left chest shows a complex loculated effusion, with poor differentiation between fluid and lung tissue. Hence, thoracentesis will not be attempted at this time. The patient appears relatively comfortable, and family members mention that since he was started on Zosyn, and prednisone, he has done much better. Objective - Vital Signs Vital signs: Vital Signs Temp 97.6 F 01/13/25 13:32 Pulse 85 01/13/25 13:32 Resp 16 01/13/25 13:32 BP 125/75 01/13/25 13:32 Pulse Ox 95 01/13/25 13:32 FiO2 28 01/10/25 21:00 Intake & Output 01/12/25 01/13/25 01/13/25 18:59 06:59 18:59 Intake Total 120 20 370 Output Total 451 1 Balance -331 20 369 Weight 68 kg Intake: IV 20 20 10 Invasive Line 6 20 20 10 Oral 100 360 Output: Urine 450 Stool 1 1 Other: Voiding Method Incontinent Incontinent Incontinent External Catheter External Catheter External Catheter # Voids 1 # Bowel Movements 1 - Exam No acute distress, oriented 3. Currently on 3 L of oxygen. Resting comfortably in bed. Awake and alert. HEENT examination is grossly unremarkable. Mucous membranes are moist. No oral lesions. Neck supple. Full range of motion. No adenopathy thyromegaly or neck vein distention. Cardiovascular examination reveals regular rhythm rate. S1-S2 normal. No S3 or S4. No discernible murmur noted. Lungs reveal mild scattered rhonchi throughout. No wheezes or crackles. Breath sounds are equal bilaterally. Abdomen soft bowel sounds are heard. No masses or tenderness. Extremities are intact. No cyanosis clubbing or edema. Skin is without rash or lesion. Neurologic examination is brief but nonfocal. - Labs CBC & Chem 7: 01/13/25 06:36 01/13/25 06:36 Labs: Abnormal Lab Results - Last 24 Hours (Table) 01/12/25 01/13/25 01/13/25 Range/Units 21:43 06:02 06:36 RBC 2.90 L (4.40-5.60) 10*6/uL Hgb 10.1 L (13.0-17.0) g/dL Hct 30.9 L (39.6-50.0) % MCV 106.6 H (80.0-97.0) fL MCH 34.8 H (27.0-32.0) pg Immature Gran # 0.10 H (0.00-0.04) 10*3/uL Neutrophils # 8.82 H (1.80-7.70) 10*3/uL Lymphocytes # 0.37 L (0.90-5.00) 10*3/uL Monocytes # 0.14 L (0.20-1.00) 10*3/uL Eosinophils # 0.00 L (0.04-0.35) 10*3/uL Sodium (137-145) mmol/L Chloride (98-107) mmol/L Carbon Dioxide (22-30) mmol/L BUN (9-20) mg/dL Creatinine (0.66-1.25) mg/dL Glucose (74-99) mg/dL POC Glucose (mg/dL) 170 H 153 H (70-110) mg/dL Calcium (8.4-10.2) mg/dL 01/13/25 01/13/25 Range/Units 06:36 11:38 RBC (4.40-5.60) 10*6/uL Hgb (13.0-17.0) g/dL Hct (39.6-50.0) % MCV (80.0-97.0) fL MCH (27.0-32.0) pg Immature Gran # (0.00-0.04) 10*3/uL Neutrophils # (1.80-7.70) 10*3/uL Lymphocytes # (0.90-5.00) 10*3/uL Monocytes # (0.20-1.00) 10*3/uL Eosinophils # (0.04-0.35) 10*3/uL Sodium 131 L (137-145) mmol/L Chloride 90 L (98-107) mmol/L Carbon Dioxide 39 H (22-30) mmol/L BUN 6 L (9-20) mg/dL Creatinine 0.40 L (0.66-1.25) mg/dL Glucose 147 H (74-99) mg/dL POC Glucose (mg/dL) 265 H (70-110) mg/dL Calcium 7.7 L (8.4-10.2) mg/dL Assessment and Plan Assessment: Acute hypoxic respiratory failure secondary to acute community acquired pne umonia and/or lung masses. Generalized weakness, poor appetite and weight loss secondary to above. 50-year history of chronic tobacco dependence at 1 pack/day. Chronic obstructive pulmonary disease. Chronic hypoxic respiratory failure on home oxygen. Hypertension. Chronic daily alcohol use. Cachexia/anorexia syndrome. Plan: Plan dated January 13, 2025. The patient is seen today in room 362. The patient is awake and alert. Resting comfortably in bed. Family members point out that the patient is doing much better, since starting on Zosyn, and prednisone. We will continue to follow make recommendations along the way. The patient is currently on 3 L. Solu- Medrol is converted to prednisone. He continues on Zosyn and Diflucan. No attempts at left-sided thoracentesis will be made, given the results of the ultrasound. Labs, x-rays, and all medications are reviewed. Prognosis is guarded. We will continue to follow. Dictation was produced using [employer] software. Please excuse any grammatical, word or spelling errors. Time with Patient: Less than 30
[2025-01-13 14:59] VITALS: BMI 20.3
--- NOTE | 2025-01-13 15:12 | P.PN ---
Subjective Progress Note Date: 01/13/25 74 year old M with PMH chronic hypoxic respiratory failure secondary to COPD on home oxygen 2-3L, hypertension, former smoker quit 15 years ago, alcohol use disorder, who presented to the ER on 12/27/2024 for weakness, poor appetite, SOB associated with fever and chills. In the ED he underwent extensive evaluation. BP 142/79, HR 63, RR 22, T 98.1F, 90% on 4L NC. CBC, CMP significant for WBC 20.34, RBC 3.25, Hg 11.6, Hct 34, MCV 104.6, Na 132, Cl 95, Cr 0.31, Ca 7.5, AST 61, alk phos 131. Trop 0.012. Lactic acid 2.5-1.5. EKG sinus tachycardia with HR of 112. Chest CT showed marked volume loss in the left lung with mixed consolidative and cystic density left lung with air-fluid levels suggesting lung abscesses, right infrahilar band like density, mediastinal adenopathy. Pulmonary, ID and Oncology consulted. Started on Unasyn for treatment of pulmonary abscess. Initial sputum Cx growing nicole albicans. He underwent bronchoscopy with BAL on 01/04 showing purulent secretions which was sent for culture. BAL cytology negative for malignancy. BAL cultures also grew C. albicans. Worsening respiratory status on 01/10, antibiotics switched to Zosyn. 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 01/13 Patient reports improved breathing Antibiotics include Zosyn 3.75g IV TID (D4) and Diflucan 100 mg PO QD (D9). CBC and BMP significant for RBC 2.9, Hg 10.1, Hct 30.9, MCV 106.6, Na 131, Cl 90, bicarb 39, BUN 6, Cr 0.4, glu 147, Ca 7.7. Chest US marked for thoracentesis. General: non toxic, no distress, appears at stated age Derm: warm, dry Head: atraumatic, normocephalic, symmetric Eyes: EOMI, no lid lag, anicteric sclera Mouth: no lip lesion, mucus membranes moist Cardiovascular: S1S2 reg, no murmur Lungs: Coarse BS bilateral, no rhonchi, no rales , no accessory muscle use Ext: no gross muscle atrophy, no edema, no contractures, LUE swelling Neuro: no focal neuro deficits Psych: Alert, oriented, appropriate affect Based on my assessment of this patient, this patient meets a high complexity level of care. Acute on chronic hypoxic respiratory failure secondary to lung abscess versus post obstructive PNA versus malignancy: Status post bronchoscopy and BAL on 01/04. Procal 0.48. Continue Zosyn 3.75g IV TID (D4), Fluconazole 100 mg PO QD (D9). Duoneb QID PRN. Symbicort 2 INH BID. Tessalon 100 mg PO TID PRN. Mucinex 1200 mg PO BID. SoluMedrol switched to Prednisone 40 mg PO QD. Sputum and BAL Cx growing Nicole albicans. Pulmonary and ID on board. Hematuria: Resolved. UA shows 30 RBC, neg LE or nitire. Renal/bladder US no hydro. LUE swelling: Venous duplex neg DVT. Recommend LUE elevation. Status post 1 dose of Lasix IV. Hypertension: Toprol-XL 100 mg PO QD. Alcohol use disorder: CIWA protocol with Ativan PRN per protocol. Folic acid 1 mg PO QD. Thiamine 100 mg PO QD. Transaminitis likely due to EtOH abuse. Macrocytic anemia likely due to malnutrition and alcohol use disorder: B12 721, Folate 642. Iron studies show anemia of chronic disease. Resolved: Lactic acidosis. HypoK. Patient is pending clinical improvement. CODE STATUS: FULL CODE DVT Prophylaxis: Lovenox SQ GI Prophylaxis: Designated medical POA if patient is not able to make medical decisions for them selves: I have reviewed the following sharepoint consultant notes: Pulmonary. I have reviewed the results of the following tests: CBC, BMP, Chest US I have ordered the following tests: I have discussed the care of this patient with the following independent historian: Significant other. I have independently interpreted the following test below: I have discussed the management of this patient with the following physician: Objective - Vital Signs Vital signs: Vital Signs Temp 97.6 F 01/13/25 13:32 Pulse 85 01/13/25 13:32 Resp 16 01/13/25 13:32 BP 125/75 01/13/25 13:32 Pulse Ox 95 01/13/25 13:32 FiO2 28 01/10/25 21:00 Intake & Output 01/12/25 01/13/25 01/13/25 18:59 06:59 18:59 Intake Total 120 20 380 Output Total 451 252 Balance -331 20 128 Weight 68 kg 68 kg Intake: IV 20 20 20 Invasive Line 6 20 20 20 Oral 100 360 Output: Urine 450 250 Stool 1 2 Other: Voiding Method Incontinent Incontinent Incontinent External Catheter External Catheter External Catheter # Voids 1 # Bowel Movements 1 - Labs CBC & Chem 7: 01/13/25 06:36 01/13/25 06:36 Labs: Abnormal Lab Results - Last 24 Hours (Table) 01/12/25 01/13/25 01/13/25 Range/Units 21:43 06:02 06:36 RBC 2.90 L (4.40-5.60) 10*6/uL Hgb 10.1 L (13.0-17.0) g/dL Hct 30.9 L (39.6-50.0) % MCV 106.6 H (80.0-97.0) fL MCH 34.8 H (27.0-32.0) pg Immature Gran # 0.10 H (0.00-0.04) 10*3/uL Neutrophils # 8.82 H (1.80-7.70) 10*3/uL Lymphocytes # 0.37 L (0.90-5.00) 10*3/uL Monocytes # 0.14 L (0.20-1.00) 10*3/uL Eosinophils # 0.00 L (0.04-0.35) 10*3/uL Sodium (137-145) mmol/L Chloride (98-107) mmol/L Carbon Dioxide (22-30) mmol/L BUN (9-20) mg/dL Creatinine (0.66-1.25) mg/dL Glucose (74-99) mg/dL POC Glucose (mg/dL) 170 H 153 H (70-110) mg/dL Calcium (8.4-10.2) mg/dL 01/13/25 01/13/25 Range/Units 06:36 11:38 RBC (4.40-5.60) 10*6/uL Hgb (13.0-17.0) g/dL Hct (39.6-50.0) % MCV (80.0-97.0) fL MCH (27.0-32.0) pg Immature Gran # (0.00-0.04) 10*3/uL Neutrophils # (1.80-7.70) 10*3/uL Lymphocytes # (0.90-5.00) 10*3/uL Monocytes # (0.20-1.00) 10*3/uL Eosinophils # (0.04-0.35) 10*3/uL Sodium 131 L (137-145) mmol/L Chloride 90 L (98-107) mmol/L Carbon Dioxide 39 H (22-30) mmol/L BUN 6 L (9-20) mg/dL Creatinine 0.40 L (0.66-1.25) mg/dL Glucose 147 H (74-99) mg/dL POC Glucose (mg/dL) 265 H (70-110) mg/dL Calcium 7.7 L (8.4-10.2) mg/dL
[2025-01-13 16:18] LABS: Glucose,Whole Blood 211 mg/dL (70-110)
[2025-01-13 20:09] LABS: Glucose,Whole Blood 178 mg/dL (70-110)
[2025-01-13] MEDS: INSULIN LISPRO (HumaLOG) 100 UNIT/ML 10 mL VL SQ SCH (20:37)
[2025-01-14 05:34] LABS: Glucose,Whole Blood 128 mg/dL (70-110)
[2025-01-14 08:34] VITALS: TEMP 97.8
[2025-01-14] MEDS ORDERED: predniSONE 20 MG TAB PO SCH (09:00)
[2025-01-14 11:28] LABS: Glucose,Whole Blood 206 mg/dL (70-110)
--- NOTE | 2025-01-14 12:59 | P.PN ---
Subjective Progress Note Date: 01/14/25 Principal diagnosis: Pneumonia. The patient is seen today January 06, 2025 in follow-up on the regular medical floor. He is currently sitting up in bed. Awake and alert in no acute distress. Appears still quite weak and debilitated. He is maintaining O2 saturations in the 90s on 4 L/min per nasal cannula. He is status post bronchoscopy and BAL on 01/04/2025. Cultures revealed no growth. Cytology pending. Chest x-ray reveals near complete opacification of the left hemitho rax. Small right pleural effusion with patchy basilar density unchanged. He remains on Unasyn and Diflucan. Continued on Tessalon Perles. Continued on Dulera. Lovenox for DVT prophylaxis. Remains on the CIVT protocol. Received Lasix 40 mg once today. The patient is seen today January 07, 2025 in follow-up on the regular medical floor. He is awake and alert in no acute distress. Resting fairly comfortable in bed. Denies any worsening shortness of breath, cough or congestion. Maintaining O2 saturations in the 90s on 4 L/min per nasal cannula. Bronchial wash cultures revealed no growth. Cytology still pending. White count 13.7. Hemoglobin 10.2. Platelets 412. He remains on DuoNeb inhalations, Tessalon Perles as needed. Lovenox for DVT prophylaxis. Continued on Unasyn and Difluc an. He remains quite weak. Working with physical therapy. The patient is seen today January 08, 2025 in follow-up on the regular medical floor. He is currently sitting up in a chair at the bedside. Awake and alert in no acute distress. Feeling a bit better today compared to yesterday. He is maintaining O2 saturations in the 90s on 4 L/min per nasal cannula. He is continued on DuoNeb inhalations. He remains on Unasyn and Diflucan. Tessalon Perles for his cough. Continued on his home Dulera. Lovenox for DVT prophylaxis. Cytology from bronchial wash cultures are still pending. Cultures revealed no growth. White count 17.1. Hemoglobin 10.2. Platelets 426. Sodium 135. Potassium 4.1. Bicarb 39. BUN 4. Creatinine 0.3. Glucose 102. He received Diamox 250 mg IV x 1. The patient is seen today January 09, 2025 in follow-up on the regular medical floor. He is currently sitting up in bed. Awake and alert in no acute distress. Feeling a bit stronger today compared to yesterday. Less short of breath. Chest x-ray showing slight improvement. He remains on Unasyn. Remains on Diflucan. Continued on DuoNeb inhalations. Continued on his home Dulera. Lovenox for DVT prophylaxis. Bronchoalveolar lavage reveals evidence of Nicole only. Sputum revealed Nicole. White count 21.8. Hemoglobin 9.8. Platelets 347. Sodium 130. Potassium 3.7. Bicarb 35. BUN 6. Creatinine 0.29. Glucose 92. The patient is seen today January 10, 2025 in follow-up on the regular medical floor . He is currently resting in bed. Quite weak and obtunded today. Family is at the bedside. He is currently on oxygen at 4 L/min per nasal cannula with O2 saturations in the low 90s. He is afebrile. Hemodynamically stable. Recent chest x-ray continue to show near complete opacification of the left hemithorax with mediastinal shift to the left due to volume loss. Likely combination of atelectasis and pleural effusion and underlying infectious process. His bronchoscopy cytology results were negative for malignancy. White count 22.9. Hemoglobin 9.5. Platelets 391. Sodium 131. Potassium 3.9. Bicarb 30. BUN 7. Creatinine 0.3. Glucose 82. He is continued on DuoNeb inhalations. Continued on Unasyn. Continue DuoNeb and on his home Dulera. Lovenox for DVT prophylaxis. Continued on Diflucan. Patient was seen today on 01/11/2025, remains marginal at best, however he is feeling a bit better today compared to yesterday. Chest x-ray continues to show significant opacification of the left lung, and he is developing new infiltrates in the right lower lobe. Surprisingly clinically the patient feels better. WBC count today 13.2 hemoglobin is 9.1 electrolytes are abnormal with low sodium of 131 potassium low at 3.4 bicarb is 34 renal profile is normal his BAL cultures have been negative, his cytology was negative, nonetheless the patient continues to have significant airspace disease involving the left lung and to some extent the right lower lobe. Remains on Zosyn as per infectious disease on the case. Today I am considering a trial of steroids at this patient as the patient may have a cryptogenic organizing pneumonia and the prednisone will be given on a trial basis since he is not making much of any improvement over the last 1 week. Seen today on 01/12/2025, patient is about the same, no major exchange operator the last 1 week. Remains on antibiotic, today I recommended a trial of steroids/Solu- Medrol for possible cryptogenic organizing pneumonia, this will be started today. Patient clinically is feeling better, breathing easier, his daughter and his girlfriend are at bedside. Patient is being followed by infectious disease, and again his cultures have been negative cytology has been negative, and we have no specific diagnosis except the patient does have extensive airspace disease involving the left lung with abscesses like picture. Progress note dated January 13, 2025. This is a 74-year-old male seen today in room 362. The patient was admitted with a diagnosis of pneumonia. He is currently on Zosyn, Diflucan. Solu- Medrol, will be converted to prednisone. He continues on 3 L of oxygen. He is not receiving any IV fluids. Ultrasound of the left chest shows a complex loculated effusion, with poor differentiation between fluid and lung tissue. Hence, thoracentesis will not be attempted at this time. The patient appears relatively comfortable, and family members mention that since he was started on Zosyn, and prednisone, he has done much better. Progress note dated January 14, 2025. 74-year-old male seen today in room 362. He is resting comfortably in bed. His is at the bedside. He is on 3 L of nasal oxygen. He is getting IV Zosyn. He has no specific complaints today. He is feeling better. As mentioned in my note yesterday, since being on the antibiotic, and prednisone, he has been feeling much improved. Current laboratory data includes a glucose of only 206. No recent chest x-ray to speak of. The ultrasound from January 12, has been reviewed. Objective - Vital Signs Vital signs: Vital Signs Temp 97.8 F 01/14/25 08:33 Pulse 69 01/14/25 08:33 Resp 15 01/14/25 08:33 BP 138/76 01/14/25 08:33 Pulse Ox 98 01/14/25 08:33 FiO2 28 01/10/25 21:00 Intake & Output 01/13/25 01/14/25 01/14/25 18:59 06:59 18:59 Intake Total 380 10 10 Output Total 252 275 Balance 128 10 -265 Weight 68 kg Intake: IV 20 10 10 Invasive Line 6 20 10 10 Oral 360 Output: Urine 250 275 Stool 2 Other: Voiding Method Incontinent Incontinent External Catheter External Catheter # Voids 2 # Bowel Movements 1 - Exam No acute distress, oriented 3. Currently on 3 L of oxygen. Resting comfortably in bed. Awake and alert. HEENT examination is grossly unremarkable. Mucous membranes are moist. No oral lesions. Neck supple. Full range of motion. No adenopathy thyromegaly or neck vein distention. Cardiovascular examination reveals regular rhythm rate. S1-S2 normal. No S3 or S4. No discernible murmur noted. Lungs reveal mild scattered rhonchi throughout. No wheezes or crackles. Breath sounds are equal bilaterally. Abdomen soft bowel sounds are heard. No masses or tenderness. Extremities are intact. No cyanosis clubbing or edema. Skin is without rash or lesion. Neurologic examination is brief but nonfocal. - Labs CBC & Chem 7: 01/13/25 06:36 01/13/25 06:36 Labs: Abnormal Lab Results - Last 24 Hours (Table) 01/13/25 01/13/25 01/14/25 Range/Units 16:16 20:06 05:32 POC Glucose (mg/dL) 211 H 178 H 128 H (70-110) mg/dL 01/14/25 Range/Units 11:26 POC Glucose (mg/dL) 206 H (70-110) mg/dL Microbiology - Last 24 Hours (Table) 01/04/25 08:00 Acid Fast Bacilli Smear - Preliminary Bronchoalviolar Lavage - Left Acid Fast Bacilli Culture - Preliminary Assessment and Plan Assessment: Acute hypoxic respiratory failure secondary to acute community acquired pneumonia and/or lung masses. Generalized weakness, poor appetite and weight loss secondary to above. 50-year history of chronic tobacco dependence at 1 pack/day. Chronic obstructive pulmonary disease. Chronic hypoxic respiratory failure on home oxygen. Hypertension. Chronic daily alcohol use. Cachexia/anorexia syndrome. Plan: Plan dated January 13, 2025. The patient is seen today in room 362. The patient is awake and alert. Resting comfortably in bed. Family members point out that the patient is doing much better, since starting on Zosyn, and prednisone. We will continue to follow make recommendations along the way. The patient is currently on 3 L. Solu- Medrol is converted to prednisone. He continues on Zosyn and Diflucan. No attempts at left-sided thoracentesis will be made, given the results of the ultrasound. Labs, x-rays, and all medications are reviewed. Prognosis is guarded. We will continue to follow. Dictation was produced using [employer] software. Please excuse any grammatical, word or spelling errors. Plan dated January 14, 2025. The patient appears to be doing relatively well. He is resting comfortably in bed. His is at the bedside. She has a few questions, all of which I answered. The patient is receiving IV Zosyn. He continues on oxygen as mentioned. Labs, x-rays, and all medications are reviewed. We will continue to follow and make recommendations along the way. Prognosis is certainly guarded. Dictation was produced using [employer] software. Please excuse any grammatical, word or spelling errors. Time with Patient: Less than 30
--- NOTE | 2025-01-14 13:57 | P.DS ---
Providers Date of admission: 12/27/24 13:52 Expected date of discharge: 01/14/25 Attending physician: Hawa Serna MD Consults: 12/27/24 13:52 Consult Physician Routine Consulting Provider: Kristian Manzo Consult Reason/Comments: pneumonia Do you want consulting provider notified?: Yes 12/27/24 15:19 Consult Physician Routine Consulting Provider: Kristian Manzo Consult Reason/Comments: lung abscesses, mass Do you want consulting provider notified?: Yes 12/27/24 15:20 Consult Physician Routine Consulting Provider: Jess Vences Consult Reason/Comments: lung abscess Do you want consulting provider notified?: Yes 12/28/24 14:40 Consult Physician Routine Consulting Provider: Ayo Hays Consult Reason/Comments: suspicion for lung cx, weight loss Do you want consulting provider notified?: Yes Primary care physician: [facility] Course: 74 year old M with PMH chronic hypoxic respiratory failure secondary to COPD on home oxygen 2-3L, hypertension, former smoker quit 15 years ago, alcohol use disorder, who presented to the ER on 12/27/2024 for weakness, poor appetite, SOB associated with fever and chills. In the ED he underwent extensive evaluation. BP 142/79, HR 63, RR 22, T 98.1F, 90% on 4L NC. CBC, CMP significant for WBC 20.34, RBC 3.25, Hg 11.6, Hct 34, MCV 104.6, Na 132, Cl 95, Cr 0.31, Ca 7.5, AST 61, alk phos 131. Trop 0.012. Lactic acid 2.5-1.5. EKG sinus tachycardia with HR of 112. Chest CT showed marked volume loss in the left lung with mixed consolidative and cystic density left lung with air-fluid levels suggesting lung abscesses, right infrahilar band like density, mediastinal adenopathy. Pulmonary, ID and Oncology consulted. Started on Unasyn for treatment of pulmonary abscess. Initial sputum Cx growing darvin albicans. He underwent bronchoscopy with BAL on 01/04 showing purulent secretions which was sent for culture. BAL cytology negative for malignancy. BAL cultures also grew C. albicans. Worsening respiratory status on 01/10, antibiotics switched to Zosyn. 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 01/14 Patient reports improved breathing Antibiotics include Zosyn 3.75g IV TID (D5) and Diflucan 100 mg PO QD (D10). No new labs done today. Discussed with Fina STEWARD, CHERELLE for discharge to SNF today on Prednisone taper. Discharge Plan: Prednisone taper on discharge. Dr. Vences recommends 2 weeks of Zosyn. Continue Diflucan x 5 days (total 15 days). Follow up with PCP within 1-2 days of discharge. Follow up with Oncology 04/23/2025, Pulmonary/ID within 1 week of discharge. General: non toxic, no distress, appears at stated age Derm: warm, dry Head: atraumatic, normocephalic, symmetric Eyes: EOMI, no lid lag, anicteric sclera Mouth: no lip lesion, mucus membranes moist Cardiovascular: S1S2 reg, no murmur Lungs: Coarse BS bilateral, no rhonchi, no rales , no accessory muscle use Ext: no gross muscle atrophy, no edema, no contractures, LUE swelling Neuro: no focal neuro deficits Psych: Alert, oriented, appropriate affect Discharge Diagnosis: Acute on chronic hypoxic respiratory failure secondary to lung abscess versus post obstructive PNA versus malignancy Hematuria LUE swelling Hypertension Alcohol use disorder Transaminitis likely due to EtOH abuse. Macrocytic anemia likely due to malnutrition and alcohol use disorder Resolved: Lactic acidosis. HypoK. This complex discharge took 35 minutes to complete and coordinate. Patient Condition at Discharge: Stable Plan - Discharge Summary Discharge Rx Participant: Yes New Discharge Prescriptions: New Fluconazole [Diflucan] 100 mg PO DAILY 5 Days tab Ipratropium-Albuterol Nebulize [Duoneb 0.5 mg-3 mg/3 ml Soln] 3 ml INHALATION RT-QID PRN each PRN Reason: Shortness Of Breath Melatonin 5 mg PO HS PRN tab PRN Reason: Insomnia Piperacillin-Tazobactam [Zosyn] 3.375 gm IVPB Q8HR 14 Days each Folic Acid 1 mg PO DAILY tab guaiFENesin [Mucinex] 1,200 mg PO Q12HR tab predniSONE See Taper PO DIRECTED #30 tab Pantoprazole [Protonix] 40 mg PO DAILY #30 tab Benzonatate [Tessalon Perles] 100 mg PO TID PRN cap PRN Reason: Cough Acetaminophen Tab [Tylenol] 650 mg PO Q6HR PRN tab PRN Reason: Mild Pain Or Fever > 100.5 Thiamine [Vitamin B-1] 100 mg PO DAILY tab Continue Metoprolol Succinate (ER) [Toprol XL] 100 mg PO DAILY Mometasone/Formoterol [Dulera 100 Mcg-5 Mcg Inhaler] 2 puff INHALATION RT-BID Changed Ensure 1 can PO AC-TID #0 Discontinued Zzzquil Diphenhydramine Hcl 50mg/30ml 30 ml PO HS Discharge Medication List Metoprolol Succinate (ER) [Toprol XL] 100 mg PO DAILY 12/27/24 [History] Mometasone/Formoterol [Dulera 100 Mcg-5 Mcg Inhaler] 2 puff INHALATION RT-BID 12/27/24 [History] Acetaminophen Tab [Tylenol] 650 mg PO Q6HR PRN tab 01/14/25 [Rx] Benzonatate [Tessalon Perles] 100 mg PO TID PRN cap 01/14/25 [Rx] Ensure 1 can PO AC-TID #0 01/14/25 [Rx] Fluconazole [Diflucan] 100 mg PO DAILY 5 Days tab 01/14/25 [Rx] Folic Acid 1 mg PO DAILY tab 01/14/25 [Rx] Ipratropium-Albuterol Nebulize [Duoneb 0.5 mg-3 mg/3 ml Soln] 3 ml INHALATION RT-QID PRN each 01/14/25 [Rx] Melatonin 5 mg PO HS PRN tab 01/14/25 [Rx] Pantoprazole [Protonix] 40 mg PO DAILY #30 tab 01/14/25 [Rx] Piperacillin-Tazobactam [Zosyn] 3.375 gm IVPB Q8HR 14 Days each 01/14/25 [Rx] Thiamine [Vitamin B-1] 100 mg PO DAILY tab 01/14/25 [Rx] guaiFENesin [Mucinex] 1,200 mg PO Q12HR tab 01/14/25 [Rx] predniSONE See Taper PO DIRECTED #30 tab 01/14/25 [Rx] Follow up Appointment(s)/Referral(s): Magalys Finch MD [STAFF PHYSICIAN] - 04/23/25 11:00 am Kristian Manzo DO [Doctor of Osteopathic Medicine] - 1 Week [facility], [NON-STAFF] - As [address] Garcia DO [Primary Care Provider] - 1-2 days Jess Vences MD [STAFF PHYSICIAN] - 1 Week Activity/Diet/Wound Care/Special Instructions: Zosyn for 2 weeks. Prednisone 40 mg PO QD x 3 days, 30 mg PO QD x 3 days, 20 mg PO QD x 3 days, 10 mg PO QD x 3 days. Discharge Disposition: TRANSFER TO SNF/ECF
[2025-01-14 14:54] VITALS: BP 154/77; PULSE 90; RESP 16
--- NOTE | 2025-01-14 16:23 | P.PN ---
Subjective Progress Note Date: 01/13/25 Principal diagnosis: Reason for follow-up is pneumonia/abscess Patient is a 74-year-old male with a past medical history significant for COPD hypertension alcohol abuse and and [id number] smoking has been brought to the hospital concerning for increasing weakness decreased appetite and shortness of breath patient did have significant normality on the CT of the chest concerning for volume loss consolidative opacity and possible abscess. On today's evaluation that is 01/13/2025, patient has been afebrile, patient is breathing comfortably and is currently on 3 L nasal oxygen, patient denies having any chest pain and cough has decreased in intensity, patient denies nausea vomiting or diarrhea and no abdominal pain Patient white count is normalized to 9.44 creatinine 0.40 Objective - Vital Signs Vital signs: Vital Signs Temp 97.7 F 01/13/25 10:18 Pulse 87 01/13/25 10:18 Resp 18 01/13/25 10:18 BP 112/64 01/13/25 10:18 Pulse Ox 98 01/13/25 10:18 FiO2 28 01/10/25 21:00 Intake & Output 01/12/25 01/13/25 01/13/25 18:59 06:59 18:59 Intake Total 120 20 250 Output Total 451 1 Balance -331 20 249 Weight 68 kg Intake: IV 20 20 10 Invasive Line 6 20 20 10 Oral 100 240 Output: Urine 450 Stool 1 1 Other: Voiding Method Incontinent Incontinent Incontinent External Catheter External Catheter External Catheter # Voids 1 # Bowel Movements 1 - Exam GENERAL DESCRIPTION: An elderly male lying in bed in no distress RESPIRATORY SYSTEM: Unlabored breathing , decreased breath sounds at bases HEART: S1 S2 regular rate and rhythm , ABDOMEN: Soft , no tenderness EXTREMITIES: No edema feet - Labs CBC & Chem 7: 01/13/25 06:36 01/13/25 06:36 Labs: Abnormal Lab Results - Last 24 Hours (Table) 01/12/25 01/13/25 01/13/25 Range/Units 21:43 06:02 06:36 RBC 2.90 L (4.40-5.60) 10*6/uL Hgb 10.1 L (13.0-17.0) g/dL Hct 30.9 L (39.6-50.0) % MCV 106.6 H (80.0-97.0) fL MCH 34.8 H (27.0-32.0) pg Immature Gran # 0.10 H (0.00-0.04) 10*3/uL Neutrophils # 8.82 H (1.80-7.70) 10*3/uL Lymphocytes # 0.37 L (0.90-5.00) 10*3/uL Monocytes # 0.14 L (0.20-1.00) 10*3/uL Eosinophils # 0.00 L (0.04-0.35) 10*3/uL Sodium (137-145) mmol/L Chloride (98-107) mmol/L Carbon Dioxide (22-30) mmol/L BUN (9-20) mg/dL Creatinine (0.66-1.25) mg/dL Glucose (74-99) mg/dL POC Glucose (mg/dL) 170 H 153 H (70-110) mg/dL Calcium (8.4-10.2) mg/dL 01/13/25 01/13/25 Range/Units 06:36 11:38 RBC (4.40-5.60) 10*6/uL Hgb (13.0-17.0) g/dL Hct (39.6-50.0) % MCV (80.0-97.0) fL MCH (27.0-32.0) pg Immature Gran # (0.00-0.04) 10*3/uL Neutrophils # (1.80-7.70) 10*3/uL Lymphocytes # (0.90-5.00) 10*3/uL Monocytes # (0.20-1.00) 10*3/uL Eosinophils # (0.04-0.35) 10*3/uL Sodium 131 L (137-145) mmol/L Chloride 90 L (98-107) mmol/L Carbon Dioxide 39 H (22-30) mmol/L BUN 6 L (9-20) mg/dL Creatinine 0.40 L (0.66-1.25) mg/dL Glucose 147 H (74-99) mg/dL POC Glucose (mg/dL) 265 H (70-110) mg/dL Calcium 7.7 L (8.4-10.2) mg/dL Assessment and Plan (1) Sepsis Status: Acute Code(s): A41.9 - SEPSIS, UNSPECIFIED ORGANISM SNOMED Code(s): 29295520 (2) Lung abscess Status: Acute Code(s): J85.2 - ABSCESS OF LUNG WITHOUT PNEUMONIA SNOMED Code(s): 02330121 (3) Pneumonia Status: Acute Code(s): J18.9 - PNEUMONIA, UNSPECIFIED ORGANISM SNOMED Code(s): 478183636 Plan: 1patient presented to the hospital with sepsis in this patient who did have tachycardia elevated white count elevated lactic acid meeting criteria for SIRS/sepsis source is likely either postobstructive pneumonia/lung abscess in this patient who did have significant history of smoking and concern for possible malignancy with secondary postobstructive pneumonia and abscess and will need to cover for the polymicrobial pablo associated with such infection 2patient will benefit from bronchoscopy lavage and deep culture, pulmonary is following the patient and bronchoscopy has been rescheduled for tomorrow could not be completed today because of OR schedule 3patient is afebrile, blood culture have been negative sputum is growing Nicole more likely colonizer. 4patient status post bronchoscopy those cultures also grew Nicole 5patient did have some improvement in his respiratory status requiring less supplemental oxygen still have a large effusion on the chest x-ray may benefit from thoracocentesis, pulmonary is following the patient 6the patient is afebrile and the patient white count has normalized patient to be treated with Zosyn and monitor clinical course closely daughter at the bedside question answered Dictation was produced using [employer] dictation software. please excuse any grammatical, word or spelling errors. Time with Patient: Less than 30
--- NOTE | 2025-01-14 16:25 | P.PN ---
Subjective Progress Note Date: 01/14/25 Principal diagnosis: Reason for follow-up is pneumonia/abscess Patient is a 74-year-old male with a past medical history significant for COPD hypertension alcohol abuse and and [id number] smoking has been brought to the hospital concerning for increasing weakness decreased appetite and shortness of breath patient did have significant normality on the CT of the chest concerning for volume loss consolidative opacity and possible abscess. On today's evaluation that is 01/14/2025, Patient is afebrile this morning patient denies having any chest pain shortness of breath and cough has decreased in intensity, the patient is currently on room air, patient denies any abdominal pain no diarrhea no nausea no vomiting. No new lab work obtained today Objective - Vital Signs Vital signs: Vital Signs Temp 97.8 F 01/14/25 08:33 Pulse 90 01/14/25 14:00 Resp 16 01/14/25 14:00 BP 154/77 01/14/25 14:00 Pulse Ox 98 01/14/25 14:00 FiO2 28 01/10/25 21:00 Intake & Output 01/13/25 01/14/25 01/14/25 18:59 06:59 18:59 Intake Total 380 10 10 Output Total 252 426 Balance 128 10 -416 Weight 68 kg Intake: IV 20 10 10 Invasive Line 6 20 10 10 Oral 360 Output: Urine 250 425 Stool 2 1 Other: Voiding Method Incontinent Incontinent Incontinent External Catheter External Catheter External Catheter # Voids 2 # Bowel Movements 1 - Exam GENERAL DESCRIPTION: An elderly male lying in bed in no distress RESPIRATORY SYSTEM: Unlabored breathing , decreased breath sounds at bases HEART: S1 S2 regular rate and rhythm , ABDOMEN: Soft , no tenderness EXTREMITIES: No edema feet - Labs CBC & Chem 7: 01/13/25 06:36 01/13/25 06:36 Labs: Abnormal Lab Results - Last 24 Hours (Table) 01/13/25 01/14/25 01/14/25 Range/Units 20:06 05:32 11:26 POC Glucose (mg/dL) 178 H 128 H 206 H (70-110) mg/dL Microbiology - Last 24 Hours (Table) 01/04/25 08:00 Acid Fast Bacilli Smear - Preliminary Bronchoalviolar Lavage - Left Acid Fast Bacilli Culture - Preliminary Assessment and Plan (1) Sepsis Status: Acute Code(s): A41.9 - SEPSIS, UNSPECIFIED ORGANISM SNOMED Code(s): 81694695 (2) Lung abscess Status: Acute Code(s): J85.2 - ABSCESS OF LUNG WITHOUT PNEUMONIA SNOMED Code(s): 36377944 (3) Pneumonia Status: Acute Code(s): J18.9 - PNEUMONIA, UNSPECIFIED ORGANISM SNOMED Code(s): 118728777 Plan: 1patient presented to the hospital with sepsis in this patient who did have tachycardia elevated white count elevated lactic acid meeting criteria for SIRS/sepsis source is likely either postobstructive pneumonia/lung abscess in this patient who did have significant history of smoking and concern for possible malignancy with secondary postobstructive pneumonia and abscess and will need to cover for the polymicrobial pablo associated with such infection 2patient will benefit from bronchoscopy lavage and deep culture, pulmonary is following the patient and bronchoscopy has been rescheduled for tomorrow could not be completed today because of OR schedule 3patient is afebrile, blood culture have been negative sputum is growing Shawna da more likely colonizer. 4patient status post bronchoscopy those cultures also grew Nicole 5patient did have some improvement in his respiratory status requiring less supplemental oxygen still have a large effusion on the chest x-ray may benefit from thoracocentesis, pulmonary is following the patient 6the patient is afebrile and the patient white count has normalized as of yesterday no CBC was done today there is no plan for any thoracocentesis or pulmonary intervention as reported by the admitting physician we will recommend to continue the patient on Zosyn to finish at least 2-week course of therapy because of his complicated course in the close outpatient follow-up daughter at the bedside question answered Dictation was produced using [employer] dictation software. please excuse any grammatical, word or spelling errors. Time with Patient: Less than 30
--- NOTE | 2025-01-17 07:02 | CDI ---
Documentation Clarification Form Date: 01/17/2025 06:39:30 AM From: Doris Marcano Admit Date: 12/27/2024 01:52:00 PM Patient Name: Guanaco Knowles Visit Number: [id number] Discharge Date: 01/14/2025 03:54:00 PM ATTENTION: The Clinical Documentation Specialists (CDI) and [facility] Coding Staff appreciate your assistance in clarifying documentation. Please respond to the clarification below the line at the bottom and electronically sign. The CDI & [facility] Coding staff will review the response and follow-up if needed. Please note: Queries are made part of the Legal Health Record. If you have any questions, please contact the author of this message via ITS. Doctor/Provider: Hawa Serna Sepsis is documented Per ID consult and ID Progress Notes throughout chart. Based on this information and the findings below, is there an additional diagnosis that is clinically appropriate for this patient? History/Risk Factors: Lung abscess/pneumonia/ possible malignancy, enlarged lymph notes, respiratory failure, COPD emphysema, Clinical Indicators: WBC 20.34 Lactic acid: 2.5 Blood cultures: No growth Vitals signs: 98.1 F, 107 bpm, 22, 142/79, 90% 4 NC Treatment: IV amtibiotics, BAL ID Consult: Sepsis Antibiotics: Vancomycin, Unasyn, Zithromax, Rocephin, Zosyn and Diflucan Is there an additional diagnosis that is clinically appropriate for this patient? [ x] Sepsis, present on admission [ ] Sepsis, developed during stay, not present on admission [ ] Severe Sepsis with organ failure [ ] Sepsis ruled out [ ] No additional diagnosis/not clinically significant [ ] Other, please specify [ ] Unable to determine SIRS Criteria: 2 or more of the following may indicate SIRS Temperature < 96.8F (36C) or > 101.0F (38.3C) Heart Rate > 90 bpm Respiratory Rate > 20 breaths/min or PaCO2 < 32 mmHg White Blood Cell Count > 12,000 or < 4,000 cells/mm3 or > 10% bands MTDD
== END 2025-01-14 15:54 | DRG 871 ==
LOC: EC 10:45 → 4SSUR 13:52 → 3SCARD 01-10 15:37
PROVIDERS: ADMIT Student in an Organized Health Care Education/Training Program; ATTEND Student in an Organized Health Care Education/Training Program
PROC: 0BJ08ZZ Inspection of Tracheobronchial Tree, Via Natural or Artificial Opening Endoscopic (ICD-10-PCS; principal; 2025-01-04 07:30)
PROC: 0B9H8ZX Drainage of Lung Lingula, Via Natural or Artificial Opening Endoscopic, Diagnostic (ICD-10-PCS; principal; 2025-01-04 07:30)
PROC: 05H933Z Insertion of Infusion Device into Right Brachial Vein, Percutaneous Approach (ICD-10-PCS; 2025-01-06 16:00)
DX: A41.9 Sepsis, unspecified organism (principal); J85.1 Abscess of lung with pneumonia; J96.21 Acute and chronic respiratory failure with hypoxia; R64 Cachexia; J90 Pleural effusion, not elsewhere classified; E46 Unspecified protein-calorie malnutrition; E87.3 Alkalosis; D63.8 Anemia in other chronic diseases classified elsewhere; C34.92 Malignant neoplasm of unspecified part of left bronchus or lung; J43.9 Emphysema, unspecified; F10.10 Alcohol abuse, uncomplicated; I10 Essential (primary) hypertension; J44.0 Chronic obstructive pulmonary disease with (acute) lower respiratory infection; E87.1 Hypo-osmolality and hyponatremia; J98.11 Atelectasis; E86.0 Dehydration; R74.01 Elevation of levels of liver transaminase levels; R59.0 Localized enlarged lymph nodes; D53.9 Nutritional anemia, unspecified; E87.6 Hypokalemia; Z87.891 Personal history of nicotine dependence; Z79.51 Long term (current) use of inhaled steroids; Z79.899 Other long term (current) drug therapy; Z99.81 Dependence on supplemental oxygen; Z11.52 Encounter for screening for COVID-19
CPT/HCPCS: 31624; 36410; 36415; 71045; 71046; 71260; 76604; 76770; 76937; 80048; 80053; 81001; 81003; 82607; 82728; 82746; 82747; 82784; 82803; 83010; 83540; 83550; 83605; 83615; 83735; 83883; 84132; 84145; 84165; 84295; 84443; 84484; 85025; 85027; 85045; 86334; 87040; 87070; 87075; 87102; 87116; 87205; 87206; 87449; 87496; 87498; 87502; 87529; 87634; 87635; 87636; 87798; 88108; 88305; 93005; 94640; 94660; 94760; 96361; 96365; 96366; 96367; 96368; 96375; 99285